=== PATIENT | female | born 1960 | race Caucasian/White ===

== ENCOUNTER 2017-06-13 13:49 | Inpatient (IN) | payer BC, MEDICARE ==
[2017-06-13] MEDS ORDERED: KETOROLAC 30 MG/ML 1 ML VIAL IVP STA (14:22)
[2017-06-13] MEDS ORDERED: SODIUM CHLORIDE 0.9% 500 ML IV STA (14:22)
[2017-06-13] MEDS ORDERED: fentaNYL (PF) 50 MCG/ML 2 ML AMP IV STA (14:22)
[2017-06-13] MEDS ORDERED: ONDANSETRON 4 MG/2 ML VIAL IVP STA (14:22)
--- NOTE | 2017-06-13 14:29 | ED ---
Headache HPI - General Chief Complaint: Headache Stated Complaint: migraine Time Seen by Provider: 06/13/17 14:15 Source: patient, family, RN notes reviewed Mode of arrival: wheelchair Limitations: no limitations - History of Present Illness Initial Comments: This is a 57-year-old female with a history of poor dentition who had the onset this morning of left-sided headache she states is very severe behind her left eye and facial region she has a fevers chills or sweats she did vomit twice she went to a dental clinic and was told to come here for further evaluation she was given a prescription for amoxicillin. At this time she is a poor historian and most of the questions are answered by her . No focal deficits was rechecked upper or lower extremities no visual disturbances. The patient does deny any history of migraine headaches. MD Complaint: headache, other - Related Data Home Medications Medication Instructions Recorded Confirmed Atorvastatin [Lipitor] 40 mg PO HS 06/13/17 06/13/17 Budesonide/Formoterol Fumarate 2 puff INHALATION RT-BID 06/13/17 06/13/17 [Symbicort 160-4.5 Mcg Inhaler] Clopidogrel [Plavix] 75 mg PO DAILY 06/13/17 06/13/17 DULoxetine HCL [Cymbalta] 60 mg PO DAILY 06/13/17 06/13/17 Fluticasone/Vilanterol [Breo 1 puff INHALATION RT-DAILY 06/13/17 06/13/17 Ellipta 100-25 Mcg Inhaler] Furosemide [Lasix] 20 mg PO DAILY 06/13/17 06/13/17 Losartan Potassium 100 mg PO DAILY 06/13/17 06/13/17 Meloxicam 15 mg PO DAILY 06/13/17 06/13/17 Potassium Chloride ER [K-Dur 10] 10 meq PO DAILY 06/13/17 06/13/17 Previous Rx's Medication Instructions Recorded Hydrocodone/Acetaminophen [[place] 1 each PO Q6HR PRN #12 tab 06/13/17 5-325] Ibuprofen 800 mg PO Q6HR PRN #20 tablet 06/13/17 Allergies Allergy/AdvReac Type Severity Reaction Status Date / Time No Known Allergies Allergy Verified 06/13/17 14:19 Review of Systems ROS Statement: Those systems with pertinent positive or pertinent negative responses have been documented in the HPI. ROS Other: All systems not noted in ROS Statement are negative. Past Medical History Past Medical History: Coronary Artery Disease (CAD), COPD, Hyperlipidemia History of Any Multi-Drug Resistant Organisms: None Reported Past Surgical History: Heart Catheterization With Stent Past Psychological History: No Psychological Hx Reported Smoking Status: Current every day smoker Past Alcohol Use History: None Reported Past Drug Use History: None Reported General Exam - General Exam Comments Initial Comments: Is a well-developed well-nourished awake alert oriented 3 female Limitations: no limitations General appearance: alert, anxious, in distress Head exam: Present: atraumatic, normocephalic, normal inspection Eye exam: Present: normal appearance, PERRL, EOMI. Absent: scleral icterus, conjunctival injection, periorbital swelling ENT exam: Present: mucous membranes moist, TM's normal bilaterally, other (Poor dental condition with numerous caries especially in the left upper molars. There is tenderness palpation of this area no discrete abscess.) Neck exam: Present: normal inspection. Absent: tenderness, meningismus, lymphadenopathy Respiratory exam: Present: normal lung sounds bilaterally. Absent: respiratory distress, wheezes, rales, rhonchi, stridor Cardiovascular Exam: Present: regular rate, normal rhythm, normal heart sounds. Absent: systolic murmur, diastolic murmur, rubs, gallop, clicks GI/Abdominal exam: Present: soft, normal bowel sounds, other (Obese abdomen). Absent: distended, tenderness, guarding, rebound, rigid Extremities exam: Present: normal inspection, full ROM, normal capillary refill. Absent: tenderness, pedal edema, joint swelling, calf tenderness Back exam: Present: normal inspection Neurological exam: Present: alert, oriented X3, CN II-XII intact Psychiatric exam: Present: normal affect, normal mood Skin exam: Present: warm, dry, intact, normal color. Absent: rash Course Vital Signs 06/13/17 13:51 Temperature 98.2 F Pulse Rate 82 Respiratory 20 Rate Blood Pressure 262/125 O2 Sat by Pulse 97 Oximetry - Reevaluation(s) Reevaluation #1: 06/13/17 16:17 Patient did get some relief from her pain with the medication was rendered. Medical Decision Making - Medical Decision Making I did have a long discussion with patient regarding the findings patient's presentation consistent with dental caries and dental pain she was getting some relief from the medication she has a prescription already for antibiotics he'll get her gram of Rocephin prior to discharge she will be discharged on appropriate medication she is encouraged to follow-up with dentist and return when necessary - Lab Data Result diagrams: 06/13/17 14:50 06/13/17 14:50 Lab Results 06/13/17 06/13/17 Range/Units 14:50 14:50 WBC 13.8 H (3.8-10.6) k/uL RBC 6.34 H (3.80-5.40) m/uL Hgb 17.6 H (11.4-16.0) gm/dL Hct 52.0 H (34.0-46.0) % MCV 82.0 (80.0-100.0) fL MCH 27.8 (25.0-35.0) pg MCHC 33.9 (31.0-37.0) g/dL RDW 15.7 H (11.5-15.5) % Plt Count 221 (150-450) k/uL Neutrophils % 85 % Lymphocytes % 10 % Monocytes % 4 % Eosinophils % 1 % Basophils % 0 % Neutrophils # 11.7 H (1.3-7.7) k/uL Lymphocytes # 1.3 (1.0-4.8) k/uL Monocytes # 0.5 (0-1.0) k/uL Eosinophils # 0.1 (0-0.7) k/uL Basophils # 0.0 (0-0.2) k/uL Sodium 140 (137-145) mmol/L Potassium 4.2 (3.5-5.1) mmol/L Chloride 101 (98-107) mmol/L Carbon Dioxide 26 (22-30) mmol/L Anion Gap 13 mmol/L BUN 15 (7-17) mg/dL Creatinine 0.40 L (0.52-1.04) mg/dL Est GFR (CKD-EPI)AfAm >90 (>60 ml/min/1.73 sqM) Est GFR (CKD-EPI)NonAf >90 (>60 ml/min/1.73 sqM) Glucose 120 H (74-99) mg/dL Calcium 9.4 (8.4-10.2) mg/dL Magnesium 1.4 L (1.6-2.3) mg/dL Total Bilirubin 0.7 (0.2-1.3) mg/dL AST 18 (14-36) U/L ALT 25 (9-52) U/L Alkaline Phosphatase 85 (38-126) U/L Total Protein 6.5 (6.3-8.2) g/dL Albumin 3.5 (3.5-5.0) g/dL Disposition Clinical Impression: Pain due to dental caries, Hypomagnesemia syndrome, Headache Disposition: HOME SELF-CARE Condition: Good Instructions: Acute Headache (ED), Toothache (ED) Additional Instructions: Continue with a prescription given by the dental clinic Prescriptions: Hydrocodone/Acetaminophen [[place] 5-325] 1 each PO Q6HR PRN #12 tab PRN Reason: Pain Ibuprofen 800 mg PO Q6HR PRN #20 tablet PRN Reason: Pain Referrals: Nonstaff,Physician [Primary Care Provider] - 1-2 days
[2017-06-13] MEDS ORDERED: METOCLOPRAMIDE 5 MG/ML 2 ML VIAL IVP STA (14:58)
[2017-06-13 15:05] LABS: Basophils % (A) 0 %; Eosinophils # (A) 0.1 k/uL (0-0.7); Eosinophils % (A) 1 %; HGB 17.6 gm/dL (11.4-16.0); Lymphocytes # (A) 1.3 k/uL (1.0-4.8); Lymphocytes % (A) 10 %; MCH 27.8 pg (25.0-35.0); MCHC 33.9 g/dL (31.0-37.0); Mean Platelet Volume 7.5; Monocytes # (A) 0.5 k/uL (0-1.0); Monocytes % (A) 4 %; Neutrophils # (A) 11.7 k/uL (1.3-7.7); Neutrophils % (A) 85 %; Platelet Count 221 k/uL (150-450); RBC 6.34 m/uL (3.80-5.40); RDW 15.7 % (11.5-15.5); WBC 13.8 k/uL (3.8-10.6)
[2017-06-13 15:12] LABS: ALT 25 U/L (9-52); AST 18 U/L (14-36); Albumin 3.5 g/dL (3.5-5.0); Alkaline Phosphatase 85 U/L (38-126); Anion Gap 13 mmol/L; Blood Urea Nitrogen 15 mg/dL (7-17); Calcium 9.4 mg/dL (8.4-10.2); Carbon Dioxide 26 mmol/L (22-30); Chloride 101 mmol/L (98-107); Glucose 120 mg/dL (74-99); Magnesium 1.4 mg/dL (1.6-2.3); Potassium 4.2 mmol/L (3.5-5.1); Sodium 140 mmol/L (137-145); Total Bilirubin 0.7 mg/dL (0.2-1.3); Total Protein 6.5 g/dL (6.3-8.2)
[2017-06-13] MEDS ORDERED: cefTRIAXone IN SWFI 1,000 MG/10 ML SYRINGE IVP STA (15:39)
[2017-06-13] MEDS ORDERED: MAGNESIUM SULFATE-D5W PMX 1 GM in DEXTROSE/WATER 1 100ML.BAG IVPB ONE (15:39)
[2017-06-13] MEDS ORDERED: hydrALAZINE HCL 20 MG/ML 1 ML VIAL IVP STA (16:25)
--- NOTE | 2017-06-13 16:43 | ED ---
Medical Decision Making - Medical Decision Making Patient did demonstrate elevation of her blood pressure in spite of her losartan that she takes. She was given hydralazine she'll be referred back to her doctor for evaluation the plan is to get her blood pressure down to reasonable limits prior to discharge is believed that some of the blood pressure elevation is due to the patient's initial complaint of pain IV magnesium and fluids are progress. - Lab Data Result diagrams: 06/13/17 14:50 06/13/17 14:50 Lab Results 06/13/17 06/13/17 Range/Units 14:50 14:50 WBC 13.8 H (3.8-10.6) k/uL RBC 6.34 H (3.80-5.40) m/uL Hgb 17.6 H (11.4-16.0) gm/dL Hct 52.0 H (34.0-46.0) % MCV 82.0 (80.0-100.0) fL MCH 27.8 (25.0-35.0) pg MCHC 33.9 (31.0-37.0) g/dL RDW 15.7 H (11.5-15.5) % Plt Count 221 (150-450) k/uL Neutrophils % 85 % Lymphocytes % 10 % Monocytes % 4 % Eosinophils % 1 % Basophils % 0 % Neutrophils # 11.7 H (1.3-7.7) k/uL Lymphocytes # 1.3 (1.0-4.8) k/uL Monocytes # 0.5 (0-1.0) k/uL Eosinophils # 0.1 (0-0.7) k/uL Basophils # 0.0 (0-0.2) k/uL Sodium 140 (137-145) mmol/L Potassium 4.2 (3.5-5.1) mmol/L Chloride 101 (98-107) mmol/L Carbon Dioxide 26 (22-30) mmol/L Anion Gap 13 mmol/L BUN 15 (7-17) mg/dL Creatinine 0.40 L (0.52-1.04) mg/dL Est GFR (CKD-EPI)AfAm >90 (>60 ml/min/1.73 sqM) Est GFR (CKD-EPI)NonAf >90 (>60 ml/min/1.73 sqM) Glucose 120 H (74-99) mg/dL Calcium 9.4 (8.4-10.2) mg/dL Magnesium 1.4 L (1.6-2.3) mg/dL Total Bilirubin 0.7 (0.2-1.3) mg/dL AST 18 (14-36) U/L ALT 25 (9-52) U/L Alkaline Phosphatase 85 (38-126) U/L Total Protein 6.5 (6.3-8.2) g/dL Albumin 3.5 (3.5-5.0) g/dL Disposition Clinical Impression: Pain due to dental caries, Hypomagnesemia syndrome, Headache, Poorly- controlled hypertension Disposition: HOME SELF-CARE Condition: Good Instructions: Acute Headache (ED), Toothache (ED) Additional Instructions: Continue with a prescription given by the dental clinic Prescriptions: Hydrocodone/Acetaminophen [[place] 5-325] 1 each PO Q6HR PRN #12 tab PRN Reason: Pain Ibuprofen 800 mg PO Q6HR PRN #20 tablet PRN Reason: Pain Referrals: Nonstaff,Physician [Primary Care Provider] - 1-2 days
[2017-06-13] MEDS ORDERED: MORPHINE SULFATE 4MG/4ML SYRG IVP STA (17:57)
--- NOTE | 2017-06-13 18:37 | CT ---
EXAMINATION TYPE: CT brain wo con DATE OF EXAM: 06/13/2017 COMPARISON: NONE HISTORY: Headache for 3-[address] DLP: 995.5 mGycm Automated exposure control for dose reduction was used. FINDINGS: Ventricles and sulci appear normal. There is no mass effect nor midline shift. There is no sign of in tracranial hemorrhage. The calvarium is intact. There is mild thickening of the wall of the right max illary sinus. IMPRESSION: NEGATIVE CT SCAN OF THE BRAIN. MILD THICKENING OF THE RIGHT MAXILLARY SINUS JONES CONSISTENT WITH CHR ONIC SINUSITIS.
[2017-06-13] MEDS ORDERED: NALOXONE 0.4 MG/ML 1 ML VIAL IV PRN (19:00)
[2017-06-13] MEDS ORDERED: ASPIRIN 81 MG PO STA (19:57)
[2017-06-13] MEDS ORDERED: cloNIDine HCL 0.2 MG TAB PO STA (20:02)
[2017-06-13] MEDS ORDERED: METOPROLOL TARTRATE 25 MG TAB PO SCH (20:30)
[2017-06-13] MEDS: AMOXICILLIN 500 MG CAP PO SCH (20:39)
[2017-06-13] MEDS: ATORVASTATIN 40 MG TAB PO SCH (20:39)
--- NOTE | 2017-06-13 20:47 | XR ---
EXAMINATION TYPE: XR chest 2V DATE OF EXAM: 06/13/2017 COMPARISON: 08/31/2009 HISTORY: Nausea and short of breath TECHNIQUE: Frontal and lateral views of the chest are obtained. FINDINGS: Heart appears enlarged. There is some pulmonary vascular congestion. There is slight blunt ing of costophrenic angles. Bony thorax is intact. IMPRESSION: There is congestive heart failure and small pleural effusions that is new compared to [facility] st exam.
[2017-06-13 20:53] LABS: Glucose,Whole Blood 104 mg/dL (75-99)
[2017-06-13] MEDS: SYMBICORT 160-4.5 MCG INHALER INHALATION SCH (21:02)
--- NOTE | 2017-06-13 21:30 | P.HPIM ---
History of Present Illness H&P Date: 06/13/17 Chief Complaint: Severe headache and confusion The patient is a 57-year-old morbidly obese female with a past with a history of COPD, dyslipidemia, essential hypertension that presents to the ER via EMS with her after waking up earlier today with a severe frontal headache 10 out of 10, that history is limited as the patient is confused and disoriented hence history is obtained from medical records and from her was present. Apparently the patient thought that her tooth was causing her pain and presented to the dentist where she was diagnosed with an oral infection and started on amoxicillin. Since around 12 PM the patient has been pretty disoriented and confused, not answering questions appropriately, unable to recall the names of her children, not oriented to place. The patient has a history of COPD and reports ongoing exertional dyspnea. She denies any cough, subjective fevers chills or night sweats. The patient's family thought that the patient was having a migraine however there is no prior history of migraines. Patient's denied any focal weakness or facial droop or slurred speech, the patient did have difficulty finding the right words and her answers to questions. Also complained of blurry vision today In the ER the patient was noted to be severely hypertensive presenting with a blood pressure of 265/125 she was given IV hydralazine, IV Reglan/ Toradol, morphine and Zofran. CT of the head was negative except for suggestion of chronic sinusitis. The patient was recommended for admission for ongoing confusion and concern for her elevated blood pressures. Aside: Shortly after her arrival to the floor and was notified of mental status change and concern for seizure, on my arrival patient was similar to my previous examination, nurse described was sounded like a dystonic reaction versus focal seizure Review of Systems All other 14 point review systems negative except per HPI Past Medical History Past Medical History: Coronary Artery Disease (CAD), COPD, Hyperlipidemia, Hypertension, Osteoarthritis (OA) Additional Past Medical History / Comment(s): at time of admission pt poor historian info from spouse/son and [facility] 2009. poor dentation, osbesity,uterine fibroids (spouse not sure if she had a hysterectomy or not),back pain History of Any Multi-Drug Resistant Organisms: None Reported Past Surgical History: Adenoidectomy, Section, Heart Catheterization With Stent, Tonsillectomy Additional Past Surgical History / Comment(s): x 4 Past Anesthesia/Blood Transfusion Reactions: No Reported Reaction Date of Last Stent Placement:: unk Smoking Status: Current every day smoker Medications and Allergies Home Medications Medication Instructions Recorded Confirmed Type Atorvastatin [Lipitor] 40 mg PO HS 06/13/17 06/13/17 History Budesonide/Formoterol Fumarate 2 puff INHALATION RT-BID 06/13/17 06/13/17 History [Symbicort 160-4.5 Mcg Inhaler] Clopidogrel [Plavix] 75 mg PO DAILY 06/13/17 06/13/17 History DULoxetine HCL [Cymbalta] 60 mg PO DAILY 06/13/17 06/13/17 History Fluticasone/Vilanterol [Breo 1 puff INHALATION RT-DAILY 06/13/17 06/13/17 History Ellipta 100-25 Mcg Inhaler] Furosemide [Lasix] 20 mg PO DAILY 06/13/17 06/13/17 History Hydrocodone/Acetaminophen [[place] 1 each PO Q6HR PRN #12 tab 06/13/17 Rx 5-325] Ibuprofen 800 mg PO Q6HR PRN #20 tablet 06/13/17 Rx Losartan Potassium 100 mg PO DAILY 06/13/17 06/13/17 History Meloxicam 15 mg PO DAILY 06/13/17 06/13/17 History Potassium Chloride ER [K-Dur 10] 10 meq PO DAILY 06/13/17 06/13/17 History Allergies Allergy/AdvReac Type Severity Reaction Status Date / Time No Known Allergies Allergy Verified 06/13/17 14:19 Physical Exam Vitals: Vital Signs Temp Pulse Resp BP Pulse Ox 06/13/17 19:20 99.3 F 83 18 185/82 94 L 06/13/17 16:54 89 182/90 06/13/17 16:00 72 16 244/119 92 L 06/13/17 13:51 98.2 F 82 20 262/125 97 Intake and Output 06/13/17 06/13/17 06/13/17 06:59 14:59 22:59 Other: Weight 113.398 kg Constitutional: No acute distress, conversant, pleasant Eyes: Anicteric sclerae, moist conjunctiva, no lid-lag, PERRLA ENMT: NC/AT,Oropharynx clear, no erythema, exudates Neck:Supple, FROM, no masses, or JVD, No carotid bruits; No thyromegaly Lungs: Clear to auscultation, Clear to percussion, Normal respiratory effort, no accessory muscle use Cardiovascular: Heart regular in rate and rhythm, No murmurs, gallops, or rubs no peripheral edema Abdominal: Soft Nontender, nom distended, no guarding, no rebound or rigidity, Normoactive bowel sounds No hepatomegaly, No splenomegaly, No palpable mass No abdominal wall hernia noted Skin: Normal temperature, tone, texture, turgor, No induration No subcutaneous nodules, No rash, lesions, No ulcers Extremities:No digital cyanosis No clubbing, Pedal pulses intact and symmetrical Radial pulses intact and symmetrical Normal gait and station, No calf tenderness Psychiatric: Disoriented to place and time, confused Neuro: Muscles Strength 5/5 in all 4 extremities, Sensation to light touch grossly present throughout, difficulty finding her words Results CBC & Chem 7: 06/13/17 14:50 06/13/17 14:50 Labs: Abnormal Lab Results - Last 24 Hours (Table) 06/13/17 06/13/17 06/13/17 Range/Units 14:50 14:50 20:50 WBC 13.8 H (3.8-10.6) k/uL RBC 6.34 H (3.80-5.40) m/uL Hgb 17.6 H (11.4-16.0) gm/dL Hct 52.0 H (34.0-46.0) % RDW 15.7 H (11.5-15.5) % Neutrophils # 11.7 H (1.3-7.7) k/uL Creatinine 0.40 L (0.52-1.04) mg/dL Glucose 120 H (74-99) mg/dL POC Glucose (mg/dL) 104 H (75-99) mg/dL Magnesium 1.4 L (1.6-2.3) mg/dL Assessment and Plan Assessment: Chronic medical conditions Hyperlipidemia Morbid obesity Coronary artery disease COPD Tobaccoism (1) Hypertensive emergency Current Visit: Yes Status: Acute Code(s): I16.1 - HYPERTENSIVE EMERGENCY SNOMED Code(s): 035096570742145 (2) Hypertensive encephalopathy Current Visit: Yes Status: Acute Code(s): I67.4 - HYPERTENSIVE ENCEPHALOPATHY SNOMED Code(s): 54500744 (3) Headache Current Visit: Yes Status: Acute Code(s): R51 - HEADACHE SNOMED Code(s): 83096835 (4) Leukocytosis Current Visit: Yes Status: Acute Code(s): D72.829 - ELEVATED WHITE BLOOD CELL COUNT, UNSPECIFIED SNOMED Code(s): 203880002 (5) Dental caries Current Visit: Yes Status: Acute Code(s): K02.9 - DENTAL CARIES, UNSPECIFIED SNOMED Code(s): 91443807 Plan: The patient is admitted to [address] [place] [address] with hypertensive emergency anticipated greater than 2 midnight stay, the patient will be monitored on telemetry, started on IV hypertensive with IV hydralazine from the ER, will give her a dose of clonidine 0.2 mg and start her on metoprolol 25 mg by mouth 3 times a day, with frequent every 2 hour checks of her blood pressure. If her blood pressures continue to be refractory we'll transfer to the ICU and start her on a Cardene drip to maintain systolic blood pressure 160-170. There is concern given the patient's risk factors for evolving CVA versus complicated migraine despite a negative CT of her head, will plan to consult neurology order MRI, carotid Dopplers, echocardiogram and start the patient on antiplatelet therapy with aspirin, resume her home statins. The patient is continued on amoxicillin to treat her dental caries. Nursing is concern for possible seizure however Patient likely had a dystonic reaction to Reglan versus focal seizure. The patient is noted to have a leukocytosis blood cultures drawn we'll check a urinalysis and chest x-ray, this could also be secondary to her dental caries versus acute stress response. Place the patient SCDs and Lovenox for DVT prophylaxis
[2017-06-13] MEDS ORDERED: ONDANSETRON 4 MG/2 ML VIAL IVP PRN (21:44)
[2017-06-13 22:44] LABS: Glucose,Whole Blood 112 mg/dL (75-99)
[2017-06-14 00:28] LABS: Appearance,Urine Clear (Clear); Bilirubin,Urine Negative (Negative); Blood,Urine Negative (Negative); Color,Urine Yellow; Glucose,Urine (UA) Negative (Negative); Hyaline Casts,Urine 4 /lpf (0-2); Ketones,Urine Negative (Negative); Leukocyte Esterase,Urine Negative (Negative); Mucus,Urine Occasional /hpf; Nitrite,Urine Negative (Negative); PH, Urine 6.5 (5.0-8.0); Protein,Urine 3+ (Negative); RBC,Urine 1 /hpf (0-5); Specific Gravity,Urine 1.014 (1.001-1.035); Urobilinogen,Urine <2.0 mg/dL (<2.0); WBC,Urine 1 /hpf (0-5)
[2017-06-14] MEDS: SODIUM CHLORIDE 0.9% 1,000 ML IV SCH ×2 (01:07→13:51)
[2017-06-14] MEDS: AMOXICILLIN 500 MG CAP PO SCH ×2 (01:52→08:33)
[2017-06-14] MEDS: MORPHINE SULFATE 4MG/4ML SYRG IVP PRN ×2 (04:19→07:35)
[2017-06-14 05:06] LABS: Basophils % (A) 0 %; Eosinophils # (A) 0.1 k/uL (0-0.7); Eosinophils % (A) 1 %; HCT 49.5 % (34.0-46.0); HGB 16.6 gm/dL (11.4-16.0); Lymphocytes # (A) 1.4 k/uL (1.0-4.8); Lymphocytes % (A) 11 %; MCH 28.1 pg (25.0-35.0); MCHC 33.6 g/dL (31.0-37.0); MCV 83.6 fL (80.0-100.0); Mean Platelet Volume 7.9; Monocytes # (A) 0.7 k/uL (0-1.0); Monocytes % (A) 5 %; Neutrophils # (A) 10.9 k/uL (1.3-7.7); Neutrophils % (A) 82 %; Platelet Count 226 k/uL (150-450); RBC 5.92 m/uL (3.80-5.40); RDW 15.8 % (11.5-15.5); WBC 13.3 k/uL (3.8-10.6)
[2017-06-14 05:16] LABS: ALT 24 U/L (9-52); AST 16 U/L (14-36); Albumin 3.2 g/dL (3.5-5.0); Alkaline Phosphatase 74 U/L (38-126); Anion Gap 10 mmol/L; Blood Urea Nitrogen 13 mg/dL (7-17); Calcium 8.8 mg/dL (8.4-10.2); Carbon Dioxide 28 mmol/L (22-30); Chloride 101 mmol/L (98-107); Cholesterol 168 mg/dL (<200); Glucose 127 mg/dL (74-99); HDL Cholesterol 36 mg/dL (40-60); LDL Cholesterol,Calculated 103 mg/dL (0-99); Magnesium 1.7 mg/dL (1.6-2.3); Sodium 139 mmol/L (137-145); Total Bilirubin 0.8 mg/dL (0.2-1.3); Triglycerides 146 mg/dL (<150)
--- NOTE | 2017-06-14 07:16 | XR ---
EXAMINATION TYPE: XR chest 1V portable DATE OF EXAM: 06/14/2017 HISTORY: Shortness of breath. COMPARISON: 06/13/2017 TECHNIQUE: Single view of the chest is submitted. FINDINGS: Demonstrated are scattered senescent parenchymal change. There is improved aeration left lower lobe. Mild residual patchy density right perihilar region. The heart is stable. Hilar and mediastinal structures are within normal limits. Degenerative changes are seen of the dorsal spine. IMPRESSION: 1. There is improved aeration left lower lobe. Mild residual patchy density right perihilar region.
--- NOTE | 2017-06-14 08:22 | MR ---
EXAMINATION TYPE: MR brain wo con DATE OF EXAM: 06/14/2017 COMPARISON: CT brain from yesterday. HISTORY: encephalopathy rule out CVA. TECHNIQUE: Multiplanar, multisequence imaging of the brain and brainstem is performed without IV cont rast. FINDINGS: Exam noted suboptimal due to patient motion, fast brain protocol had to be utilized Diffusion weighted images demonstrate no evidence of a recent infarct or other diffusion abnormality. There is no worrisome extra-axial fluid collection. The ventricular system and cisternal spaces are normal in size and appearance. The brain volume is age appropriate. There are numerous T2 hyperinten se foci scattered throughout the superficial, deep, and periventricular white matter. Estimate 60-80 scattered lesions. No prominent confluent component is identified. Midline structures demonstrate normal morphology. The craniocervical junction appears within normal limits. Normal vascular flow voids are present. The visualized sinuses are clear and the globes are i ntact. IMPRESSION: 1. No evidence of a recent infarct. 2. Fairly moderate to severe nonspecific white matter changes, product of viral infection must BE con sidered among the broad differential given patient history.
[2017-06-14] MEDS: SYMBICORT 160-4.5 MCG INHALER INHALATION SCH ×2 (08:29→19:21)
[2017-06-14] MEDS: ASPIRIN 325 MG TAB PO SCH (08:33)
[2017-06-14] MEDS: LOSARTAN 50 MG TAB PO SCH (08:33)
[2017-06-14] MEDS: METOPROLOL TARTRATE 25 MG TAB PO SCH ×2 (08:33→20:24)
[2017-06-14] MEDS: POTASSIUM CHLORIDE ER 10 MEQ TAB.ER.PRT PO SCH (08:34)
[2017-06-14] MEDS: FUROSEMIDE 20 MG TAB PO SCH (08:34)
[2017-06-14] MEDS: ENOXAPARIN 40 MG/0.4 ML SYRINGE SQ SCH (08:34)
[2017-06-14] MEDS: CLOPIDOGREL 75 MG TAB PO SCH (08:34)
[2017-06-14] MEDS ORDERED: IPRATROPIUM-ALBUTEROL 3 ML NEB INHALATION PRN (08:58)
[2017-06-14] MEDS ORDERED: ASPIRIN 325 MG TAB PO SCH (09:00)
[2017-06-14] MEDS: CLEVIDIPINE BUTYRATE 25 MG in EMPTY BAG 1 BAG IV SCH ×2 (09:15→20:23)
--- NOTE | 2017-06-14 09:24 | P.CNPUL ---
History of Present Illness Consult date: 06/14/17 Reason for consult: other Chief complaint: Hypertensive emergency History of present illness: Consult dated 06/14/2017 This is a 57-year-old female who apparently was admitted from the emergency room to the sixth floor for elevated blood pressure. The patient apparently on developed worsening blood pressure on the floor developed some headache and decreased mental status and she was transferred to the ICU for IV therapy. She was apparently started on nicardipine by her hospital doctor. I did speak to the nurse last night about the transfer. The patient's a systolic blood pressure in my opinion should be maintained around 160. Her blood pressure on the floor was much higher than above 250. She has a very wide pulse pressure primarily systolic hypertension and I was concerned that dropped her blood pressure more than about a 25% reduction, she'll be at risk for stroke. Anyway , the patient now the ICU. She is awake and alert. Does not have a doctor in the area. She's from [place]. She is visiting. Apparently also has a history of COPD. I've asked the nurse to DC the nicardipine and started on Klonopin X instead. In addition I've asked the nurse to go ahead and resume the oral blood pressure medications. Review of Systems A 12 point review of system is positive for slight confusion and fatigue as well as some mild shortness of breath. Bit of a headache as well. No chest pain or chest discomfort. Past Medical History Past Medical History: Coronary Artery Disease (CAD), COPD, Hyperlipidemia, Hypertension, Osteoarthritis (OA) Additional Past Medical History / Comment(s): at time of admission pt poor historian info from spouse/son and [facility] 2009. poor dentation, osbesity,uterine fibroids (spouse not sure if she had a hysterectomy or not),back pain History of Any Multi-Drug Resistant Organisms: None Reported Past Surgical History: Adenoidectomy, Section, Heart Catheterization With Stent, Tonsillectomy Additional Past Surgical History / Comment(s): x 4 Past Anesthesia/Blood Transfusion Reactions: No Reported Reaction Date of Last Stent Placement:: unk Smoking Status: Current every day smoker - Past Family History Mother Family Medical History: COPD Additional Family Medical History / Comment(s): emphysema Father Family Medical History: Congestive Heart Failure (CHF) Medications and Allergies Home Medications Medication Instructions Recorded Confirmed Type Atorvastatin [Lipitor] 40 mg PO HS 06/13/17 06/13/17 History Budesonide/Formoterol Fumarate 2 puff INHALATION RT-BID 06/13/17 06/13/17 History [Symbicort 160-4.5 Mcg Inhaler] Clopidogrel [Plavix] 75 mg PO DAILY 06/13/17 06/13/17 History DULoxetine HCL [Cymbalta] 60 mg PO DAILY 06/13/17 06/13/17 History Fluticasone/Vilanterol [Breo 1 puff INHALATION RT-DAILY 06/13/17 06/13/17 History Ellipta 100-25 Mcg Inhaler] Furosemide [Lasix] 20 mg PO DAILY 06/13/17 06/13/17 History Hydrocodone/Acetaminophen [[place] 1 each PO Q6HR PRN #12 tab 06/13/17 Rx 5-325] Ibuprofen 800 mg PO Q6HR PRN #20 tablet 06/13/17 Rx Losartan Potassium 100 mg PO DAILY 06/13/17 06/13/17 History Meloxicam 15 mg PO DAILY 06/13/17 06/13/17 History Potassium Chloride ER [K-Dur 10] 10 meq PO DAILY 06/13/17 06/13/17 History Allergies Allergy/AdvReac Type Severity Reaction Status Date / Time No Known Allergies Allergy Verified 06/13/17 14:19 Physical Exam Osteopathic Statement: *. No significant issues noted on an osteopathic structural exam other than those noted in the History and Physical/Consult. Vitals: Vital Signs Temp Pulse Pulse Resp BP BP Pulse Ox 06/14/17 08:35 94 L 06/14/17 07:00 65 20 166/83 91 L 06/14/17 06:45 61 26 H 164/77 91 L 06/14/17 06:30 63 33 H 174/79 89 L 06/14/17 06:15 61 16 166/71 90 L 06/14/17 06:00 58 L 28 H 166/72 90 L 06/14/17 05:45 63 20 177/73 91 L 06/14/17 05:30 60 23 164/67 92 L 06/14/17 05:15 62 24 176/80 92 L 06/14/17 05:00 58 L 24 163/78 92 L 06/14/17 04:45 60 27 H 160/71 91 L 06/14/17 04:30 65 18 169/80 89 L 06/14/17 04:15 68 20 151/60 92 L 06/14/17 04:00 98.3 F 61 17 167/79 94 L 06/14/17 03:45 63 19 174/73 93 L 06/14/17 03:30 66 39 H 167/70 91 L 06/14/17 03:15 62 18 158/63 91 L 06/14/17 03:00 62 16 167/78 93 L 06/14/17 02:45 60 29 H 173/74 93 L 06/14/17 02:30 60 23 165/70 93 L 06/14/17 02:20 60 27 H 169/73 93 L 06/14/17 02:10 62 24 174/79 93 L 06/14/17 02:00 61 20 182/78 93 L 06/14/17 01:50 64 24 176/72 94 L 06/14/17 01:40 62 20 182/76 94 L 06/14/17 01:30 61 24 166/76 93 L 06/14/17 01:20 70 37 H 170/77 95 06/14/17 01:10 58 L 21 173/82 95 06/14/17 01:00 61 20 164/79 94 L 06/14/17 00:50 63 21 169/77 94 L 06/14/17 00:40 60 23 168/77 94 L 06/14/17 00:30 63 24 167/74 94 L 06/14/17 00:20 60 167/70 94 L 06/14/17 00:10 99.0 F 60 167/70 94 L 06/14/17 00:06 60 151/67 94 L 06/13/17 21:56 98.4 F 61 16 230/94 95 06/13/17 21:00 61 16 06/13/17 20:20 99.5 F 85 18 204/94 94 L 06/13/17 19:20 99.3 F 83 18 185/82 94 L 06/13/17 16:54 89 182/90 06/13/17 16:00 72 16 244/119 92 L 06/13/17 13:51 98.2 F 82 20 262/125 97 Intake and Output 06/13/17 06/14/17 06/14/17 22:59 06:59 14:59 Intake Total 625.52 160 Output Total 300 495 150 Balance -300 130.52 10 Intake: IV 560 160 Sodium Chloride 0.9% 1, 560 160 000 ml @ 80 mls/hr IV . [id number] [facility] Rx#:[id number] Intake, IV Titration 65.52 Amount niCARdipine 25 mg In 65.52 Sodium Chloride 0.9% 250 ml @ 5 MG/HR 52 mls/hr IV .Q5H ONE Rx#:[id number] Output: Urine 300 495 150 Other: Voiding Method Indwelling Catheter Weight 114.2 kg No acute distress, sleepy, arouses, oriented 3. HEENT examination is grossly unremarkable. Mucous membranes are moist. No oral lesions. Neck supple. Full range of motion. No adenopathy thyromegaly or neck vein distention. Cardiovascular examination reveals regular rhythm rate. S1-S2 normal. No S3 or S4. No discernible murmur noted. Lungs reveal mild scattered wheezes. Breath sounds are equal. No rhonchi. Abdomen soft bowel sounds are heard. No masses or tenderness. Extremities are intact. No cyanosis clubbing or edema. Skin is without rash or lesion. Neurologic examination is brief but nonfocal. Results - Laboratory Findings CBC and BMP: 06/14/17 04:36 06/14/17 04:36 Abnormal lab findings: Abnormal Labs 06/13/17 06/13/17 06/13/17 14:50 14:50 20:50 WBC 13.8 H RBC 6.34 H Hgb 17.6 H Hct 52.0 H RDW 15.7 H Neutrophils # 11.7 H Creatinine 0.40 L Glucose 120 H POC Glucose (mg/dL) 104 H Magnesium 1.4 L Total Protein Albumin LDL Cholesterol, Calc HDL Cholesterol Urine Protein Hyaline Casts Urine Mucus 06/13/17 06/13/17 06/14/17 22:43 23:50 04:36 WBC RBC Hgb Hct RDW Neutrophils # Creatinine 0.40 L Glucose 127 H POC Glucose (mg/dL) 112 H Magnesium Total Protein 6.0 L Albumin 3.2 L LDL Cholesterol, Calc 103 H HDL Cholesterol 36 L Urine Protein 3+ H Hyaline Casts 4 H Urine Mucus Occasional H 06/14/17 04:36 WBC 13.3 H RBC 5.92 H Hgb 16.6 H Hct 49.5 H RDW 15.8 H Neutrophils # 10.9 H Creatinine Glucose POC Glucose (mg/dL) Magnesium Total Protein Albumin LDL Cholesterol, Calc HDL Cholesterol Urine Protein Hyaline Casts Urine Mucus - Diagnostic Findings Chest x-ray: image reviewed (Chest x-ray labs and medications are all reviewed. CT of the brain and MRI of the brain are negative) Assessment and Plan Assessment: Assessment Hypertensive urgency/emergency, necessitating ICU transfer and IV blood pressure medications. History of hypertension History of CAD History of hyperlipidemia History of osteoarthritis Obesity Previous history of heart catheterization with stent placement History of COPD Plan: Plan dated 06/14/2017 The patient we started on Cleveprex for better blood pressure control. The nicardipine will be discontinued. We'll resume her normal oral blood pressure medications. The patient be placed on DuoNeb's 4 times a day and when necessary and Symbicort 160/4.5, 2 puffs twice daily for her underlying COPD. Additional recommendations and suggestions are forthcoming. I told the nurses to try to maintain a systolic blood pressure of about 160. We'll continue to follow. Time with Patient: Greater than 30
[2017-06-14] MEDS ORDERED: FUROSEMIDE 10 MG/ML 4 ML VIAL IV STA (09:25)
--- NOTE | 2017-06-14 11:28 | US ---
EXAMINATION TYPE: US carotid duplex BILAT DATE OF EXAM: 06/14/2017 COMPARISON: NONE CLINICAL HISTORY: encephalopathy rule out CVA. EXAM MEASUREMENTS: RIGHT: Peak Systolic Velocity (PSV) cm/sec ----- Right CCA: 102.6 ----- Right ICA: 121.5 ----- Right ECA: 328.5 ICA/CCA ratio: 1.2 RIGHT: End Diastole cm/sec ----- Right CCA: 12.5 ----- Right ICA: 15.4 ----- Right ECA: 0.0 LEFT: Peak Systolic Velocity (PSV) cm/sec ----- Left CCA: 95.3 ----- Left ICA: 367.4 ----- Left ECA: 112.1 ICA/CCA ratio: 3.9 LEFT: End Diastole cm/sec ----- Left CCA: 12.4 ----- Left ICA: 17.9 ----- Left ECA: 0.0 VERTEBRALS (direction of flow): Right Vertebral: Antegrade Left Vertebral: Antegrade Rhythm: Arrhythmia IMPRESSION: Plaque noted throughout all vessels. Elevated right ECA. elevated velocity at left bulb causing abnormal ratio. Soft plaque noted at left bulb extending into ICA. Criteria for Assigning % of Stenosis / Diameter reduction (Estimation based on the indirect measurements of the internal carotid artery velocities (ICA PSV). 1. Normal (no stenosis)=ICA PSV < 125 cm/s: ratio < 2.0: ICA EDV<40 cm/s. 2. Less than 50% stenosis=ICA PSV < 125 cm/s: ratio < 2.0: ICA EDV<40 cm/s. 3. 50 to 69% stenosis=ICA PSV of 125 to 230 cm/s: ration 2.0 ? 4.0: ICA EDV 40-100 cm/s. 4. Greater than 70% stenosis to near occlusion= ICA PSV > 230 cm/s: ratio > 4.0: ICA EDV > 100 cm/s. 5. Near occlusion= ICA PSV velocities may be low or undetectable: variable ratio and ICA EDV. 6. Total occlusion=unable to detect flow.
--- NOTE | 2017-06-14 11:44 | P.PN ---
Subjective Progress Note Date: 06/14/17 (delayed charting seen at 0800) Principal diagnosis: Headache and confusion Patient is a 57-year-old female with past medical history of COPD, dyslipidemia, morbid obesity, and hypertension who presented to the emergency department via EMS after waking with a severe frontal headache. In the ER she underwent an extensive evaluation. On arrival her blood pressure was 262/125. Laboratory analysis showed slightly elevated white blood cell count at 13.8, elevated hematocrit at 52, and slightly low magnesium at 1.4. She underwent a head CT which showed maxillary sinusitis but no other acute process. EKG was unremarkable. She was given a dose of hydralazine and arrangements were made for admission. Initially she was admitted to the selective care unit however her blood pressure continued to be elevated despite having received oral metoprolol and Catapres. She was then transferred to the ICU and started on a Cardene drip. Her blood pressure decreased nicely. Dr. Ramon had suggested goal systolic blood pressure of 160-170. She was acutely confused and her had to provide any meaningful history. Patient seen and examined at bedside in ICU. She complains of a headache. She denies any nausea vomiting, chest pain, or shortness of breath. She is alert and oriented to being in the hospital but does not know the year. She keeps asking for water. Objective - Vital Signs Vital signs: Vital Signs Temp 98.8 F 06/14/17 08:20 Pulse 69 06/14/17 11:15 Resp 16 06/14/17 11:15 BP 166/77 06/14/17 11:15 Pulse Ox 91 L 06/14/17 11:15 Intake & Output 06/13/17 06/14/17 06/14/17 18:59 06:59 18:59 Intake Total 625.52 400 Output Total 795 850 Balance -169.48 -450 Weight 113.398 kg 114.2 kg Intake: IV 560 400 Sodium Chloride 0.9% 1, 560 400 000 ml @ 80 mls/hr IV . [id number] [facility] Rx#:[id number] Intake, IV Titration 65.52 Amount niCARdipine 25 mg In 65.52 Sodium Chloride 0.9% 250 ml @ 5 MG/HR 52 mls/hr IV .Q5H ONE Rx#:[id number] Output: Urine 795 850 Other: Voiding Method Indwelling Catheter Indwelling Catheter - Exam General: non toxic, no distress, appears at stated age, morbid obesity Derm: warm, dry Head: atraumatic, normocephalic, symmetric Eyes: EOMI, no lid lag, anicteric sclera Mouth: no lip lesion, mucus membranes moist Cardiovascular: S1S2 reg, no murmur, positive posterior tibial pulse bilateral, Lungs: CTA bilateral, no rhonchi, no rales , no accessory muscle use Abdominal: soft, nontender to palpation, no guarding, no appreciable organomegaly Ext: no gross muscle atrophy, no edema, no contractures Neuro: CN II-XI grossly intact, muscle strength 5 out of 5 in all 4 extremities , intact finger to nose, light touch intact all 4 extremities and bilateral face , no pronator drift, [place] equivocal Psych: Alert, oriented to being in the hospital-not that it is [place] or the year. Keeps asking for ., appropriate affect - Labs CBC & Chem 7: 06/14/17 04:36 06/14/17 04:36 Labs: Abnormal Lab Results - Last 24 Hours (Table) 06/13/17 06/13/17 06/13/17 Range/Units 14:50 14:50 20:50 WBC 13.8 H (3.8-10.6) k/uL RBC 6.34 H (3.80-5.40) m/uL Hgb 17.6 H (11.4-16.0) gm/dL Hct 52.0 H (34.0-46.0) % RDW 15.7 H (11.5-15.5) % Neutrophils # 11.7 H (1.3-7.7) k/uL Creatinine 0.40 L (0.52-1.04) mg/dL Glucose 120 H (74-99) mg/dL POC Glucose (mg/dL) 104 H (75-99) mg/dL Magnesium 1.4 L (1.6-2.3) mg/dL Total Protein (6.3-8.2) g/dL Albumin (3.5-5.0) g/dL LDL Cholesterol, Calc (0-99) mg/dL HDL Cholesterol (40-60) mg/dL Urine Protein (Negative) Hyaline Casts (0-2) /lpf Urine Mucus (None) /hpf 06/13/17 06/13/17 06/14/17 Range/Units 22:43 23:50 04:36 WBC (3.8-10.6) k/uL RBC (3.80-5.40) m/uL Hgb (11.4-16.0) gm/dL Hct (34.0-46.0) % RDW (11.5-15.5) % Neutrophils # (1.3-7.7) k/uL Creatinine 0.40 L (0.52-1.04) mg/dL Glucose 127 H (74-99) mg/dL POC Glucose (mg/dL) 112 H (75-99) mg/dL Magnesium (1.6-2.3) mg/dL Total Protein 6.0 L (6.3-8.2) g/dL Albumin 3.2 L (3.5-5.0) g/dL LDL Cholesterol, Calc 103 H (0-99) mg/dL HDL Cholesterol 36 L (40-60) mg/dL Urine Protein 3+ H (Negative) Hyaline Casts 4 H (0-2) /lpf Urine Mucus Occasional H (None) /hpf 06/14/17 Range/Units 04:36 WBC 13.3 H (3.8-10.6) k/uL RBC 5.92 H (3.80-5.40) m/uL Hgb 16.6 H (11.4-16.0) gm/dL Hct 49.5 H (34.0-46.0) % RDW 15.8 H (11.5-15.5) % Neutrophils # 10.9 H (1.3-7.7) k/uL Creatinine (0.52-1.04) mg/dL Glucose (74-99) mg/dL POC Glucose (mg/dL) (75-99) mg/dL Magnesium (1.6-2.3) mg/dL Total Protein (6.3-8.2) g/dL Albumin (3.5-5.0) g/dL LDL Cholesterol, Calc (0-99) mg/dL HDL Cholesterol (40-60) mg/dL Urine Protein (Negative) Hyaline Casts (0-2) /lpf Urine Mucus (None) /hpf Assessment and Plan Assessment: Hypertensive emergency/ malignant HTN as evidence by ACUNA and confusion - Goal MAP for first 24 hours should be 127 - resume home losartan, continue BB - IV gtt management by ICU team -Await echocardiogram Metabolic encephalopathy secondary to above -Decreased blood pressures slowly -Supportive care -Await MRI results Dyslipidemia -Currently on statin therapy -LDL suboptimal Morbid obesity with BMI 49.2 - structured outpatient weight loss Coronary artery disease - ASA, BB, statin COPD without exacerbation -Management per pulmonary -DuoNeb and Symbicort Focal tremors -Dystonic reaction to Reglan versus focal seizure -Seizure precautions -Await neurology evaluation Polycythemia - suspect reactive to hypoxemia due to COPD/Obesity hypoventilation syndrome Leukocytosis - CXR and UA negative Proteinuria - check HgB A1C DVT prophylaxis: Lovenox Discussed with: Patient, nursing, Anticipated discharge: 4-[address]: home with home health vs SNF A total of 75 minutes was spent on the care of this complex patient more than 50 % of the time was spent in counseling and care coordination.
[2017-06-14] MEDS: IPRATROPIUM-ALBUTEROL 3 ML NEB INHALATION SCH ×3 (11:50→19:21)
--- NOTE | 2017-06-14 11:50 | ECHOF ---
Referral Reason:encephalopathy rule out CVA MEASUREMENTS -------- HEIGHT: 152.4 cm WEIGHT: 113.4 kg BP: 193/88 IVSd: 1.5 cm (0.6 - 1.1) LVIDd: 4.2 cm (3.9 - 5.3) LVPWd: 1.9 cm (0.6 - 1.1) IVSs: 2.0 cm LVIDs: 3.3 cm LVPWs: 1.8 cm LA Diam: 3.8 cm (2.7 - 3.8) LAESV Index (A-L): 44.74 ml/m Ao Diam: 2.9 cm (2.0 - 3.7) AV Cusp: 1.6 cm (1.5 - 2.6) LA Diam: 4.0 cm (2.7 - 3.8) MV EXCURSION: 8.980 mm (> 18.000) MV EF SLOPE: 49 mm/s (70 - 150) EPSS: 0.4 cm MV E Fernando: 1.01 m/s MV DecT: 314 ms MV A Fernando: 1.04 m/s MV E/A Ratio: 0.97 AV maxP.58 mmHg AV meanP.41 mmHg RAP: 5.00 mmHg RVSP: 10.28 mmHg FINDINGS -------- Sinus rhythm. This was a technically adequate study. Morbid Obesity The left ventricular size is normal. There is moderate concentric left ventricular hypertrophy. O verall left ventricular systolic function is low-normal with, an EF between 50 - 55 %. The right ventricle is normal in size. The left atrium is mildly dilated. LA is severely dilated >40 ml/m2 The right atrial size is normal. There is mild aortic valve sclerosis. There is mild aortic stenosis present. Peak/mean gradient a cross the Aortic Valve is 17.58mmHg / 8.41mmHg. Mild mitral annular calcification present. Mild mitral regurgitation is present. Mild tricuspid regurgitation present. The right ventricular systolic pressure, as measured by Doppl er, is 10.28mmHg. The pulmonic valve was not well visualized. The aortic root size is normal. Echo free space represents a pericardial fat pad. CONCLUSIONS -------- 1. Morbid Obesity 2. The left ventricular size is normal. 3. There is moderate concentric left ventricular hypertrophy. 4. Overall left ventricular systolic function is low-normal with, an EF between 50 - 55 %. 5. The left atrium is mildly dilated. 6. LA is severely dilated >40 ml/m2 7. There is mild aortic valve sclerosis. 8. There is mild aortic stenosis present. 9. Peak/mean gradient across the Aortic Valve is 17.58mmHg / 8.41mmHg. 10. Mild mitral annular calcification present. 11. Mild mitral regurgitation is present. 12. Mild tricuspid regurgitation present. 13. The right ventricular systolic pressure, as measured by Doppler, is 10.28mmHg. 14. The pulmonic valve was not well visualized. 15. The aortic root size is normal. 16. Echo free space represents a pericardial fat pad. SIMONIZER: Bianca Humphreys RDCS
[2017-06-14] MEDS ORDERED: ACYCLOVIR SODIUM 1,150 MG in SODIUM CHLORIDE 0.9% 250 ML IV SCH (16:00)
[2017-06-14] MEDS: AMPICILLIN-SULBACTAM 3 GM in SODIUM CHLORIDE 0.9% 100 ML IVPB SCH ×2 (16:00→23:58)
--- NOTE | 2017-06-14 19:43 | P.CNNES ---
History of Present Illness Consult date: 06/14/17 Requesting physician: José Miguel Muñoz Reason for Consult: Intractable headache History of Present Illness: Patient is a pleasant 57-year-old female who is being evaluated by the neurology service on 06/14/2017 per the request of Dr. Muñoz for intractable headache. Patient has history of COPD, dyslipidemia, and hypertension. Family states patient woke up with severe headache and appeared confused and disoriented. Patient had recent tooth abscess and she thought that was causing her headache. took her to the dentist and he instructed her to go to the emergency room. Patient thought she was having a migraine headache however she has no prior history of migraines. Patient's stated he did not see any focal weakness or facial droop. He did not see slurred speech or difficulty swallowing. On admission to [facility] emergency room patient was noted to be severely hypertensive with a blood pressure of 265/125. CT of the head was negative except for chronic sinusitis. Patient had change in mental status and went to the ICU for further care. Patient was placed on clevidipine for blood pressure. Patient had MRI of the brain done which showed no evidence of a recent infarct. MRI did show moderate to severe nonspecific white matter changes, product of viral infection must be considered in the differential. Infectious disease was consulted. Vital signs today are pulse rate 73, respiratory rate 26, blood pressure 159/97, and O2 sat 93% on 5 L nasal cannula. Labs are WBCs are 10.3, RBCs 5.9, hemoglobin 16.6, with hematocrit of 49.5. BUN is 13 with creatinine 0.4. Lipid panel reveals elevated LDL cholesterol of 103 with a low HDL of 36. At the time of my evaluation, patient is resting comfortably in bed and appears to be in no acute distress. Review of Systems REVIEW OF SYSTEMS: Otherwise unremarkable and noncontributory. Past Medical History Past Medical History: Coronary Artery Disease (CAD), COPD, Hyperlipidemia, Hypertension, Osteoarthritis (OA) Additional Past Medical History / Comment(s): at time of admission pt poor historian info from spouse/son and [facility] 2009. poor dentation, osbesity,uterine fibroids (spouse not sure if she had a hysterectomy or not),back pain History of Any Multi-Drug Resistant Organisms: None Reported Past Surgical History: Adenoidectomy, Section, Heart Catheterization With Stent, Tonsillectomy Additional Past Surgical History / Comment(s): x 4 Past Anesthesia/Blood Transfusion Reactions: No Reported Reaction Date of Last Stent Placement:: unk Smoking Status: Current every day smoker - Past Family History Mother Family Medical History: COPD Additional Family Medical History / Comment(s): emphysema Father Family Medical History: Congestive Heart Failure (CHF) Medications and Allergies Home Medications Medication Instructions Recorded Confirmed Type Atorvastatin [Lipitor] 40 mg PO HS 06/13/17 06/13/17 History Budesonide/Formoterol Fumarate 2 puff INHALATION RT-BID 06/13/17 06/13/17 History [Symbicort 160-4.5 Mcg Inhaler] Clopidogrel [Plavix] 75 mg PO DAILY 06/13/17 06/13/17 History DULoxetine HCL [Cymbalta] 60 mg PO DAILY 06/13/17 06/13/17 History Fluticasone/Vilanterol [Breo 1 puff INHALATION RT-DAILY 06/13/17 06/13/17 History Ellipta 100-25 Mcg Inhaler] Furosemide [Lasix] 20 mg PO DAILY 06/13/17 06/13/17 History Hydrocodone/Acetaminophen [[place] 1 each PO Q6HR PRN #12 tab 06/13/17 Rx 5-325] Ibuprofen 800 mg PO Q6HR PRN #20 tablet 06/13/17 Rx Losartan Potassium 100 mg PO DAILY 06/13/17 06/13/17 History Meloxicam 15 mg PO DAILY 06/13/17 06/13/17 History Potassium Chloride ER [K-Dur 10] 10 meq PO DAILY 06/13/17 06/13/17 History Allergies Allergy/AdvReac Type Severity Reaction Status Date / Time No Known Allergies Allergy Verified 06/13/17 14:19 Physical Examination - Vital Signs Vital Signs: Vital Signs Temp Pulse Pulse Resp BP BP Pulse Ox 06/14/17 16:05 72 06/14/17 15:51 70 06/14/17 15:30 73 26 H 159/97 93 L 06/14/17 15:00 76 29 H 166/69 91 L 06/14/17 14:30 64 17 179/73 93 L 06/14/17 14:00 61 16 168/67 92 L 06/14/17 13:15 61 15 185/86 93 L 06/14/17 13:00 61 15 191/87 92 L 06/14/17 12:45 65 16 173/75 91 L 06/14/17 12:30 78 22 146/54 91 L 06/14/17 12:15 60 15 157/69 91 L 06/14/17 12:09 71 06/14/17 12:00 98.8 F 71 25 H 146/55 92 L 06/14/17 11:52 66 06/14/17 11:45 66 17 168/71 90 L 06/14/17 11:30 71 18 174/81 91 L 06/14/17 11:15 69 16 166/77 91 L 06/14/17 11:00 66 17 179/72 92 L 06/14/17 10:45 65 20 175/77 93 L 06/14/17 10:30 68 17 190/79 92 L 06/14/17 10:15 70 23 196/84 92 L 06/14/17 10:00 70 19 191/84 92 L 06/14/17 09:45 70 22 192/85 92 L 06/14/17 09:30 76 18 188/90 92 L 06/14/17 09:15 58 L 16 178/85 92 L 06/14/17 09:00 56 L 29 H 168/89 92 L 06/14/17 08:45 58 L 24 185/83 92 L 06/14/17 08:35 94 L 06/14/17 08:30 61 22 193/88 93 L 06/14/17 08:20 98.8 F 60 23 92 L 06/14/17 07:15 62 32 H 167/77 92 L 06/14/17 07:00 65 20 166/83 91 L 06/14/17 06:45 61 26 H 164/77 91 L 06/14/17 06:30 63 33 H 174/79 89 L 06/14/17 06:15 61 16 166/71 90 L 06/14/17 06:00 58 L 28 H 166/72 90 L 06/14/17 05:45 63 20 177/73 91 L 06/14/17 05:30 60 23 164/67 92 L 06/14/17 05:15 62 24 176/80 92 L 06/14/17 05:00 58 L 24 163/78 92 L 06/14/17 04:45 60 27 H 160/71 91 L 06/14/17 04:30 65 18 169/80 89 L 06/14/17 04:15 68 20 151/60 92 L 06/14/17 04:00 98.3 F 61 17 167/79 94 L 06/14/17 03:45 63 19 174/73 93 L 06/14/17 03:30 66 39 H 167/70 91 L 06/14/17 03:15 62 18 158/63 91 L 06/14/17 03:00 62 16 167/78 93 L 06/14/17 02:45 60 29 H 173/74 93 L 06/14/17 02:30 60 23 165/70 93 L 06/14/17 02:20 60 27 H 169/73 93 L 06/14/17 02:10 62 24 174/79 93 L 06/14/17 02:00 61 20 182/78 93 L 06/14/17 01:50 64 24 176/72 94 L 06/14/17 01:40 62 20 182/76 94 L 06/14/17 01:30 61 24 166/76 93 L 06/14/17 01:20 70 37 H 170/77 95 06/14/17 01:10 58 L 21 173/82 95 06/14/17 01:00 61 20 164/79 94 L 06/14/17 00:50 63 21 169/77 94 L 06/14/17 00:40 60 23 168/77 94 L 06/14/17 00:30 63 24 167/74 94 L 06/14/17 00:20 60 167/70 94 L 06/14/17 00:10 99.0 F 60 167/70 94 L 06/14/17 00:06 60 151/67 94 L 06/13/17 21:56 98.4 F 61 16 230/94 95 06/13/17 21:00 61 16 06/13/17 20:20 99.5 F 85 18 204/94 94 L 06/13/17 19:20 99.3 F 83 18 185/82 94 L Intake and Output 06/14/17 06/14/17 06/14/17 06:59 14:59 22:59 Intake Total 625.52 669.5 160 Output Total 495 1200 350 Balance 130.52 -530.5 -190 Intake: IV 560 640 160 Sodium Chloride 0.9% 1, 560 640 160 000 ml @ 80 mls/hr IV . [id number] [facility] Rx#:[id number] Intake, IV Titration 65.52 29.5 Amount Clevidipine Butyrate 25 29.5 mg In Empty Bag 1 bag @ 1 MG/HR 2 mls/hr IV .Q24H [facility] Rx#:[id number] niCARdipine 25 mg In 65.52 Sodium Chloride 0.9% 250 ml @ 5 MG/HR 52 mls/hr IV .Q5H [facility] Rx#:[id number] Output: Urine 495 1200 350 Other: Voiding Method Indwelling Catheter Indwelling Catheter Indwelling Catheter Weight 114.2 kg PHYSICAL EXAM: GENERAL APPEARANCE: Patient is a well-developed, obese, female who appears to be in no acute distress. HEENT: Normocephalic, atraumatic, no facial asymmetry is seen. Neck is supple with no masses felt. CARDIOVASCULAR: Regular rate and rhythm. ABDOMEN: Nontender, nondistended. EXTREMITIES: Show no edema or clubbing. NEUROLOGICAL EXAM: Patient is awake, alert, and oriented 3. Speech and language are normal. Strength is 5-/5 in all 4 extremities. Sensory exam to light touch is normal in all 4 extremities. No facial asymmetry is seen on cranial nerve testing. No tremors or seizures noted. Results - Laboratory Findings CBC and BMP: 06/14/17 04:36 06/14/17 04:36 Abnormal Lab Findings: Abnormal Labs 06/13/17 06/13/17 06/13/17 14:50 14:50 20:50 WBC 13.8 H RBC 6.34 H Hgb 17.6 H Hct 52.0 H RDW 15.7 H Neutrophils # 11.7 H Creatinine 0.40 L Glucose 120 H POC Glucose (mg/dL) 104 H Magnesium 1.4 L Total Protein Albumin LDL Cholesterol, Calc HDL Cholesterol Urine Protein Hyaline Casts Urine Mucus 06/13/17 06/13/17 06/14/17 22:43 23:50 04:36 WBC RBC Hgb Hct RDW Neutrophils # Creatinine 0.40 L Glucose 127 H POC Glucose (mg/dL) 112 H Magnesium Total Protein 6.0 L Albumin 3.2 L LDL Cholesterol, Calc 103 H HDL Cholesterol 36 L Urine Protein 3+ H Hyaline Casts 4 H Urine Mucus Occasional H 06/14/17 04:36 WBC 13.3 H RBC 5.92 H Hgb 16.6 H Hct 49.5 H RDW 15.8 H Neutrophils # 10.9 H Creatinine Glucose POC Glucose (mg/dL) Magnesium Total Protein Albumin LDL Cholesterol, Calc HDL Cholesterol Urine Protein Hyaline Casts Urine Mucus Assessment and Plan Plan: Impression: 1. Hypertensive crisis 2. Altered mental status 3. COPD 4. CAD Recommendations: Patient's altered mental status most likely due to metabolic encephalopathy due to hypertensive emergency. Patient's mental status has improved. Patient is awake and appropriate. She is conversant and cooperative. MRI of the brain did not show any recent infarct. MRI was abnormal and infectious disease was consulted for possible viral pathology. Will await ID recommendations. EEG was done and results are pending. Continue neurological checks. Continue seizure precautions. I will continue to follow with you. Further recommendations to follow. Thank you for allowing me to participate in the care of your patient. Feel free to call with any questions or concerns. I performed an examination of the patient and discussed the management with the OUTSOLE SCHEDULER. I have reviewed the OUTSOLE SCHEDULER notes and agree with the findings and plan of care.
[2017-06-14] MEDS: ATORVASTATIN 40 MG TAB PO SCH (20:24)
[2017-06-14] MEDS ORDERED: AMOXIC-POT CLAV 875-125MG 1 EACH TAB PO SCH (21:00)
[2017-06-14] MEDS: ACETAMINOPHEN TAB 325 MG TAB PO PRN (21:25)
--- NOTE | 2017-06-14 22:40 | CONS ---
CONSULTATION DATE OF SERVICE: 06/14/2017. REASON FOR CONSULTATION: 1. Abnormal MRI, headache and a question of possible encephalitis. 2. Leukocytosis. HISTORY OF PRESENT ILLNESS: The patient is a 57-year-old female presenting to the ER 06/13/2017 with chief complaints of headache after the patient woke up earlier today. Headache has been mostly frontal, almost throbbing, almost 10/10. The patient denies having any photophobia, feeling nauseous or throwing up. The patient apparently seems to be having a problem with an infected upper jaw tooth on the left side for which the patient has been seen by her dentist and has been treated with oral amoxicillin. On arrival to the ER, the patient did have significantly elevated blood pressure of 262 systolic to 125 diastolic. The patient did not have any fever on presentation or even afterward. She did have a mildly elevated white count 13.8. Her repeat is 13.3. As a workup of her headache, the patient did have a CT followed by an MRI of the brain that has been suspicious for fairly moderate to severe nonspecific white-matter changes. Product of viral infection must be considered, but did not specify if those were specifically to the temporal lobe, which are very herpes infection. The patient did not recall any history of for herpes labialis or any genital herpes. Diagnosis of possible herpes encephalitis was considered by the admitting team. was requested; unfortunately, could not be completed as the patient has been on Plavix, empirically has been started on acyclovir and Infectious Disease was consulted for further recommendation regarding antiviral as well as antibiotic therapy. REVIEW OF SYSTEMS: CONSTITUTIONAL: Positive for weakness, but there is no fever. EYES: No complaint. ENT: No complaint. RESPIRATORY: No complaint. CARDIOVASCULAR: No complaint. GENITOURINARY: No complaint. GASTROINTESTINAL: No complaint. MUSCULOSKELETAL: No complaint. INTEGUMENTARY: No complaint. PSYCHOLOGICAL: No complaint. ENDOCRINE: No complaint. NEUROLOGICAL: As per HPI. PAST MEDICAL HISTORY: Hypertension, hyperlipidemia, COPD, coronary disease, osteoarthritis, poor dentition. PAST SURGICAL HISTORY: Adenoidectomy, , PTCA with stent and tonsillectomy. SOCIAL HISTORY: Patient is current everyday smoker. She is , lives with . No drinking or drug use. ALLERGIES: No known drug allergies. MEDICATIONS: Include the patient currently on: 1. Tylenol. 2. DuoNeb. 3. Acyclovir. 4. Aspirin. 5. Lipitor. 6. Symbicort. 7. Plavix. 8. Lovenox. 9. Lasix. 10.Cozaar. 11.Lopressor. 12.Morphine sulfate. 13.Narcan. 14.Zofran q.2. EXAMINATION: Her blood pressure is 152/55 with a pulse of 80, temperature of 98. She is 92% on room air. General description is a middle-aged female lying in bed in no distress. No tachypnea or accessory muscle of respiration use. HEENT shows no pallor or scleral icterus. Oral mucosa is moist. The patient did have significantly poor dentition with an infected tooth off the left upper jaw. NECK: Trachea central. There is no thyromegaly or any neck rigidity. LUNGS: Unlabored breathing. Clear to auscultation anteriorly. No wheeze or crackle. HEART: S1, S2. Regular rate and rhythm. ABDOMEN: Soft. There is no tenderness. No guarding or rigidity. EXTREMITIES: No edema of the feet. SKIN: No rashes. No mass palpable. NEUROLOGICAL: Patient is awake, alert, oriented x3 and no signs of meningeal irritation. LABS: Hemoglobin is 16.6 with a white count of 13.3, BUN of 13, creatinine 0.40. Electrolytes have been normal. Liver enzymes are normal. Urine is negative. Blood culture obtained, currently pending. DIAGNOSTIC IMPRESSION: 1. Patient admitted to the hospital with significant headache, which is likely multifactorial, as the patient did have likely have hypertensive encephalopathy with a systolic of 265 and diastolic of 125 on admission. The patient also has significant left upper jaw infected tooth, likely will be contributing to some of this headache. Clinically, doubt encephalitis, as the patient with no fever. The patient's headache, which was 10/10 on admission has down to 1/10-2/10 at the time of my evaluation and the patient with no mental status changes. She did not have any photophobia or any neck rigidity. Patient with no history of herpes labialis or genital herpes, making a herpes encephalitis to be a less likely etiology. 2. Patient has significantly infected tooth. Likely need to cover for the oral eunice. PLAN: 1. We will discontinue the acyclovir, as clinically doubt HSV encephalitis. 2. HSV 1 and 2 antibodies will be requested, which if negative, no need for any further workup. 3. We will start the patient on Unasyn 3 g every 6 hours to cover for the significant tooth infection. 4. We will follow up on the clinical condition and culture to further adjust medication if needed. Thank you for this consultation. Will follow this patient along with you. THOR / RIAZ: [id number] /
[2017-06-15] MEDS: SODIUM CHLORIDE 0.9% 1,000 ML IV SCH ×2 (01:55→11:30)
[2017-06-15] MEDS: CLEVIDIPINE BUTYRATE 25 MG in EMPTY BAG 1 BAG IV SCH (04:42)
[2017-06-15 05:05] LABS: HCT 47.5 % (34.0-46.0); HGB 15.9 gm/dL (11.4-16.0); MCH 28.5 pg (25.0-35.0); MCHC 33.4 g/dL (31.0-37.0); MCV 85.4 fL (80.0-100.0); Mean Platelet Volume 7.6; Platelet Count 199 k/uL (150-450); RBC 5.56 m/uL (3.80-5.40); RDW 15.8 % (11.5-15.5); WBC 11.2 k/uL (3.8-10.6)
[2017-06-15] MEDS: AMPICILLIN-SULBACTAM 3 GM in SODIUM CHLORIDE 0.9% 100 ML IVPB SCH ×3 (05:07→17:12)
[2017-06-15 05:17] LABS: Anion Gap 8 mmol/L; Blood Urea Nitrogen 10 mg/dL (7-17); Calcium 8.5 mg/dL (8.4-10.2); Carbon Dioxide 31 mmol/L (22-30); Chloride 102 mmol/L (98-107); Glucose 98 mg/dL (74-99); Magnesium 1.7 mg/dL (1.6-2.3); Phosphorus 3.9 mg/dL (2.5-4.5); Potassium 3.8 mmol/L (3.5-5.1); Sodium 141 mmol/L (137-145)
[2017-06-15] MEDS ORDERED: Magnesium Replacement Protocol 1 EACH MISC MISCELLANE PRN (05:33)
[2017-06-15] MEDS ORDERED: Potassium Replacement Protocol 1 EACH MISC MISCELLANE PRN (05:35)
[2017-06-15] MEDS ORDERED: POTASSIUM CHLORIDE ER 20 MEQ TAB.ER PO SCH (06:00)
[2017-06-15] MEDS: MAGNESIUM SULFATE-D5W PMX 1 GM in DEXTROSE/WATER 1 100ML.BAG IVPB SCH ×2 (06:18→07:12)
[2017-06-15] MEDS: ACETAMINOPHEN TAB 325 MG TAB PO PRN ×2 (06:19→18:52)
--- NOTE | 2017-06-15 06:46 | XR ---
EXAMINATION TYPE: XR chest 1V portable DATE OF EXAM: 06/15/2017 HISTORY: shortness of breath. REFERENCE: Previous study dated 06/14/2017. FINDINGS: The heart is enlarged. There is vascular congestion and pulmonary edema. There is worsening right basilar airspace disease. This may represent confluent edema or pneumonia. Pleural spaces appe ar clear. IMPRESSION: 1. WORSENING CHANGES OF PULMONARY EDEMA. 2. CONFLUENT RIGHT-SIDED AIRSPACE DISEASE.
[2017-06-15] MEDS: SYMBICORT 160-4.5 MCG INHALER INHALATION SCH ×2 (07:58→19:42)
[2017-06-15] MEDS: IPRATROPIUM-ALBUTEROL 3 ML NEB INHALATION SCH ×4 (07:58→19:42)
[2017-06-15] MEDS: CLOPIDOGREL 75 MG TAB PO SCH (08:02)
[2017-06-15] MEDS: FUROSEMIDE 20 MG TAB PO SCH (08:02)
[2017-06-15] MEDS: METOPROLOL TARTRATE 25 MG TAB PO SCH (08:02)
[2017-06-15] MEDS: LOSARTAN 50 MG TAB PO SCH (08:02)
[2017-06-15] MEDS: ENOXAPARIN 40 MG/0.4 ML SYRINGE SQ SCH (08:03)
[2017-06-15] MEDS: ASPIRIN 325 MG TAB PO SCH (08:03)
[2017-06-15] MEDS: POTASSIUM CHLORIDE ER 10 MEQ TAB.ER.PRT PO SCH (08:03)
[2017-06-15] MEDS ORDERED: METOPROLOL TARTRATE 25 MG TAB PO STA (08:36)
--- NOTE | 2017-06-15 08:49 | P.PN ---
Subjective Progress Note Date: 06/15/17 Principal diagnosis: Headache and confusion Patient is a 57-year-old female with past medical history of COPD, dyslipidemia, morbid obesity, and hypertension who presented to the emergency department via EMS after waking with a severe frontal headache. In the ER she underwent an extensive evaluation. On arrival her blood pressure was 262/125. Laboratory analysis showed slightly elevated white blood cell count at 13.8, elevated hematocrit at 52, and slightly low magnesium at 1.4. She underwent a head CT which showed maxillary sinusitis but no other acute process. EKG was unremarkable. She was given a dose of hydralazine and arrangements were made for admission. Initially she was admitted to the selective care unit however her blood pressure continued to be elevated despite having received oral metoprolol and Catapres. She was then transferred to the ICU and started on a Cardene drip. Her blood pressure decreased nicely. Dr. Linares had suggested goal systolic blood pressure of 160-170. She was acutely confused and her had to provide any meaningful history. Echocardiogram was done which showed severe left atrial dilation and preserved ejection fraction of 50-55%. Her Cardene drip was transitioned to Clevidipine to help optimize her BP. MRI was done which showed multiple white matter changes with possible concern for viral etiology. We had attempted to do an LP however due to the administration of Plavix were unable to obtain. Infectious disease was consulted and felt that her clinical presentation was not reflective of viral etiologies and the empiric acyclovir was stopped. Her oral amoxicillin was transitioned to IV Unasyn to help treat her dental pain. Carotid Dopplers show plaquing on. Have any significant stenosis. She was seen by neurology who felt that her mental status changes were likely secondary to hypertensive encephalopathy. MRI did not reveal a stroke. By the morning of 06/15 her blood pressure was greatly improved and she was able to come off IV drip. Her metoprolol has been increased. Patient seen and examined at bedside in ICU. Her headache has now moved across the back of her head but none is in the front behind the left eye. Confusion is resolved. No chest pain, shortness of breath, nausea, or vomiting. She states that about a month ago with a change of her Symbicort and started her on Cymbalta for fibromyalgia in [place]. She is going to be staying in [place] for the for the foreseeable future due to family issues. We will attempt to coordinate a PCP for her to follow with. Objective - Vital Signs Vital signs: Vital Signs Temp 98.4 F 06/15/17 08:00 Pulse 88 06/15/17 08:00 Resp 16 06/15/17 08:00 BP 153/59 06/15/17 08:00 Pulse Ox 92 L 06/15/17 08:00 Intake & Output 06/14/17 06/15/17 06/15/17 18:59 06:59 18:59 Intake Total 989.5 2010.033 190.6 Output Total 1750 5 250 Balance -760.5 -54.967 -59.4 Weight 112.8 kg Intake: IV 960 1340 180 Ampicillin-Sulbactam 3 gm 200 In Sodium Chloride 0.9% 100 ml @ 100 mls/hr IVPB Q6HR [facility] Rx#:[id number] Magnesium Sulfate-D5w Pmx 100 100 1 gm In Dextrose/Water 1 100ml.bag @ 100 mls/hr IVPB Q1H [facility] Rx#: [id number] Sodium Chloride 0.9% 1, 960 1040 80 000 ml @ 80 mls/hr IV . [id number] [facility] Rx#:[id number] Intake, IV Titration 29.5 70.033 10.6 Amount Clevidipine Butyrate 25 29.5 70.033 10.6 mg In Empty Bag 1 bag @ 1 MG/HR 2 mls/hr IV .Q24H [facility] Rx#:[id number] Oral 600 Output: Urine 1750 5 250 Other: Voiding Method Indwelling Catheter Indwelling Catheter - Exam General: non toxic, no distress, appears at stated age, morbid obesity Derm: warm, dry Head: atraumatic, normocephalic, symmetric Eyes: EOMI, no lid lag, anicteric sclera Mouth: no lip lesion, mucus membranes moist Cardiovascular: S1S2 reg, no murmur, positive posterior tibial pulse bilateral, Lungs: decreased bs right base with rhonchi , no accessory muscle use Abdominal: soft, nontender to palpation, no guarding, no appreciable organomegaly Ext: no gross muscle atrophy, no edema, no contractures Neuro: CN II-XI grossly intact, No focal neuro deficits Psych: Alert and oriented X 3. appropriate affect Chest x-ray as reviewed by myself -Increased pulmonary vascular congestion with increased right-sided filtrate. - Labs CBC & Chem 7: 06/15/17 04:33 06/15/17 04:33 Labs: Abnormal Lab Results - Last 24 Hours (Table) 06/14/17 06/15/17 06/15/17 Range/Units 04:36 04:33 04:33 WBC 11.2 H (3.8-10.6) k/uL RBC 5.56 H (3.80-5.40) m/uL Hct 47.5 H (34.0-46.0) % RDW 15.8 H (11.5-15.5) % Carbon Dioxide 31 H (22-30) mmol/L Creatinine 0.36 L (0.52-1.04) mg/dL HSV I IgG Interpret POSITIVE H (NEGATIVE) Microbiology - Last 24 Hours (Table) 06/13/17 14:50 Blood Culture - Preliminary Blood No Growth after 24 hours Assessment and Plan Assessment: Hypertensive emergency/ malignant HTN as evidence by ACUNA and confusion - Attempt to optomize BP regiment, - resume home losartan, increase metoprolol to 50 BID - follow BP closely. Can be transferred out of the unit if BP remains stable for several hours off gtt. Dental abscess - unasyn - ID recs appreciated Acute hypoxic respiratory failure - Stop IVF - change oral lasix to IV - Possible component of RML PNA would suspect due to aspiration from confusion, continue unasyn Dyslipidemia - continue home lipitor Morbid obesity with BMI 49.2 - structured outpatient weight loss Coronary artery disease - ASA, BB, statin COPD without exacerbation -Pulm recs appreciated -DuoNeb and Symbicort Focal tremors -Dystonic reaction to Reglan versus focal seizure -Seizure precautions -neurology recs appreciated, await EEG results Polycythemia - suspect reactive to hypoxemia due to COPD/Obesity hypoventilation syndrome Proteinuria - check HgB A1C Metabolic encephalopathy, resolved DVT prophylaxis: Lovenox Discussed with: Patient, nursing, Anticipated discharge: [address]: home with home health A total of 75 minutes was spent on the care of this complex patient more than 50 % of the time was spent in counseling and care coordination.
[2017-06-15] MEDS ORDERED: FUROSEMIDE 10 MG/ML 4 ML VIAL ONE (09:59)
--- NOTE | 2017-06-15 10:42 | P.PN ---
Subjective Progress Note Date: 06/15/17 Principal diagnosis: Hypertensive emergency Progress note dated 06/15/2017 This is a 57-year-old female originally from [place] who was visiting in this area. She was admitted with a diagnosis of hypertensive emergency necessitating ICU transfer and IV blood pressure medications including initially nicardipine and then Cleviprex. She has a history of hypertension CAD hyperlipidemia osteoarthritis obesity and previous cardiac catheterization with stent placement. She also has a history of COPD. She is doing much better. Feeling much better. Her blood pressure medications were have been turned off her weaned. We resumed her oral blood pressure medications. She also needs some IV Lasix for some fluid overload. Chest x-ray shows some diffuse bilateral infiltrates. She's currently on a saline IV at 10 mL now her. Her systolic blood pressures are now in the 150s. She is on 8 L high flow oxygen. She's much more awake and alert. She does feel much better. She is a heavy smoker is also being treated for COPD. Objective - Vital Signs Vital signs: Vital Signs Temp 98.4 F 06/15/17 08:00 Pulse 68 06/15/17 10:00 Resp 19 06/15/17 10:00 BP 160/73 06/15/17 10:00 Pulse Ox 96 06/15/17 10:00 Intake & Output 06/14/17 06/15/17 06/15/17 18:59 06:59 18:59 Intake Total 989.5 2010.033 350.6 Output Total 1750 2065 380 Balance -760.5 -54.967 -29.4 Weight 112.8 kg 112.8 kg Intake: IV 960 1340 190 Ampicillin-Sulbactam 3 gm 200 In Sodium Chloride 0.9% 100 ml @ 100 mls/hr IVPB Q6HR [facility] Rx#:[id number] Magnesium Sulfate-D5w Pmx 100 100 1 gm In Dextrose/Water 1 100ml.bag @ 100 mls/hr IVPB Q1H [facility] Rx#: [id number] Sodium Chloride 0.9% 1, 960 1040 90 000 ml @ 80 mls/hr IV . [id number] [facility] Rx#:[id number] Intake, IV Titration 29.5 70.033 10.6 Amount Clevidipine Butyrate 25 29.5 70.033 10.6 mg In Empty Bag 1 bag @ 1 MG/HR 2 mls/hr IV .Q24H [facility] Rx#:[id number] Oral 600 150 Output: Urine 1750 2065 380 Other: Voiding Method Indwelling Catheter Indwelling Catheter Indwelling Catheter - Exam No acute distress, oriented 3. Nasal O2 in place HEENT examination is grossly unremarkable. Mucous membranes are moist. No oral lesions. Neck supple. Full range of motion. No adenopathy thyromegaly or neck vein distention. Cardiovascular examination reveals regular rhythm rate. S1-S2 normal. No S3 or S4. No discernible murmur noted. Lungs reveal clear breath sounds. Her sounds are equal bilaterally. No adventitious lung sounds including wheezes rhonchi or crackles. Abdomen soft bowel sounds are heard. No masses or tenderness. Extremities are intact. No cyanosis clubbing or edema. Skin is without rash or lesion. Neurologic examination is brief but nonfocal. - Labs CBC & Chem 7: 06/15/17 04:33 06/15/17 04:33 Labs: Abnormal Lab Results - Last 24 Hours (Table) 06/14/17 06/15/17 06/15/17 Range/Units 04:36 04:33 04:33 WBC 11.2 H (3.8-10.6) k/uL RBC 5.56 H (3.80-5.40) m/uL Hct 47.5 H (34.0-46.0) % RDW 15.8 H (11.5-15.5) % Carbon Dioxide 31 H (22-30) mmol/L Creatinine 0.36 L (0.52-1.04) mg/dL HSV I IgG Interpret POSITIVE H (NEGATIVE) Microbiology - Last 24 Hours (Table) 06/13/17 14:50 Blood Culture - Preliminary Blood No Growth after 24 hours Assessment and Plan Assessment: Assessment Hypertensive urgency/emergency, necessitating ICU transfer and IV blood pressure medications. History of hypertension History of CAD History of hyperlipidemia History of osteoarthritis Obesity Previous history of heart catheterization with stent placement History of COPD Plan: Plan dated 06/14/2017 The patient we started on Cleveprex for better blood pressure control. The nicardipine will be discontinued. We'll resume her normal oral blood pressure medications. The patient be placed on DuoNeb's 4 times a day and when necessary and Symbicort 160/4.5, 2 puffs twice daily for her underlying COPD. Additional recommendations and suggestions are forthcoming. I told the nurses to try to maintain a systolic blood pressure of about 160. We'll continue to follow. Plan dated 06/15/2017 Currently, the patient is off all IV blood pressure reducing medications. The patient is doing much better from that standpoint. She's also much more awake and alert. We placed her on DuoNeb's 4 times a day and when necessary as well as Symbicort 160/4.5, 2 puffs twice daily for COPD. In addition, we will give her Lasix 40 mg IV push and turn her IVs back to KVO. Chest x-ray shows fluid overload. We'll make sure that she's been resumed on all her normal blood pressure medications. Additional recommendations and suggestions are forthcoming. Probably can leave the unit later today. Critical care time is 32 minutes Time with Patient: Greater than 30
--- NOTE | 2017-06-15 19:51 | P.PN ---
Subjective Progress Note Date: 06/15/17 Patient is a pleasant 57-year-old female who is being followed by the neurology service for headache and altered mental status. Patient was brought to [facility] after waking up with a severe frontal headache. Patient was found to have blood pressure of 262/125 on admission. Patient was placed on a Cardene drip. Patient had stat CT of the head which showed no acute process but did show maxillary sinusitis. Patient had MRI which showed multiple white matter changes with possible concern for viral etiology. An LP was considered but patient was on Plavix. Infectious disease was consulted. ID did not feel patient's presentation was consistent with viral etiology. Patient had recent oral abscesses. Infectious disease treated her with IV Unasyn to help dental pain. Carotid Doppler showed no significant stenosis.. Patient was treated in the ICU unit. Patient is now off the Cardene drip and on metoprolol. She is now much more awake and appropriate. At the time of my evaluation, patient is resting comfortably in bed and appears to be in no acute distress. Objective - Vital Signs Vital signs: Vital Signs Temp 98.3 F 06/15/17 18:37 Pulse 75 06/15/17 18:54 Resp 20 06/15/17 18:37 BP 188/81 06/15/17 18:54 Pulse Ox 94 L 06/15/17 18:54 Intake & Output 06/15/17 06/15/17 06/16/17 06:59 18:59 06:59 Intake Total 2009.033 1340.6 Output Total 2065 1755 Balance -54.967 -414.4 Weight 112.8 kg 114.7 kg Intake: IV 1340 220 Ampicillin-Sulbactam 3 gm 200 In Sodium Chloride 0.9% 100 ml @ 100 mls/hr IVPB Q6HR [facility] Rx#:[id number] Magnesium Sulfate-D5w Pmx 100 100 1 gm In Dextrose/Water 1 100ml.bag @ 100 mls/hr IVPB Q1H [facility] Rx#: [id number] Sodium Chloride 0.9% 1, 1040 120 000 ml @ 80 mls/hr IV . [id number] [facility] Rx#:[id number] Intake, IV Titration 70.033 10.6 Amount Clevidipine Butyrate 25 70.033 10.6 mg In Empty Bag 1 bag @ 1 MG/HR 2 mls/hr IV .Q24H [facility] Rx#:[id number] Oral 600 1110 Output: Urine 2065 1755 Uretheral ([place]) 30 Other: Voiding Method Indwelling Catheter Indwelling Catheter - Exam PHYSICAL EXAM: GENERAL APPEARANCE: Patient is a well-developed, female who appears to be in no acute distress. HEENT: Normocephalic, atraumatic, no facial asymmetry is seen. Neck is supple with no masses felt. CARDIOVASCULAR: Regular rate and rhythm. ABDOMEN: Nontender, nondistended. EXTREMITIES: Show no edema or clubbing. NEUROLOGICAL EXAM: Patient is awake, alert, and oriented 3. Speech and language are normal. Strength is full in all 4 extremities. Sensory exam to light touch is normal in all 4 extremities. No facial asymmetry is seen on cranial nerve testing. No tremors or seizure-like activity noted. - Labs CBC & Chem 7: 06/15/17 04:33 06/15/17 04:33 Labs: Abnormal Lab Results - Last 24 Hours (Table) 06/14/17 06/15/17 06/15/17 Range/Units 04:36 04:33 04:33 WBC 11.2 H (3.8-10.6) k/uL RBC 5.56 H (3.80-5.40) m/uL Hct 47.5 H (34.0-46.0) % RDW 15.8 H (11.5-15.5) % Carbon Dioxide 31 H (22-30) mmol/L Creatinine 0.36 L (0.52-1.04) mg/dL HSV I IgG Interpret POSITIVE H (NEGATIVE) Microbiology - Last 24 Hours (Table) 06/13/17 14:50 Blood Culture - Preliminary Blood No Growth after 48 hours Assessment and Plan Plan: Impression: 1. Hypertensive crisis 2. Altered mental status, resolved 3. COPD 4. CAD Recommendations: Patient's altered mental status most likely due to metabolic encephalopathy due to hypertensive emergency. Patient's mental status has improved. Patient is awake and appropriate. She is conversant and cooperative. MRI of the brain did not show any recent infarct. MRI was abnormal and infectious disease was consulted for possible viral pathology. As mentioned above, ID did not feel patient's clinical status was viral in nature. Antibiotics were started for dental pain. Patient states headache has resolved. Patient's blood pressure is much improved. EEG was done and results are pending. Continue neurological checks. Continue seizure precautions. I will continue to follow with you on an as-needed basis. Feel free to call with any questions or concerns. I performed an examination of the patient and discussed the management with the [employer] CLINICAL PROGRAMMER. I have reviewed the [employer] CLINICAL PROGRAMMER notes and agree with the findings and plan of care.
[2017-06-15] MEDS ORDERED: METOPROLOL TARTRATE 50 MG TAB PO SCH (21:00)
[2017-06-15] MEDS: ATORVASTATIN 40 MG TAB PO SCH (21:47)
--- NOTE | 2017-06-15 23:40 | PN ---
PROGRESS NOTE DATE OF SERVICE: 06/15/2017. REASON FOR FOLLOWUP: Right upper tooth infection and leukocytosis. INTERVAL HISTORY: The patient is afebrile. Her headache has improved. The patient denies having any chest pain, shortness of breath or cough. No abdominal pain or any diarrhea. EXAMINATION: Her blood pressure is 188/81 with a pulse of 77, temperature 98.3. She is 94% on 1L nasal cannula. General description is a middle-aged female, lying in bed in no distress. RESPIRATORY SYSTEM: Unlabored breathing with decreased breath sounds in the base. No wheeze. HEART: S1, S2. Regular rate and rhythm. ABDOMEN: Soft no tenderness. EXTREMITIES: No edema of the feet. LABS: Hemoglobin is 15.8, white count 11.2. 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 IgM is negative. Blood culture has been negative. DIAGNOSTIC IMPRESSION AND PLAN: Patient with intractable headache and mental status changes more likely related to her hypertensive encephalopathy. Clinically doubt herpes encephalitis, as the patient has no fever and her mentation improved without getting treatment for the herpes encephalitis. Lumbar puncture could not be performed, as the patient has been on Plavix. The patient did have extensive left upper tooth infection that may have brett responsible for some of the headache and elevated white count. The patient continue on Unasyn. White count has shown a downward trend. Blood culture negative so far. MMODL / IJN: [id number] /
[2017-06-16] MEDS: AMPICILLIN-SULBACTAM 3 GM in SODIUM CHLORIDE 0.9% 100 ML IVPB SCH ×4 (00:15→16:48)
[2017-06-16] MEDS: ACETAMINOPHEN TAB 325 MG TAB PO PRN (03:57)
[2017-06-16 06:50] LABS: Magnesium 1.7 mg/dL (1.6-2.3); Phosphorus 4.7 mg/dL (2.5-4.5)
[2017-06-16] MEDS: IPRATROPIUM-ALBUTEROL 3 ML NEB INHALATION SCH ×4 (07:07→19:02)
[2017-06-16] MEDS: SYMBICORT 160-4.5 MCG INHALER INHALATION SCH ×2 (07:07→19:01)
--- NOTE | 2017-06-16 07:08 | XR ---
EXAMINATION TYPE: XR chest 1V portable DATE OF EXAM: 06/16/2017 HISTORY: shortness of breath. REFERENCE: Previous study dated 18. FINDINGS: Lung volumes are prominent. The heart is enlarged. There is bibasilar airspace disease. The re are bilateral effusions. IMPRESSION: NO SIGNIFICANT INTERVAL CHANGE IN THE APPEARANCE OF THE CHEST.
[2017-06-16 07:31] LABS: HCT 46.3 % (34.0-46.0); HGB 15.3 gm/dL (11.4-16.0); MCH 28.3 pg (25.0-35.0); MCV 85.8 fL (80.0-100.0); Mean Platelet Volume 7.7; Platelet Count 170 k/uL (150-450); RDW 15.5 % (11.5-15.5); WBC 9.7 k/uL (3.8-10.6)
[2017-06-16 07:37] LABS: ALT 24 U/L (9-52); AST 20 U/L (14-36); Albumin 2.9 g/dL (3.5-5.0); Alkaline Phosphatase 69 U/L (38-126); Anion Gap 8 mmol/L; Blood Urea Nitrogen 15 mg/dL (7-17); Calcium 8.8 mg/dL (8.4-10.2); Carbon Dioxide 30 mmol/L (22-30); Chloride 104 mmol/L (98-107); Glucose 102 mg/dL (74-99); Sodium 142 mmol/L (137-145); Total Bilirubin 0.6 mg/dL (0.2-1.3); Total Protein 5.6 g/dL (6.3-8.2)
[2017-06-16] MEDS ORDERED: ASPIRIN-ACET-CAFF 250-250-65MG 1 EACH TAB PO PRN (08:34)
--- NOTE | 2017-06-16 08:41 | P.PN ---
Subjective Progress Note Date: 06/16/17 Principal diagnosis: Headache and confusion Patient is a 57-year-old female with past medical history of COPD, dyslipidemia, morbid obesity, and hypertension who presented to the emergency department via EMS after waking with a severe frontal headache. In the ER she underwent an extensive evaluation. On arrival her blood pressure was 262/125. Laboratory analysis showed slightly elevated white blood cell count at 13.8, elevated hematocrit at 52, and slightly low magnesium at 1.4. She underwent a head CT which showed maxillary sinusitis but no other acute process. EKG was unremarkable. She was given a dose of hydralazine and arrangements were made for admission. Initially she was admitted to the selective care unit however her blood pressure continued to be elevated despite having received oral metoprolol and Catapres. She was then transferred to the ICU and started on a Cardene drip. Her blood pressure decreased nicely. Dr. Linares had suggested goal systolic blood pressure of 160-170. She was acutely confused and her had to provide any meaningful history. Echocardiogram was done which showed severe left atrial dilation and preserved ejection fraction of 50-55%. Her Cardene drip was transitioned to Clevidipine to help optimize her BP. MRI was done which showed multiple white matter changes with possible concern for viral etiology. We had attempted to do an LP however due to the administration of Plavix were unable to obtain. Infectious disease was consulted and felt that her clinical presentation was not reflective of viral etiologies and the empiric acyclovir was stopped. Her oral amoxicillin was transitioned to IV Unasyn to help treat her dental pain. Carotid Dopplers show plaquing on. Have any significant stenosis. She was seen by neurology who felt that her mental status changes were likely secondary to hypertensive encephalopathy. MRI did not reveal a stroke. By the morning of 06/15 her blood pressure was greatly improved and she was able to come off IV drip. Her metoprolol was increased but he BP still remained elevated. Her oxygen requirements were increasing and cxr demonstrated pleural effusions. She was changed to IV lasix and metoprolol was again increased Patient seen and examined at bedside in ICU. Still has a headache now across the front of her head. No nausea, no problems with light/sound. No chest pain or shortness of breath. Feeling well. No sure when she will go back to [facility] so will need a doctor here. Objective - Vital Signs Vital signs: Vital Signs Temp 97.9 F 06/16/17 04:00 Pulse 68 06/16/17 07:26 Resp 20 06/16/17 04:00 BP 165/71 06/16/17 04:00 Pulse Ox 95 06/16/17 04:00 Intake & Output 06/15/17 06/16/17 06/16/17 18:59 06:59 18:59 Intake Total 1340.6 Output Total 1755 500 Balance -414.4 -500 Weight 114.7 kg 109.9 kg Intake: IV 220 Magnesium Sulfate-D5w Pmx 100 1 gm In Dextrose/Water 1 100ml.bag @ 100 mls/hr IVPB Q1H [facility] Rx#: [id number] Sodium Chloride 0.9% 1, 120 000 ml @ 80 mls/hr IV . [id number] [facility] Rx#:[id number] Intake, IV Titration 10.6 Amount Clevidipine Butyrate 25 10.6 mg In Empty Bag 1 bag @ 1 MG/HR 2 mls/hr IV .Q24H [facility] Rx#:[id number] Oral 1110 Output: Urine 1755 500 Uretheral ([place]) 30 Other: Voiding Method Indwelling Catheter Indwelling Catheter # Voids 1 - Exam General: non toxic, no distress, appears at stated age, morbid obesity Derm: warm, dry Head: atraumatic, normocephalic, symmetric Eyes: EOMI, no lid lag, anicteric sclera Mouth: no lip lesion, mucus membranes moist Cardiovascular: S1S2 reg, no murmur, positive posterior tibial pulse bilateral, Lungs: decreased bs bilateral , no accessory muscle use Abdominal: soft, nontender to palpation, no guarding, no appreciable organomegaly Ext: no gross muscle atrophy, trace edema, no contractures Neuro: CN II-XI grossly intact, No focal neuro deficits Psych: Alert and oriented X 3. appropriate affect Chest x-ray as reviewed by myself - pulmonary vascular congestion with bilateral effusions - Labs CBC & Chem 7: 06/16/17 06:14 06/16/17 06:14 Labs: Abnormal Lab Results - Last 24 Hours (Table) 06/16/17 06/16/17 06/16/17 Range/Units 06:14 06:14 06:14 Hct 46.3 H (34.0-46.0) % Creatinine 0.42 L (0.52-1.04) mg/dL Glucose 102 H (74-99) mg/dL Phosphorus 4.7 H (2.5-4.5) mg/dL Total Protein 5.6 L (6.3-8.2) g/dL Albumin 2.9 L (3.5-5.0) g/dL Microbiology - Last 24 Hours (Table) 06/13/17 14:50 Blood Culture - Preliminary Blood No Growth after 48 hours Assessment and Plan Assessment: Hypertensive emergency/ malignant HTN as evidence by ACUNA and confusion - Attempt to optomize BP regiment, - resume home losartan, increase metoprolol to 75 BID, IV lasix - follow BP closely. - prn hydralazine Dental abscess - unasyn - ID recs appreciated Acute hypoxic respiratory failure due to fluid overload -Increse lasix to IV BID, continue with daily potassium - Possible component of RML PNA would suspect due to aspiration from confusion, continue unasyn. repeat CXR in AM Dyslipidemia - continue home lipitor Morbid obesity with BMI 49.2 - structured outpatient weight loss Coronary artery disease - ASA, BB, statin COPD without exacerbation -Pulm recs appreciated -DuoNeb and Symbicort Focal tremors -Dystonic reaction to Reglan versus focal seizure -Seizure precautions -neurology recs appreciated, await EEG results Polycythemia - suspect reactive to hypoxemia due to COPD/Obesity hypoventilation syndrome Proteinuria - check HgB A1C (ordered again was cancelled for unkown reason) Metabolic encephalopathy, resolved DVT prophylaxis: Lovenox Discussed with: Patient, nursing, Anticipated discharge: [address]: home with home health A total of 35 minutes was spent on the care of this complex patient more than 50 % of the time was spent in counseling and care coordination.
[2017-06-16] MEDS: ENOXAPARIN 40 MG/0.4 ML SYRINGE SQ SCH (08:46)
[2017-06-16] MEDS: LOSARTAN 50 MG TAB PO SCH (08:46)
[2017-06-16] MEDS: ASPIRIN 325 MG TAB PO SCH (08:47)
[2017-06-16] MEDS: POTASSIUM CHLORIDE ER 10 MEQ TAB.ER.PRT PO SCH (08:47)
[2017-06-16] MEDS: CLOPIDOGREL 75 MG TAB PO SCH (08:48)
[2017-06-16] MEDS: FUROSEMIDE 10 MG/ML 4 ML VIAL IV SCH ×2 (08:50→20:19)
[2017-06-16] MEDS ORDERED: FUROSEMIDE 10 MG/ML 4 ML VIAL IV SCH (09:00)
[2017-06-16] MEDS: METOPROLOL TARTRATE 25 MG TAB PO SCH ×2 (09:26→20:19)
[2017-06-16] MEDS: hydrALAZINE HCL 20 MG/ML 1 ML VIAL IVP PRN ×2 (10:24→16:48)
--- NOTE | 2017-06-16 11:59 | P.PN ---
Subjective Progress Note Date: 06/16/17 Principal diagnosis: Hypertensive emergency Progress note dated 06/15/2017 This is a 57-year-old female originally from [place] who was visiting in this area. She was admitted with a diagnosis of hypertensive emergency necessitating ICU transfer and IV blood pressure medications including initially nicardipine and then Cleviprex. She has a history of hypertension CAD hyperlipidemia osteoarthritis obesity and previous cardiac catheterization with stent placement. She also has a history of COPD. She is doing much better. Feeling much better. Her blood pressure medications were have been turned off her weaned. We resumed her oral blood pressure medications. She also needs some IV Lasix for some fluid overload. Chest x-ray shows some diffuse bilateral infiltrates. She's currently on a saline IV at 10 mL now her. Her systolic blood pressures are now in the 150s. She is on 8 L high flow oxygen. She's much more awake and alert. She does feel much better. She is a heavy smoker is also being treated for COPD. Progress note dated 06/16/2017 This is a 57-year-old female originally from [place] who was visiting in the area. She was admitted with a diagnosis of hypertensive urgency necessitating ICU transfer and IV blood pressure reducing medications including initially nicardipine and then Cleviprex. She does have a history of benign essential hypertension, CAD, hyperlipidemia, osteoarthritis, obesity, and previous cardiac catheterization with stent placement. She also apparently has a history of COPD. Doing much better. Was able be removed from the ICU it out to the floor a couple days ago. Her oxygen requirements have been decreasing. Chest x-ray shows some bibasilar infiltrates. We have given her some Lasix and turn down her IV fluids. She is much more awake and alert. Not having any respiratory distress or difficulty. Chest x-ray from June 16 is reviewed. Objective - Vital Signs Vital signs: Vital Signs Temp 98.3 F 06/16/17 08:40 Pulse 72 06/16/17 11:35 Resp 18 06/16/17 08:40 BP 189/88 06/16/17 10:15 Pulse Ox 94 L 06/16/17 08:40 Intake & Output 06/15/17 06/16/17 06/16/17 18:59 06:59 18:59 Intake Total 1340.6 Output Total 1755 500 Balance -414.4 -500 Weight 114.7 kg 109.9 kg Intake: IV 220 Magnesium Sulfate-D5w Pmx 100 1 gm In Dextrose/Water 1 100ml.bag @ 100 mls/hr IVPB Q1H [facility] Rx#: [id number] Sodium Chloride 0.9% 1, 120 000 ml @ 80 mls/hr IV . [id number] [facility] Rx#:[id number] Intake, IV Titration 10.6 Amount Clevidipine Butyrate 25 10.6 mg In Empty Bag 1 bag @ 1 MG/HR 2 mls/hr IV .Q24H [facility] Rx#:[id number] Oral 1110 Output: Urine 1755 500 Uretheral ([place]) 30 Other: Voiding Method Indwelling Catheter Indwelling Catheter # Voids 1 - Exam No acute distress, oriented 3. Nasal O2 in place HEENT examination is grossly unremarkable. Mucous membranes are moist. No oral lesions. Neck supple. Full range of motion. No adenopathy thyromegaly or neck vein distention. Cardiovascular examination reveals regular rhythm rate. S1-S2 normal. No S3 or S4. No discernible murmur noted. Lungs reveal a few scattered rhonchi. Breath sounds are diminished at the bases. No crackles or wheezes. Breath sounds are equal bilaterally.. Abdomen soft bowel sounds are heard. No masses or tenderness. Extremities are intact. No cyanosis clubbing or edema. Skin is without rash or lesion. Neurologic examination is brief but nonfocal. - Labs CBC & Chem 7: 06/16/17 06:14 06/16/17 06:14 Labs: Abnormal Lab Results - Last 24 Hours (Table) 06/16/17 06/16/17 06/16/17 Range/Units 06:14 06:14 06:14 Hct 46.3 H (34.0-46.0) % Creatinine 0.42 L (0.52-1.04) mg/dL Glucose 102 H (74-99) mg/dL Phosphorus 4.7 H (2.5-4.5) mg/dL Total Protein 5.6 L (6.3-8.2) g/dL Albumin 2.9 L (3.5-5.0) g/dL Microbiology - Last 24 Hours (Table) 06/13/17 14:50 Blood Culture - Preliminary Blood No Growth after 48 hours Assessment and Plan Assessment: Assessment Hypertensive urgency/emergency, necessitating ICU transfer and IV blood pressure medications. History of hypertension History of CAD History of hyperlipidemia History of osteoarthritis Obesity Previous history of heart catheterization with stent placement History of COPD Mild fluid overload Plan: Plan dated 06/14/2017 The patient we started on Cleveprex for better blood pressure control. The nicardipine will be discontinued. We'll resume her normal oral blood pressure medications. The patient be placed on DuoNeb's 4 times a day and when necessary and Symbicort 160/4.5, 2 puffs twice daily for her underlying COPD. Additional recommendations and suggestions are forthcoming. I told the nurses to try to maintain a systolic blood pressure of about 160. We'll continue to follow. Plan dated 06/15/2017 Currently, the patient is off all IV blood pressure reducing medications. The patient is doing much better from that standpoint. She's also much more awake and alert. We placed her on DuoNeb's 4 times a day and when necessary as well as Symbicort 160/4.5, 2 puffs twice daily for COPD. In addition, we will give her Lasix 40 mg IV push and turn her IVs back to KVO. Chest x-ray shows fluid overload. We'll make sure that she's been resumed on all her normal blood pressure medications. Additional recommendations and suggestions are forthcoming. Probably can leave the unit later today. Critical care time is 32 minutes Plan dated 06/16/2017 The patient is doing much better. We'll be able to wean her IV blood pressure medications off. Also, the lung status is much improved. She's currently on DuoNeb's 4 times a day and when necessary as well as Symbicort 160/4.5, 2 puffs twice a day for her COPD. She did receive some Lasix 40 mg IV push. Chest x- ray is about the same. Oxygen requirements have come down. She feeling much better. Headache is gone away. We'll continue to follow. Prognosis is guarded. Time with Patient: Less than 30
[2017-06-16] MEDS: SODIUM CHLORIDE 0.9% 1,000 ML IV SCH (13:18)
--- NOTE | 2017-06-16 13:48 | EEG ---
ELECTROENCEPHALOGRAM REPORT DATE OF SERVICE: 06/14/2017. REASON FOR TESTING: Altered mental status and headache. DESCRIPTION OF THE PROCEDURE: This EEG was performed using a 21 channel digital electroencephalograph, following international 10-20 system. DESCRIPTION OF THE RECORDING: From the beginning of the tracing, and with patient's eyes closed, the background rhythm was mostly consisting of 8 Hz alpha frequency in the posterior occipital leads. No obvious asymmetry is seen. Frequent movement and muscle artifacts are seen. Photic stimulation was performed with a minimal driving response seen. No pathological waves were elicited. Hyperventilation was not performed. The patient does reach stage II of sleep during the tracing and occasional K complexes are seen. No epileptiform discharges were seen. Her EKG lead showed a regular rate and rhythm. INTERPRETATION: This asleep and awake EEG can be considered within normal limits. There was no asymmetry seen. No epileptiform discharges were noticed. The absence of epileptiform discharges does not rule out the diagnosis of epilepsy, therefore clinical correlation is recommended. MMPRIYAL / MOLLYN: [id number] /
[2017-06-16] MEDS: ATORVASTATIN 40 MG TAB PO SCH (20:13)
--- NOTE | 2017-06-16 20:39 | PN ---
PROGRESS NOTE DATE OF SURGERY: 06/16/2017. REASON FOR FOLLOWUP: 1. Encephalopathy, more likely related to hypertensive accelerated clinically doubt encephalitis. 2. Patient with left upper infection. INTERVAL HISTORY: The patient is afebrile. The patient headache has resolved. Pain to the upper left teeth seemed to have improved. Denies any difficulty swallowing. Denies any chest pain, shortness of breath, cough, no abdominal pain and no diarrhea. EXAMINATION: Blood pressure 176/76 with a pulse of 72, temperature 98.5. He is 94% on 6 L nasal cannula. General description is a middle-aged female up in the bed in no distress. Respiratory system: Unlabored breathing, clear to auscultation anteriorly. Heart S1, S2. Regular rate and rhythm. Abdomen soft, no tenderness. Extremities: No edema of the feet. LABS: Hemoglobin 15.2, white count 9.7, BUN of 15, creatinine 0.42. Blood cultures have been negative. DIAGNOSTIC IMPRESSION AND PLAN: 1. Patient with mental status changes more likely to hypertensive encephalopathy. Clinically doubt viral encephalitis as the patient seemed to have improved without getting any antiviral. 2. Patient with left upper tooth infection with elevated white count responded to the Unasyn that can be transitioned to 10 day course of oral Augmentin at discharge. Continue supportive care. MMODL / IJN: [id number] /
[2017-06-16 23:03] LABS: Hemoglobin A1C 6.4 % (4.0-6.0)
[2017-06-17] MEDS: AMPICILLIN-SULBACTAM 3 GM in SODIUM CHLORIDE 0.9% 100 ML IVPB SCH ×5 (00:06→23:19)
[2017-06-17] MEDS ORDERED: METOPROLOL TARTRATE 25 MG TAB PO STA (04:14)
[2017-06-17 05:58] LABS: HGB 16.1 gm/dL (11.4-16.0); MCH 28.3 pg (25.0-35.0); MCHC 33.6 g/dL (31.0-37.0); MCV 84.3 fL (80.0-100.0); Mean Platelet Volume 7.7; Platelet Count 184 k/uL (150-450); RBC 5.69 m/uL (3.80-5.40); RDW 15.5 % (11.5-15.5); WBC 11.2 k/uL (3.8-10.6)
[2017-06-17 06:17] LABS: ALT 26 U/L (9-52); AST 18 U/L (14-36); Albumin 3.2 g/dL (3.5-5.0); Alkaline Phosphatase 71 U/L (38-126); Anion Gap 10 mmol/L; Blood Urea Nitrogen 16 mg/dL (7-17); Calcium 8.8 mg/dL (8.4-10.2); Carbon Dioxide 33 mmol/L (22-30); Chloride 99 mmol/L (98-107); Glucose 129 mg/dL (74-99); Potassium 3.8 mmol/L (3.5-5.1); Sodium 142 mmol/L (137-145); Total Bilirubin 0.7 mg/dL (0.2-1.3); Total Protein 5.9 g/dL (6.3-8.2)
--- NOTE | 2017-06-17 07:43 | P.CON ---
Consult Note - . Consult date: 06/17/17 Assessment/Plan:: Consult noted in computer for diagnostic lumbar puncture for headache/confusion , which per notes appear to have substantially improved with treatment of pt's emergently high HTN on admission. Please re-consult as needed.
[2017-06-17] MEDS: SYMBICORT 160-4.5 MCG INHALER INHALATION SCH ×2 (08:36→20:59)
[2017-06-17] MEDS: IPRATROPIUM-ALBUTEROL 3 ML NEB INHALATION SCH ×4 (08:37→20:59)
[2017-06-17] MEDS: ASPIRIN 325 MG TAB PO SCH (08:48)
[2017-06-17] MEDS: CLOPIDOGREL 75 MG TAB PO SCH (08:48)
[2017-06-17] MEDS: LOSARTAN 50 MG TAB PO SCH (08:49)
[2017-06-17] MEDS: FUROSEMIDE 10 MG/ML 4 ML VIAL IV SCH ×2 (08:49→19:54)
[2017-06-17] MEDS: ENOXAPARIN 40 MG/0.4 ML SYRINGE SQ SCH (08:49)
[2017-06-17] MEDS: POTASSIUM CHLORIDE ER 10 MEQ TAB.ER.PRT PO SCH (08:49)
[2017-06-17] MEDS: METOPROLOL TARTRATE 25 MG TAB PO SCH ×2 (08:49→19:54)
--- NOTE | 2017-06-17 08:53 | XR ---
EXAMINATION TYPE: XR chest 1V portable DATE OF EXAM: 06/17/2017 Comparison: 06/16/2017 Clinical History: 57-year-old female effusion, pneumonia Findings: Heart borderline enlarged. Hyperinflation. Diffuse interstitial and vascular prominence. Hazy lower l satnam densities related to overlying soft tissue. This limits assessment of the lung bases. Impression: Correlate for COPD with superimposed mild CHF. Lung bases limited due to underpenetration secondary t o patient body habitus.
--- NOTE | 2017-06-17 08:56 | P.CRDCN ---
History of Present Illness Consult date: 06/17/17 Requesting physician: Dolly Sales Consult reason: hypertension Chief complaint: Headache History of present illness: This is a pleasant 57-year-old female with history of hypertension, hyperlipidemia, coronary artery disease, patient has had 2 myocardial infarctions in the past with prior stent placements, history of COPD, nicotine dependence, obesity, prior thyroid issues, she presented to the hospital initially with symptoms of headache. Patient was very hypertensive on admission here and has been getting and medications adjusted to control that. CAT scan of the brain was performed on admission here which was negative. Initial EKG on arrival here showed a normal sinus rhythm with nonspecific ST-T wave changes. Echocardiogram with Doppler study was performed on admission here which revealed an ejection fraction of 50-55%, LAD severely dilated. The EKG normal. MRI of the brain did not reveal evidence of recent infarct, fairly moderate to severe nonspecific white matter changes. Blood pressure on admission here to 62/125, heart rate in the 80s, 97% on room air. Let pressure this morning 180/96, heart rate in the 80s to 90s, 92% on 4 L oxygen. Patient is currently on a full aspirin daily, Lipitor 40 mg daily, Plavix 75 mg daily, Lasix 40 twice a day, hydralazine when necessary, losartan 100 mg daily, metoprolol 75 mg one tablet by mouth twice a day. Patient actually resides in [place], she is here visiting family. Around 3 AM patient became quite tachycardic, for this reason as well as her accelerated hypertension and a cardiology consultation was requested. An EKG was performed at 4:00 this morning which shows what appears to be in atrial tachycardia, this morning patient is in a normal sinus rhythm. Patient denies any chest discomfort, no palpitations, no feelings of heart racing. Past Medical History Past Medical History: Coronary Artery Disease (CAD), COPD, Hyperlipidemia, Hypertension, Osteoarthritis (OA) Additional Past Medical History / Comment(s): at time of admission pt poor historian info from spouse/son and [facility] 2009. poor dentation, osbesity,uterine fibroids (spouse not sure if she had a hysterectomy or not),back pain History of Any Multi-Drug Resistant Organisms: None Reported Past Surgical History: Adenoidectomy, Section, Heart Catheterization With Stent, Tonsillectomy Additional Past Surgical History / Comment(s): x 4 Past Anesthesia/Blood Transfusion Reactions: No Reported Reaction Date of Last Stent Placement:: unk Smoking Status: Current every day smoker - Past Family History Mother Family Medical History: COPD Additional Family Medical History / Comment(s): emphysema Father Family Medical History: Congestive Heart Failure (CHF) Medications and Allergies Home Medications Medication Instructions Recorded Confirmed Type Atorvastatin [Lipitor] 40 mg PO HS 06/13/17 06/13/17 History Budesonide/Formoterol Fumarate 2 puff INHALATION RT-BID 06/13/17 06/13/17 History [Symbicort 160-4.5 Mcg Inhaler] Clopidogrel [Plavix] 75 mg PO DAILY 06/13/17 06/13/17 History DULoxetine HCL [Cymbalta] 60 mg PO DAILY 06/13/17 06/13/17 History Fluticasone/Vilanterol [Breo 1 puff INHALATION RT-DAILY 06/13/17 06/13/17 History Ellipta 100-25 Mcg Inhaler] Furosemide [Lasix] 20 mg PO DAILY 06/13/17 06/13/17 History Hydrocodone/Acetaminophen [[place] 1 each PO Q6HR PRN #12 tab 06/13/17 Rx 5-325] Ibuprofen 800 mg PO Q6HR PRN #20 tablet 06/13/17 Rx Losartan Potassium 100 mg PO DAILY 06/13/17 06/13/17 History Meloxicam 15 mg PO DAILY 06/13/17 06/13/17 History Potassium Chloride ER [K-Dur 10] 10 meq PO DAILY 06/13/17 06/13/17 History Allergies Allergy/AdvReac Type Severity Reaction Status Date / Time No Known Allergies Allergy Verified 06/13/17 14:19 Physical Exam Vitals: Vital Signs Temp Pulse Pulse Resp BP BP Pulse Ox 06/17/17 04:00 98.0 F 89 16 179/96 92 L 06/17/17 00:00 98.8 F 72 16 168/74 100 06/16/17 20:00 99.2 F 96 16 182/79 182/77 94 L 06/16/17 19:17 72 06/16/17 19:02 68 06/16/17 18:42 176/76 06/16/17 16:00 98.5 F 72 18 226/87 94 L 06/16/17 15:36 70 06/16/17 15:23 68 96 06/16/17 12:15 180/81 06/16/17 11:35 72 06/16/17 11:29 68 06/16/17 11:10 97.2 F L 67 18 191/91 94 L 06/16/17 10:15 189/88 06/16/17 08:40 98.3 F 85 18 217/98 94 L Intake and Output 06/16/17 06/17/17 06/17/17 22:59 06:59 14:59 Intake Total 180 160 Output Total 900 1200 Balance -720 -1040 Intake: Intake, IV Titration 160 Amount Sodium Chloride 0.9% 1, 160 000 ml @ 20 mls/hr IV . Q24H ARCHIE Rx#:[id number] Oral 180 Output: Urine 900 1200 Other: # Voids 3 5 Weight 109.2 kg PHYSICAL EXAMINATION: HEENT: Head is atraumatic, normocephalic. Pupils equal, round. Neck is supple. There is no elevated jugular venous pressure. HEART EXAMINATION: Heart S1, S2 normal. No murmur or gallop heard. CHEST EXAMINATION: Lungs reveal decreased air exchange with fine wheezing throughout. ABDOMEN: Soft, obese, nontender. Bowel sounds are heard. No organomegaly noted. EXTREMITIES: 2+ peripheral pulses with no evidence of peripheral edema and no calf tenderness noted. NEUROLOGIC patient is awake, alert and oriented -3. . Results 06/17/17 05:46 06/17/17 05:46 Cardiac Enzymes 06/17/17 Range/Units 05:46 AST 18 (14-36) U/L CBC 06/17/17 Range/Units 05:46 WBC 11.2 H (3.8-10.6) k/uL RBC 5.69 H (3.80-5.40) m/uL Hgb 16.1 H (11.4-16.0) gm/dL Hct 48.0 H (34.0-46.0) % Plt Count 184 (150-450) k/uL Comprehensive Metabolic Panel 06/17/17 Range/Units 05:46 Sodium 142 (137-145) mmol/L Potassium 3.8 (3.5-5.1) mmol/L Chloride 99 (98-107) mmol/L Carbon Dioxide 33 H (22-30) mmol/L BUN 16 (7-17) mg/dL Creatinine 0.40 L (0.52-1.04) mg/dL Glucose 129 H (74-99) mg/dL Calcium 8.8 (8.4-10.2) mg/dL AST 18 (14-36) U/L ALT 26 (9-52) U/L Alkaline Phosphatase 71 (38-126) U/L Total Protein 5.9 L (6.3-8.2) g/dL Albumin 3.2 L (3.5-5.0) g/dL Current Medications Generic Name Dose Route Start Last Admin Trade Name Freq PRN Reason Stop Dose Admin Acetaminophen 650 mg 06/14/17 21:04 06/16/17 03:57 Tylenol Tab PO 650 mg Q6HR PRN Administration Fever and/ or MILD Pain Acetaminophen/Aspirin/Caffeine 1 each 06/16/17 08:34 06/16/17 10:15 Excedrin PO 1 each Q4HR PRN Administration Headache Albuterol/Ipratropium 3 ml 06/14/17 08:58 Duoneb 0.5 Mg-3 Mg/3 Ml Soln INHALATION RT-Q2H PRN Shortness Of Breath Or Wheezing Albuterol/Ipratropium 3 ml 06/14/17 12:00 06/16/17 19:02 Duoneb 0.5 Mg-3 Mg/3 Ml Soln INHALATION 3 ml RT-QID ARCHIE Administration Aspirin 325 mg 06/14/17 09:00 06/16/17 08:47 Aspirin PO 325 mg DAILY ARCHIE Administration Atorvastatin Calcium 40 mg 06/13/17 21:00 06/16/17 20:13 Lipitor PO 40 mg HS ARCHIE Administration Budesonide/Formoterol Fumarate 2 puff 06/13/17 20:00 06/16/17 19:01 Symbicort 160-4.5 Mcg Inhaler INHALATION 2 puff RT-BID ARCHIE Administration Clopidogrel Bisulfate 75 mg 06/14/17 09:00 06/16/17 08:48 Plavix PO 75 mg DAILY ARCHIE Administration Enoxaparin Sodium 40 mg 06/14/17 09:00 06/16/17 08:46 Lovenox SQ 40 mg DAILY ARCHIE Administration Furosemide 40 mg 06/16/17 09:00 06/16/17 20:19 Lasix IV 40 mg BID ARCHIE Administration Hydralazine HCl 10 mg 06/16/17 08:39 06/16/17 16:48 Apresoline IVP 10 mg Q6HR PRN Administration Blood Pressure - High Ampicillin Sodium/Sulbactam 100 mls @ 100 mls/hr 06/14/17 18:00 06/17/17 04: 36 Sodium 3 gm/ Sodium Chloride IVPB 100 mls/hr Q6HR ARCHIE Administration Sodium Chloride 1,000 mls @ 20 mls/hr 06/15/17 11:30 06/16/17 13:18 Saline 0.9% IV 20 mls/hr .Q24H ARCHIE Administration Losartan Potassium 100 mg 06/14/17 09:00 06/16/17 08:46 Cozaar PO 100 mg DAILY ARCHIE Administration Metoprolol Tartrate 75 mg 06/16/17 09:00 06/16/17 20:19 Lopressor PO 75 mg BID ARCHIE Administration Miscellaneous Information 1 each 06/15/17 05:33 Magnesium Per Protocol MISCELLANE DAILY PRN Per Protocol Protocol Miscellaneous Information 1 each 06/15/17 05:35 Potassium Per Protocol MISCELLANE DAILY PRN Per Protocol Protocol Naloxone HCl 0.2 mg 06/13/17 19:00 Narcan IV Q2M PRN Opioid Reversal Ondansetron HCl 4 mg 06/13/17 21:44 Zofran IVP Q6HR PRN Nausea And Vomiting Potassium Chloride 10 meq 06/14/17 09:00 06/16/17 08:47 K-Dur 10 PO 10 meq DAILY ARCHIE Administration Intake and Output 06/16/17 06/17/17 06/17/17 22:59 06:59 14:59 Intake Total 180 160 Output Total 900 1200 Balance -720 -1040 Intake: Intake, IV Titration 160 Amount Sodium Chloride 0.9% 1, 160 000 ml @ 20 mls/hr IV . Q24H ARCHIE Rx#:[id number] Oral 180 Output: Urine 900 1200 Other: # Voids 3 5 Weight 109.2 kg 06/17/17 05:46 06/17/17 05:46 EKG Interpretations (text) Initial EKG on presentation here shows a normal sinus rhythm with nonspecific ST -T wave changes Assessment and Plan Plan: Assessment and plan #1 headache with hypertensive emergency. CT of the brain negative. MRI of the brain did not reveal any evidence of recent infarct. #2 history of hypertension #3 coronary artery disease with prior myocardial infarction 2 with stent placements. This was performed in [place]. #4 hyperlipidemia #5 obesity #6 COPD #7 nicotine dependence #8 brief episodes of what appears to be atrial tachycardia Plan Echocardiogram with Doppler study was performed which revealed a normal left ventricular systolic function, severely dilated left atrium. We'll decrease the aspirin to 81 mg daily. Optimize blood pressure management. Add Norvasc 5 mg and hydrochlorothiazide 25 mg daily. Discontinue when necessary hydralazine. We'll also obtain records of patient's prior stent placements in [place]. Further recommendations to follow. DNP note has been reviewed, I agree with a documented findings and plan of care. Patient was seen and examined.
[2017-06-17] MEDS ORDERED: ASPIRIN 81 MG PO SCH (09:00)
[2017-06-17] MEDS ORDERED: HYDROCHLOROTHIAZIDE 25 MG TAB PO SCH (09:00)
--- NOTE | 2017-06-17 09:14 | P.PN ---
Progress Note - Text This is an addendum to the dictated cardiology consultation. The patient has a history of hypertension, chronic tobacco use and a history of CAD status post stenting done 4 years ago in [place] where she lives. She is visiting [place] to be with her daughter and complained of headache and was found to have uncontrolled hypertension. Cardiology consultation was requested because of tachycardia. On the monitor she is in sinus mechanism with episodes of tachycardia, narrow complex, possible sinus tachycardia although the possibility of atrial tachycardia cannot be excluded. The patient is unaware of the arrhythmia although she said that she had some fast heartbeat in the past , the etiology is unknown. She is not active physically and she blames her back discomfort but she has significant dyspnea on exertion. Her physical examination reveals hypertension with decreased air exchange and scattered wheezes. She has no evidence of peripheral edema. Her systolic function by echocardiography was preserved and there is no evidence of significant valvular abnormalities. I will continue on the present dose of her beta anastacia, add to her regimen calcium channel anastacia and hydrochlorothiazide. We will evaluate her magnesium and follow her potassium closely. If her TSH has not been checked we will obtain an evaluation. I have encouraged her to stop smoking. He pending on her progress further recommendations will be made. Thank you for this consult we will follow with you.
[2017-06-17] MEDS: amLODIPine 5 MG TAB PO SCH (09:51)
[2017-06-17] MEDS: SODIUM CHLORIDE 0.9% 1,000 ML IV SCH (12:06)
--- NOTE | 2017-06-17 12:30 | P.PN ---
Subjective Progress Note Date: 06/17/17 Principal diagnosis: Headache and confusion Patient is a 57-year-old female with past medical history of COPD, dyslipidemia, morbid obesity, and hypertension who presented to the emergency department via EMS after waking with a severe frontal headache. In the ER she underwent an extensive evaluation. On arrival her blood pressure was 262/125. Laboratory analysis showed slightly elevated white blood cell count at 13.8, elevated hematocrit at 52, and slightly low magnesium at 1.4. She underwent a head CT which showed maxillary sinusitis but no other acute process. EKG was unremarkable. She was given a dose of hydralazine and arrangements were made for admission. Initially she was admitted to the selective care unit however her blood pressure continued to be elevated despite having received oral metoprolol and Catapres. She was then transferred to the ICU and started on a Cardene drip. Her blood pressure decreased nicely. Dr. Linares had suggested goal systolic blood pressure of 160-170. She was acutely confused and her had to provide any meaningful history. Echocardiogram was done which showed severe left atrial dilation and preserved ejection fraction of 50-55%. Her Cardene drip was transitioned to Clevidipine to help optimize her BP. MRI was done which showed multiple white matter changes with possible concern for viral etiology. We had attempted to do an LP however due to the administration of Plavix were unable to obtain. Infectious disease was consulted and felt that her clinical presentation was not reflective of viral etiologies and the empiric acyclovir was stopped. Her oral amoxicillin was transitioned to IV Unasyn to help treat her dental pain. Carotid Dopplers show plaquing on. Have any significant stenosis. She was seen by neurology who felt that her mental status changes were likely secondary to hypertensive encephalopathy. MRI did not reveal a stroke. By the morning of 06/15 her blood pressure was greatly improved and she was able to come off IV drip. Her metoprolol was increased but he BP still remained elevated. Her oxygen requirements were increasing and cxr demonstrated pleural effusions. She was changed to IV lasix and metoprolol was again increased. She had improvement in her oxygenation by the morning of but did have persistent CHF on her x-ray. She also developed some tachycardia on the morning of 06/17 which appears atrial and cardio was consulted. Patient seen and examined at bedside. Headache has resolved. No chest pain or shortness of breath. No nausea or vomiting. Has never been evaluated for oxygen at home but gets significantly short of breath with walking. No diarrhea or constipation. Having intermittent nausea. Objective - Vital Signs Vital signs: Vital Signs Temp 98.0 F 06/17/17 04:00 Pulse 64 06/17/17 11:50 Resp 16 06/17/17 04:00 BP 179/96 06/17/17 04:00 Pulse Ox 92 L 06/17/17 04:00 Intake & Output 06/16/17 06/17/17 06/17/17 18:59 06:59 18:59 Intake Total 1290 160 360 Output Total 900 1200 400 Balance 390 -1040 -40 Weight 109.2 kg Intake: Intake, IV Titration 100 160 Amount Ampicillin-Sulbactam 3 gm 100 In Sodium Chloride 0.9% 100 ml @ 100 mls/hr IVPB Q6HR [facility] Rx#:[id number] Sodium Chloride 0.9% 1, 160 000 ml @ 20 mls/hr IV . Q24H AR[facility] Rx#:[id number] Oral 1190 360 Output: Urine 900 1200 400 Other: # Voids 3 5 - Exam General: non toxic, no distress, appears at stated age, morbid obesity Derm: warm, dry Head: atraumatic, normocephalic, symmetric Eyes: EOMI, no lid lag, anicteric sclera Mouth: no lip lesion, mucus membranes moist Cardiovascular: S1S2 reg, no murmur, positive posterior tibial pulse bilateral, Lungs: decreased bs bilateral , no accessory muscle use Abdominal: soft, nontender to palpation, no guarding, no appreciable organomegaly Ext: no gross muscle atrophy, trace edema, no contractures Neuro: CN II-XI grossly intact, No focal neuro deficits Psych: Alert and oriented X 3. appropriate affect Chest x-ray as reviewed by myself - pulmonary vascular congestion improving - Labs CBC & Chem 7: 06/17/17 05:46 06/17/17 05:46 Labs: Abnormal Lab Results - Last 24 Hours (Table) 06/14/17 06/16/17 06/17/17 Range/Units 04:36 06:14 05:46 WBC 11.2 H (3.8-10.6) k/uL RBC 5.69 H (3.80-5.40) m/uL Hgb 16.1 H (11.4-16.0) gm/dL Hct 48.0 H (34.0-46.0) % Carbon Dioxide (22-30) mmol/L Creatinine (0.52-1.04) mg/dL Glucose (74-99) mg/dL Hemoglobin A1c 6.4 H (4.0-6.0) % Total Protein (6.3-8.2) g/dL Albumin (3.5-5.0) g/dL HSV I&II IgM Ab 1.51 H (<=0.90) INDEX 06/17/17 Range/Units 05:46 WBC (3.8-10.6) k/uL RBC (3.80-5.40) m/uL Hgb (11.4-16.0) gm/dL Hct (34.0-46.0) % Carbon Dioxide 33 H (22-30) mmol/L Creatinine 0.40 L (0.52-1.04) mg/dL Glucose 129 H (74-99) mg/dL Hemoglobin A1c (4.0-6.0) % Total Protein 5.9 L (6.3-8.2) g/dL Albumin 3.2 L (3.5-5.0) g/dL HSV I&II IgM Ab (<=0.90) INDEX Microbiology - Last 24 Hours (Table) 06/13/17 14:50 Blood Culture - Preliminary Blood No Growth after 72 hours Assessment and Plan Assessment: Hypertensive emergency/ malignant HTN as evidence by ACUNA and confusion - Attempt to optomize BP regiment, - resume home losartan, metoprolol to 75 BID, IV lasix, norvasc was added by cardio. Will not add HCTZ at this point in time as she is on IV lasix. - follow BP closely. - prn hydralazine Dental abscess - unasyn - ID recs appreciated Acute hypoxic respiratory failure due to fluid overload -Continue lasix IV BID, continue with daily potassium - Possible component of RML PNA would suspect due to aspiration from confusion, continue unasyn Dyslipidemia - continue home lipitor Morbid obesity with BMI 49.2 - structured outpatient weight loss Coronary artery disease - ASA, BB, statin COPD without exacerbation -Pulm recs appreciated -DuoNeb and Symbicort Focal tremors -Dystonic reaction to Reglan -Seizure precautions -neurology recs appreciated, EEG negative Polycythemia - suspect reactive to hypoxemia due to COPD/Obesity hypoventilation syndrome - when fluid status optimized and almost ready for discharge will need to check ambulatory pulse Ox. Prediabetes - diabetes educator consult - Accuchecks Metabolic encephalopathy, resolved DVT prophylaxis: Lovenox Discussed with: Patient, nursing, Anticipated discharge: [address]: home A total of 35 minutes was spent on the care of this complex patient more than 50 % of the time was spent in counseling and care coordination.
[2017-06-17 14:22] VITALS: BMI 47.0
--- NOTE | 2017-06-17 16:52 | P.PN ---
Subjective Progress Note Date: 06/17/17 Principal diagnosis: Hypertensive urgency, pulmonary edema Progress note dated 06/15/2017 This is a 57-year-old female originally from [place] who was visiting in this area. She was admitted with a diagnosis of hypertensive emergency necessitating ICU transfer and IV blood pressure medications including initially nicardipine and then Cleviprex. She has a history of hypertension CAD hyperlipidemia osteoarthritis obesity and previous cardiac catheterization with stent placement. She also has a history of COPD. She is doing much better. Feeling much better. Her blood pressure medications were have been turned off her weaned. We resumed her oral blood pressure medications. She also needs some IV Lasix for some fluid overload. Chest x-ray shows some diffuse bilateral infiltrates. She's currently on a saline IV at 10 mL now her. Her systolic blood pressures are now in the 150s. She is on 8 L high flow oxygen. She's much more awake and alert. She does feel much better. She is a heavy smoker is also being treated for COPD. Progress note dated 06/16/2017 This is a 57-year-old female originally from [place] who was visiting in the area. She was admitted with a diagnosis of hypertensive urgency necessitating ICU transfer and IV blood pressure reducing medications including initially nicardipine and then Cleviprex. She does have a history of benign essential hypertension, CAD, hyperlipidemia, osteoarthritis, obesity, and previous cardiac catheterization with stent placement. She also apparently has a history of COPD. Doing much better. Was able be removed from the ICU it out to the floor a couple days ago. Her oxygen requirements have been decreasing. Chest x-ray shows some bibasilar infiltrates. We have given her some Lasix and turn down her IV fluids. She is much more awake and alert. Not having any respiratory distress or difficulty. Chest x-ray from June 16 is reviewed. On 06/17/2017 patient seen in follow-up selective care unit. She is sitting up in bed, denies any acute distress, FiO2 is down to 2 L per nasal cannula with O2 sat at 94%. Systolic blood pressure is in the 170s to 180s, with diastolic blood pressure between 70s and 90s. She denies any chest pain, denies any worsening dyspnea, lung sounds are clear, diminished at the bases. Patient is in -1040 mL fluid balance over the last 24 hours. Her weight is down to 109.2 kg from 114.2 kilos on admission. Patient is on Unasyn for her left upper tooth infection. This will be switched to oral Augmentin at discharge. His lab work shows a CBC of 11.2, he able on a 16.1, BUN of 16, creatinine is 0.40. Sodium is 142, potassium is 3.8, carbon dioxide is 33. She denies any acute complaints, she is awake, alert, oriented 3. Remains on IV Lasix, hold losartan, metoprolol were resumed, Norvasc was added per cardiology. Continue with current medical treatment Objective - Vital Signs Vital signs: Vital Signs Temp 96.4 F L 06/17/17 12:00 Pulse 73 06/17/17 12:00 Resp 16 06/17/17 13:08 BP 189/88 06/17/17 12:00 Pulse Ox 94 L 06/17/17 13:08 Intake & Output 06/16/17 06/17/17 06/17/17 18:59 06:59 18:59 Intake Total 1290 160 720 Output Total 900 1200 400 Balance 390 -1040 320 Weight 109.2 kg 109.2 kg Intake: Intake, IV Titration 100 160 Amount Ampicillin-Sulbactam 3 gm 100 In Sodium Chloride 0.9% 100 ml @ 100 mls/hr IVPB Q6HR [facility] Rx#:[id number] Sodium Chloride 0.9% 1, 160 000 ml @ 20 mls/hr IV . Q24H [facility] Rx#:[id number] Oral 1190 720 Output: Urine 900 1200 400 Other: # Voids 3 5 - Exam GENERAL EXAM: Alert, active, comfortable in no apparent distress. HEAD: Normocephalic/atraumatic. EYES: Normal reaction of pupils, equal size. Conjunctiva pink, sclera white. NOSE: Clear with pink turbinates. THROAT: No erythema or exudates. NECK: No masses, no JVD, no thyroid enlargement, no adenopathy. CHEST: No chest wall deformity. Symmetrical expansion. LUNGS: Equal air entry with no crackles, wheeze, rhonchi or dullness. CVS: Regular rate and rhythm, normal S1 and S2, no gallops, no murmurs, no rubs ABDOMEN: Soft, nontender. No hepatosplenomegaly, normal bowel sounds, no guarding or rigidity. EXTREMITIES: No clubbing, no edema, no cyanosis, 2+ pulses and upper and lower extremities. MUSCULOSKELETAL: Muscle strength and tone normal. SPINE: No scoliosis or deformity SKIN: No rashes CENTRAL NERVOUS SYSTEM: Alert and oriented -3. No focal deficits, tone is normal in all 4 extremities. PSYCHIATRIC: Alert and oriented -3. Appropriate affect. Intact judgment and insight. - Labs CBC & Chem 7: 06/17/17 05:46 06/17/17 05:46 Labs: Abnormal Lab Results - Last 24 Hours (Table) 06/14/17 06/16/17 06/17/17 Range/Units 04:36 06:14 05:46 WBC 11.2 H (3.8-10.6) k/uL RBC 5.69 H (3.80-5.40) m/uL Hgb 16.1 H (11.4-16.0) gm/dL Hct 48.0 H (34.0-46.0) % Carbon Dioxide (22-30) mmol/L Creatinine (0.52-1.04) mg/dL Glucose (74-99) mg/dL Hemoglobin A1c 6.4 H (4.0-6.0) % Total Protein (6.3-8.2) g/dL Albumin (3.5-5.0) g/dL HSV I&II IgM Ab 1.51 H (<=0.90) INDEX 06/17/17 Range/Units 05:46 WBC (3.8-10.6) k/uL RBC (3.80-5.40) m/uL Hgb (11.4-16.0) gm/dL Hct (34.0-46.0) % Carbon Dioxide 33 H (22-30) mmol/L Creatinine 0.40 L (0.52-1.04) mg/dL Glucose 129 H (74-99) mg/dL Hemoglobin A1c (4.0-6.0) % Total Protein 5.9 L (6.3-8.2) g/dL Albumin 3.2 L (3.5-5.0) g/dL HSV I&II IgM Ab (<=0.90) INDEX Microbiology - Last 24 Hours (Table) 06/13/17 14:50 Blood Culture - Preliminary Blood No Growth after 72 hours Assessment and Plan Plan: Hypertensive urgency/emergency, necessitating ICU transfer and IV blood pressure medications. Currently patient is maintained on oral antihypertensives , losartan, metoprolol, Norvasc History of hypertension History of CAD History of hyperlipidemia History of osteoarthritis Obesity Previous history of heart catheterization with stent placement History of COPD Mild fluid overload Plan: Continue monitoring vital signs, blood pressure, patient's home dose of losartan , metoprolol, and Norvasc were restarted. Continue current antibiotics for the infected left upper tooth. Continue IV diuretics for 1 more day, chest x-ray shows fluid overload. FiO2 is down to 2 L per nasal cannula, continue weaning FiO2. Patient may need an outpatient sleep study for possible obstructive sleep apnea. I performed a history & physical examination of the patient and discussed their management with my nurse practitioner, Lalita Anand. I reviewed the nurse practitioner's note and agree with the documented findings and plan of care. Lung sounds are positive for diminished lung sounds. The findings and the impression was discussed with the patient. I attest to the documentation by the nurse practitioner. Time with Patient: Less than 30
[2017-06-17 17:19] LABS: Glucose,Whole Blood 130 mg/dL (75-99)
[2017-06-17] MEDS: ATORVASTATIN 40 MG TAB PO SCH (19:54)
[2017-06-17 20:31] LABS: Glucose,Whole Blood 149 mg/dL (75-99)
--- NOTE | 2017-06-17 22:40 | PN ---
PROGRESS NOTE DATE OF SERVICE: 06/17/2017. REASON FOR FOLLOWUP: Left infection . INTERVAL HISTORY: The patient is afebrile. She is breathing comfortably. She denies having any headache. No chest pain. No cough. No abdominal pain or any diarrhea. EXAMINATION: Blood pressure is 185/79 with a pulse of 83, temperature 98.1. She is 95% on 2 L nasal cannula. General description is a middle-aged female up in the bed in no distress. Respiratory system: Unlabored breathing, clear to auscultation anteriorly. Heart S1, S2. Regular rate and rhythm. ABDOMEN: Soft, no tenderness. LAB: Hemoglobin 16.9, white count 11.2, with BUN of 15 and creatinine 0.40. DIAGNOSTIC IMPRESSION AND PLAN: 1. Patient admitted to the hospital with encephalopathy and had a stage II hypertensive clinically doubt viral etiology improved without treatment. 2. Patient with left upper tooth infection for which the patient currently on Unasyn that will be transitioned to the oral Augmentin for another 7 to 10 days on discharge. Continue supportive care. MMODL / IJN: [id number] /
[2017-06-18] MEDS: AMPICILLIN-SULBACTAM 3 GM in SODIUM CHLORIDE 0.9% 100 ML IVPB SCH (05:27)
[2017-06-18 06:05] LABS: Glucose,Whole Blood 121 mg/dL (75-99)
[2017-06-18 06:11] LABS: HCT 50.1 % (34.0-46.0); MCH 27.1 pg (25.0-35.0); MCV 84.7 fL (80.0-100.0); Mean Platelet Volume 7.4; Platelet Count 200 k/uL (150-450); RBC 5.91 m/uL (3.80-5.40); RDW 15.4 % (11.5-15.5); WBC 10.9 k/uL (3.8-10.6)
[2017-06-18 06:29] LABS: Anion Gap 10 mmol/L; Blood Urea Nitrogen 16 mg/dL (7-17); Calcium 9.3 mg/dL (8.4-10.2); Carbon Dioxide 35 mmol/L (22-30); Chloride 93 mmol/L (98-107); Glucose 109 mg/dL (74-99); Magnesium 1.5 mg/dL (1.6-2.3); Potassium 3.9 mmol/L (3.5-5.1); Sodium 138 mmol/L (137-145)
[2017-06-18] MEDS: IPRATROPIUM-ALBUTEROL 3 ML NEB INHALATION SCH ×4 (07:32→20:30)
[2017-06-18] MEDS: SYMBICORT 160-4.5 MCG INHALER INHALATION SCH ×2 (07:32→20:30)
[2017-06-18] MEDS ORDERED: MAGNESIUM SULFATE-D5W PMX 1 GM in DEXTROSE/WATER 1 100ML.BAG IVPB SCH (08:00)
[2017-06-18] MEDS: MAGNESIUM SULFATE-D5W PMX 1 GM in DEXTROSE/WATER 1 100ML.BAG IVPB SCH ×3 (08:15→11:47)
[2017-06-18] MEDS: ENOXAPARIN 40 MG/0.4 ML SYRINGE SQ SCH (09:39)
[2017-06-18] MEDS: amLODIPine 5 MG TAB PO SCH (09:39)
[2017-06-18] MEDS: ASPIRIN 81 MG PO SCH (09:39)
[2017-06-18] MEDS: LOSARTAN 50 MG TAB PO SCH (09:40)
[2017-06-18] MEDS: METOPROLOL TARTRATE 25 MG TAB PO SCH ×2 (09:40→19:53)
[2017-06-18] MEDS: CLOPIDOGREL 75 MG TAB PO SCH (09:40)
[2017-06-18] MEDS: POTASSIUM CHLORIDE ER 10 MEQ TAB.ER.PRT PO SCH (09:41)
[2017-06-18] MEDS: FUROSEMIDE 10 MG/ML 4 ML VIAL IV SCH ×2 (09:59→19:53)
--- NOTE | 2017-06-18 11:25 | P.PN ---
Subjective Progress Note Date: 06/18/17 Principal diagnosis: Patient is a 57-year-old female with past medical history of COPD, dyslipidemia, morbid obesity, and hypertension who presented to the emergency department via EMS after waking with a severe frontal headache. In the ER she underwent an extensive evaluation. On arrival her blood pressure was 262/125. Laboratory analysis showed slightly elevated white blood cell count at 13.8, elevated hematocrit at 52, and slightly low magnesium at 1.4. She underwent a head CT which showed maxillary sinusitis but no other acute process. EKG was unremarkable. She was given a dose of hydralazine and arrangements were made for admission. Initially she was admitted to the selective care unit however her blood pressure continued to be elevated despite having received oral metoprolol and Catapres. She was then transferred to the ICU and started on a Cardene drip. Her blood pressure decreased nicely. Dr. Linares had suggested goal systolic blood pressure of 160-170. She was acutely confused and her had to provide any meaningful history. Echocardiogram was done which showed severe left atrial dilation and preserved ejection fraction of 50-55%. Her Cardene drip was transitioned to Clevidipine to help optimize her BP. MRI was done which showed multiple white matter changes with possible concern for viral etiology. We had attempted to do an LP however due to the administration of Plavix were unable to obtain. Infectious disease was consulted and felt that her clinical presentation was not reflective of viral etiologies and the empiric acyclovir was stopped. Her oral amoxicillin was transitioned to IV Unasyn to help treat her dental pain. Carotid Dopplers show plaquing on. Have any significant stenosis. She was seen by neurology who felt that her mental status changes were likely secondary to hypertensive encephalopathy. MRI did not reveal a stroke. By the morning of 06/15 her blood pressure was greatly improved and she was able to come off IV drip. Her metoprolol was increased but he BP still remained elevated. Her oxygen requirements were increasing and cxr demonstrated pleural effusions. She was changed to IV lasix and metoprolol was again increased. She had improvement in her oxygenation by the morning of but did have persistent CHF on her x-ray. She also developed some tachycardia on the morning of 06/17 which appears atrial and cardio was consulted. Patient feeling good today, reports that her blood pressure have been improved, review of the records indicate that her most recent blood pressures improved however they have continuously been elevated. Otherwise no acute events overnight Objective - Vital Signs Vital signs: Vital Signs Temp 97.5 F L 06/18/17 08:00 Pulse 89 06/18/17 08:00 Resp 16 06/18/17 08:00 BP 137/70 06/18/17 08:00 Pulse Ox 91 L 06/18/17 10:41 Intake & Output 06/17/17 06/18/17 06/18/17 18:59 06:59 18:59 Intake Total 1220 200 240 Output Total 400 1950 600 Balance 820 -5530 -360 Weight 109.2 kg 109.1 kg Intake: IV 100 Ampicillin-Sulbactam 3 gm 100 In Sodium Chloride 0.9% 100 ml @ 100 mls/hr IVPB Q6HR [facility] Rx#:[id number] Intake, IV Titration 160 Amount Sodium Chloride 0.9% 1, 160 000 ml @ 20 mls/hr IV . Q24H [facility] Rx#:[id number] Oral 960 200 240 Output: Urine 400 1950 600 Other: Voiding Method Toilet Toilet # Voids 1 # Bowel Movements 0 - Exam Constitutional: No acute distress, conversant, pleasant Eyes: Anicteric sclerae, moist conjunctiva, no lid-lag, PERRLA ENMT: NC/AT,Oropharynx clear, no erythema, exudates Neck:Supple, FROM, no masses, or JVD, No carotid bruits; No thyromegaly Lungs: Clear to auscultation, Clear to percussion, Normal respiratory effort, no accessory muscle use Cardiovascular: Heart regular in rate and rhythm, No murmurs, gallops, or rubs no peripheral edema Abdominal: Soft Nontender, nom distended, no guarding, no rebound or rigidity, Normoactive bowel sounds No hepatomegaly, No splenomegaly, No palpable mass No abdominal wall hernia noted Skin: Normal temperature, tone, texture, turgor, No induration No subcutaneous nodules, No rash, lesions, No ulcers Extremities:No digital cyanosis No clubbing, Pedal pulses intact and symmetrical Radial pulses intact and symmetrical Normal gait and station, No calf tenderness Psychiatric: Alert and oriented to person, place and time, Appropriate affect Intact judgement Neuro: Muscles Strength 5/5 in all 4 extremities, Sensation to light touch grossly present throughout, Cranial nerves II-XII grossly intact. No focal sensory deficits - Labs CBC & Chem 7: 06/18/17 05:48 06/18/17 05:48 Labs: Abnormal Lab Results - Last 24 Hours (Table) 06/17/17 06/17/17 06/18/17 Range/Units 17:17 20:30 05:48 WBC 10.9 H (3.8-10.6) k/uL RBC 5.91 H (3.80-5.40) m/uL Hct 50.1 H (34.0-46.0) % Chloride (98-107) mmol/L Carbon Dioxide (22-30) mmol/L Creatinine (0.52-1.04) mg/dL Glucose (74-99) mg/dL POC Glucose (mg/dL) 130 H 149 H (75-99) mg/dL Magnesium (1.6-2.3) mg/dL 06/18/17 06/18/17 Range/Units 05:48 06:04 WBC (3.8-10.6) k/uL RBC (3.80-5.40) m/uL Hct (34.0-46.0) % Chloride 93 L (98-107) mmol/L Carbon Dioxide 35 H (22-30) mmol/L Creatinine 0.50 L (0.52-1.04) mg/dL Glucose 109 H (74-99) mg/dL POC Glucose (mg/dL) 121 H (75-99) mg/dL Magnesium 1.5 L (1.6-2.3) mg/dL Microbiology - Last 24 Hours (Table) 06/13/17 14:50 Blood Culture - Preliminary Blood No Growth after 96 hours Assessment and Plan (1) Hypertensive emergency Narrative/Plan: * Blood pressures continue to be elevated we'll continue to monitor * We'll titrate up her Norvasc to 10 mg by mouth daily, continue metoprolol, HCTZ and losartan * Continue to monitor Current Visit: Yes Status: Resolved Code(s): I16.1 - HYPERTENSIVE EMERGENCY SNOMED Code(s): 757729771271678 (2) Hypertensive encephalopathy Narrative/Plan: * Continue dual antiplatelet therapy with aspirin and Plavix Current Visit: Yes Status: Resolved Code(s): I67.4 - HYPERTENSIVE ENCEPHALOPATHY SNOMED Code(s): 12389589 (3) Headache Narrative/Plan: * Secondary to hypersensitive encephalopathy superimposed on infected tooth pain now resolved Current Visit: Yes Status: Resolved Code(s): R51 - HEADACHE SNOMED Code(s) : 85538971 (4) Dental caries Narrative/Plan: * We'll discontinue Unasyn and transitioned to oral Augmentin Current Visit: Yes Status: Acute Code(s): K02.9 - DENTAL CARIES, UNSPECIFIED SNOMED Code(s): 54180779 (5) Diastolic CHF Narrative/Plan: * Previous chest x-ray consistent with volume overload, the patient was started on IV Lasix 40 mg twice a day * Review of the echocardiogram indicates a normal ejection fraction * Continue with losartan and metoprolol Current Visit: Yes Status: Acute Code(s): I50.30 - UNSPECIFIED DIASTOLIC ( CONGESTIVE) HEART FAILURE SNOMED Code(s): 723766751 (6) Hypomagnesemia Narrative/Plan: * Serum mag level I.5 today we'll replace and recheck tomorrow Current Visit: Yes Status: Acute Code(s): E83.42 - HYPOMAGNESEMIA SNOMED Code(s): 205868527 (7) COPD (chronic obstructive pulmonary disease) Narrative/Plan: * Stable without acute exacerbation continue DuoNeb breathing treatments and Symbicort Current Visit: Yes Status: Acute Code(s): J44.9 - CHRONIC OBSTRUCTIVE PULMONARY DISEASE, UNSPECIFIED SNOMED Code(s): 55353314
[2017-06-18] MEDS: SODIUM CHLORIDE 0.9% 1,000 ML IV SCH (11:45)
[2017-06-18 11:46] LABS: Glucose,Whole Blood 168 mg/dL (75-99)
--- NOTE | 2017-06-18 11:53 | P.PN ---
Subjective Progress Note Date: 06/18/17 Principal diagnosis: Hypertensive urgency, pulmonary edema Progress note dated 06/15/2017 This is a 57-year-old female originally from [place] who was visiting in this area. She was admitted with a diagnosis of hypertensive emergency necessitating ICU transfer and IV blood pressure medications including initially nicardipine and then Cleviprex. She has a history of hypertension CAD hyperlipidemia osteoarthritis obesity and previous cardiac catheterization with stent placement. She also has a history of COPD. She is doing much better. Feeling much better. Her blood pressure medications were have been turned off her weaned. We resumed her oral blood pressure medications. She also needs some IV Lasix for some fluid overload. Chest x-ray shows some diffuse bilateral infiltrates. She's currently on a saline IV at 10 mL now her. Her systolic blood pressures are now in the 150s. She is on 8 L high flow oxygen. She's much more awake and alert. She does feel much better. She is a heavy smoker is also being treated for COPD. The patient is seen again today 06/18/2017 in follow-up on the selective care unit. She is awake and alert in no acute distress. She denies any worsening shortness of breath, cough or congestion. She is maintaining good O2 saturations in the 90s on room air now. She is afebrile. Blood pressure much improved. Currently 139/65. She is continued on Norvasc, metoprolol, losartan. Remains on diuretics 40 mg IV twice a day. She remains in a negative balance. White count 10.9. Hemoglobin 16.0. Creatinine 0.50. Objective - Vital Signs Vital signs: Vital Signs Temp 97.3 F L 06/18/17 11:00 Pulse 68 06/18/17 11:36 Resp 16 06/18/17 11:00 BP 139/65 06/18/17 11:00 Pulse Ox 92 L 06/18/17 11:00 Intake & Output 06/17/17 06/18/17 06/18/17 18:59 06:59 18:59 Intake Total 1220 200 240 Output Total 400 1950 600 Balance 150 -9163 -360 Weight 109.2 kg 109.1 kg Intake: IV 100 Ampicillin-Sulbactam 3 gm 100 In Sodium Chloride 0.9% 100 ml @ 100 mls/hr IVPB Q6HR [facility] Rx#:[id number] Intake, IV Titration 160 Amount Sodium Chloride 0.9% 1, 160 000 ml @ 20 mls/hr IV . Q24H [facility] Rx#:[id number] Oral 960 200 240 Output: Urine 400 1950 600 Other: Voiding Method Toilet Toilet Toilet # Voids 1 # Bowel Movements 0 - Exam GENERAL EXAM: Alert, active, comfortable in no apparent distress. HEAD: Normocephalic/atraumatic. EYES: Normal reaction of pupils, equal size. Conjunctiva pink, sclera white. NOSE: Clear with pink turbinates. THROAT: No erythema or exudates. NECK: No masses, no JVD, no thyroid enlargement, no adenopathy. CHEST: No chest wall deformity. Symmetrical expansion. LUNGS: Equal air entry with no crackles, wheeze, rhonchi or dullness. CVS: Regular rate and rhythm, normal S1 and S2, no gallops, no murmurs, no rubs ABDOMEN: Soft, nontender. No hepatosplenomegaly, normal bowel sounds, no guarding or rigidity. EXTREMITIES: No clubbing, no edema, no cyanosis, 2+ pulses and upper and lower extremities. MUSCULOSKELETAL: Muscle strength and tone normal. SPINE: No scoliosis or deformity SKIN: No rashes CENTRAL NERVOUS SYSTEM: Alert and oriented -3. No focal deficits, tone is normal in all 4 extremities. PSYCHIATRIC: Alert and oriented -3. Appropriate affect. Intact judgment and insight. - Labs CBC & Chem 7: 06/18/17 05:48 06/18/17 05:48 Labs: Abnormal Lab Results - Last 24 Hours (Table) 06/17/17 06/17/17 06/18/17 Range/Units 17:17 20:30 05:48 WBC 10.9 H (3.8-10.6) k/uL RBC 5.91 H (3.80-5.40) m/uL Hct 50.1 H (34.0-46.0) % Chloride (98-107) mmol/L Carbon Dioxide (22-30) mmol/L Creatinine (0.52-1.04) mg/dL Glucose (74-99) mg/dL POC Glucose (mg/dL) 130 H 149 H (75-99) mg/dL Magnesium (1.6-2.3) mg/dL 06/18/17 06/18/17 Range/Units 05:48 06:04 WBC (3.8-10.6) k/uL RBC (3.80-5.40) m/uL Hct (34.0-46.0) % Chloride 93 L (98-107) mmol/L Carbon Dioxide 35 H (22-30) mmol/L Creatinine 0.50 L (0.52-1.04) mg/dL Glucose 109 H (74-99) mg/dL POC Glucose (mg/dL) 121 H (75-99) mg/dL Magnesium 1.5 L (1.6-2.3) mg/dL Microbiology - Last 24 Hours (Table) 06/13/17 14:50 Blood Culture - Preliminary Blood No Growth after 96 hours Assessment and Plan Assessment: Impression: Hypertensive urgency/emergency, recovered. Currently patient is maintained on oral antihypertensives, losartan, metoprolol, Norvasc History of hypertension History of CAD History of hyperlipidemia History of osteoarthritis Obesity Previous history of heart catheterization with stent placement History of COPD Mild fluid overload Plan: The patient was seen and evaluated by Dr. Saez. She is currently stable from the pulmonary and critical care standpoint. Maintain O2 saturations in the 90s on room air. Blood pressure improved. Cardiology is following as well. We will increase her activity as tolerated. We'll continue to follow and make further recommendations based on her clinical status. I, the cosigning physician, performed a history & physical examination of the patient. Lungs sounds are clear. Diminished. Maintaining good O2 saturations in the 90s on room air. I discussed the assessment and plan of care with my nurse practitioner, Fatimah Carvajal. I attest to the above note as dictated by her.
--- NOTE | 2017-06-18 14:39 | P.PN ---
Subjective This is a pleasant 57-year-old female with history of hypertension, hyperlipidemia, coronary artery disease, patient has had 2 myocardial infarctions in the past with prior stent placements, history of COPD, nicotine dependence, obesity, prior thyroid issues, she presented to the hospital initially with symptoms of headache. Patient was very hypertensive on admission here and has been getting and medications adjusted to control that. CAT scan of the brain was performed on admission here which was negative. Initial EKG on arrival here showed a normal sinus rhythm with nonspecific ST-T wave changes. Echocardiogram with Doppler study was performed on admission here which revealed an ejection fraction of 50-55%, LAD severely dilated. The EKG normal. MRI of the brain did not reveal evidence of recent infarct, fairly moderate to severe nonspecific white matter changes. Blood pressure on admission here to 62/125, heart rate in the 80s, 97% on room air. Let pressure this morning 180/96, heart rate in the 80s to 90s, 92% on 4 L oxygen. Patient is currently on a full aspirin daily, Lipitor 40 mg daily, Plavix 75 mg daily, Lasix 40 twice a day, hydralazine when necessary, losartan 100 mg daily, metoprolol 75 mg one tablet by mouth twice a day. Patient actually resides in [place], she is here visiting family. Around 3 AM patient became quite tachycardic, for this reason as well as her accelerated hypertension and a cardiology consultation was requested. An EKG was performed at 4:00 this morning which shows what appears to be in atrial tachycardia, this morning patient is in a normal sinus rhythm. Patient denies any chest discomfort, no palpitations, no feelings of heart racing. 06/18/2017 Patient was seen and examined this morning, overall feeling significantly better. Denies any further headache. At around 3:30 this morning patient again had a rapid rhythm, suspicious for atrial tachycardia. It was self- limiting and patient converted to normal sinus rhythm. Hemodynamically she is stable. Blood pressure 138/60 with a heart rate in the 60s. Objective - Vital Signs Vital signs: Vital Signs Temp 97.3 F L 06/18/17 11:00 Pulse 68 06/18/17 11:36 Resp 16 06/18/17 11:00 BP 139/65 06/18/17 11:00 Pulse Ox 92 L 06/18/17 11:00 Intake & Output 06/17/17 06/18/17 06/18/17 18:59 06:59 18:59 Intake Total 1220 200 385 Output Total 400 1950 1200 Balance 820 -1750 -815 Weight 109.2 kg 109.1 kg Intake: IV 100 20 Ampicillin-Sulbactam 3 gm 100 20 In Sodium Chloride 0.9% 100 ml @ 100 mls/hr IVPB Q6HR [facility] Rx#:[id number] Intake, IV Titration 160 Amount Sodium Chloride 0.9% 1, 160 000 ml @ 20 mls/hr IV . Q24H [facility] Rx#:[id number] Oral 960 200 365 Output: Urine 400 1950 1200 Other: Voiding Method Toilet Toilet Toilet # Voids 1 # Bowel Movements 0 - Exam PHYSICAL EXAMINATION: HEENT: Head is atraumatic, normocephalic. Pupils equal, round. Neck is supple. There is no elevated jugular venous pressure. HEART EXAMINATION: Heart S1, S2 normal. No murmur or gallop heard. CHEST EXAMINATION: Lungs reveal improvment in air exchange with fine wheezing throughout. ABDOMEN: Soft, obese, nontender. Bowel sounds are heard. No organomegaly noted. EXTREMITIES: 2+ peripheral pulses with no evidence of peripheral edema and no calf tenderness noted. NEUROLOGIC patient is awake, alert and oriented -3. - Labs CBC & Chem 7: 06/18/17 05:48 06/18/17 05:48 Labs: Abnormal Lab Results - Last 24 Hours (Table) 06/17/17 06/17/17 06/18/17 Range/Units 17:17 20:30 05:48 WBC 10.9 H (3.8-10.6) k/uL RBC 5.91 H (3.80-5.40) m/uL Hct 50.1 H (34.0-46.0) % Chloride (98-107) mmol/L Carbon Dioxide (22-30) mmol/L Creatinine (0.52-1.04) mg/dL Glucose (74-99) mg/dL POC Glucose (mg/dL) 130 H 149 H (75-99) mg/dL Magnesium (1.6-2.3) mg/dL 06/18/17 06/18/17 06/18/17 Range/Units 05:48 06:04 11:44 WBC (3.8-10.6) k/uL RBC (3.80-5.40) m/uL Hct (34.0-46.0) % Chloride 93 L (98-107) mmol/L Carbon Dioxide 35 H (22-30) mmol/L Creatinine 0.50 L (0.52-1.04) mg/dL Glucose 109 H (74-99) mg/dL POC Glucose (mg/dL) 121 H 168 H (75-99) mg/dL Magnesium 1.5 L (1.6-2.3) mg/dL Microbiology - Last 24 Hours (Table) 06/13/17 14:50 Blood Culture - Preliminary Blood No Growth after 96 hours Assessment and Plan Plan: Assessment and plan #1 headache with hypertensive emergency. CT of the brain negative. MRI of the brain did not reveal any evidence of recent infarct. #2 history of hypertension #3 coronary artery disease with prior myocardial infarction 2 with stent placements. This was performed in [place]. #4 hyperlipidemia #5 obesity #6 COPD #7 nicotine dependence #8 brief episodes of what appears to be atrial tachycardia Plan Echocardiogram with Doppler study was performed which revealed a normal left ventricular systolic function, severely dilated left atrium. Blood pressure under much better control today. We will run a detailed strip of the patient's tachyarrhythmia and further evaluate. At this time continue current medications. DNP note has been reviewed, I agree with a documented findings and plan of care. Patient was seen and examined.
--- NOTE | 2017-06-18 16:33 | CDI ---
Acute on chronic diastolic heart failure secondary to hypertensive emergency Last Revision, February 2017 Documentation Clarification Form Date: 06/18/17 From: Ewa Jaime RN, CCDS Admit Date: 06/13/2017 7:00:00 PM Patient Name: Maria Del Carmen Carrasquillo Visit Number: [id number] Discharge Date: ATTENTION: The Clinical Documentation Specialists (CDI) and [facility] Coding Staff appreciate your assistance in clarifying documentation. Please respond to the clarification below the line at the bottom and electronically sign. The CDI & [facility] Coding staff will review the response and follow-up if needed. Please note: Queries are made part of the Legal Health Record. If you have any questions, please contact the author of this message via ITS. Dr. José Miguel Muñoz/Dr.Gregory Katz History/Risk Factors: Hypertension, COPD, Morbid obesity, Clinical Indicators: Patient presented to ED with severe frontal headache. 06/15/17 chest x-ray, pulmonary vascular congestion with bilateral effusions. A progress note has documentation of acute hypoxic respiratory failure due to fluid overload. Lungs: decreased breath sounds bilateral, no accessory muscle use. 06/18/17 (Dr. Muñoz) progress notes has diastolic CHF 06/15/17 @ 17:30 VS/Pulse OX: 200/90 64 20 90 % 8/L NC Echocardiogram Results: EF between 50-55 % Chest X Ray: 06/15/17 Worsening changes of pulmonary edema 06/17/17 correlate for COPD with superimposed mild CHF. Treatment: Lasix IV 40 BID, In your professional opinion, can you please clarify the acuity of CHF if known? Diastolic Heart Failure: Acute Chronic Acute on Chronic Unable to Determine Other, please specify Please continue to document in your progress notes and discharge summary in order to capture severity of illness and risk of mortality. Include clinical findings that support your diagnosis. MTDD
[2017-06-18 16:46] LABS: Glucose,Whole Blood 90 mg/dL (75-99)
[2017-06-18] MEDS: AMOXIC-POT CLAV 875-125MG 1 EACH TAB PO SCH (19:53)
[2017-06-18] MEDS: ATORVASTATIN 40 MG TAB PO SCH (19:53)
[2017-06-18 21:27] LABS: Glucose,Whole Blood 122 mg/dL (75-99)
--- NOTE | 2017-06-18 22:40 | PN ---
PROGRESS NOTE DATE OF SERVICE: 06/18/2017. REASON FOR FOLLOWUP: 1. Left upper tooth infection. 2. Encephalopathy, resolved. INTERVAL HISTORY: The patient is afebrile. She is breathing comfortably. The headache as well as pain to the left has improved. Denies having any difficulty swallowing. No abdominal pain. No nausea, vomiting or any diarrhea. EXAMINATION: Blood pressure 124/74 with a pulse of 89, temperature 98.8. She is 94% on room air. General description is a middle-aged female up in the bed in no distress. RESPIRATORY SYSTEM: Unlabored breathing. Clear to auscultation anteriorly. HEART: S1, S2. Regular rate and rhythm. ABDOMEN: Soft. There is no tenderness. LABS: Hemoglobin is 16, white count of 10.9. BUN of 15, creatinine 0.50. DIAGNOSTIC IMPRESSION AND PLAN: Patient with mental status changes. The patient, who did have had hypertensive encephalopathy, slightly complained of pressure, extensive tooth infection, responded to the Unasyn. Plan to finish therapy with oral Augmentin for another 10 days. Continue supportive care. MMODL / IJN: [id number] /
[2017-06-19 05:21] LABS: Anion Gap 10 mmol/L; Blood Urea Nitrogen 18 mg/dL (7-17); Calcium 9.1 mg/dL (8.4-10.2); Carbon Dioxide 34 mmol/L (22-30); Chloride 97 mmol/L (98-107); Glucose 107 mg/dL (74-99); Magnesium 1.8 mg/dL (1.6-2.3); Potassium 3.8 mmol/L (3.5-5.1); Sodium 141 mmol/L (137-145)
[2017-06-19 06:02] LABS: Glucose,Whole Blood 100 mg/dL (75-99)
[2017-06-19] MEDS: METOPROLOL TARTRATE 25 MG TAB PO SCH (07:09)
[2017-06-19] MEDS: SYMBICORT 160-4.5 MCG INHALER INHALATION SCH (07:46)
[2017-06-19] MEDS: IPRATROPIUM-ALBUTEROL 3 ML NEB INHALATION SCH ×2 (07:46→11:31)
[2017-06-19 07:49] VITALS: BP 165/77; RESP 18; TEMP 97.3
[2017-06-19 08:00] VITALS: PULSE 119
[2017-06-19] MEDS: POTASSIUM CHLORIDE ER 10 MEQ TAB.ER.PRT PO SCH (08:22)
[2017-06-19] MEDS: FUROSEMIDE 10 MG/ML 4 ML VIAL IV SCH (08:22)
[2017-06-19] MEDS: LOSARTAN 50 MG TAB PO SCH (08:22)
[2017-06-19] MEDS: CLOPIDOGREL 75 MG TAB PO SCH (08:22)
[2017-06-19] MEDS: AMOXIC-POT CLAV 875-125MG 1 EACH TAB PO SCH (08:23)
[2017-06-19] MEDS: ENOXAPARIN 40 MG/0.4 ML SYRINGE SQ SCH (08:23)
[2017-06-19] MEDS: ASPIRIN 81 MG PO SCH (08:23)
[2017-06-19] MEDS ORDERED: amLODIPine 10 MG TAB PO SCH (09:00)
--- NOTE | 2017-06-19 10:55 | P.DS ---
Providers Date of admission: 06/13/17 19:00 Attending physician: José Miguel Muñoz MD Consults: 06/13/17 19:57 Consult Physician Routine Consulting Provider: Aileen Hyatt Consult Reason/Comments: severe headache/ confusion Do you want consulting provider notified?: Yes 06/13/17 22:02 Consult Physician Routine Consulting Provider: Brenden Tee Consult Reason/Comments: ICU management Do you want consulting provider notified?: Yes 06/14/17 12:31 Consult to Anesthesia Routine Consulting Provider: Anesthesia,Services Consult Reason/Comments: LP for viral meningitis 06/14/17 14:02 Consult Physician Routine Consulting Provider: Zuly Herrera Consult Reason/Comments: HSV encephalitis, meningitis Do you want consulting provider notified?: Yes 06/17/17 04:13 Consult Physician Routine Consulting Provider: Sandra Juarez Consult Reason/Comments: elevated heart rate, hypertensive Do you want consulting provider notified?: Yes, Notify in am Primary care physician: Physician Nonstaff - Discharge Diagnosis(es) (1) Diastolic CHF Diastolic heart failure secondary to hypertensive emergency Diuresed with IV Lasix Convert back to home Lasix Continue on beta anastacia and aspirin Current Visit: Yes Status: Acute (2) Hypomagnesemia Given magnesium replacement Current Visit: Yes Status: Acute (3) Hypertensive emergency Treated for hypertensive emergency with hypertensive encephalopathy, pulmonary edema Required ICU admission and Cardene drip Weaned off of IV antihypertensives Currently on amlodipine 10 mg daily, losartan 100 mg, metoprolol 75 mg twice a day and Lasix 40 mg IV twice a day Patient is on carvedilol 6.25 mg twice a day at home, which should have a higher antihypertensive effect and metoprolol; will switch patient to carvedilol 12.5 mg twice a day and instructions to follow up with a primary care physician for heart rate monitoring blood pressure monitoring, potential up titration of the carvedilol Eckst[facility] sent a prescription in for amlodipine 10 mg Continue home losartan Current Visit: Yes Status: Resolved (4) Hypertensive encephalopathy Has since resolved Current Visit: Yes Status: Resolved (5) Acute respiratory failure with hypoxia Acute respiratory failure with hypoxia secondary to pulmonary edema which is secondary to acute on chronic diastolic heart failure and hypertensive emergency Patient was diuresed with IV Lasix Convert back to home dose by mouth Lasix Now euvolemic/borderline hypovolemic Current Visit: Yes Status: Acute Hospital Course: Patient is a 57-year-old female with a known history of hypertension, dyslipidemia, COPD, and coronary artery disease who initially presented with headache, found to have hypertensive emergency with hypertensive encephalopathy , pulmonary edema secondary to hypertensive emergency. Echocardiogram performed on admission showed a preserved ejection fraction of 50-55%, LAD severely dilated. CT head showed no acute pathology. MRI also no acute pathology, did show moderate to severe nonspecific white matter changes. Blood pressure was as high as 262/125 on admission requiring ICU admission on a Cardene drip. Hospital course complicated by acute respiratory failure with hypoxia secondary to the pulmonary edema secondary to the hypertensive emergency , sinus tachycardia with a cardiology consultation. Headache and encephalopathy have resolved. Patient's blood pressure medications adjusted, with improvement in blood pressure however still not at goal. Patient will be discharged with new scripts for amlodipine 10 mg, an increase of her carvedilol from 6.25 mg twice a day to 12.5 mg twice a day. Patient instructed to obtain a home blood pressure cuff, which she states her niece will be getting her, also instructed patient and PCP follow-up. Patient will contact her insurance [place]. Patient has a recent dental carry, was an antibiotics on presentation. Due to her acute encephalopathy was empirically started on treatment for meningitis however this was weaned off in coordination with infectious disease as encephalopathy determined to be due to hypertensive encephalopathy. Infectious disease is recommending 10 more days of treatment with Augmentin for her dental caries. Patient Condition at Discharge: Good Plan - Discharge Summary Discharge Rx Participant: Yes New Discharge Prescriptions: New Hydrocodone/Acetaminophen [Hendricks 5-325] 1 each PO Q6HR PRN #12 tab PRN Reason: Pain Ibuprofen 800 mg PO Q6HR PRN #20 tablet PRN Reason: Pain Amoxic-Pot Clav 875-125Mg [Augmentin 875-125] 1 each PO Q12HR #20 tab amLODIPine [Norvasc] 10 mg PO DAILY #30 tab Amoxic-Pot Clav 875-125Mg [Augmentin 875-125] 1 tab PO Q12HR #20 tablet Carvedilol [Coreg*] 12.5 mg PO BID #60 tablet Continue Potassium Chloride ER [K-Dur 10] 10 meq PO DAILY Meloxicam 15 mg PO DAILY Fluticasone/Vilanterol [Breo Ellipta 100-25 Mcg Inhaler] 1 puff INHALATION RT -DAILY Atorvastatin [Lipitor] 40 mg PO HS Losartan Potassium 100 mg PO DAILY Furosemide [Lasix] 20 mg PO DAILY DULoxetine HCL [Cymbalta] 60 mg PO DAILY Clopidogrel [Plavix] 75 mg PO DAILY Budesonide/Formoterol Fumarate [Symbicort 160-4.5 Mcg Inhaler] 2 puff INHALATION RT-BID Discharge Medication List Atorvastatin [Lipitor] 40 mg PO HS 06/13/17 [History] Budesonide/Formoterol Fumarate [Symbicort 160-4.5 Mcg Inhaler] 2 puff INHALATION RT-BID 06/13/17 [History] Clopidogrel [Plavix] 75 mg PO DAILY 06/13/17 [History] DULoxetine HCL [Cymbalta] 60 mg PO DAILY 06/13/17 [History] Fluticasone/Vilanterol [Breo Ellipta 100-25 Mcg Inhaler] 1 puff INHALATION RT- DAILY 06/13/17 [History] Furosemide [Lasix] 20 mg PO DAILY 06/13/17 [History] Hydrocodone/Acetaminophen [Hendricks 5-325] 1 each PO Q6HR PRN #12 tab 06/13/17 [Rx] Ibuprofen 800 mg PO Q6HR PRN #20 tablet 06/13/17 [Rx] Losartan Potassium 100 mg PO DAILY 06/13/17 [History] Meloxicam 15 mg PO DAILY 06/13/17 [History] Potassium Chloride ER [K-Dur 10] 10 meq PO DAILY 06/13/17 [History] Amoxic-Pot Clav 875-125Mg [Augmentin 875-125] 1 each PO Q12HR #20 tab 06/19/17 [ Rx] Amoxic-Pot Clav 875-125Mg [Augmentin 875-125] 1 tab PO Q12HR #20 tablet [Rx] Carvedilol [Coreg*] 12.5 mg PO BID #60 tablet 06/19/17 [Rx] amLODIPine [Norvasc] 10 mg PO DAILY #30 tab 06/19/17 [Rx] Follow up Appointment(s)/Referral(s): Aldair Stover MD [STAFF PHYSICIAN] - 1 Week (With Nicolasa Garcia NP. Office to call with follow up appointment.) Patient Instructions/Handouts: Heart Failure (ED), Acute Headache (ED), Hypertension (DC), Toothache (ED) Activity/Diet/Wound Care/Special Instructions: Continue with a prescription given by the dental clinic Discharge Disposition: HOME SELF-CARE
--- NOTE | 2017-06-19 10:58 | P.PN ---
Subjective Progress Note Date: 06/19/17 Principal diagnosis: Hypertensive emergency Patient seen and examined resting comfortably sitting at the edge of her bed today, states she has not had any events overnight. No palpitations, no shortness of breath or difficulty breathing at this time. No chest pain or pressure. Patient states she is eager to return home Objective - Vital Signs Vital signs: Vital Signs Temp 97.3 F L 06/19/17 07:48 Pulse 119 H 06/19/17 07:56 Resp 18 06/19/17 07:48 BP 165/77 06/19/17 07:48 Pulse Ox 92 L 06/19/17 07:48 Intake & Output 06/18/17 06/19/17 06/19/17 18:59 06:59 18:59 Intake Total 625 100 Output Total 1500 1050 Balance -875 -950 Weight 109 kg Intake: IV 20 100 Ampicillin-Sulbactam 3 gm 20 In Sodium Chloride 0.9% 100 ml @ 100 mls/hr IVPB Q6HR [facility] Rx#:[id number] Sodium Chloride 0.9% 1, 100 000 ml @ 20 mls/hr IV . Q24H [facility] Rx#:[id number] Oral 605 Output: Urine 1500 1050 Other: Voiding Method Toilet Toilet Bedside Commode # Voids 1 # Bowel Movements 1 - Exam General: A/O x 3, NAD, sitting in bed comfortably HEENT: EOMI, MMM, atraumatic normocephalic Neck: Supple. No JVD, trachea midline CVS: Regular rate and rhythm. + S1/S2, no murmurs/gallops/rubs Respiratory: Bilateral air entry noted. Clear to auscultation, no wheeze, no rhonchi Abdomen: Soft, nontender, nondistended. Bowel sounds audible Extremities: No lower extremity edema. No clubbing or cyanosis Skin: No rash or skin change noted Psych: Without hallucinations, abnormal affect, or abnormal behaviors during the examination - Labs CBC & Chem 7: 06/18/17 05:48 06/19/17 04:40 Labs: Abnormal Lab Results - Last 24 Hours (Table) 06/18/17 06/18/17 06/19/17 Range/Units 11:44 21:25 04:40 Chloride 97 L (98-107) mmol/L Carbon Dioxide 34 H (22-30) mmol/L BUN 18 H (7-17) mg/dL Creatinine 0.50 L (0.52-1.04) mg/dL Glucose 107 H (74-99) mg/dL POC Glucose (mg/dL) 168 H 122 H (75-99) mg/dL 06/19/17 Range/Units 06:01 Chloride (98-107) mmol/L Carbon Dioxide (22-30) mmol/L BUN (7-17) mg/dL Creatinine (0.52-1.04) mg/dL Glucose (74-99) mg/dL POC Glucose (mg/dL) 100 H (75-99) mg/dL Microbiology - Last 24 Hours (Table) 06/13/17 14:50 Blood Culture - Preliminary Blood No Growth after 120 hours Assessment and Plan (1) Diastolic CHF Current Visit: Yes Status: Acute Code(s): I50.30 - UNSPECIFIED DIASTOLIC ( CONGESTIVE) HEART FAILURE SNOMED Code(s): 791240747 (2) Hypomagnesemia Current Visit: Yes Status: Acute Code(s): E83.42 - HYPOMAGNESEMIA SNOMED Code(s): 045847968 (3) Hypertensive emergency Current Visit: Yes Status: Resolved Code(s): I16.1 - HYPERTENSIVE EMERGENCY SNOMED Code(s): 096044241389889 (4) Hypertensive encephalopathy Current Visit: Yes Status: Resolved Code(s): I67.4 - HYPERTENSIVE ENCEPHALOPATHY SNOMED Code(s): 89534965 (5) Acute respiratory failure with hypoxia Current Visit: Yes Status: Acute Code(s): J96.01 - ACUTE RESPIRATORY FAILURE WITH HYPOXIA SNOMED Code(s): 09403711 Plan: Patient to be discharged home today. Acute encephalopathy secondary to hypertension has since resolved. Blood pressure is not quite at goal however is improving. As with the patient her home antihypertensive regimen, was on losartan 100 mg daily, Lasix 20 mg daily, carvedilol 6.25 mg daily. Patient is currently on amlodipine 10 mg, Lasix 40 IV twice a day, losartan 100 mg, metoprolol 75 mg twice a day. Carvedilol should have more of an antihypertensive effect and metoprolol, will switch patient to carvedilol 12.5 mg twice a day on discharge with instructions to follow up with the primary care physician for heart rate and blood pressure monitoring, possible up titration of the carvedilol. Patient was instructed to continue the Augmentin for 10 more days for the dental caries.
--- NOTE | 2017-06-19 11:03 | PN ---
PROGRESS NOTE DATE OF SERVICE: 06/19/2017 REASON FOR FOLLOWUP: Upper molar tooth infection. INTERVAL HISTORY: The patient is afebrile. She is feeling better, but denies having any headache. Denies having any chest pain, shortness of breath or cough. No abdominal pain or any diarrhea. Anxious to go home today. PHYSICAL EXAMINATION: Blood pressure is 165/77 with a pulse of 119, temperature 97.3. She is 92% on room air. General description is a middle-aged female up in the bed in no distress. RESPIRATORY SYSTEM: Unlabored breathing, clear to auscultation anteriorly. HEART: S1, S2. Regular rate and rhythm. ABDOMEN: Soft, no tenderness. LABS: BUN of 18, creatinine 0.50. Culture has been negative. DIAGNOSTIC IMPRESSION AND PLAN: Patient with left upper tooth infection, currently improved on the Unasyn. She will be given a 10-day course of oral Augmentin to finish course of therapy. Continue supportive care. MMODL / IJN: [id number] /
[2017-06-19] MEDS: SODIUM CHLORIDE 0.9% 1,000 ML IV SCH (11:42)
--- NOTE | 2017-06-19 15:51 | P.PN ---
Subjective Progress Note Date: 06/19/17 This is a pleasant 57-year-old female with history of hypertension, hyperlipidemia, coronary artery disease, patient has had 2 myocardial infarctions in the past with prior stent placements, history of COPD, nicotine dependence, obesity, prior thyroid issues, she presented to the hospital initially with symptoms of headache. Patient was very hypertensive on admission here and has been getting and medications adjusted to control that. CAT scan of the brain was performed on admission here which was negative. Initial EKG on arrival here showed a normal sinus rhythm with nonspecific ST-T wave changes. Echocardiogram with Doppler study was performed on admission here which revealed an ejection fraction of 50-55%, LAD severely dilated. The EKG normal. MRI of the brain did not reveal evidence of recent infarct, fairly moderate to severe nonspecific white matter changes. Blood pressure on admission here to 62/125, heart rate in the 80s, 97% on room air. Let pressure this morning 180/96, heart rate in the 80s to 90s, 92% on 4 L oxygen. Patient is currently on a full aspirin daily, Lipitor 40 mg daily, Plavix 75 mg daily, Lasix 40 twice a day, hydralazine when necessary, losartan 100 mg daily, metoprolol 75 mg one tablet by mouth twice a day. Patient actually resides in [place], she is here visiting family. Around 3 AM patient became quite tachycardic, for this reason as well as her accelerated hypertension and a cardiology consultation was requested. An EKG was performed at 4:00 this morning which shows what appears to be in atrial tachycardia, this morning patient is in a normal sinus rhythm. Patient denies any chest discomfort, no palpitations, no feelings of heart racing. 06/18/2017 Patient was seen and examined this morning, overall feeling significantly better. Denies any further headache. At around 3:30 this morning patient again had a rapid rhythm, suspicious for atrial tachycardia. It was self- limiting and patient converted to normal sinus rhythm. Hemodynamically she is stable. Blood pressure 138/60 with a heart rate in the 60s. 06/19/2017 Patient seen and examined this morning, complained of feeling mildly tired but overall better. Denies any further headache. Around 7 AM this morning it was noted on the monitor that she again had a tachycardic round. It appears that after review of the rhythm strips, the patient has sinus node reentry tachycardia. We will continue with her current medications. Objective - Vital Signs Vital signs: Vital Signs Temp 97.3 F L 06/19/17 07:48 Pulse 119 H 06/19/17 07:56 Resp 18 06/19/17 07:48 BP 165/77 06/19/17 07:48 Pulse Ox 92 L 06/19/17 07:48 Intake & Output 06/18/17 06/19/17 06/19/17 18:59 06:59 18:59 Intake Total 625 100 Output Total 1500 1050 Balance -875 -950 Weight 109 kg Intake: IV 20 100 Ampicillin-Sulbactam 3 gm 20 In Sodium Chloride 0.9% 100 ml @ 100 mls/hr IVPB Q6HR [facility] Rx#:[id number] Sodium Chloride 0.9% 1, 100 000 ml @ 20 mls/hr IV . Q24H [facility] Rx#:[id number] Oral 605 Output: Urine 1500 1050 Other: Voiding Method Toilet Toilet Bedside Commode # Voids 1 # Bowel Movements 1 - Exam PHYSICAL EXAMINATION: HEENT: Head is atraumatic, normocephalic. Pupils equal, round. Neck is supple. There is no elevated jugular venous pressure. HEART EXAMINATION: Heart S1, S2 normal. No murmur or gallop heard. CHEST EXAMINATION: Lungs reveal improvment in air exchange with fine wheezing throughout. ABDOMEN: Soft, obese, nontender. Bowel sounds are heard. No organomegaly noted. EXTREMITIES: 2+ peripheral pulses with no evidence of peripheral edema and no calf tenderness noted. NEUROLOGIC patient is awake, alert and oriented -3. - Labs CBC & Chem 7: 06/18/17 05:48 06/19/17 04:40 Labs: Abnormal Lab Results - Last 24 Hours (Table) 06/18/17 06/19/17 06/19/17 Range/Units 21:25 04:40 06:01 Chloride 97 L (98-107) mmol/L Carbon Dioxide 34 H (22-30) mmol/L BUN 18 H (7-17) mg/dL Creatinine 0.50 L (0.52-1.04) mg/dL Glucose 107 H (74-99) mg/dL POC Glucose (mg/dL) 122 H 100 H (75-99) mg/dL Microbiology - Last 24 Hours (Table) 06/13/17 14:50 Blood Culture - Preliminary Blood No Growth after 120 hours Assessment and Plan Plan: Assessment and plan #1 headache with hypertensive emergency. CT of the brain negative. MRI of the brain did not reveal any evidence of recent infarct. #2 history of hypertension #3 coronary artery disease with prior myocardial infarction 2 with stent placements. This was performed in [place]. 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 Blood pressure 140 /80 today. Would recommend to continue the patient on her current medications. She may be able to be discharged once cleared by primary. We will follow her up as an outpatient basis. DNP note has been reviewed, I agree with a documented findings and plan of care. Patient was seen and examined.
== END 2017-06-19 13:55 | disposition home or self-care (01) | DRG 304 ==
LOC: EC 13:49 → 5MS5E 19:00 → 6SEL 19:52 → 6ICU 22:36 → 6SEL 06-15 18:05
PROVIDERS: ADMIT Family Medicine; ATTEND Family Medicine
DX: I16.1 Hypertensive emergency (principal); I50.33 Acute on chronic diastolic (congestive) heart failure; J96.01 Acute respiratory failure with hypoxia; I67.4 Hypertensive encephalopathy; D75.1 Secondary polycythemia; E83.42 Hypomagnesemia; E66.2 Morbid (severe) obesity with alveolar hypoventilation; G24.09 Other drug induced dystonia; Z68.42 Body mass index [BMI] 45.0-49.9, adult; E78.5 Hyperlipidemia, unspecified; E86.1 Hypovolemia; F17.210 Nicotine dependence, cigarettes, uncomplicated; T45.0X5A Adverse effect of antiallergic and antiemetic drugs, initial encounter; I11.0 Hypertensive heart disease with heart failure; I25.10 Atherosclerotic heart disease of native coronary artery without angina pectoris; I25.2 Old myocardial infarction; J32.0 Chronic maxillary sinusitis; J44.9 Chronic obstructive pulmonary disease, unspecified; K02.9 Dental caries, unspecified; K04.7 Periapical abscess without sinus; R73.03 Prediabetes; Z79.02 Long term (current) use of antithrombotics/antiplatelets; Z79.51 Long term (current) use of inhaled steroids; Z79.82 Long term (current) use of aspirin; Z79.899 Other long term (current) drug therapy; Z82.49 Family history of ischemic heart disease and other diseases of the circulatory system; Z82.5 Family history of asthma and other chronic lower respiratory diseases; Z95.5 Presence of coronary angioplasty implant and graft; Z71.6 Tobacco abuse counseling
CPT/HCPCS: 36415; 70450; 70551; 71045; 71046; 80048; 80053; 80061; 81001; 83036; 83735; 84100; 84443; 85025; 85027; 86694; 86695; 86696; 87040; 93005; 93306; 93880; 94640; 94760; 95819; 96361; 96365; 96375; 99285

== ENCOUNTER 2017-10-09 07:41 | Emergency (ER) | payer MEDICARE ==
[2017-10-09 07:45] VITALS: RESP 18
[2017-10-09] MEDS ORDERED: SODIUM CHLORIDE 0.9% 1,000 ML IV STA (08:01)
[2017-10-09] MEDS ORDERED: ACETAMINOPHEN TAB 325 MG TAB PO STA (08:02)
--- NOTE | 2017-10-09 08:05 | ED ---
Chest Pain HPI - General Chief Complaint: Chest Pain Stated Complaint: Chest pain Time Seen by Provider: 10/09/17 07:51 Source: patient Mode of arrival: wheelchair Limitations: no limitations - History of Present Illness Initial Comments: This is a 57-year-old female with a history of heart disease with stents also history of hypertensive encephalopathy earlier this year who presents with complaints of sharp lower left and midsternal chest pain. She states is been going on for a while "really bad last night associated with sweats. It was 9-10 /10 severity she states he gets better with deep breathing and hurts worse with exhalation also increases with certain movements. He denies any cough phlegm production fevers or chills no trauma. She also states she has GERD she's had for a long time on my questioning she states this feels different than her GERD. Complaint: chest pain - Related Data Home Medications Medication Instructions Recorded Confirmed Atorvastatin [Lipitor] 40 mg PO HS 06/13/17 10/09/17 Budesonide/Formoterol Fumarate 2 puff INHALATION RT-BID 06/13/17 10/09/17 [Symbicort 160-4.5 Mcg Inhaler] Clopidogrel [Plavix] 75 mg PO DAILY 06/13/17 10/09/17 DULoxetine HCL [Cymbalta] 60 mg PO HS 06/13/17 10/09/17 Furosemide [Lasix] 20 mg PO DAILY 06/13/17 10/09/17 Losartan Potassium 100 mg PO DAILY 06/13/17 10/09/17 Meloxicam 15 mg PO HS 06/13/17 10/09/17 Potassium Chloride ER [K-Dur 10] 10 meq PO DAILY 06/13/17 10/09/17 Aspirin 81 mg PO DAILY 10/09/17 10/09/17 Previous Rx's Medication Instructions Recorded Carvedilol [Coreg*] 12.5 mg PO BID #60 tablet 06/19/17 amLODIPine [Norvasc] 10 mg PO DAILY #30 tab 06/19/17 Ipratropium/Albuterol Sulfate 1 puff INHALATION QID #1 inhaler 10/09/17 [Combivent Respimat Inhaler] predniSONE 20 mg PO BID #10 tab 10/09/17 Allergies Allergy/AdvReac Type Severity Reaction Status Date / Time No Known Allergies Allergy Verified 10/09/17 08:04 Review of Systems ROS Statement: Those systems with pertinent positive or pertinent negative responses have been documented in the HPI. ROS Other: All systems not noted in ROS Statement are negative. EKG Findings - EKG Results: EKG: interpreted by BRIGID, sinus rhythm (Sinus rhythm rate of 82 WV interval 198 QRS duration 90 QT since QTC 370/441 this is compared with EKG dated 06/13/17 no definite acute changes.) Past Medical History Past Medical History: Coronary Artery Disease (CAD), COPD, Hyperlipidemia, Hypertension, Osteoarthritis (OA) Additional Past Medical History / Comment(s): at time of admission pt poor historian info from spouse/son and pmh 2009. poor dentation, osbesity,uterine fibroids (spouse not sure if she had a hysterectomy or not),back pain History of Any Multi-Drug Resistant Organisms: None Reported Past Surgical History: Adenoidectomy, Section, Heart Catheterization With Stent, Tonsillectomy Additional Past Surgical History / Comment(s): x 4 Past Anesthesia/Blood Transfusion Reactions: No Reported Reaction Date of Last Stent Placement:: unk Past Psychological History: Anxiety, Depression Smoking Status: Current every day smoker Past Alcohol Use History: None Reported Past Drug Use History: None Reported - Past Family History Mother Family Medical History: COPD Additional Family Medical History / Comment(s): emphysema Father Family Medical History: Congestive Heart Failure (CHF) General Exam - General Exam Comments Initial Comments: Is a well developed well-nourished awake alert oriented 3 female Limitations: no limitations General appearance: alert, in no apparent distress Head exam: Present: atraumatic, normocephalic, normal inspection Eye exam: Present: normal appearance, PERRL, EOMI. Absent: scleral icterus, conjunctival injection, periorbital swelling ENT exam: Present: normal exam, mucous membranes moist Neck exam: Present: normal inspection. Absent: tenderness, meningismus, lymphadenopathy Respiratory exam: Present: normal lung sounds bilaterally, chest wall tenderness (Tennis palpation of the xiphoid no step-off or crepitation this does somewhat make the pain worse). Absent: respiratory distress, wheezes, rales, rhonchi, stridor Cardiovascular Exam: Present: regular rate, normal rhythm, normal heart sounds. Absent: systolic murmur, diastolic murmur, rubs, gallop, clicks GI/Abdominal exam: Present: soft, normal bowel sounds, other (Obese abdomen). Absent: distended, tenderness, guarding, rebound, rigid, bruit, pulsatile mass Extremities exam: Present: normal inspection, full ROM, normal capillary refill. Absent: tenderness, pedal edema, joint swelling, calf tenderness Back exam: Present: normal inspection Neurological exam: Present: alert, oriented X3, CN II-XII intact Psychiatric exam: Present: normal affect, normal mood Skin exam: Present: warm, dry, intact, normal color. Absent: rash Course Vital Signs 10/09/17 10/09/17 10/09/17 07:41 08:01 08:02 Temperature 98 F Pulse Rate 84 84 Respiratory 18 18 18 Rate Blood Pressure 149/83 101/68 O2 Sat by Pulse 90 L 95 Oximetry 10/09/17 10/09/17 10/09/17 08:27 08:32 08:40 Temperature Pulse Rate 87 77 77 Respiratory 18 Rate Blood Pressure 102/59 O2 Sat by Pulse 96 Oximetry 10/09/17 10/09/17 10/09/17 09:00 10:00 10:41 Temperature Pulse Rate 76 64 66 Respiratory 18 18 18 Rate Blood Pressure 113/57 148/69 160/77 O2 Sat by Pulse 93 L 93 L 92 L Oximetry Chest Pain MDM - MDM I did review the imaging and report no acute findings. The patient's presentation is consistent with a xiphoid any/costochondritis. She also has been having evidence of bronchospasm with difficulty breathing which did improve markedly after DuoNeb treatment. Patient is a smoker she does not have a rescue inhaler at home. She'll be discharged with oral steroids and a rescue inhaler as well as NSAID a medication. We did discuss smoking cessation and risks of continuing the conversation lasting 3.3 minutes. Disposition Clinical Impression: Costalchondritis, Chest wall syndrome, Acute bronchospasm, COPD (chronic obstructive pulmonary disease), Xiphoid pain, Smoking Disposition: HOME SELF-CARE Condition: Good Instructions: Costochondritis (ED), COPD (Chronic Obstructive Pulmonary Disease ) (ED), How to Stop Smoking (ED) Prescriptions: Ipratropium/Albuterol Sulfate [Combivent Respimat Inhaler] 1 puff INHALATION QID #1 inhaler predniSONE 20 mg PO BID #10 tab Is patient prescribed a controlled substance at d/c from ED?: No Referrals: None,Stated [Primary Care Provider] - 1-2 days
[2017-10-09] MEDS: NITROGLYCERIN SL TABS 0.4 MG TAB SUBLINGUAL STA ×3 (08:07→08:20)
[2017-10-09 08:20] LABS: Basophils % (A) 0 %; Eosinophils # (A) 0.3 k/uL (0-0.7); Eosinophils % (A) 2 %; HCT 50.9 % (34.0-46.0); HGB 16.9 gm/dL (11.4-16.0); Lymphocytes # (A) 1.9 k/uL (1.0-4.8); Lymphocytes % (A) 15 %; MCH 29.8 pg (25.0-35.0); MCHC 33.2 g/dL (31.0-37.0); MCV 89.7 fL (80.0-100.0); Mean Platelet Volume 7.2; Monocytes # (A) 0.8 k/uL (0-1.0); Monocytes % (A) 6 %; Neutrophils # (A) 9.3 k/uL (1.3-7.7); Neutrophils % (A) 75 %; Platelet Count 276 k/uL (150-450); RBC 5.67 m/uL (3.80-5.40); WBC 12.5 k/uL (3.8-10.6)
[2017-10-09] MEDS ORDERED: KETOROLAC 30 MG/ML 1 ML VIAL IVP STA ×2 (08:22→10:47)
[2017-10-09] MEDS ORDERED: IPRATROPIUM-ALBUTEROL 3 ML NEB INHALATION STA (08:22)
[2017-10-09 08:29] LABS: Creatine Kinase 28 U/L (30-135)
[2017-10-09 08:33] LABS: ALT 25 U/L (9-52); AST 20 U/L (14-36); Albumin 3.7 g/dL (3.5-5.0); Alkaline Phosphatase 76 U/L (38-126); Amylase 49 U/L (30-110); Anion Gap 6 mmol/L; Blood Urea Nitrogen 15 mg/dL (7-17); Calcium 9.2 mg/dL (8.4-10.2); Carbon Dioxide 31 mmol/L (22-30); Chloride 102 mmol/L (98-107); Glucose 104 mg/dL (74-99); Lipase 66 U/L (23-300); Magnesium 1.8 mg/dL (1.6-2.3); Potassium 4.7 mmol/L (3.5-5.1); Sodium 139 mmol/L (137-145); Total Bilirubin 0.6 mg/dL (0.2-1.3); Total Protein 6.4 g/dL (6.3-8.2)
[2017-10-09 08:42] LABS: Troponin I <0.012 ng/mL (0.000-0.034)
[2017-10-09 08:57] LABS: D-Dimer 0.48 mg/L FEU (<0.60); Partial Thromboplastin Time 24.7 sec (22.0-30.0); Prothrombin Time 9.7 sec (9.0-12.0)
--- NOTE | 2017-10-09 10:31 | XR ---
EXAMINATION TYPE: XR chest 2V DATE OF EXAM: 10/09/2017 COMPARISON: 06/17/2017 HISTORY: 57 year-old female chest pain TECHNIQUE: AP and lateral views FINDINGS: Heart borderline to mildly enlarged. Mild diffuse interstitial prominence is similar. No consolidatio n or pleural effusion. IMPRESSION: 1. Stable borderline heart size. 2. Chronic changes. No acute process seen.
[2017-10-09] MEDS ORDERED: methylPREDNISolone SOD SUCCI 125 MG/2 ML VIAL IV STA (11:20)
[2017-10-09 12:02] VITALS: BP 131/59; PULSE 74; TEMP 97.8
== END 2017-10-09 11:57 | disposition home or self-care (01) ==
LOC: EC 07:41
DX: M94.0 Chondrocostal junction syndrome [Tietze] (principal); J44.9 Chronic obstructive pulmonary disease, unspecified; J98.01 Acute bronchospasm; F41.9 Anxiety disorder, unspecified; F32.9 Major depressive disorder, single episode, unspecified; I25.10 Atherosclerotic heart disease of native coronary artery without angina pectoris; E78.5 Hyperlipidemia, unspecified; I10 Essential (primary) hypertension; M19.90 Unspecified osteoarthritis, unspecified site; F17.200 Nicotine dependence, unspecified, uncomplicated; Z79.82 Long term (current) use of aspirin; Z79.899 Other long term (current) drug therapy; Z95.5 Presence of coronary angioplasty implant and graft
CPT/HCPCS: 36415; 94640; 93005; 85379; 83880; 80053; 82150; 82550; 82553; 83690; 83735; 84484; 85025; 85610; 85730; 71046; 99285; 96374; 96375; 96376; 96361 ×4; 99406; J2930; J1885

== ENCOUNTER 2017-10-10 17:52 | Inpatient (IN) | payer MEDICARE ==
[2017-10-10] MEDS ORDERED: SODIUM CHLORIDE 0.9% 500 ML IV STA (18:31)
[2017-10-10] MEDS ORDERED: SODIUM CHLORIDE 0.9% 1,000 ML IV STA (18:31)
[2017-10-10] MEDS ORDERED: PANTOPRAZOLE 40 MG/10 ML VIAL IVP STA (18:31)
[2017-10-10] MEDS ORDERED: ONDANSETRON 4 MG/2 ML VIAL IVP STA (18:31)
--- NOTE | 2017-10-10 18:40 | ED ---
GI Bleed HPI - General Chief complaint: GI Bleed Stated complaint: blood in stool,weak Time Seen by Provider: 10/10/17 18:30 Source: patient Mode of arrival: ambulatory Limitations: no limitations - History of Present Illness Initial comments: 57 years O female was seen in ER yesterday for chest pain, she is on Plavix at this point and aspirin area since 4 PM today she moved her bowels 4 times and now each time she seen a large amount of blood and there was bright red and dark red she moved her bowels in the in ER and IV was able to take a lock its quite large amount of blood with the stool. She feels dizzy no abdominal pain no headaches no chest pain or shortness of breath she feels weak in general but no symptoms of any TIA or CVA - Related Data Home Medications Medication Instructions Recorded Confirmed Atorvastatin [Lipitor] 40 mg PO HS 06/13/17 10/10/17 Budesonide/Formoterol Fumarate 2 puff INHALATION RT-BID 06/13/17 10/10/17 [Symbicort 160-4.5 Mcg Inhaler] Clopidogrel [Plavix] 75 mg PO DAILY 06/13/17 10/10/17 DULoxetine HCL [Cymbalta] 60 mg PO HS 06/13/17 10/10/17 Furosemide [Lasix] 20 mg PO DAILY 06/13/17 10/10/17 Losartan Potassium 100 mg PO DAILY 06/13/17 10/10/17 Meloxicam 15 mg PO HS 06/13/17 10/10/17 Potassium Chloride ER [K-Dur 10] 10 meq PO DAILY 06/13/17 10/10/17 Aspirin 81 mg PO DAILY 10/09/17 10/10/17 Ipratropium/Albuterol Sulfate 1 puff INHALATION RT-QID 10/10/17 10/10/17 [Combivent Respimat Inhaler] Previous Rx's Medication Instructions Recorded Carvedilol [Coreg*] 12.5 mg PO BID #60 tablet 06/19/17 amLODIPine [Norvasc] 10 mg PO DAILY #30 tab 06/19/17 predniSONE 20 mg PO BID #10 tab 10/09/17 Allergies Allergy/AdvReac Type Severity Reaction Status Date / Time No Known Allergies Allergy Verified 10/10/17 18:26 Review of Systems ROS Statement: Those systems with pertinent positive or pertinent negative responses have been documented in the HPI. ROS Other: All systems not noted in ROS Statement are negative. Past Medical History Past Medical History: Coronary Artery Disease (CAD), COPD, Hyperlipidemia, Hypertension, Osteoarthritis (OA) Additional Past Medical History / Comment(s): at time of admission pt poor historian info from spouse/son and pmh 2009. poor dentation, osbesity,uterine fibroids (spouse not sure if she had a hysterectomy or not),back pain History of Any Multi-Drug Resistant Organisms: None Reported Past Surgical History: Adenoidectomy, Section, Heart Catheterization With Stent, Tonsillectomy Additional Past Surgical History / Comment(s): x 4 Past Anesthesia/Blood Transfusion Reactions: No Reported Reaction Date of Last Stent Placement:: unk Past Psychological History: Anxiety, Depression Smoking Status: Current every day smoker Past Alcohol Use History: None Reported Past Drug Use History: None Reported - Past Family History Mother Family Medical History: COPD Additional Family Medical History / Comment(s): emphysema Father Family Medical History: Congestive Heart Failure (CHF) General Exam Limitations: no limitations Course Vital Signs 10/10/17 10/10/17 10/10/17 18:08 19:37 20:00 Temperature 97.3 F L Pulse Rate 99 82 Respiratory 20 18 Rate Blood Pressure 118/72 87/44 100/50 O2 Sat by Pulse 96 99 Oximetry Medical Decision Making - Lab Data Result diagrams: 10/10/17 20:06 10/10/17 18:30 Lab Results 10/10/17 10/10/17 10/10/17 Range/Units 18:30 18:30 18:30 WBC 24.1 H (3.8-10.6) k/uL RBC 4.19 (3.80-5.40) m/uL Hgb 12.6 D (11.4-16.0) gm/dL Hct 38.0 (34.0-46.0) % MCV 90.8 (80.0-100.0) fL MCH 30.1 (25.0-35.0) pg MCHC 33.2 (31.0-37.0) g/dL RDW 14.0 (11.5-15.5) % Plt Count 310 (150-450) k/uL Neutrophils % 86 % Lymphocytes % 7 % Monocytes % 5 % Eosinophils % 1 % Basophils % 0 % Neutrophils # 20.7 H (1.3-7.7) k/uL Lymphocytes # 1.7 (1.0-4.8) k/uL Monocytes # 1.3 H (0-1.0) k/uL Eosinophils # 0.2 (0-0.7) k/uL Basophils # 0.0 (0-0.2) k/uL PT (9.0-12.0) sec INR (<1.2) APTT (22.0-30.0) sec Sodium 136 L (137-145) mmol/L Potassium 5.6 H (3.5-5.1) mmol/L Chloride 105 (98-107) mmol/L Carbon Dioxide 26 (22-30) mmol/L Anion Gap 5 mmol/L BUN 50 H (7-17) mg/dL Creatinine 0.60 (0.52-1.04) mg/dL Est GFR (CKD-EPI)AfAm >90 (>60 ml/min/1.73 sqM) Est GFR (CKD-EPI)NonAf >90 (>60 ml/min/1.73 sqM) Glucose 123 H (74-99) mg/dL Plasma Lactic Acid Daniel (0.7-2.0) mmol/L Calcium 8.6 (8.4-10.2) mg/dL Total Bilirubin 0.4 (0.2-1.3) mg/dL AST 18 (14-36) U/L ALT 27 (9-52) U/L Alkaline Phosphatase 46 (38-126) U/L Total Creatine Kinase 23 L (30-135) U/L CK-MB (CK-2) 1.1 (0.0-2.4) ng/mL CK-MB (CK-2) Rel Index 4.8 Troponin I <0.012 (0.000-0.034) ng/mL Total Protein 5.0 L (6.3-8.2) g/dL Albumin 2.8 L (3.5-5.0) g/dL Stool Occult Blood (Negative) Blood Type Blood Type Confirm Blood Type Recheck Antibody Screen Crossmatch Spec Expiration Date 10/10/17 10/10/17 10/10/17 Range/Units 18:30 18:30 18:30 WBC (3.8-10.6) k/uL RBC (3.80-5.40) m/uL Hgb (11.4-16.0) gm/dL Hct (34.0-46.0) % MCV (80.0-100.0) fL MCH (25.0-35.0) pg MCHC (31.0-37.0) g/dL RDW (11.5-15.5) % Plt Count (150-450) k/uL Neutrophils % % Lymphocytes % % Monocytes % % Eosinophils % % Basophils % % Neutrophils # (1.3-7.7) k/uL Lymphocytes # (1.0-4.8) k/uL Monocytes # (0-1.0) k/uL Eosinophils # (0-0.7) k/uL Basophils # (0-0.2) k/uL PT 10.2 (9.0-12.0) sec INR 1.0 (<1.2) APTT 20.1 L (22.0-30.0) sec Sodium (137-145) mmol/L Potassium (3.5-5.1) mmol/L Chloride (98-107) mmol/L Carbon Dioxide (22-30) mmol/L Anion Gap mmol/L BUN (7-17) mg/dL Creatinine (0.52-1.04) mg/dL Est GFR (CKD-EPI)AfAm (>60 ml/min/1.73 sqM) Est GFR (CKD-EPI)NonAf (>60 ml/min/1.73 sqM) Glucose (74-99) mg/dL Plasma Lactic Acid Daniel 2.0 (0.7-2.0) mmol/L Calcium (8.4-10.2) mg/dL Total Bilirubin (0.2-1.3) mg/dL AST (14-36) U/L ALT (9-52) U/L Alkaline Phosphatase (38-126) U/L Total Creatine Kinase (30-135) U/L CK-MB (CK-2) (0.0-2.4) ng/mL CK-MB (CK-2) Rel Index Troponin I (0.000-0.034) ng/mL Total Protein (6.3-8.2) g/dL Albumin (3.5-5.0) g/dL Stool Occult Blood (Negative) Blood Type O Positive Blood Type Confirm Blood Type Recheck CABO Indicated Antibody Screen NEGATIVE Crossmatch See Detail Spec Expiration Date 10/13/2017 - 232910/10/17 10/10/17 10/10/17 Range/Units 19:07 19:46 20:06 WBC 23.4 H (3.8-10.6) k/uL RBC 3.34 L (3.80-5.40) m/uL Hgb 10.3 L (11.4-16.0) gm/dL Hct 30.8 L (34.0-46.0) % MCV 92.0 (80.0-100.0) fL MCH 30.7 (25.0-35.0) pg MCHC 33.4 (31.0-37.0) g/dL RDW 13.9 (11.5-15.5) % Plt Count 237 (150-450) k/uL Neutrophils % % Lymphocytes % % Monocytes % % Eosinophils % % Basophils % % Neutrophils # (1.3-7.7) k/uL Lymphocytes # (1.0-4.8) k/uL Monocytes # (0-1.0) k/uL Eosinophils # (0-0.7) k/uL Basophils # (0-0.2) k/uL PT (9.0-12.0) sec INR (<1.2) APTT (22.0-30.0) sec Sodium (137-145) mmol/L Potassium (3.5-5.1) mmol/L Chloride (98-107) mmol/L Carbon Dioxide (22-30) mmol/L Anion Gap mmol/L BUN (7-17) mg/dL Creatinine (0.52-1.04) mg/dL Est GFR (CKD-EPI)AfAm (>60 ml/min/1.73 sqM) Est GFR (CKD-EPI)NonAf (>60 ml/min/1.73 sqM) Glucose (74-99) mg/dL Plasma Lactic Acid Daniel (0.7-2.0) mmol/L Calcium (8.4-10.2) mg/dL Total Bilirubin (0.2-1.3) mg/dL AST (14-36) U/L ALT (9-52) U/L Alkaline Phosphatase (38-126) U/L Total Creatine Kinase (30-135) U/L CK-MB (CK-2) (0.0-2.4) ng/mL CK-MB (CK-2) Rel Index Troponin I (0.000-0.034) ng/mL Total Protein (6.3-8.2) g/dL Albumin (3.5-5.0) g/dL Stool Occult Blood Positive H (Negative) Blood Type Blood Type Confirm O Positive Blood Type Recheck Antibody Screen Crossmatch Spec Expiration Date Critical Care Time Total Critical Care Time: 60 Critical Care Time: 57 years old lady was seen in ER yesterday for chest pain she is on Plavix and aspirin today comes in with her for bloody stools over 1 hour around 5 PM and she moved her bowels in the ER there was a large amount of blood It was started part of this looked quite red and she is also complaining about cramps in the abdomen her hemoglobin yesterday was 17 today dropped to 12 and then we repeated half an hour later it dropped to 10, it remained that she has lost 30% of her blood and 24 hours I have ordered 3 units of packed cells she has a 3 peripheral IVs. Then she dropped her blood pressure to 85/35 she was given a 2 L of fluids IV PPIs her calling her she be going to the ICU with the fluids and blood pressure is fine now also noticed the white count yesterday was 12 today's 25 I will order blood cultures urine cultures and broad-spectrum antibiotics including Zosyn and Flagyl has been ordered Dr. Griffith has been consulted and I am waiting to her back from Dr. Saez she be admitted to ICU and she be admitted to Dr. Orestes winters's [facility] hospitalist group, I have sent her for a quick CT of the abdomen and considering elevated white count and abdominal discomfort. Noticed mild hyperkalemia she is on a potassium at home I have ordered some D50 and insulin to push the potassium intracellular Disposition Clinical Impression: GI bleed, Hypotension, Tachycardia, Hyperkalemia Clinical Impression: (Ruled Out): Hypercalcemia Disposition: ADMITTED IP TO THIS [facility] Condition: Fair Referrals: None,Stated [Primary Care Provider] - 1-2 days
[2017-10-10 19:02] LABS: Basophils % (A) 0 %; Eosinophils # (A) 0.2 k/uL (0-0.7); Eosinophils % (A) 1 %; Lymphocytes # (A) 1.7 k/uL (1.0-4.8); Lymphocytes % (A) 7 %; MCH 30.1 pg (25.0-35.0); MCHC 33.2 g/dL (31.0-37.0); MCV 90.8 fL (80.0-100.0); Mean Platelet Volume 7.9; Monocytes # (A) 1.3 k/uL (0-1.0); Monocytes % (A) 5 %; Neutrophils # (A) 20.7 k/uL (1.3-7.7); Neutrophils % (A) 86 %; Platelet Count 310 k/uL (150-450); RBC 4.19 m/uL (3.80-5.40); WBC 24.1 k/uL (3.8-10.6)
[2017-10-10 19:08] LABS: HGB 12.6 gm/dL (11.4-16.0)
[2017-10-10 19:12] LABS: ALT 27 U/L (9-52); AST 18 U/L (14-36); Albumin 2.8 g/dL (3.5-5.0); Alkaline Phosphatase 46 U/L (38-126); Anion Gap 5 mmol/L; Blood Urea Nitrogen 50 mg/dL (7-17); Calcium 8.6 mg/dL (8.4-10.2); Carbon Dioxide 26 mmol/L (22-30); Chloride 105 mmol/L (98-107); Glucose 123 mg/dL (74-99); Potassium 5.6 mmol/L (3.5-5.1); Sodium 136 mmol/L (137-145); Total Bilirubin 0.4 mg/dL (0.2-1.3)
[2017-10-10 19:18] LABS: Creatine Kinase 23 U/L (30-135)
[2017-10-10 19:22] LABS: Prothrombin Time 10.2 sec (9.0-12.0)
[2017-10-10 19:23] LABS: Partial Thromboplastin Time 20.1 sec (22.0-30.0)
[2017-10-10 19:31] LABS: Creatine Kinase MB 1.1 ng/mL (0.0-2.4); Troponin I <0.012 ng/mL (0.000-0.034)
[2017-10-10] MEDS ORDERED: SODIUM CHLORIDE 0.9% 500 ML IV ONE (19:40)
--- NOTE | 2017-10-10 19:45 | XR ---
EXAMINATION TYPE: XR chest 2V DATE OF EXAM: 10/10/2017 COMPARISON: 10/09/2017 HISTORY: Chest pain TECHNIQUE: Frontal and lateral views of the chest are obtained. FINDINGS: There is no heart failure nor confluent pneumonic infiltrate. Costophrenic angles are alysha r. Bony thorax is intact. IMPRESSION: No active cardiopulmonary disease. Normal heart. There is improved aeration of the right lung base compared to yesterday.
[2017-10-10] MEDS ORDERED: PIPERACILLIN-TAZOBACTAM 3.375 GM in DEXTROSE/WATER 1 50ML.BAG IVPB STA (20:13)
[2017-10-10] MEDS ORDERED: metroNIDAZOLE-NS PMX 500 MG in SALINE 1 100ML.BAG IVPB STA (20:14)
[2017-10-10 20:24] LABS: HCT 30.8 % (34.0-46.0); HGB 10.3 gm/dL (11.4-16.0); MCH 30.7 pg (25.0-35.0); MCHC 33.4 g/dL (31.0-37.0); Mean Platelet Volume 7.2; Platelet Count 237 k/uL (150-450); RBC 3.34 m/uL (3.80-5.40); RDW 13.9 % (11.5-15.5); WBC 23.4 k/uL (3.8-10.6)
[2017-10-10] MEDS ORDERED: INSULIN REGULAR 100 UNIT/ML VIAL IV ONE (20:24)
[2017-10-10] MEDS ORDERED: DEXTROSE 50%-WATER 50 ML SYRINGE IVP STA (20:24)
[2017-10-10] MEDS ORDERED: NALOXONE 0.4 MG/ML 1 ML VIAL IV PRN (20:38)
[2017-10-10] MEDS ORDERED: predniSONE 20 MG TAB PO SCH (21:00)
--- NOTE | 2017-10-10 21:08 | CT ---
EXAMINATION TYPE: CT abdomen pelvis w con DATE OF EXAM: 10/10/2017 COMPARISON: None HISTORY: blood in stool x [address] DLP: 1668 mGycm Automated exposure control for dose reduction was used. TECHNIQUE: Helical acquisition of images was performed from the lung bases through the pelvis. CONTRAST: Performed without Oral Contrast and with IV Contrast, patient injected with 100 mL of Isovue 300. FINDINGS: Lung bases are clear of consolidation. There is no pleural effusion. Liver and spleen appear normal. Bile ducts are not dilated. Gallbladder appears normal. There is no pancreatic mass. There is no adrenal mass. Kidneys show satisfactory contrast opacification. There is no hydronephrosi s. There is no retroperitoneal adenopathy. Abdominal aorta is atheromatous. Bladder distends smoothly . There is no free fluid in the pelvis. Appendix appears normal. There is no intestinal wall thickeni ng. There are no dilated loops. The lumbar spine is intact. Abdominal aorta is atheromatous. There is no aneurysm. IMPRESSION: ATHEROSCLEROTIC VASCULAR DISEASE. NO SIGN OF ACUTE ABDOMEN AND PELVIS. NORMAL APPENDIX.
[2017-10-10 21:49] LABS: Glucose,Whole Blood 173 mg/dL (75-99)
[2017-10-10 22:15] LABS: Lymphocytes # (M) 3.04 k/uL (1.0-4.8); Metamyelocytes # (M) 0.23 k/uL (0); Metamyelocytes % 1 %; Monocytes # (M) 1.64 k/uL (0-1.0); Myelocytes # (M) 0.47 k/uL (0); Myelocytes % 2 %; Neutrophils # (M) 18.49 k/uL (1.3-7.7); Neutrophils % (M) 79 %; Nucleated Red Blood Cells 0 /100 WBC (0-0); Polychromasia Present; Total Cells Counted 200
[2017-10-10 22:51] LABS: Glucose,Whole Blood 98 mg/dL (75-99)
--- NOTE | 2017-10-10 22:55 | P.HPIM ---
History of Present Illness H&P Date: 10/10/17 Chief Complaint: GI bleeding 57-year-old female with history of CAD and COPD. Patient presented to the hospital due to bleeding per rectum. Patient reports that around 5 PM today she had one bout of rectal bleeding described as dark blood was pouring out of her rectum with no. This has never happened to her before she was scared and rushed to the ED she denies any associated abdominal pain but does report some upper abdominal discomfort. She reports that over the past month she's been having some indigestion and epigastric discomfort she also admits to long history of GERD for many years she stopped taking medications for that. She denies taking any NSAIDs, however she does admit to aspirin and Plavix, and sometimes she would take aspirin for pain like she did today when she had the epigastric/chest discomfort. She usually takes Tums. She also admits to taking meloxicam for over a year now. Otherwise she denies any associated nausea or vomiting she denies any coffee-ground vomiting. She reports associated symptoms of dizziness and palpitations and feeling generalized weakness. Yesterday she presented to the hospital due to lower chest pain sharp in nature radiating to the left side she was given a dose of Toradol in the hospital and was sent home. Patient has history of coronary artery disease with 2 stents in the past was done around 2014 In the emergency department she had 5 more pedrito bloody bowel movements, her hemoglobin was found to have dropped significantly she was initiated blood transfusion and ER doctor discussed the case with GI patient will also be admitted to the ICU for close monitoring and serial hemoglobin. Patient was started on Protonix and blood transfusion. Currently patient seen in the emergency department she feels comfortable laying down in bed reports some upper abdominal discomfort but no significant pain. She denies any fevers chills or headache denies any vision or hearing changes denies any focal neurologic deficits. Denies taking any blood thinners. Denies taking any NSAIDs other than meloxicam and aspirin. Denies any history of GI bleeding. Review of Systems Pertinent positives as noted in HPI. All other systems were reviewed and are negative Past Medical History Past Medical History: Coronary Artery Disease (CAD), COPD, Hyperlipidemia, Hypertension, Osteoarthritis (OA) Additional Past Medical History / Comment(s): at time of admission pt poor historian info from spouse/son and [facility] 2009. poor dentation, osbesity,uterine fibroids (spouse not sure if she had a hysterectomy or not),back pain History of Any Multi-Drug Resistant Organisms: None Reported Past Surgical History: Adenoidectomy, Section, Heart Catheterization With Stent, Tonsillectomy Additional Past Surgical History / Comment(s): x 4 Past Anesthesia/Blood Transfusion Reactions: No Reported Reaction Date of Last Stent Placement:: unk Past Psychological History: Anxiety, Depression Smoking Status: Current every day smoker Past Alcohol Use History: None Reported Past Drug Use History: None Reported - Past Family History Mother Family Medical History: COPD Additional Family Medical History / Comment(s): emphysema Father Family Medical History: Congestive Heart Failure (CHF) Medications and Allergies Home Medications Medication Instructions Recorded Confirmed Type Atorvastatin [Lipitor] 40 mg PO HS 06/13/17 10/10/17 History Budesonide/Formoterol Fumarate 2 puff INHALATION RT-BID 06/13/17 10/10/17 History [Symbicort 160-4.5 Mcg Inhaler] Clopidogrel [Plavix] 75 mg PO DAILY 06/13/17 10/10/17 History DULoxetine HCL [Cymbalta] 60 mg PO HS 06/13/17 10/10/17 History Furosemide [Lasix] 20 mg PO DAILY 06/13/17 10/10/17 History Losartan Potassium 100 mg PO DAILY 06/13/17 10/10/17 History Meloxicam 15 mg PO HS 06/13/17 10/10/17 History Potassium Chloride ER [K-Dur 10] 10 meq PO DAILY 06/13/17 10/10/17 History Carvedilol [Coreg*] 12.5 mg PO BID #60 tablet 06/19/17 10/10/17 Rx amLODIPine [Norvasc] 10 mg PO DAILY #30 tab 06/19/17 10/10/17 Rx Aspirin 81 mg PO DAILY 10/09/17 10/10/17 History predniSONE 20 mg PO BID #10 tab 10/09/17 10/10/17 Rx Ipratropium/Albuterol Sulfate 1 puff INHALATION RT-QID 10/10/17 10/10/17 History [Combivent Respimat Inhaler] Allergies Allergy/AdvReac Type Severity Reaction Status Date / Time No Known Allergies Allergy Verified 10/10/17 18:26 Physical Exam Vitals: Vital Signs Temp Pulse Resp BP Pulse Ox 10/10/17 21:23 99 F 70 18 110/56 97 10/10/17 20:53 99.1 F 77 18 127/61 10/10/17 20:43 98.7 F 88 18 112/53 94 L 10/10/17 20:00 100/50 10/10/17 19:37 82 18 87/44 99 10/10/17 18:08 97.3 F L 99 20 118/72 96 Intake and Output 10/10/17 10/10/17 10/10/17 06:59 14:59 22:59 Intake Total 0 Balance 0 Intake: Blood Product 0 Rc As-1 Unit 0 [id number] Other: Weight 106.594 kg Constitutional: No acute distress, conversant, pleasant Eyes: Anicteric sclerae, moist conjunctiva, no lid-lag Pupils equal round reactive to light ENMT: NC/AT Oropharynx clear, no erythema, exudates Neck: Supple, FROM, no masses, or JVD No carotid bruits No thyromegaly Lungs: Good breath sounds bilaterally, slightly prolonged expiratory phase with end expiratory wheezes Clear to percussion Normal respiratory effort, no accessory muscle use Cardiovascular: Heart regular in rate and rhythm, No murmurs, gallops, or rubs No peripheral edema Abdominal: Soft, discomfort to deep palpation of the epigastric and left subcostal region no guarding, rebound or rigidity Abdomen moving with respiration Normoactive bowel sounds No hepatomegaly, No splenomegaly No palpable mass No abdominal wall hernia noted Skin: Normal temperature, tone, texture, turgor No induration No subcutaneous nodules No rash, lesions No ulcers Extremities: No digital cyanosis No clubbing Pedal pulses intact and symmetrical Radial pulses intact and symmetrical No calf tenderness Psychiatric: Alert and oriented to person, place and time Appropriate affect fair judgment Neuro Muscles Strength 5/5 in all 4 extremities Sensation to light touch grossly present throughout Cranial nerves II-XII grossly intact No focal sensory deficits Lymphatics: no palpable cervical or supraclavicular , or inguinal lymph nodes Results CBC & Chem 7: 10/10/17 20:06 10/10/17 18:30 Labs: Abnormal Lab Results - Last 24 Hours (Table) 10/10/17 10/10/17 10/10/17 Range/Units 18:30 18:30 18:30 WBC 24.1 H (3.8-10.6) k/uL RBC (3.80-5.40) m/uL Hgb (11.4-16.0) gm/dL Hct (34.0-46.0) % Neutrophils # 20.7 H (1.3-7.7) k/uL Monocytes # 1.3 H (0-1.0) k/uL APTT (22.0-30.0) sec Sodium 136 L (137-145) mmol/L Potassium 5.6 H (3.5-5.1) mmol/L BUN 50 H (7-17) mg/dL Glucose 123 H (74-99) mg/dL POC Glucose (mg/dL) (75-99) mg/dL Total Creatine Kinase 23 L (30-135) U/L Total Protein 5.0 L (6.3-8.2) g/dL Albumin 2.8 L (3.5-5.0) g/dL Stool Occult Blood (Negative) Crossmatch 10/10/17 10/10/17 10/10/17 Range/Units 18:30 18:30 19:07 WBC (3.8-10.6) k/uL RBC (3.80-5.40) m/uL Hgb (11.4-16.0) gm/dL Hct (34.0-46.0) % Neutrophils # (1.3-7.7) k/uL Monocytes # (0-1.0) k/uL APTT 20.1 L (22.0-30.0) sec Sodium (137-145) mmol/L Potassium (3.5-5.1) mmol/L BUN (7-17) mg/dL Glucose (74-99) mg/dL POC Glucose (mg/dL) (75-99) mg/dL Total Creatine Kinase (30-135) U/L Total Protein (6.3-8.2) g/dL Albumin (3.5-5.0) g/dL Stool Occult Blood Positive H (Negative) Crossmatch See Detail 10/10/17 10/10/17 Range/Units 20:06 21:44 WBC 23.4 H (3.8-10.6) k/uL RBC 3.34 L (3.80-5.40) m/uL Hgb 10.3 L (11.4-16.0) gm/dL Hct 30.8 L (34.0-46.0) % Neutrophils # (1.3-7.7) k/uL Monocytes # (0-1.0) k/uL APTT (22.0-30.0) sec Sodium (137-145) mmol/L Potassium (3.5-5.1) mmol/L BUN (7-17) mg/dL Glucose (74-99) mg/dL POC Glucose (mg/dL) 173 H (75-99) mg/dL Total Creatine Kinase (30-135) U/L Total Protein (6.3-8.2) g/dL Albumin (3.5-5.0) g/dL Stool Occult Blood (Negative) Crossmatch Assessment and Plan Assessment: 57-year-old female with past medical history of CAD status post stents 2014 on dual antiplatelets, hypertension and hyperlipidemia and COPD. Patient admitted as an inpatient with anticipated length of stay of more than 48 hours for acute GI bleeding and symptomatic anemia. Patient was resuscitated given IV fluids and blood transfusion due to significant drop in hemoglobin and active bloody bowel movement in the ED. GI was notified. PPI IV twice a day. Patient will be admitted to the ICU for close monitoring and further evaluation Plan: Rectal bleeding rule out upper GI versus lower GI bleeding Patient reports history of indigestion and epigastric discomfort which points toward upper GI bleeding Start PPI twice a day IV IV fluid hydration Blood transfusion and resuscitation GI consult Nothing by mouth Hold antiplatelets CT of the abdomen reviewed and was unremarkable Acute blood loss symptomatic anemia due to GI bleeding Blood transfusion as mentioned above Closely monitor hemoglobin every 6 hours Leukocytosis, no evidence of acute infection at this time Discontinue antibiotics Most likely reactive due to GI bleeding, patient also received a dose of steroids yesterday Monitor for evidence of infection Mild hyperkalemia Patient received D50 and insulin Continue to monitor potassium level Chronic medical conditions, currently stable CAD status post stents in 2014, COPD, hyperlipidemia, hypertension, osteoarthritis Continue with home medications DVT prophylaxis currently on the mechanical due to GI bleeding avoid pharmacologic DVT prophylaxis Surrogate decision-maker: Patient CODE STATUS: Full code Discussed with: Patient, ER, RN Anticipated discharge: 48-[address]: Home A total of 60 minutes was spent on the care of this complex patient more than 50 % of the time was spent in counseling and care coordination.
[2017-10-10 23:18] VITALS: BMI 47.2
[2017-10-10] MEDS: IPRATROPIUM-ALBUTEROL 3 ML NEB INHALATION SCH (23:28)
[2017-10-11] MEDS: ATORVASTATIN 40 MG TAB PO SCH ×2 (00:57→21:07)
[2017-10-11] MEDS: DULoxetine HCL 60 MG CAPSULE.DR PO SCH ×2 (00:57→21:07)
[2017-10-11] MEDS: CARVEDILOL 12.5 MG TAB PO SCH ×3 (01:48→17:13)
[2017-10-11 02:26] LABS: Appearance,Urine Clear (Clear); Bilirubin,Urine Negative (Negative); Blood,Urine Trace (Negative); Color,Urine Light Yellow; Glucose,Urine (UA) Negative (Negative); Ketones,Urine Negative (Negative); Leukocyte Esterase,Urine Negative (Negative); Mucus,Urine Rare /hpf; Nitrite,Urine Negative (Negative); PH, Urine 5.5 (5.0-8.0); Protein,Urine Negative (Negative); RBC,Urine 1 /hpf (0-5); Specific Gravity,Urine 1.023 (1.001-1.035); Squamous Epithelial Cell,Urine <1 /hpf (0-4); Urobilinogen,Urine <2.0 mg/dL (<2.0); WBC,Urine <1 /hpf (0-5)
[2017-10-11 03:16] LABS: Basophils # (A) 0.1 k/uL (0-0.2); Basophils % (A) 0 %; Eosinophils # (A) 0.1 k/uL (0-0.7); Eosinophils % (A) 0 %; HCT 39.1 % (34.0-46.0); HGB 12.6 gm/dL (11.4-16.0); Lymphocytes # (A) 2.4 k/uL (1.0-4.8); Lymphocytes % (A) 13 %; MCH 29.6 pg (25.0-35.0); MCHC 32.3 g/dL (31.0-37.0); MCV 91.5 fL (80.0-100.0); Mean Platelet Volume 7.4; Monocytes # (A) 1.4 k/uL (0-1.0); Monocytes % (A) 7 %; Neutrophils % (A) 79 %; Platelet Count 202 k/uL (150-450); RBC 4.27 m/uL (3.80-5.40); RDW 14.5 % (11.5-15.5); WBC 19.1 k/uL (3.8-10.6)
[2017-10-11 03:22] LABS: ALT 26 U/L (9-52); AST 13 U/L (14-36); Albumin 2.7 g/dL (3.5-5.0); Alkaline Phosphatase 44 U/L (38-126); Anion Gap 2 mmol/L; Blood Urea Nitrogen 46 mg/dL (7-17); Calcium 8.2 mg/dL (8.4-10.2); Carbon Dioxide 28 mmol/L (22-30); Chloride 109 mmol/L (98-107); Glucose 99 mg/dL (74-99); Magnesium 1.9 mg/dL (1.6-2.3); Phosphorus 3.7 mg/dL (2.5-4.5); Potassium 4.9 mmol/L (3.5-5.1); Sodium 139 mmol/L (137-145); Total Bilirubin 0.5 mg/dL (0.2-1.3); Total Protein 4.8 g/dL (6.3-8.2)
[2017-10-11] MEDS ORDERED: Magnesium Replacement Protocol 1 EACH MISC MISCELLANE PRN (04:31)
[2017-10-11] MEDS: MAGNESIUM SULFATE-D5W PMX 1 GM in DEXTROSE/WATER 1 100ML.BAG IVPB SCH ×2 (05:18→06:33)
--- NOTE | 2017-10-11 07:23 | XR ---
EXAMINATION TYPE: XR chest 1V DATE OF EXAM: 10/11/2017 COMPARISON: 10/10/2017 HISTORY: COPD. Recent chest pain. TECHNIQUE: Single frontal view of the chest is obtained. FINDINGS: Bibasilar density relates to copious overlying soft tissues to the prior 10/20/2017. The marilyn ngs were clear on the lateral image as well as the CT abdomen pelvis of 10/10/2017 where the lung bases were clear. There is no focal air space opacity, pleural effusion, or pneumothorax seen. The cardia c silhouette size is enlarged. The osseous structures are intact. IMPRESSION: Copious overlying soft tissues partially obscure the lung bases. Cardiomegaly is redemon strated. No acute cardiopulmonary process is seen.
[2017-10-11] MEDS: SYMBICORT 160-4.5 MCG INHALER INHALATION SCH ×2 (07:46→19:26)
[2017-10-11] MEDS: IPRATROPIUM-ALBUTEROL 3 ML NEB INHALATION SCH ×4 (07:46→19:26)
[2017-10-11] MEDS ORDERED: FUROSEMIDE 20 MG TAB PO SCH (09:00)
[2017-10-11] MEDS ORDERED: PANTOPRAZOLE 40 MG/10 ML VIAL IV SCH (09:00)
--- NOTE | 2017-10-11 09:44 | P.CNPUL ---
History of Present Illness Consult date: 10/11/17 Requesting physician: Yong Melchor Reason for consult: other (Critical care management) Chief complaint: Bright red bowel movements History of present illness: This is a pleasant 57-year-old female patient with a known history of coronary artery disease with previous stent placement, hypertension, hyperlipidemia, chronic obstructive pulmonary disease, chronic and ongoing nicotine dependence, obesity. She also has a history of GERD but has not been on any medications currently. She did have epigastric discomfort for the last week or 2. She presented here to the emergency room yesterday with complaints of bright red bowel movements. She's been on Plavix and aspirin in the outpatient setting. She also utilizes meloxicam. Her initial hemoglobin was 12.6 that did drop to 10.3. She was transfused with 2 units of packed red blood cells. Her current hemoglobin this morning is 12.6. She is seen in the intensive care unit. She is awake and alert in no acute distress. She currently denies any chest pain, palpitations, lightheadedness or dizziness. She does have some vague epigastric discomfort. No worsening shortness of breath. Chest x-ray revealed no acute pulmonary process however she is requiring 6 L/m per nasal cannula to maintain O2 saturations in the 90s. She does have active COPD symptoms. She has been initiated on her Symbicort and DuoNeb inhalations. She has been seen and evaluated by GI services and the plan is for probable endoscopy tomorrow. Review of Systems Constitutional: Reports fatigue, Reports weakness Eyes: denies blurred vision, denies decreased vision Ears: deny: decreased hearing Ears, nose, mouth and throat: Denies headache, Denies sore throat Cardiovascular: Reports dyspnea on exertion, Reports shortness of breath Respiratory: Reports congestion, Reports dyspnea, Reports wheezing Gastrointestinal: Reports abdominal pain, Reports bloating, Reports melena Genitourinary: Denies dysuria, Denies hematuria Musculoskeletal: Reports morning stiffness Neurological: Denies numbness, Denies weakness Psychiatric: Denies anxiety, Denies depression Endocrine: Denies fatigue, Denies weight change Hematologic/Lymphatic: Reports as per HPI Allergic/Immunologic: Reports as per HPI Past Medical History Past Medical History: Coronary Artery Disease (CAD), COPD, Hyperlipidemia, Hypertension, Osteoarthritis (OA) Additional Past Medical History / Comment(s): Coronary artery disease with previous stent placement 2015 in [place]. poor dentation, osbesity,uterine fibroids (spouse not sure if she had a hysterectomy or not),back pain History of Any Multi-Drug Resistant Organisms: None Reported Past Surgical History: Adenoidectomy, Section, Heart Catheterization With Stent, Tonsillectomy Additional Past Surgical History / Comment(s): x 4 Past Anesthesia/Blood Transfusion Reactions: No Reported Reaction Date of Last Stent Placement:: unk Past Psychological History: Anxiety, Depression Smoking Status: Current every day smoker Past Alcohol Use History: None Reported Past Drug Use History: None Reported - Past Family History Mother Family Medical History: COPD Additional Family Medical History / Comment(s): emphysema Father Family Medical History: Congestive Heart Failure (CHF) Medications and Allergies Home Medications Medication Instructions Recorded Confirmed Type Atorvastatin [Lipitor] 40 mg PO HS 06/13/17 10/10/17 History Budesonide/Formoterol Fumarate 2 puff INHALATION RT-BID 06/13/17 10/10/17 History [Symbicort 160-4.5 Mcg Inhaler] Clopidogrel [Plavix] 75 mg PO DAILY 06/13/17 10/10/17 History DULoxetine HCL [Cymbalta] 60 mg PO HS 06/13/17 10/10/17 History Furosemide [Lasix] 20 mg PO DAILY 06/13/17 10/10/17 History Losartan Potassium 100 mg PO DAILY 06/13/17 10/10/17 History Meloxicam 15 mg PO HS 06/13/17 10/10/17 History Potassium Chloride ER [K-Dur 10] 10 meq PO DAILY 06/13/17 10/10/17 History Carvedilol [Coreg*] 12.5 mg PO BID #60 tablet 06/19/17 10/10/17 Rx amLODIPine [Norvasc] 10 mg PO DAILY #30 tab 06/19/17 10/10/17 Rx Aspirin 81 mg PO DAILY 10/09/17 10/10/17 History predniSONE 20 mg PO BID #10 tab 10/09/17 10/10/17 Rx Ipratropium/Albuterol Sulfate 1 puff INHALATION RT-QID 10/10/17 10/10/17 History [Combivent Respimat Inhaler] Allergies Allergy/AdvReac Type Severity Reaction Status Date / Time No Known Allergies Allergy Verified 10/10/17 18:26 Physical Exam Vitals: Vital Signs Temp Pulse Resp BP Pulse Ox 10/11/17 08:00 98.6 F 85 17 135/55 91 L 10/11/17 07:59 87 10/11/17 07:50 93 L 10/11/17 07:48 88 10/11/17 07:00 71 14 138/51 91 L 10/11/17 06:00 71 15 139/50 90 L 10/11/17 05:00 77 15 140/56 94 L 10/11/17 04:00 97.9 F 84 23 119/49 92 L 10/11/17 03:00 79 13 114/52 91 L 10/11/17 02:00 73 15 121/51 90 L 10/11/17 01:00 92 56 H 126/52 95 10/11/17 00:00 98.1 F 70 18 113/44 91 L 10/10/17 23:45 98.1 F 73 17 107/53 91 L 10/10/17 23:28 76 10/10/17 23:15 98.1 F 68 18 113/50 93 L 10/10/17 23:05 98.0 F 77 16 100/53 95 10/10/17 23:00 78 106/55 94 L 10/10/17 22:50 73 16 106/55 94 L 10/10/17 22:18 80 18 110/55 98 10/10/17 21:23 99 F 70 18 110/56 97 10/10/17 20:53 99.1 F 77 18 127/61 10/10/17 20:43 98.7 F 88 18 112/53 94 L 10/10/17 20:00 100/50 10/10/17 19:37 82 18 87/44 99 10/10/17 18:08 97.3 F L 99 20 118/72 96 Intake and Output 10/10/17 10/11/17 10/11/17 22:59 06:59 14:59 Intake Total 0 1520 100 Output Total 1500 501 Balance 0 20 -401 Intake: IV 900 100 Sodium Chloride 0.9% 1, 900 100 000 ml @ 100 mls/hr IV . Q10H STA Rx#:[id number] Blood Product 0 620 Rc As-1 Unit 0 310 [id number] Rc As-1 Unit 310 [id number] Output: Urine 1500 500 Stool 1 Other: Voiding Method Bedside Commode Bedside Commode Bedpan Bedpan # Voids 1 Weight 109.8 kg 109.8 kg - Constitutional General appearance: obese - EENT Eyes: EOMI, PERRLA ENT: hearing grossly normal Ears: bilateral: normal - Neck Neck: normal ROM Carotids: bilateral: upstroke normal Thyroid: bilateral: normal size - Respiratory Respiratory: bilateral: wheezing, prolonged expiration - Cardiovascular Rhythm: regular Heart sounds: normal: S1, S2 - Gastrointestinal General gastrointestinal: distended, hyperactive bowel sounds Localized gastrointestinal: tender: epigastric periumbilical - Integumentary Integumentary: normal turgor - Neurologic Neurologic: CNII-XII intact - Musculoskeletal Musculoskeletal: generalized weakness - Psychiatric Psychiatric: A&O x's 3, appropriate affect, intact judgment & insight Results - Laboratory Findings CBC and BMP: 10/11/17 02:51 10/11/17 02:51 PT/INR, D-dimer PT 10.2 sec (9.0-12.0) 10/10/17 18:30 INR 1.0 (<1.2) 10/10/17 18:30 Abnormal lab findings: Abnormal Labs 10/10/17 10/10/17 10/10/17 18:30 18:30 18:30 WBC 24.1 H RBC Hgb Hct Neutrophils # 20.7 H Neutrophils # (Manual) Monocytes # 1.3 H Monocytes # (Manual) Metamyelocytes # (Man) Myelocytes # (Manual) APTT Sodium 136 L Potassium 5.6 H Chloride BUN 50 H Creatinine Glucose 123 H POC Glucose (mg/dL) Calcium AST Total Creatine Kinase 23 L Total Protein 5.0 L Albumin 2.8 L Urine Blood Urine Mucus Stool Occult Blood Crossmatch 10/10/17 10/10/17 10/10/17 18:30 18:30 19:07 WBC RBC Hgb Hct Neutrophils # Neutrophils # (Manual) Monocytes # Monocytes # (Manual) Metamyelocytes # (Man) Myelocytes # (Manual) APTT 20.1 L Sodium Potassium Chloride BUN Creatinine Glucose POC Glucose (mg/dL) Calcium AST Total Creatine Kinase Total Protein Albumin Urine Blood Urine Mucus Stool Occult Blood Positive H Crossmatch See Detail 10/10/17 10/10/17 10/11/17 20:06 21:44 01:00 WBC 23.4 H RBC 3.34 L Hgb 10.3 L Hct 30.8 L Neutrophils # Neutrophils # (Manual) 18.49 H Monocytes # Monocytes # (Manual) 1.64 H Metamyelocytes # (Man) 0.23 H Myelocytes # (Manual) 0.47 H APTT Sodium Potassium Chloride BUN Creatinine Glucose POC Glucose (mg/dL) 173 H Calcium AST Total Creatine Kinase Total Protein Albumin Urine Blood Trace H Urine Mucus Rare H Stool Occult Blood Crossmatch 10/11/17 10/11/17 02:51 02:51 WBC 19.1 H RBC Hgb Hct Neutrophils # 15.0 H Neutrophils # (Manual) Monocytes # 1.4 H Monocytes # (Manual) Metamyelocytes # (Man) Myelocytes # (Manual) APTT Sodium Potassium Chloride 109 H BUN 46 H Creatinine 0.50 L Glucose POC Glucose (mg/dL) Calcium 8.2 L AST 13 L Total Creatine Kinase Total Protein 4.8 L Albumin 2.7 L Urine Blood Urine Mucus Stool Occult Blood Crossmatch - Diagnostic Findings Chest x-ray: image reviewed Assessment and Plan Assessment: Impression: #1 Acute lower gastrointestinal bleeding with right red bowel movements. The patient is on meloxicam, Plavix, aspirin in the outpatient setting. #2 Acute hypoxic respiratory failure secondary to an acute exacerbation of chronic obstructive pulmonary disease. #3 Chronic and ongoing tobacco dependence. #4 Obesity. #5 Coronary artery disease with previous stent placement. #6 Hypertension. #7 Hyperlipidemia. #8 Osteoarthritis. Plan: The patient was seen and evaluated by Dr. Saez. Chest x-ray and labs were reviewed. She is currently stable from the critical care standpoint and could be transferred out of the intensive care unit today. Plan is for endoscopy tomorrow. We'll continue with Symbicort, DuoNeb inhalations. Add IV Solu- Medrol. Titrate down the FiO2 L maintain O2 saturations greater than 90%. She should follow-up in our office post discharge to be evaluated for her COPD and make further recommendations regarding maintenance medications. She is educated regarding the importance of complete smoking cessation. A NicoDerm patch will be applied. We will continue to follow and make further recommendations based on her clinical status. I, the cosigning physician, performed a history & physical examination of the patient. Lungs sounds with bilateral wheezing, few scattered rhonchi. Maintaining good O2 saturations in the 90s on 2 L/m per nasal cannula. I discussed the assessment and plan of care with my nurse practitioner, Fatimah Carvajal. I attest to the above note as dictated by her. Time with Patient: Greater than 30
[2017-10-11] MEDS: PANTOPRAZOLE 40 MG/10 ML VIAL IV SCH ×2 (10:01→21:07)
[2017-10-11] MEDS: LOSARTAN 50 MG TAB PO SCH (10:57)
--- NOTE | 2017-10-11 11:29 | P.CONS ---
History of Present Illness - Reason for Consult Consult date: 10/11/17 GI bleed Requesting physician: Yong Melchor - History of Present Illness 57-year-old female admitted with painless rectal bleeding that started yesterday. Patient passed several gross bloody burgundy bowel movements. She was previously evaluated in the emergency room 2 days ago for chest pain and discharge. Hemoglobin at that time was 16.9. Denies fever chills epigastric pain and dyspepsia odynophagia or dysphagia. No history of GI bleeding. No history of peptic ulcer disease. No history of EGD colonoscopy. She has a history of coronary artery disease with stent maintained on aspirin Plavix, morbid obesity, COPD, hypertension, and hyperlipidemia. Admission hemoglobin 12.6 decreased to 10.3. Received 2 units of blood. Current hemoglobin 12.6. Platelet 202. INR 1.0. BUN 50. Creatinine 0.6. CT abdomen reported no sign of acute abdomen and pelvis. Chest x-ray cardiomegaly redemonstrated. No acute cardiopulmonary process. Review of Systems Constitutional: Denies fever, chills, sweats, weight gain, or loss. HEENT: Negative for migraines, blurred vision or loss, earaches, drainage, tinnitus, oral mucosal lesions, dysphagia, or odynophagia. CARDIAC: reports chest pain the other day presently without, deniesarrhythmias, or palpitation. RESPIRATORY: Negative for shortness of breath, hemoptysis, cough, or sputum production. GI: See HPI for pertinent findings. : Negative for hematuria, urgency, frequency, polyuria, or dysuria. GYNc: Negative vaginal discharge. MUSCULOSKELETAL: Negative for muscle aches, swelling, arthritis, and arthralgias. NEUROLOGIC: Negative for stroke or TIA. ENDOCRINE: Negative for thyroid problems. SKIN: Negative for rash or itching. PSYCHIATRIC: Negative history for depression and anxiety Past Medical History Past Medical History: Coronary Artery Disease (CAD), COPD, Hyperlipidemia, Hypertension, Osteoarthritis (OA) Additional Past Medical History / Comment(s): Coronary artery disease with previous stent placement 2015 in [place]. poor dentation, osbesity,uterine fibroids (spouse not sure if she had a hysterectomy or not),back pain History of Any Multi-Drug Resistant Organisms: None Reported Past Surgical History: Adenoidectomy, Section, Heart Catheterization With Stent, Tonsillectomy Additional Past Surgical History / Comment(s): x 4 Past Anesthesia/Blood Transfusion Reactions: No Reported Reaction Date of Last Stent Placement:: unk Past Psychological History: Anxiety, Depression Smoking Status: Current every day smoker Past Alcohol Use History: None Reported Past Drug Use History: None Reported - Past Family History Mother Family Medical History: COPD Additional Family Medical History / Comment(s): emphysema Father Family Medical History: Congestive Heart Failure (CHF) Medications and Allergies Home Medications Medication Instructions Recorded Confirmed Type Atorvastatin [Lipitor] 40 mg PO HS 06/13/17 10/10/17 History Budesonide/Formoterol Fumarate 2 puff INHALATION RT-BID 06/13/17 10/10/17 History [Symbicort 160-4.5 Mcg Inhaler] Clopidogrel [Plavix] 75 mg PO DAILY 06/13/17 10/10/17 History DULoxetine HCL [Cymbalta] 60 mg PO HS 06/13/17 10/10/17 History Furosemide [Lasix] 20 mg PO DAILY 06/13/17 10/10/17 History Losartan Potassium 100 mg PO DAILY 06/13/17 10/10/17 History Meloxicam 15 mg PO HS 06/13/17 10/10/17 History Potassium Chloride ER [K-Dur 10] 10 meq PO DAILY 06/13/17 10/10/17 History Carvedilol [Coreg*] 12.5 mg PO BID #60 tablet 06/19/17 10/10/17 Rx amLODIPine [Norvasc] 10 mg PO DAILY #30 tab 06/19/17 10/10/17 Rx Aspirin 81 mg PO DAILY 10/09/17 10/10/17 History predniSONE 20 mg PO BID #10 tab 10/09/17 10/10/17 Rx Ipratropium/Albuterol Sulfate 1 puff INHALATION RT-QID 10/10/17 10/10/17 History [Combivent Respimat Inhaler] Allergies Allergy/AdvReac Type Severity Reaction Status Date / Time No Known Allergies Allergy Verified 10/10/17 18:26 Physical Exam Vitals: Vital Signs Temp Pulse Resp BP Pulse Ox 10/11/17 11:00 72 12 102/42 93 L 10/11/17 10:00 87 15 126/50 91 L 10/11/17 09:00 66 13 135/55 94 L 10/11/17 08:00 98.6 F 85 17 135/55 91 L 10/11/17 07:59 87 10/11/17 07:50 93 L 10/11/17 07:48 88 10/11/17 07:00 71 14 138/51 91 L 10/11/17 06:00 71 15 139/50 90 L 10/11/17 05:00 77 15 140/56 94 L 10/11/17 04:00 97.9 F 84 23 119/49 92 L 10/11/17 03:00 79 13 114/52 91 L 10/11/17 02:00 73 15 121/51 90 L 10/11/17 01:00 92 56 H 126/52 95 10/11/17 00:00 98.1 F 70 18 113/44 91 L 10/10/17 23:45 98.1 F 73 17 107/53 91 L 10/10/17 23:28 76 10/10/17 23:15 98.1 F 68 18 113/50 93 L 10/10/17 23:05 98.0 F 77 16 100/53 95 10/10/17 23:00 78 106/55 94 L 10/10/17 22:50 73 16 106/55 94 L 10/10/17 22:18 80 18 110/55 98 10/10/17 21:23 99 F 70 18 110/56 97 10/10/17 20:53 99.1 F 77 18 127/61 10/10/17 20:43 98.7 F 88 18 112/53 94 L 10/10/17 20:00 100/50 10/10/17 19:37 82 18 87/44 99 10/10/17 18:08 97.3 F L 99 20 118/72 96 Intake and Output 10/10/17 10/11/17 10/11/17 22:59 06:59 14:59 Intake Total 0 1520 520 Output Total 1500 501 Balance 0 20 19 Intake: IV 900 400 Sodium Chloride 0.9% 1, 900 400 000 ml @ 100 mls/hr IV . Q10H STA Rx#:[id number] Oral 120 Blood Product 0 620 Rc As-1 Unit 0 310 [id number] Rc As-1 Unit 310 [id number] Output: Urine 1500 500 Stool 1 Other: Voiding Method Bedside Commode Bedside Commode Bedpan Bedpan # Voids 1 Weight 109.8 kg 109.8 kg General appearance: The patient is alert, oriented, in no acute distress. HET: Head is normocephalic and atraumatic. Pupils are equal and reactive. Oropharynx is clear without lesions. Neck: Supple without lymphadenopathy. Trachea midline. Heart: S1 S2. Regular rate and rhythm. Lungs: No crackles or wheezes are heard. Abdomen: Soft, nontender, nondistended with bowel sounds. No peritoneal signs. No palpable organomegaly or masses. Extremities: Normal skin color and turgor. No cyanosis, rash, ulceration, clubbing, or edema. Radial and pedal pulses are 2/4 bilaterally. Neurological: No focal deficits. Strength and sensation are grossly intact. Results CBC & Chem 7: 10/11/17 02:51 10/11/17 02:51 Labs: Abnormal Lab Results - Last 24 Hours (Table) 10/10/17 10/10/17 10/10/17 Range/Units 18:30 18:30 18:30 WBC 24.1 H (3.8-10.6) k/uL RBC (3.80-5.40) m/uL Hgb (11.4-16.0) gm/dL Hct (34.0-46.0) % Neutrophils # 20.7 H (1.3-7.7) k/uL Neutrophils # (Manual) (1.3-7.7) k/uL Monocytes # 1.3 H (0-1.0) k/uL Monocytes # (Manual) (0-1.0) k/uL Metamyelocytes # (Man) (0) k/uL Myelocytes # (Manual) (0) k/uL APTT (22.0-30.0) sec Sodium 136 L (137-145) mmol/L Potassium 5.6 H (3.5-5.1) mmol/L Chloride (98-107) mmol/L BUN 50 H (7-17) mg/dL Creatinine (0.52-1.04) mg/dL Glucose 123 H (74-99) mg/dL POC Glucose (mg/dL) (75-99) mg/dL Calcium (8.4-10.2) mg/dL AST (14-36) U/L Total Creatine Kinase 23 L (30-135) U/L Total Protein 5.0 L (6.3-8.2) g/dL Albumin 2.8 L (3.5-5.0) g/dL Urine Blood (Negative) Urine Mucus (None) /hpf Stool Occult Blood (Negative) Crossmatch 10/10/17 10/10/17 10/10/17 Range/Units 18:30 18:30 19:07 WBC (3.8-10.6) k/uL RBC (3.80-5.40) m/uL Hgb (11.4-16.0) gm/dL Hct (34.0-46.0) % Neutrophils # (1.3-7.7) k/uL Neutrophils # (Manual) (1.3-7.7) k/uL Monocytes # (0-1.0) k/uL Monocytes # (Manual) (0-1.0) k/uL Metamyelocytes # (Man) (0) k/uL Myelocytes # (Manual) (0) k/uL APTT 20.1 L (22.0-30.0) sec Sodium (137-145) mmol/L Potassium (3.5-5.1) mmol/L Chloride (98-107) mmol/L BUN (7-17) mg/dL Creatinine (0.52-1.04) mg/dL Glucose (74-99) mg/dL POC Glucose (mg/dL) (75-99) mg/dL Calcium (8.4-10.2) mg/dL AST (14-36) U/L Total Creatine Kinase (30-135) U/L Total Protein (6.3-8.2) g/dL Albumin (3.5-5.0) g/dL Urine Blood (Negative) Urine Mucus (None) /hpf Stool Occult Blood Positive H (Negative) Crossmatch See Detail 10/10/17 10/10/17 10/11/17 Range/Units 20:06 21:44 01:00 WBC 23.4 H (3.8-10.6) k/uL RBC 3.34 L (3.80-5.40) m/uL Hgb 10.3 L (11.4-16.0) gm/dL Hct 30.8 L (34.0-46.0) % Neutrophils # (1.3-7.7) k/uL Neutrophils # (Manual) 18.49 H (1.3-7.7) k/uL Monocytes # (0-1.0) k/uL Monocytes # (Manual) 1.64 H (0-1.0) k/uL Metamyelocytes # (Man) 0.23 H (0) k/uL Myelocytes # (Manual) 0.47 H (0) k/uL APTT (22.0-30.0) sec Sodium (137-145) mmol/L Potassium (3.5-5.1) mmol/L Chloride (98-107) mmol/L BUN (7-17) mg/dL Creatinine (0.52-1.04) mg/dL Glucose (74-99) mg/dL POC Glucose (mg/dL) 173 H (75-99) mg/dL Calcium (8.4-10.2) mg/dL AST (14-36) U/L Total Creatine Kinase (30-135) U/L Total Protein (6.3-8.2) g/dL Albumin (3.5-5.0) g/dL Urine Blood Trace H (Negative) Urine Mucus Rare H (None) /hpf Stool Occult Blood (Negative) Crossmatch 10/11/17 10/11/17 Range/Units 02:51 02:51 WBC 19.1 H (3.8-10.6) k/uL RBC (3.80-5.40) m/uL Hgb (11.4-16.0) gm/dL Hct (34.0-46.0) % Neutrophils # 15.0 H (1.3-7.7) k/uL Neutrophils # (Manual) (1.3-7.7) k/uL Monocytes # 1.4 H (0-1.0) k/uL Monocytes # (Manual) (0-1.0) k/uL Metamyelocytes # (Man) (0) k/uL Myelocytes # (Manual) (0) k/uL APTT (22.0-30.0) sec Sodium (137-145) mmol/L Potassium (3.5-5.1) mmol/L Chloride 109 H (98-107) mmol/L BUN 46 H (7-17) mg/dL Creatinine 0.50 L (0.52-1.04) mg/dL Glucose (74-99) mg/dL POC Glucose (mg/dL) (75-99) mg/dL Calcium 8.2 L (8.4-10.2) mg/dL AST 13 L (14-36) U/L Total Creatine Kinase (30-135) U/L Total Protein 4.8 L (6.3-8.2) g/dL Albumin 2.7 L (3.5-5.0) g/dL Urine Blood (Negative) Urine Mucus (None) /hpf Stool Occult Blood (Negative) Crossmatch CT scan - abdomen: report reviewed (Dr. Vasquez) Assessment and Plan (1) Hematochezia Narrative/Plan: 57-year-old female presents with acute onset of painless rectal bleeding with chest pain possible colonic diverticular bleed however upper GI source such as peptic ulcer disease possible neoplasm could not be excluded. Current Visit: Yes Status: Acute Code(s): K92.1 - [place]LE[place] SNOMED Code(s): 036236141 (2) Acute blood loss anemia Current Visit: Yes Status: Acute Code(s): D62 - ACUTE POSTHEMORRHAGIC ANEMIA SNOMED Code(s): 088310688 (3) Morbid obesity with BMI of 45.0-49.9, adult Current Visit: Yes Status: Acute Code(s): E66.01 - MORBID (SEVERE) OBESITY DUE TO EXCESS CALORIES; Z68.42 - BODY MASS INDEX (BMI) 45.0-49.9, ADULT SNOMED Code(s): 480951861 (4) Coronary artery disease Current Visit: Yes Status: Acute Code(s): I25.10 - ATHSCL HEART DISEASE OF [place] IN [place] CORONARY ARTERY W/O ANG PCTRS SNOMED Code(s): 35066826 (5) GI bleed Current Visit: Yes Status: Acute Code(s): K92.2 - GASTROINTESTINAL HEMORRHAGE, UNSPECIFIED SNOMED Code(s): 76118609 Plan: 1. We'll proceed with EGD colonoscopy in a.m. Protonix 40 mg IV twice daily. Clear liquid diet today. CBC monitoring. Aspirin Plavix on hold. The executive staff assistant has discussed the risks, benefits and alternative therapies for the above-mentioned procedure and for both sedation/analgesia as well as necessary blood product administration, if indicated, as they pertain to this patient. The patient has indicated understanding and acceptance of the risks and procedures discussed. Thank you for this kind referral and the opportunity to participate in the care of your patient. This consultation was discussed with Dr. Vasquez. The impression and plan of care have been directed as dictated.
--- NOTE | 2017-10-11 11:46 | P.PN ---
Subjective Progress Note Date: 10/11/17 Principal diagnosis: Acute GI bleed Monitored in the ICU overnight Objective - Vital Signs Vital signs: Vital Signs Temp 98.6 F 10/11/17 08:00 Pulse 72 10/11/17 11:00 Resp 12 10/11/17 11:00 BP 102/42 10/11/17 11:00 Pulse Ox 93 L 10/11/17 11:00 Intake & Output 10/10/17 10/11/17 10/11/17 18:59 06:59 18:59 Intake Total 1520 520 Output Total 1500 501 Balance 20 19 Weight 106.594 kg 109.8 kg Intake: IV 900 400 Sodium Chloride 0.9% 1, 900 400 000 ml @ 100 mls/hr IV . Q10H STA Rx#:[id number] Oral 120 Blood Product 620 Rc As-1 Unit 310 [id number] Rc As-1 Unit 310 [id number] Output: Urine 1500 500 Stool 1 Other: Voiding Method Bedside Commode Bedside Commode Bedpan Bedpan # Voids 1 - Constitutional General appearance: Present: no acute distress - EENT Eyes: Present: PERRLA - Respiratory Respiratory: bilateral: diminished, wheezing - Cardiovascular Rhythm: regular - Gastrointestinal General gastrointestinal: Present: normal bowel sounds - Integumentary Integumentary: Present: normal - Psychiatric Psychiatric: Present: A&O x's 3, appropriate affect, intact judgment & insight - Labs CBC & Chem 7: 10/11/17 02:51 10/11/17 02:51 Labs: Abnormal Lab Results - Last 24 Hours (Table) 10/10/17 10/10/17 10/10/17 Range/Units 18:30 18:30 18:30 WBC 24.1 H (3.8-10.6) k/uL RBC (3.80-5.40) m/uL Hgb (11.4-16.0) gm/dL Hct (34.0-46.0) % Neutrophils # 20.7 H (1.3-7.7) k/uL Neutrophils # (Manual) (1.3-7.7) k/uL Monocytes # 1.3 H (0-1.0) k/uL Monocytes # (Manual) (0-1.0) k/uL Metamyelocytes # (Man) (0) k/uL Myelocytes # (Manual) (0) k/uL APTT (22.0-30.0) sec Sodium 136 L (137-145) mmol/L Potassium 5.6 H (3.5-5.1) mmol/L Chloride (98-107) mmol/L BUN 50 H (7-17) mg/dL Creatinine (0.52-1.04) mg/dL Glucose 123 H (74-99) mg/dL POC Glucose (mg/dL) (75-99) mg/dL Calcium (8.4-10.2) mg/dL AST (14-36) U/L Total Creatine Kinase 23 L (30-135) U/L Total Protein 5.0 L (6.3-8.2) g/dL Albumin 2.8 L (3.5-5.0) g/dL Urine Blood (Negative) Urine Mucus (None) /hpf Stool Occult Blood (Negative) Crossmatch 10/10/17 10/10/17 10/10/17 Range/Units 18:30 18:30 19:07 WBC (3.8-10.6) k/uL RBC (3.80-5.40) m/uL Hgb (11.4-16.0) gm/dL Hct (34.0-46.0) % Neutrophils # (1.3-7.7) k/uL Neutrophils # (Manual) (1.3-7.7) k/uL Monocytes # (0-1.0) k/uL Monocytes # (Manual) (0-1.0) k/uL Metamyelocytes # (Man) (0) k/uL Myelocytes # (Manual) (0) k/uL APTT 20.1 L (22.0-30.0) sec Sodium (137-145) mmol/L Potassium (3.5-5.1) mmol/L Chloride (98-107) mmol/L BUN (7-17) mg/dL Creatinine (0.52-1.04) mg/dL Glucose (74-99) mg/dL POC Glucose (mg/dL) (75-99) mg/dL Calcium (8.4-10.2) mg/dL AST (14-36) U/L Total Creatine Kinase (30-135) U/L Total Protein (6.3-8.2) g/dL Albumin (3.5-5.0) g/dL Urine Blood (Negative) Urine Mucus (None) /hpf Stool Occult Blood Positive H (Negative) Crossmatch See Detail 10/10/17 10/10/17 10/11/17 Range/Units 20:06 21:44 01:00 WBC 23.4 H (3.8-10.6) k/uL RBC 3.34 L (3.80-5.40) m/uL Hgb 10.3 L (11.4-16.0) gm/dL Hct 30.8 L (34.0-46.0) % Neutrophils # (1.3-7.7) k/uL Neutrophils # (Manual) 18.49 H (1.3-7.7) k/uL Monocytes # (0-1.0) k/uL Monocytes # (Manual) 1.64 H (0-1.0) k/uL Metamyelocytes # (Man) 0.23 H (0) k/uL Myelocytes # (Manual) 0.47 H (0) k/uL APTT (22.0-30.0) sec Sodium (137-145) mmol/L Potassium (3.5-5.1) mmol/L Chloride (98-107) mmol/L BUN (7-17) mg/dL Creatinine (0.52-1.04) mg/dL Glucose (74-99) mg/dL POC Glucose (mg/dL) 173 H (75-99) mg/dL Calcium (8.4-10.2) mg/dL AST (14-36) U/L Total Creatine Kinase (30-135) U/L Total Protein (6.3-8.2) g/dL Albumin (3.5-5.0) g/dL Urine Blood Trace H (Negative) Urine Mucus Rare H (None) /hpf Stool Occult Blood (Negative) Crossmatch 10/11/17 10/11/17 Range/Units 02:51 02:51 WBC 19.1 H (3.8-10.6) k/uL RBC (3.80-5.40) m/uL Hgb (11.4-16.0) gm/dL Hct (34.0-46.0) % Neutrophils # 15.0 H (1.3-7.7) k/uL Neutrophils # (Manual) (1.3-7.7) k/uL Monocytes # 1.4 H (0-1.0) k/uL Monocytes # (Manual) (0-1.0) k/uL Metamyelocytes # (Man) (0) k/uL Myelocytes # (Manual) (0) k/uL APTT (22.0-30.0) sec Sodium (137-145) mmol/L Potassium (3.5-5.1) mmol/L Chloride 109 H (98-107) mmol/L BUN 46 H (7-17) mg/dL Creatinine 0.50 L (0.52-1.04) mg/dL Glucose (74-99) mg/dL POC Glucose (mg/dL) (75-99) mg/dL Calcium 8.2 L (8.4-10.2) mg/dL AST 13 L (14-36) U/L Total Creatine Kinase (30-135) U/L Total Protein 4.8 L (6.3-8.2) g/dL Albumin 2.7 L (3.5-5.0) g/dL Urine Blood (Negative) Urine Mucus (None) /hpf Stool Occult Blood (Negative) Crossmatch Assessment and Plan (1) GI bleed Narrative/Plan: Patient was monitored in the ICU she was monitored in the ICU. Plan is for endoscopy in am appreciate GI input Current Visit: Yes Status: Acute Code(s): K92.2 - GASTROINTESTINAL HEMORRHAGE, UNSPECIFIED SNOMED Code(s): 35051718 (2) Acute respiratory failure with hypoxia Narrative/Plan: Appreciate pulmonary input secondary to COPD exacerbation plan for outpatient followup Current Visit: No Status: Acute Code(s): J96.01 - ACUTE RESPIRATORY FAILURE WITH HYPOXIA SNOMED Code(s): 68111757 (3) COPD (chronic obstructive pulmonary disease) Narrative/Plan: IV steroids, nebs continue still wheezing , tobacco cessation Current Visit: No Status: Acute Code(s): J44.9 - CHRONIC OBSTRUCTIVE PULMONARY DISEASE, UNSPECIFIED SNOMED Code(s): 17350970 (4) Morbid obesity with BMI of 45.0-49.9, adult Current Visit: Yes Status: Acute Code(s): E66.01 - MORBID (SEVERE) OBESITY DUE TO EXCESS CALORIES; Z68.42 - BODY MASS INDEX (BMI) 45.0-49.9, ADULT SNOMED Code(s): 803611950
[2017-10-11] MEDS: methylPREDNISolone SOD SUCCI 125 MG/2 ML VIAL IV SCH ×2 (12:14→17:13)
[2017-10-11] MEDS ORDERED: MORPHINE SULFATE 2 MG/ML SYRINGE IVP ONE (12:38)
[2017-10-11 12:41] LABS: HCT 36.9 % (34.0-46.0); MCH 30.2 pg (25.0-35.0); MCHC 32.4 g/dL (31.0-37.0); MCV 93.2 fL (80.0-100.0); Mean Platelet Volume 7.1; Platelet Count 198 k/uL (150-450); RBC 3.96 m/uL (3.80-5.40); RDW 14.9 % (11.5-15.5); WBC 17.6 k/uL (3.8-10.6)
[2017-10-11 13:39] LABS: Hemoglobin A1C 5.7 % (4.0-6.0)
[2017-10-11] MEDS ORDERED: PEG 3350-NA SULF,BICARB,CL/KCL 4,000 ML BOTTLE PO ONE (15:00)
[2017-10-11 18:02] LABS: HCT 41.6 % (34.0-46.0); HGB 13.6 gm/dL (11.4-16.0); MCH 30.1 pg (25.0-35.0); MCHC 32.7 g/dL (31.0-37.0); MCV 91.8 fL (80.0-100.0); Mean Platelet Volume 7.2; Platelet Count 228 k/uL (150-450); RBC 4.54 m/uL (3.80-5.40); RDW 14.8 % (11.5-15.5); WBC 18.9 k/uL (3.8-10.6)
[2017-10-11 23:30] LABS: HCT 36.8 % (34.0-46.0); HGB 12.3 gm/dL (11.4-16.0); MCH 30.3 pg (25.0-35.0); MCHC 33.4 g/dL (31.0-37.0); MCV 90.8 fL (80.0-100.0); Mean Platelet Volume 7.7; Platelet Count 209 k/uL (150-450); RBC 4.05 m/uL (3.80-5.40); RDW 14.5 % (11.5-15.5); WBC 15.9 k/uL (3.8-10.6)
[2017-10-12] MEDS: methylPREDNISolone SOD SUCCI 125 MG/2 ML VIAL IV SCH ×5 (01:12→23:09)
[2017-10-12 07:19] LABS: Basophils % (A) 0 %; Eosinophils % (A) 0 %; HCT 35.7 % (34.0-46.0); HGB 11.7 gm/dL (11.4-16.0); Lymphocytes # (A) 1.1 k/uL (1.0-4.8); Lymphocytes % (A) 7 %; MCH 29.8 pg (25.0-35.0); MCHC 32.8 g/dL (31.0-37.0); MCV 91.1 fL (80.0-100.0); Mean Platelet Volume 7.6; Monocytes # (A) 0.4 k/uL (0-1.0); Monocytes % (A) 3 %; Neutrophils # (A) 13.6 k/uL (1.3-7.7); Neutrophils % (A) 90 %; Platelet Count 220 k/uL (150-450); RBC 3.92 m/uL (3.80-5.40); RDW 14.5 % (11.5-15.5); WBC 15.2 k/uL (3.8-10.6)
[2017-10-12] MEDS: CARVEDILOL 12.5 MG TAB PO SCH ×2 (07:20→19:09)
[2017-10-12] MEDS: PANTOPRAZOLE 40 MG/10 ML VIAL IV SCH ×2 (07:21→20:01)
[2017-10-12] MEDS ORDERED: IV FLUID CONTINUATION 1,000 ML IV ONE (07:28)
[2017-10-12] MEDS ORDERED: PROPOFOL 10 MG/ML 20 ML VIAL IV ONE (07:28)
[2017-10-12] MEDS ORDERED: LIDOCAINE 1% INJ 10MG/ML (20 ML MDV) ONE (07:28)
[2017-10-12 07:31] LABS: Anion Gap 5 mmol/L; Blood Urea Nitrogen 14 mg/dL (7-17); Calcium 8.3 mg/dL (8.4-10.2); Carbon Dioxide 27 mmol/L (22-30); Chloride 106 mmol/L (98-107); Glucose 117 mg/dL (74-99); Magnesium 1.7 mg/dL (1.6-2.3); Phosphorus 3.9 mg/dL (2.5-4.5); Potassium 4.2 mmol/L (3.5-5.1); Sodium 138 mmol/L (137-145)
--- NOTE | 2017-10-12 08:32 | P.PCN ---
Date of Procedure: 10/12/17 Procedure(s) Performed: Procedures: 1. Esophagogastroduodenoscopy and biopsy. 2. Total colonoscopy. Preoperative diagnosis: GI bleeding and drop in hemoglobin. Postoperative diagnosis: 1. Mild esophagitis suspected to be secondary to Pamela infection, multiple biopsies obtained. 2. No other findings in the esophagus, stomach or duodenum including any ulcers or active bleeding. 3. Colonoscopy within normal limits with no obvious colitis, diverticular disease, angiodysplasia, neoplasia or bleeding. Preparation: GoLYTELY prep. Sedation: Was provided by anesthesia. Brief clinical history: The patient is a 57-year-old female who was admitted with painless rectal bleeding that started the day of admission. Patient, apparently, passed several gross bloody, burgundy bowel movements. She was previously evaluated in the emergency room 2 days prior for chest pain and was discharged. Hemoglobin at that time was 16.9. Denied fever, chills, epigastric pain, dyspepsia, odynophagia or dysphagia. No history of GI bleeding. No history of peptic ulcer disease. No history of prior EGD or colonoscopy. She has a history of coronary artery disease with stent maintained on aspirin and Plavix, morbid obesity, COPD, hypertension, and hyperlipidemia. Admission hemoglobin 12.6 decreased to 10.3. Received 2 units of blood. Current hemoglobin 12.6. Platelet 202. INR 1.0. BUN 50. Creatinine 0.6. CT abdomen reported no sign of acute abdomen and pelvis. Chest x-ray cardiomegaly redemonstrated. No acute cardiopulmonary process. Other details as summarized in the history and physical and dictated consultations and progress notes. This evaluation is to assess for a source of GI bleeding and drop in hemoglobin. Procedure: With the patient on her left lateral decubitus position and after informed consent and adequate sedation, I passed the Olympus-GIF 160 video upper endoscope through the cricopharyngeus down the esophagus. The esophagus showed some erythema and few white sticky exudates that raised the possibility of pamela esophagitis, but I did not see any ulcers, erosions, strictures or Harris's esophagus. No definite hiatal hernia or any mucosal tears, varices or bleeding. The endoscope was then passed into the stomach which was insufflated with air and inspected in detail including the retroflex view in the cardia. No obvious abnormalities were noted. Finally, the endoscope was passed through the pylorus into the duodenum. Pyloric channel, duodenal bulb, post bulbar area and descending duodenum appeared within normal limits. There was no evidence of bleeding on this exam and all secretions encountered were clear in color. The endoscope was then withdrawn and I proceeded with the colonoscopy. Perianal area did not show any fissures or fistulas. There were no masses felt on digital rectal examination. The Olympus CFQ 160L video colonoscope was then inserted in the rectum in the usual fashion and advanced to the cecum. The preparation was less than ideal with some thick greenish secretions encountered in various areas which I was able to wash and suction. The mucosa appeared healthy. There were no obvious polyps or tumors or any obvious angiodysplasia or diverticular disease or any evidence of bleeding. I retroflexed the endoscope in the rectum before the endoscope was withdrawn. No definite internal hemorrhoids or fissures were noted. The patient tolerated the procedure well. Plan: The patient was reassured. While awaiting the biopsy results, we will start on Diflucan and allow regular diet. Further plans based on her course.
[2017-10-12] MEDS: IPRATROPIUM-ALBUTEROL 3 ML NEB INHALATION SCH ×4 (08:59→19:46)
[2017-10-12] MEDS: SYMBICORT 160-4.5 MCG INHALER INHALATION SCH ×2 (08:59→19:46)
[2017-10-12] MEDS: FLUCONAZOLE 100 MG TAB PO SCH (10:56)
[2017-10-12] MEDS: LOSARTAN 50 MG TAB PO SCH (10:58)
[2017-10-12 12:01] LABS: HCT 35.7 % (34.0-46.0); HGB 11.8 gm/dL (11.4-16.0); MCH 30.5 pg (25.0-35.0); MCHC 33.1 g/dL (31.0-37.0); MCV 92.3 fL (80.0-100.0); Mean Platelet Volume 7.7; Platelet Count 223 k/uL (150-450); RBC 3.87 m/uL (3.80-5.40); RDW 14.5 % (11.5-15.5); WBC 16.7 k/uL (3.8-10.6)
--- NOTE | 2017-10-12 14:02 | XR ---
EXAMINATION TYPE: XR chest 2V DATE OF EXAM: 10/12/2017 HISTORY: hypoxia. REFERENCE: Previous study dated 10/11/2017. FINDINGS: The heart is upper limits of normal in size. There is right basilar atelectasis. The left l satnam is clear. Pleural spaces are clear. IMPRESSION: RIGHT BASILAR AIRSPACE DISEASE EITHER REPRESENTING ATELECTASIS OR EARLY INFILTRATE.
--- NOTE | 2017-10-12 15:10 | P.PN ---
Subjective Progress Note Date: 10/12/17 Principal diagnosis: COPD exacerbation Patient was seen and examined. No acute events overnight. Back from EGD and C- scope. Bowel movement normal this morning. Looking forward to going home. States breathing is back to baseline. Objective - Vital Signs Vital signs: Vital Signs Temp 97.1 F L 10/12/17 07:24 Pulse 82 10/12/17 09:14 Resp 16 10/12/17 07:24 BP 149/71 10/12/17 07:24 Pulse Ox 92 L 10/12/17 09:02 Intake & Output 10/11/17 10/12/17 10/12/17 18:59 06:59 18:59 Intake Total 1420 1060 200 Output Total 1101 Balance 319 1060 200 Intake: IV 700 200 Sodium Chloride 0.9% 1, 700 000 ml @ 100 mls/hr IV . Q10H [facility] Rx#:[id number] Intake, IV Titration 600 Amount Magnesium Sulfate-D5w Pmx 600 1 gm In Dextrose/Water 1 100ml.bag @ 100 mls/hr IVPB Q1H [facility] Rx#: [id number] Oral 720 460 Output: Urine 1100 Stool 1 Other: Voiding Method Bedside Commode Bedpan # Voids 2 # Bowel Movements 1 - Exam General: non toxic, no distress, appears at stated age Derm: warm, dry Head: atraumatic, normocephalic, symmetric Eyes: EOMI, no lid lag, anicteric sclera Mouth: no lip lesion, mucus membranes moist Cardiovascular: S1S2 reg, no murmur, positive posterior tibial pulse bilateral, Lungs: Decreased breath sounds bilaterally, no rhonchi, no rales , no accessory muscle use Abdominal: soft, nontender to palpation, no guarding, no appreciable organomegaly Ext: no gross muscle atrophy, 1+ lower extremity edema, no contractures Neuro: CN II-XI grossly intact, no focal neuro deficits Psych: Alert, oriented, appropriate affect - Labs CBC & Chem 7: 10/12/17 18:05 10/12/17 06:14 Labs: Abnormal Lab Results - Last 24 Hours (Table) 10/11/17 10/11/17 10/11/17 Range/Units 12:11 17:39 23:16 WBC 17.6 H 18.9 H 15.9 H (3.8-10.6) k/uL Neutrophils # (1.3-7.7) k/uL Creatinine (0.52-1.04) mg/dL Glucose (74-99) mg/dL Calcium (8.4-10.2) mg/dL 10/12/17 10/12/17 Range/Units 06:14 06:14 WBC 15.2 H (3.8-10.6) k/uL Neutrophils # 13.6 H (1.3-7.7) k/uL Creatinine 0.47 L (0.52-1.04) mg/dL Glucose 117 H (74-99) mg/dL Calcium 8.3 L (8.4-10.2) mg/dL Microbiology - Last 24 Hours (Table) 10/10/17 18:30 Blood Culture - Preliminary Blood No Growth after 24 hours Assessment and Plan Assessment: Assessment 57 year old F with PMH of COPD, CAD and HTN presents to the ED for BRBPR. Admitted for further workup and Hg monitoring. Found to be hypoxic, also treating for COPD exacerbation. Plan 1. Dyspnea - Likely COPD exaceration with contributions from acute anemia and sleep apnea. 2. COPD exacerbation: States is from changes in weather. CXR negative initially. Continue DuoNeb QID scheduled and PRN, Symbicort 2 puff BID. Solumedrol 60 mg IV Q6H. O2 per NC to maintain O2 > 92%. Encourage to quit smoking. FU CXR, Pulmonology. 3. A-Fib with RVR: Seen on Telemetry. EKG shows NSR. Likely 2/2 hypoxia. On Coreg 12.5 mg PO BID. Keep Mg > 2 and K > 4. O2 per NC to maintain O2 sat > 92% . 4. GIB: Stable Hg since 10/10/2017. s/p 2 units PRBC. EGD/C-scope shows Pamela esophagitis. Protonix 40 mg IV BID to PO QD. Transition to cardiac diet. Resume dual anti-platelet when OK by GI. FU GI 5. Esophageal Candidiasis: Seen during EGD. Continue Diflucan 100 mg PO QD. 6. h/o CAD: s/p stent placement in 2014. Echo 06/2017 shows EF 50-55%. A1c 5.9 ( within normal limits). Lipid panel shows LDL 103 and HDL 36. Continue Lipitor 40 PO QHS. Continue Coreg 12.5 mg PO BID, Losartan 100 mg PO QD. 7. HTN: BP 149/71. Continue Coreg and Losartan. Monitor vitals, adjust medications as necessary. 8. Depression: Continue Cymbalta 60 mg PO QHS.
[2017-10-12 19:02] LABS: HCT 35.2 % (34.0-46.0); HGB 11.3 gm/dL (11.4-16.0); MCH 29.5 pg (25.0-35.0); Mean Platelet Volume 7.5; Platelet Count 226 k/uL (150-450); RBC 3.83 m/uL (3.80-5.40); RDW 14.6 % (11.5-15.5); WBC 19.5 k/uL (3.8-10.6)
[2017-10-12 20:01] LABS: Glucose,Whole Blood 175 mg/dL (75-99)
[2017-10-12] MEDS: DULoxetine HCL 60 MG CAPSULE.DR PO SCH (20:01)
[2017-10-12] MEDS: MAGNESIUM SULFATE-D5W PMX 1 GM in DEXTROSE/WATER 1 100ML.BAG IVPB SCH ×2 (20:01→21:28)
[2017-10-12] MEDS: ATORVASTATIN 40 MG TAB PO SCH (20:01)
[2017-10-13] MEDS: methylPREDNISolone SOD SUCCI 125 MG/2 ML VIAL IV SCH ×4 (05:34→23:32)
[2017-10-13 06:55] LABS: Glucose,Whole Blood 175 mg/dL (75-99)
[2017-10-13] MEDS: IPRATROPIUM-ALBUTEROL 3 ML NEB INHALATION SCH ×4 (07:03→19:59)
[2017-10-13] MEDS: SYMBICORT 160-4.5 MCG INHALER INHALATION SCH ×2 (07:03→19:59)
[2017-10-13] MEDS: LOSARTAN 50 MG TAB PO SCH (08:57)
[2017-10-13] MEDS: FLUCONAZOLE 100 MG TAB PO SCH (08:57)
[2017-10-13] MEDS: CARVEDILOL 12.5 MG TAB PO SCH ×2 (08:57→18:12)
[2017-10-13] MEDS: PANTOPRAZOLE 40 MG/10 ML VIAL IV SCH ×2 (08:57→20:20)
[2017-10-13 12:03] LABS: Glucose,Whole Blood 181 mg/dL (75-99)
--- NOTE | 2017-10-13 12:47 | P.PN ---
Subjective Progress Note Date: 10/13/17 Principal diagnosis: COPD exacerbation Patient was seen and examined. No acute events overnight. Patient reports great improvement in her breathing. Patient denies cough, chest pain, shortness of breath, palpitations. Patient is looking for to going home. She has no other complaints. Objective - Vital Signs Vital signs: Vital Signs Temp 97.4 F L 10/13/17 07:05 Pulse 78 10/13/17 11:15 Resp 16 10/13/17 07:05 BP 132/62 10/13/17 07:05 Pulse Ox 93 L 10/13/17 07:05 Intake & Output 10/12/17 10/13/17 10/13/17 18:59 06:59 18:59 Intake Total 1440 570 Output Total 2 Balance 1438 570 Intake: IV 200 Intake, IV Titration 330 Amount IV Fluid Continuation 1, 130 000 ml @ 0 mls/hr IV .STK -[facility] Rx#:[id number] Magnesium Sulfate-D5w Pmx 200 1 gm In Dextrose/Water 1 100ml.bag @ 100 mls/hr IVPB Q1H REPLACED BY [facility] Rx#: [id number] Oral 1240 240 Output: Stool 2 Other: # Voids 1 2 - Exam General: non toxic, no distress, appears at stated age Derm: warm, dry Head: atraumatic, normocephalic, symmetric Eyes: EOMI, no lid lag, anicteric sclera Mouth: no lip lesion, mucus membranes moist Cardiovascular: S1S2 reg, no murmur, positive posterior tibial pulse bilateral, Lungs: Decreased breath sounds bilaterally, no rhonchi, no rales , no accessory muscle use Abdominal: soft, nontender to palpation, no guarding, no appreciable organomegaly Ext: no gross muscle atrophy, 1+ lower extremity edema, no contractures Neuro: CN II-XI grossly intact, no focal neuro deficits Psych: Alert, oriented, appropriate affect - Labs CBC & Chem 7: 10/12/17 18:05 10/12/17 06:14 Labs: Abnormal Lab Results - Last 24 Hours (Table) 10/12/17 10/12/17 10/13/17 Range/Units 18:05 20:00 06:49 WBC 19.5 H (3.8-10.6) k/uL Hgb 11.3 L (11.4-16.0) gm/dL POC Glucose (mg/dL) 175 H 175 H (75-99) mg/dL 10/13/17 Range/Units 11:50 WBC (3.8-10.6) k/uL Hgb (11.4-16.0) gm/dL POC Glucose (mg/dL) 181 H (75-99) mg/dL Microbiology - Last 24 Hours (Table) 10/10/17 18:30 Blood Culture - Preliminary Blood No Growth after 48 hours Assessment and Plan Assessment: Assessment 57 year old F with PMH of COPD, CAD and HTN presents to the ED for BRBPR. Admitted for further workup and Hg monitoring. Found to be hypoxic, also treating for COPD exacerbation. Plan 1. Dyspnea - Likely COPD exaceration with contributions from acute anemia and sleep apnea. 2. COPD exacerbation: States is from changes in weather. CXR negative initially. Continue DuoNeb QID scheduled and PRN, Symbicort 2 puff BID. Solumedrol 60 mg IV Q6H. O2 per NC to maintain O2 > 92%. Encourage to quit smoking. FU Pulmonology 3. A-Fib with RVR: Seen on Telemetry (10/12) sinus rhythm since. Likely 2/2 hypoxia. On Coreg 12.5 mg PO BID. Keep Mg > 2 and K > 4. O2 per NC to maintain O2 sat > 92%. 4. GIB: Stable Hg since 10/10/2017. s/p 2 units PRBC on 10/10. EGD/C-scope shows Pamela esophagitis. Protonix 40 mg IV BID to PO QD. Transition to cardiac diet. Will restart ASA/Plavix as Hg/Hct stable. FU GI 5. Esophageal Candidiasis: Seen during EGD. Continue Diflucan 100 mg PO QD. 6. Leukocytosis: WBC 19.5 consistently rising. Likely due to IV steroid use. No signs of infection. Afebrile. Will continue to monitor. 7. CAD: s/p stent placement in 2014. Echo 06/2017 shows EF 50-55%. A1c 5.9 ( within normal limits). Lipid panel shows LDL 103 and HDL 36. Continue Lipitor 40 PO QHS. Continue Coreg 12.5 mg PO BID, Losartan 100 mg PO QD. 8. HTN: BP 132/62. Continue Coreg and Losartan. Monitor vitals, adjust medications as necessary. 9. Depression: Continue Cymbalta 60 mg PO QHS. Patient will need 6 minute walk test prior to discharge to check for oxygen requirements.
[2017-10-13] MEDS: MAGNESIUM SULFATE-D5W PMX 1 GM in DEXTROSE/WATER 1 100ML.BAG IVPB SCH ×2 (13:17→15:35)
[2017-10-13 17:01] LABS: Glucose,Whole Blood 173 mg/dL (75-99)
[2017-10-13] MEDS: DULoxetine HCL 60 MG CAPSULE.DR PO SCH (20:20)
[2017-10-13] MEDS: ATORVASTATIN 40 MG TAB PO SCH (20:20)
[2017-10-13 20:29] LABS: Glucose,Whole Blood 162 mg/dL (75-99)
[2017-10-14] MEDS: methylPREDNISolone SOD SUCCI 125 MG/2 ML VIAL IV SCH ×4 (05:11→23:28)
[2017-10-14 07:00] LABS: Glucose,Whole Blood 136 mg/dL (75-99)
[2017-10-14] MEDS: SYMBICORT 160-4.5 MCG INHALER INHALATION SCH ×2 (07:18→20:04)
[2017-10-14] MEDS: IPRATROPIUM-ALBUTEROL 3 ML NEB INHALATION SCH ×4 (07:18→20:04)
[2017-10-14] MEDS: FLUCONAZOLE 100 MG TAB PO SCH (08:38)
[2017-10-14] MEDS: CLOPIDOGREL 75 MG TAB PO SCH (08:39)
[2017-10-14] MEDS: CARVEDILOL 12.5 MG TAB PO SCH ×2 (08:39→17:45)
[2017-10-14] MEDS: ASPIRIN 81 MG PO SCH (08:39)
[2017-10-14] MEDS: PANTOPRAZOLE 40 MG/10 ML VIAL IV SCH ×2 (08:39→20:29)
[2017-10-14] MEDS: LOSARTAN 50 MG TAB PO SCH (08:39)
[2017-10-14 08:52] LABS: HCT 32.9 % (34.0-46.0); HGB 11.1 gm/dL (11.4-16.0); MCH 30.8 pg (25.0-35.0); MCHC 33.6 g/dL (31.0-37.0); MCV 91.7 fL (80.0-100.0); Mean Platelet Volume 7.8; Platelet Count 266 k/uL (150-450); RBC 3.59 m/uL (3.80-5.40); RDW 14.6 % (11.5-15.5); WBC 23.9 k/uL (3.8-10.6)
--- NOTE | 2017-10-14 08:59 | P.PN ---
Subjective Progress Note Date: 10/14/17 Principal diagnosis: Hypoxia Patient was seen and examined. No acute events overnight. Patient reports shortness of breath, improving but much worsened with exertion. Patient states she feels more SOB than at baseline. No cough or chest pain. Reports from nurse about chest pain yesterday that started after a meal, relieved after passing gas. VSS at that time. Objective - Vital Signs Vital signs: Vital Signs Temp 98.5 F 10/14/17 07:43 Pulse 77 10/14/17 07:43 Resp 16 10/14/17 07:43 BP 145/80 10/14/17 07:43 Pulse Ox 91 L 10/14/17 07:43 Intake & Output 10/13/17 10/14/17 10/14/17 18:59 06:59 18:59 Intake Total 1250 80 Balance 1250 80 Intake: Intake, IV Titration 80 Amount IV Fluid Continuation 1, 80 000 ml @ 0 mls/hr IV .[facility] Rx#:[id number] Oral 1250 Other: Voiding Method Bedside Commode # Voids 5 1 - Exam General: non toxic, no distress, appears at stated age Derm: warm, dry Head: atraumatic, normocephalic, symmetric Eyes: EOMI, no lid lag, anicteric sclera Mouth: no lip lesion, mucus membranes moist Cardiovascular: S1S2 reg, no murmur, positive posterior tibial pulse bilateral Lungs: Decreased breath sounds bilaterally with good entry, no rhonchi, no rales , no accessory muscle use Abdominal: soft, nontender to palpation, no guarding, no appreciable organomegaly Ext: no gross muscle atrophy, 1+ lower extremity edema, no contractures Neuro: CN II-XI grossly intact, no focal neuro deficits Psych: Alert, oriented, appropriate affect - Labs CBC & Chem 7: 10/12/17 18:05 10/12/17 06:14 Labs: Abnormal Lab Results - Last 24 Hours (Table) 10/13/17 10/13/17 10/13/17 Range/Units 11:50 16:56 20:26 POC Glucose (mg/dL) 181 H 173 H 162 H (75-99) mg/dL 10/14/17 Range/Units 06:58 POC Glucose (mg/dL) 136 H (75-99) mg/dL Microbiology - Last 24 Hours (Table) 10/10/17 18:30 Blood Culture - Preliminary Blood No Growth after 72 hours Assessment and Plan Assessment: Assessment 57 year old F with PMH of COPD, CAD and HTN presents to the ED for BRBPR. Admitted for further workup and Hg monitoring. Found to be hypoxic, also treating for COPD exacerbation. Plan 1. Dyspnea - Likely COPD exaceration with contributions from acute anemia and sleep apnea. 2. Hypoxia: Patient continues to require 1-2L to maintain O2 sat in the low 90' s. She has never been on home O2. Echo (06/2017) shows EF 50-55% and moderate concentric HTY. Possibly with component of sleep apnea. CPAP QHS. O2 per NC to maintain O2 sat > 92%. FU D-Dimer, Echo 3. COPD exacerbation: States is from changes in weather. CXR negative initially. Continue DuoNeb QID scheduled and PRN, Symbicort 2 puff BID. Solumedrol 60 mg IV Q6H. O2 per NC to maintain O2 > 92%. Encourage to quit smoking. FU Pulmonology 4. A-Fib with RVR: Seen on Telemetry (10/12) sinus rhythm since. Likely 2/2 hypoxia. On Coreg 12.5 mg PO BID. Keep Mg > 2 and K > 4. O2 per NC to maintain O2 sat > 92%. 5. GIB: Stable Hg since 10/10/2017. s/p 2 units PRBC on 10/10. EGD/C-scope shows Pamela esophagitis. Protonix 40 mg IV BID to PO QD. Transition to cardiac diet. Continue ASA/Plavix as Hg/Hct stable. FU CBC, GI 6. Esophageal Candidiasis: Seen during EGD. Continue Diflucan 100 mg PO QD. FU Pathology 7. Leukocytosis: WBC 19.5 consistently rising. Likely due to IV steroid use. No signs of infection. Afebrile. FU CBC 8. CAD: s/p stent placement in 2014. Echo 06/2017 shows EF 50-55%. A1c 5.9 ( within normal limits). Lipid panel shows LDL 103 and HDL 36. Continue Lipitor 40 PO QHS. Continue Coreg 12.5 mg PO BID, Losartan 100 mg PO QD. 9. HTN: BP 132/62. Continue Coreg and Losartan. Monitor vitals, adjust medications as necessary. 10. Depression: Continue Cymbalta 60 mg PO QHS. Patient continues to be hypoxic despite adequate treatment for COPD. This may be her baseline and she might require home oxygen. Will follow-up with d-dimer , echocardiogram to rule out PE and cardiac cause.
[2017-10-14 09:02] LABS: Anion Gap 3 mmol/L; Blood Urea Nitrogen 20 mg/dL (7-17); Calcium 8.6 mg/dL (8.4-10.2); Carbon Dioxide 30 mmol/L (22-30); Chloride 104 mmol/L (98-107); Glucose 126 mg/dL (74-99); Potassium 4.7 mmol/L (3.5-5.1); Sodium 137 mmol/L (137-145)
[2017-10-14 11:22] LABS: Glucose,Whole Blood 140 mg/dL (75-99)
[2017-10-14 17:31] LABS: Glucose,Whole Blood 156 mg/dL (75-99)
--- NOTE | 2017-10-14 20:09 | CT ---
EXAMINATION TYPE: CT chest angio for PE DATE OF EXAM: 10/14/2017 COMPARISON: None HISTORY: Hypoxia, chest pain CT DLP: 607.6 mGycm Automated exposure control for dose reduction was used. CONTRAST: CT Chest for pulmonary embolism performed with with IV Contrast, patient injected with 70 mL of Isovu e 370. FINDINGS: There are 3-D post processed images. The lungs are clear of consolidation. There is no evidence of a pulmonary mass. There is some mild atelectasis and pleural thickening in the right middle lobe. There is mild linear density at the right lung base posteriorly. There is mild bilateral lower lobe atelec tasis at the posterior sulcus. There is normal contrast opacification of the pulmonary arteries. There are no filling defects. Thora cic aorta is atheromatous. There is no evidence of aneurysm or dissection. There is no mediastinal ad enopathy. There are no hilar masses. The bony thorax is intact. IMPRESSION: Atherosclerotic vascular disease. Pleural thickening and atelectasis at the lung bases. No evidence o f pulmonary embolism.
[2017-10-14] MEDS: ATORVASTATIN 40 MG TAB PO SCH (20:29)
[2017-10-14] MEDS: DULoxetine HCL 60 MG CAPSULE.DR PO SCH (20:29)
[2017-10-14 21:01] LABS: Glucose,Whole Blood 186 mg/dL (75-99)
[2017-10-15 02:15] VITALS: RESP 16
[2017-10-15] MEDS: methylPREDNISolone SOD SUCCI 125 MG/2 ML VIAL IV SCH (05:05)
[2017-10-15 07:13] LABS: Glucose,Whole Blood 157 mg/dL (75-99)
[2017-10-15] MEDS: CARVEDILOL 12.5 MG TAB PO SCH ×2 (08:20→16:55)
[2017-10-15] MEDS: FLUCONAZOLE 100 MG TAB PO SCH (08:20)
[2017-10-15] MEDS: CLOPIDOGREL 75 MG TAB PO SCH (08:20)
[2017-10-15] MEDS: PANTOPRAZOLE 40 MG/10 ML VIAL IV SCH (08:20)
[2017-10-15] MEDS: ASPIRIN 81 MG PO SCH (08:20)
[2017-10-15] MEDS: LOSARTAN 50 MG TAB PO SCH (08:20)
[2017-10-15] MEDS: IPRATROPIUM-ALBUTEROL 3 ML NEB INHALATION SCH ×3 (08:23→16:03)
[2017-10-15] MEDS: SYMBICORT 160-4.5 MCG INHALER INHALATION SCH (08:23)
--- NOTE | 2017-10-15 11:46 | P.PN ---
Subjective Progress Note Date: 10/15/17 Principal diagnosis: COPD exacerbation Patient was seen and examined. No acute events overnight. Patient states her breathing is back to baseline. She denies chest pain, shortness of breath, dizziness, palpitations. Patient reports being able to walk around the unit comfortably. Patient is looking forward to going home. Objective - Vital Signs Vital signs: Vital Signs Temp 99.0 F 10/15/17 06:59 Pulse 76 10/15/17 08:34 Resp 16 10/15/17 06:59 BP 150/61 10/15/17 06:59 Pulse Ox 92 L 10/15/17 06:59 Intake & Output 10/14/17 10/15/17 10/15/17 18:59 06:59 18:59 Other: Voiding Method Bedside Commode Toilet # Voids 3 2 # Bowel Movements 1 - Exam General: non toxic, no distress, appears at stated age Derm: warm, dry Head: atraumatic, normocephalic, symmetric Eyes: EOMI, no lid lag, anicteric sclera Mouth: no lip lesion, mucus membranes moist Cardiovascular: S1S2 reg, no murmur, positive posterior tibial pulse bilateral Lungs: Decreased breath sounds bilaterally with good entry, no rhonchi, no rales , no accessory muscle use Abdominal: soft, nontender to palpation, no guarding, no appreciable organomegaly Ext: no gross muscle atrophy, 1+ lower extremity edema, no contractures Neuro: CN II-XI grossly intact, no focal neuro deficits Psych: Alert, oriented, appropriate affect - Labs CBC & Chem 7: 10/14/17 07:08 10/14/17 07:08 Labs: Abnormal Lab Results - Last 24 Hours (Table) 10/14/17 10/14/17 10/15/17 Range/Units 17:29 20:59 07:12 POC Glucose (mg/dL) 156 H 186 H 157 H (75-99) mg/dL Microbiology - Last 24 Hours (Table) 10/10/17 18:30 Blood Culture - Preliminary Blood No Growth after 96 hours Assessment and Plan Assessment: Assessment 57 year old F with PMH of COPD, CAD and HTN presents to the ED for BRBPR. Admitted for further workup and Hg monitoring. Found to be hypoxic, also treating for COPD exacerbation. Plan 1. Dyspnea - Likely COPD exaceration with contributions from acute anemia and sleep apnea. 2. Hypoxia: Patient continues to require 1-2L to maintain O2 sat in the low 90' s. She has never been on home O2. Echo (06/2017) shows EF 50-55% and moderate concentric HTY. Possibly with component of sleep apnea. CPAP QHS. O2 per NC to maintain O2 sat > 92%. D-Dimer elevated, CTA negative for PE. FU 6 min walk test 3. COPD exacerbation: States is from changes in weather. CXR negative initially. Continue DuoNeb QID scheduled and PRN, Symbicort 2 puff BID. Solumedrol 60 mg IV Q6H DC'd, continue Prednisone 50 mg PO QD x 2 more days. O2 per NC to maintain O2 > 92%. Encourage to quit smoking. FU Pulmonology 4. A-Fib with RVR: Seen on Telemetry (10/12) sinus rhythm since. Likely 2/2 hypoxia. On Coreg 12.5 mg PO BID. Keep Mg > 2 and K > 4. O2 per NC to maintain O2 sat > 92%. 5. GIB: Stable Hg since 10/10/2017. s/p 2 units PRBC on 10/10. EGD/C-scope shows Pamela esophagitis. Protonix 40 mg PO QD. Transition to cardiac diet. Continue ASA/Plavix as Hg/Hct stable. FU CBC, GI 6. Esophageal Candidiasis: Seen during EGD. Continue Diflucan 100 mg PO QD. FU Pathology 7. Leukocytosis: WBC 19.5 consistently rising. Likely due to IV steroid use. No signs of infection. Afebrile. FU CBC 8. CAD: s/p stent placement in 2014. Echo 06/2017 shows EF 50-55%. A1c 5.9 ( within normal limits). Lipid panel shows LDL 103 and HDL 36. Continue Lipitor 40 PO QHS. Continue Coreg 12.5 mg PO BID, Losartan 100 mg PO QD. 9. HTN: BP 150/61. Continue Coreg and Losartan. Monitor vitals, adjust medications as necessary. 10. Depression: Continue Cymbalta 60 mg PO QHS. Patient continues to be hypoxic despite adequate treatment for COPD. PE has been ruled out. Echocardiogram was canceled due to recent echo in June 2017. I will obtain a 6 minute walk test.
[2017-10-15 11:47] LABS: Glucose,Whole Blood 122 mg/dL (75-99)
[2017-10-15 12:51] LABS: HCT 31.4 % (34.0-46.0); HGB 10.7 gm/dL (11.4-16.0); MCH 30.6 pg (25.0-35.0); MCV 90.1 fL (80.0-100.0); Mean Platelet Volume 7.3; Platelet Count 258 k/uL (150-450); RBC 3.48 m/uL (3.80-5.40); RDW 14.7 % (11.5-15.5); WBC 22.2 k/uL (3.8-10.6)
[2017-10-15 14:54] LABS: Band Neutrophils % 2 %; Lymphocytes # (M) 1.78 k/uL (1.0-4.8); Metamyelocytes # (M) 0.67 k/uL (0); Metamyelocytes % 3 %; Monocytes # (M) 0.44 k/uL (0-1.0); Myelocytes # (M) 0.89 k/uL (0); Myelocytes % 4 %; Neutrophils % (M) 82 %; Nucleated Red Blood Cells 0 /100 WBC (0-0); Total Cells Counted 200
[2017-10-15 14:55] LABS: Toxic Vacuolation Present
[2017-10-15 15:49] VITALS: BP 150/66; TEMP 98.9
[2017-10-15 16:11] VITALS: PULSE 71
[2017-10-15] MEDS ORDERED: PANTOPRAZOLE 40 MG TABLET PO SCH (21:00)
[2017-10-16] MEDS ORDERED: predniSONE 50 MG TAB PO SCH (09:00)
== END 2017-10-15 18:04 | disposition home or self-care (01) | DRG 377 ==
LOC: EC 17:52 → 6ICU 20:38 → 3SUR 10-11 14:21
PROVIDERS: ADMIT Internal Medicine; ATTEND Internal Medicine
PROC: 30233N1 Transfusion of Nonautologous Red Blood Cells into Peripheral Vein, Percutaneous Approach (ICD-10-PCS; principal; 2017-10-10)
PROC: 0DB58ZX Excision of Esophagus, Via Natural or Artificial Opening Endoscopic, Diagnostic (ICD-10-PCS; 2017-10-12 07:30)
DX: K92.2 Gastrointestinal hemorrhage, unspecified (principal); J96.01 Acute respiratory failure with hypoxia; D62 Acute posthemorrhagic anemia; J44.1 Chronic obstructive pulmonary disease with (acute) exacerbation; Z68.42 Body mass index [BMI] 45.0-49.9, adult; B37.81 Candidal esophagitis; D72.829 Elevated white blood cell count, unspecified; E66.01 Morbid (severe) obesity due to excess calories; E78.5 Hyperlipidemia, unspecified; E87.5 Hyperkalemia; F17.200 Nicotine dependence, unspecified, uncomplicated; F32.9 Major depressive disorder, single episode, unspecified; F41.9 Anxiety disorder, unspecified; I11.9 Hypertensive heart disease without heart failure; I25.10 Atherosclerotic heart disease of native coronary artery without angina pectoris; K21.0 Gastro-esophageal reflux disease with esophagitis; M19.90 Unspecified osteoarthritis, unspecified site; Z79.02 Long term (current) use of antithrombotics/antiplatelets; Z79.51 Long term (current) use of inhaled steroids; Z79.82 Long term (current) use of aspirin; Z79.899 Other long term (current) drug therapy; Z82.49 Family history of ischemic heart disease and other diseases of the circulatory system; Z82.5 Family history of asthma and other chronic lower respiratory diseases; Z95.5 Presence of coronary angioplasty implant and graft; I48.91 Unspecified atrial fibrillation
CPT/HCPCS: 36415; 43239; 45378; 71045; 71046; 71275; 74177; 80048; 80053; 81001; 82150; 82272; 82550; 82553; 83036; 83605; 83690; 83735; 83880; 84100; 84484; 85025; 85027; 85379; 85610; 85730; 86850; 86900; 86901; 86920; 87040; 88305; 88312; 93005; 94640; 94760; 96361; 96365; 96374; 96375; 96376; 99285; 99291; 99406

== ENCOUNTER 2017-10-18 15:49 | Inpatient (IN) | payer MEDICARE ==
[2017-10-18] MEDS ORDERED: KETOROLAC 30 MG/ML 1 ML VIAL IM STA ×2 (16:48→17:31)
[2017-10-18] MEDS ORDERED: ORPHENADRINE 30 MG/ML 2 ML VIAL IM STA ×2 (16:49→18:49)
[2017-10-18] MEDS ORDERED: MORPHINE SULFATE 4 MG/ML SYRINGE IM STA (16:50)
[2017-10-18] MEDS ORDERED: IBUPROFEN 800 MG TAB PO STA (16:50)
--- NOTE | 2017-10-18 16:57 | ED ---
General Adult HPI - General Source: patient, RN notes reviewed Mode of arrival: EMS Limitations: no limitations <Long Aragon - Last Filed: 10/18/17 20:34> <Barney Scherer - Last Filed: 10/30/17 20:55> - General Chief complaint: Back Pain/Injury Stated complaint: Back Pain Time Seen by Provider: 10/18/17 16:34 - History of Present Illness Initial comments: 57-year-old female presents to the emergency department for a chief complaint of low back pain and left sciatic pain 2 days. Patient describes the pain as a sharp pain shooting down her left leg. She states she also feels pain in her left buttock. Patient states she feels spasming in her left back. Patient denies any right-sided back pain or right-sided leg pain at this time. Patient states she was recently released from the hospital and states that it may have been caused by the hospital bed. Patient was recently discharged from the hospital due to GI bleed. Patient states she was unable to walk today or get out of the house with assistance from both her and her son. She states they had to call EMS. Patient denies any saddle anesthesia or bladder or bowel changes. She states she is urinating regularly. Patient denies any history of cancer or fevers at home. Patient denies any chronic steroid use. Patient has no other complaints at this time including shortness of breath, chest pain, abdominal pain, nausea or vomiting, headache, or visual changes. (Long Aragon) - Related Data Home Medications Medication Instructions Recorded Confirmed Atorvastatin [Lipitor] 40 mg PO HS 06/13/17 10/18/17 DULoxetine HCL [Cymbalta] 60 mg PO HS 06/13/17 10/18/17 Furosemide [Lasix] 20 mg PO DAILY 06/13/17 10/18/17 Potassium Chloride ER [K-Dur 10] 10 meq PO DAILY 06/13/17 10/18/17 Aspirin 81 mg PO DAILY 10/09/17 10/18/17 Previous Rx's Medication Instructions Recorded Budesonide/Formoterol Fumarate 2 puff INHALATION RT-BID #1 10/15/17 [Symbicort 160-4.5 Mcg Inhaler] hfa.aer.ad Pantoprazole [Protonix] 40 mg PO DAILY #30 tablet. 10/15/17 Vancomycin 2,200 mg IVPB Q12HR 42 Days #84 bag 10/27/17 Acetaminophen Tab [Tylenol] 650 mg PO Q4HR PRN tab 10/29/17 Carvedilol [Coreg*] 25 mg PO BID-W/MEALS tab 10/29/17 Cyclobenzaprine [Flexeril] 10 mg PO BID PRN tab 10/29/17 Gabapentin [Neurontin] 300 mg PO TID cap 10/29/17 Ipratropium-Albuterol Nebulize 3 ml INHALATION RT-QID #60 10/29/17 [Duoneb 0.5 mg-3 mg/3 ml Soln] ampul.neb Losartan [Cozaar] 50 mg PO DAILY tab 10/29/17 Nystatin 100,000 Unit/ml Susp 500,000 unit PO QID cup 10/29/17 [Mycostatin Oral Susp] traMADol HCl [Ultram] 50 mg PO QID PRN #12 tab 10/29/17 Allergies Allergy/AdvReac Type Severity Reaction Status Date / Time No Known Allergies Allergy Verified 10/18/17 16:07 Review of Systems ROS Other: All systems not noted in ROS Statement are negative. <Long Aragon P - Last Filed: 10/18/17 20:34> ROS Other: All systems not noted in ROS Statement are negative. <Barney Scherer - Last Filed: 10/30/17 20:55> ROS Statement: Those systems with pertinent positive or pertinent negative responses have been documented in the HPI. Past Medical History Past Medical History: Coronary Artery Disease (CAD), COPD, Hyperlipidemia, Hypertension, Osteoarthritis (OA) Additional Past Medical History / Comment(s): Coronary artery disease with previous stent placement 2015 in [place]. poor dentation, osbesity,uterine fibroids (spouse not sure if she had a hysterectomy or not),back pain History of Any Multi-Drug Resistant Organisms: None Reported Past Surgical History: Adenoidectomy, Section, Heart Catheterization With Stent, Tonsillectomy Additional Past Surgical History / Comment(s): x 4 Past Anesthesia/Blood Transfusion Reactions: No Reported Reaction Date of Last Stent Placement:: unk Past Psychological History: Anxiety, Depression Smoking Status: Current every day smoker Past Alcohol Use History: None Reported Past Drug Use History: None Reported - Past Family History Mother Family Medical History: COPD Additional Family Medical History / Comment(s): emphysema Father Family Medical History: Congestive Heart Failure (CHF) <Long Aragon P - Last Filed: 10/18/17 20:34> General Exam Limitations: no limitations General appearance: anxious Head exam: Present: atraumatic, normocephalic, normal inspection Eye exam: Present: normal appearance. Absent: scleral icterus, conjunctival injection ENT exam: Present: normal exam, mucous membranes moist Neck exam: Present: normal inspection, full ROM. Absent: tenderness, meningismus, lymphadenopathy Respiratory exam: Present: normal lung sounds bilaterally. Absent: respiratory distress, wheezes, rales, rhonchi, stridor Cardiovascular Exam: Present: regular rate, normal rhythm, normal heart sounds. Absent: systolic murmur, diastolic murmur, rubs, gallop, clicks Extremities exam: Present: normal capillary refill (Capillary refill less than 2 seconds in lower extremities bilaterally. bilateral lower extemities warm to touch on feet), other (Sensation intact in lower extremities.). Absent: full ROM (Patient has 90 flexion of the bilateral hips and full range of motion of the bilateral knees and ankles.), pedal edema (no edema noted), calf tenderness (no calf tenderness bilat. negative dinh sign.) Back exam: Present: tenderness (tenderness to the left side lower back with palpation). Absent: vertebral tenderness (no vertebral tenderness) Neurological exam: Present: alert, oriented X3, CN II-XII intact, reflexes normal (no hyperreflexia or myoclonus noted) Psychiatric exam: Present: anxious Skin exam: Present: warm, dry, intact, normal color. Absent: rash <Long Aragon P - Last Filed: 10/18/17 20:34> Vital Signs 10/18/17 10/18/17 15:52 20:26 Temperature 99.6 F 98.8 F Pulse Rate 90 65 Respiratory 26 H 20 Rate Blood Pressure 130/50 133/51 O2 Sat by Pulse 93 L 97 Oximetry Medical Decision Making <Long Aragon P - Last Filed: 10/18/17 20:34> - Lab Data Result diagrams: 10/28/17 06:55 10/28/17 06:55 <Barney Scherer - Last Filed: 10/30/17 20:55> - Medical Decision Making 57-year-old female since to the emergency department for a chief complaint of low back pain 2 days. Patient has had sciatic pain in the past but states this is much worse than normal. Patient states the pain is all in the left low back and left leg. Patient denies pain in the right leg. She describes the pain as a cramping spasming pain in her left low back as well as in her left leg. Patient repeatedly rates pain as a 10 out of 10 and is crying and upset. On exam patient has significant tenderness to the left lower back. Capillary refill less than 2 seconds and feet are warm bilaterally. No hyperreflexia noted. No myoclonus. Patient denies bladder or bowel changes or saddle anesthesia. Lumbar vertebra have normal alignment on CAT scan. Facet arthropathy noted. Disc spaces are fairly normal. There is no compression fracture. I see no spinal stenosis. There is subcutaneous edema over the lower spine. Patient was given morphine and Motrin in the emergency department which did give some relief. Patient refused [place]. Patient was also given Norflex. Patient was able to ambulate a few steps with a walker before stating she was going to fall if the chair was not placed behind her. I did offer to write a pain prescription as well as walker for home use. However is concerned patient will not be able to make it into the house. He states if she goes home they will need to call EMS to bring her back because she will not be able to do the steps. Patient is very concerned for falls and states he cannot take her home. At this point, patient is uncomfortable going home and will be admitted for intractable pain as well as high risk for falls as she cannot walk. (Long Aragon) Resident/PA attestation: I, Dr. Barney Scherer, personally saw and examined the patient. I have reviewed and agree with the resident/PA findings, including all diagnostic interpretations and treatment plans as written unless otherwise stated. I was present for the daniel portions of any procedures performed and inclusive time noted for any critical care statement. Patient was seen and evaluated by myself. Patient was in the emergency department for chief complaint of back pain. She denies any constitutional symptoms. Vital signs are stable. She was afebrile. She did explain that her back pain started as she was bending over from a sitting position. Patient was seen ambulatory to the bathroom albuterol with significant pain. An attempt was made to ambulate patient. did not fill comfortable with patient going home. Patient to be admitted to observation for physical therapy and continued pain management. (Barney Scherer) - Lab Data Lab Results 10/19/17 10/19/17 10/19/17 Range/Units 05:59 05:59 05:59 WBC 24.9 H (3.8-10.6) k/uL RBC 3.52 L (3.80-5.40) m/uL Hgb 10.7 L (11.4-16.0) gm/dL Hct 32.9 L (34.0-46.0) % MCV 93.3 (80.0-100.0) fL MCH 30.2 (25.0-35.0) pg MCHC 32.4 (31.0-37.0) g/dL RDW 14.6 (11.5-15.5) % Plt Count 255 (150-450) k/uL Neutrophils % 92 % Lymphocytes % 3 % Monocytes % 4 % Eosinophils % 1 % Basophils % 0 % Neutrophils # 22.9 H (1.3-7.7) k/uL Lymphocytes # 0.6 L (1.0-4.8) k/uL Monocytes # 1.1 H (0-1.0) k/uL Eosinophils # 0.2 (0-0.7) k/uL Basophils # 0.0 (0-0.2) k/uL Sodium 134 L (137-145) mmol/L Potassium 4.3 (3.5-5.1) mmol/L Chloride 97 L (98-107) mmol/L Carbon Dioxide 34 H (22-30) mmol/L Anion Gap 3 mmol/L BUN 11 (7-17) mg/dL Creatinine 0.50 L (0.52-1.04) mg/dL Est GFR (CKD-EPI)AfAm >90 (>60 ml/min/1.73 sqM) Est GFR (CKD-EPI)NonAf >90 (>60 ml/min/1.73 sqM) Glucose 108 H (74-99) mg/dL POC Glucose (mg/dL) (75-99) mg/dL POC Glu Director Behavioral Health ID Plasma Lactic Acid Daniel 0.6 L (0.7-2.0) mmol/L Calcium 8.3 L (8.4-10.2) mg/dL Phosphorus (2.5-4.5) mg/dL Magnesium (1.6-2.3) mg/dL Total Bilirubin 0.7 (0.2-1.3) mg/dL AST 23 (14-36) U/L ALT 37 (9-52) U/L Alkaline Phosphatase 68 (38-126) U/L Total Protein 5.0 L (6.3-8.2) g/dL Albumin 2.7 L (3.5-5.0) g/dL Urine Color Urine Appearance (Clear) Urine pH (5.0-8.0) Ur Specific [place] (1.001-1.035) Urine Protein (Negative) Urine Glucose (UA) (Negative) Urine Ketones (Negative) Urine Blood (Negative) Urine Nitrite (Negative) Urine Bilirubin (Negative) Urine Urobilinogen (<2.0) mg/dL Ur Leukocyte Esterase (Negative) Urine RBC (0-5) /hpf Urine WBC (0-5) /hpf Urine Mucus (None) /hpf 10/19/17 10/19/17 10/19/17 Range/Units 06:21 15:11 16:05 WBC 21.1 H (3.8-10.6) k/uL RBC 3.44 L (3.80-5.40) m/uL Hgb 10.5 L (11.4-16.0) gm/dL Hct 32.3 L (34.0-46.0) % MCV 93.8 (80.0-100.0) fL MCH 30.5 (25.0-35.0) pg MCHC 32.5 (31.0-37.0) g/dL RDW 14.4 (11.5-15.5) % Plt Count 216 (150-450) k/uL Neutrophils % 91 % Lymphocytes % 2 % Monocytes % 5 % Eosinophils % 1 % Basophils % 0 % Neutrophils # 19.2 H (1.3-7.7) k/uL Lymphocytes # 0.5 L (1.0-4.8) k/uL Monocytes # 1.1 H (0-1.0) k/uL Eosinophils # 0.2 (0-0.7) k/uL Basophils # 0.0 (0-0.2) k/uL Sodium (137-145) mmol/L Potassium (3.5-5.1) mmol/L Chloride (98-107) mmol/L Carbon Dioxide (22-30) mmol/L Anion Gap mmol/L BUN (7-17) mg/dL Creatinine (0.52-1.04) mg/dL Est GFR (CKD-EPI)AfAm (>60 ml/min/1.73 sqM) Est GFR (CKD-EPI)NonAf (>60 ml/min/1.73 sqM) Glucose (74-99) mg/dL POC Glucose (mg/dL) 102 H (75-99) mg/dL POC Glu Director Behavioral Health Nancy Mccormick Plasma Lactic Acid Daniel (0.7-2.0) mmol/L Calcium (8.4-10.2) mg/dL Phosphorus (2.5-4.5) mg/dL Magnesium (1.6-2.3) mg/dL Total Bilirubin (0.2-1.3) mg/dL AST (14-36) U/L ALT (9-52) U/L Alkaline Phosphatase (38-126) U/L Total Protein (6.3-8.2) g/dL Albumin (3.5-5.0) g/dL Urine Color Light Yellow Urine Appearance Clear (Clear) Urine pH 8.0 (5.0-8.0) Ur Specific [place] 1.008 (1.001-1.035) Urine Protein 1+ H (Negative) Urine Glucose (UA) Negative (Negative) Urine Ketones Negative (Negative) Urine Blood Negative (Negative) Urine Nitrite Negative (Negative) Urine Bilirubin Negative (Negative) Urine Urobilinogen <2.0 (<2.0) mg/dL Ur Leukocyte Esterase Small H (Negative) Urine RBC 3 (0-5) /hpf Urine WBC 22 H (0-5) /hpf Urine Mucus Rare H (None) /hpf 10/19/17 10/19/17 10/19/17 Range/Units 16:05 16:05 20:50 WBC (3.8-10.6) k/uL RBC (3.80-5.40) m/uL Hgb (11.4-16.0) gm/dL Hct (34.0-46.0) % MCV (80.0-100.0) fL MCH (25.0-35.0) pg MCHC (31.0-37.0) g/dL RDW (11.5-15.5) % Plt Count (150-450) k/uL Neutrophils % % Lymphocytes % % Monocytes % % Eosinophils % % Basophils % % Neutrophils # (1.3-7.7) k/uL Lymphocytes # (1.0-4.8) k/uL Monocytes # (0-1.0) k/uL Eosinophils # (0-0.7) k/uL Basophils # (0-0.2) k/uL Sodium 135 L (137-145) mmol/L Potassium 4.2 (3.5-5.1) mmol/L Chloride 97 L (98-107) mmol/L Carbon Dioxide 34 H (22-30) mmol/L Anion Gap 4 mmol/L BUN 11 (7-17) mg/dL Creatinine 0.63 (0.52-1.04) mg/dL Est GFR (CKD-EPI)AfAm >90 (>60 ml/min/1.73 sqM) Est GFR (CKD-EPI)NonAf >90 (>60 ml/min/1.73 sqM) Glucose 97 (74-99) mg/dL POC Glucose (mg/dL) 140 H (75-99) mg/dL POC Glu Director Behavioral Health ID Rebecca Landa Plasma Lactic Acid Daniel 0.8 (0.7-2.0) mmol/L Calcium 8.0 L (8.4-10.2) mg/dL Phosphorus 4.3 (2.5-4.5) mg/dL Magnesium 1.9 (1.6-2.3) mg/dL Total Bilirubin 0.8 (0.2-1.3) mg/dL AST 19 (14-36) U/L ALT 37 (9-52) U/L Alkaline Phosphatase 57 (38-126) U/L Total Protein 4.7 L (6.3-8.2) g/dL Albumin 2.4 L (3.5-5.0) g/dL Urine Color Urine Appearance (Clear) Urine pH (5.0-8.0) Ur Specific [place] (1.001-1.035) Urine Protein (Negative) Urine Glucose (UA) (Negative) Urine Ketones (Negative) Urine Blood (Negative) Urine Nitrite (Negative) Urine Bilirubin (Negative) Urine Urobilinogen (<2.0) mg/dL Ur Leukocyte Esterase (Negative) Urine RBC (0-5) /hpf Urine WBC (0-5) /hpf Urine Mucus (None) /hpf 10/20/17 10/20/17 10/20/17 Range/Units 05:40 05:40 06:11 WBC 18.3 H (3.8-10.6) k/uL RBC 3.47 L (3.80-5.40) m/uL Hgb 10.3 L (11.4-16.0) gm/dL Hct 32.7 L (34.0-46.0) % MCV 94.4 (80.0-100.0) fL MCH 29.7 (25.0-35.0) pg MCHC 31.4 (31.0-37.0) g/dL RDW 14.4 (11.5-15.5) % Plt Count 224 (150-450) k/uL Neutrophils % 96 % Lymphocytes % 1 % Monocytes % 2 % Eosinophils % 0 % Basophils % 0 % Neutrophils # 17.5 H (1.3-7.7) k/uL Lymphocytes # 0.3 L (1.0-4.8) k/uL Monocytes # 0.5 (0-1.0) k/uL Eosinophils # 0.0 (0-0.7) k/uL Basophils # 0.0 (0-0.2) k/uL Sodium 136 L (137-145) mmol/L Potassium 5.1 (3.5-5.1) mmol/L Chloride 103 (98-107) mmol/L Carbon Dioxide 28 (22-30) mmol/L Anion Gap 5 mmol/L BUN 17 (7-17) mg/dL Creatinine 0.47 L (0.52-1.04) mg/dL Est GFR (CKD-EPI)AfAm >90 (>60 ml/min/1.73 sqM) Est GFR (CKD-EPI)NonAf >90 (>60 ml/min/1.73 sqM) Glucose 123 H (74-99) mg/dL POC Glucose (mg/dL) 157 H (75-99) mg/dL POC Glu Director Behavioral Health ID Rebecca Landa Plasma Lactic Acid Daniel (0.7-2.0) mmol/L Calcium 8.0 L (8.4-10.2) mg/dL Phosphorus (2.5-4.5) mg/dL Magnesium (1.6-2.3) mg/dL Total Bilirubin (0.2-1.3) mg/dL AST (14-36) U/L ALT (9-52) U/L Alkaline Phosphatase (38-126) U/L Total Protein (6.3-8.2) g/dL Albumin (3.5-5.0) g/dL Urine Color Urine Appearance (Clear) Urine pH (5.0-8.0) Ur Specific [place] (1.001-1.035) Urine Protein (Negative) Urine Glucose (UA) (Negative) Urine Ketones (Negative) Urine Blood (Negative) Urine Nitrite (Negative) Urine Bilirubin (Negative) Urine Urobilinogen (<2.0) mg/dL Ur Leukocyte Esterase (Negative) Urine RBC (0-5) /hpf Urine WBC (0-5) /hpf Urine Mucus (None) /hpf 10/20/17 Range/Units 11:34 WBC (3.8-10.6) k/uL RBC (3.80-5.40) m/uL Hgb (11.4-16.0) gm/dL Hct (34.0-46.0) % MCV (80.0-100.0) fL MCH (25.0-35.0) pg MCHC (31.0-37.0) g/dL RDW (11.5-15.5) % Plt Count (150-450) k/uL Neutrophils % % Lymphocytes % % Monocytes % % Eosinophils % % Basophils % % Neutrophils # (1.3-7.7) k/uL Lymphocytes # (1.0-4.8) k/uL Monocytes # (0-1.0) k/uL Eosinophils # (0-0.7) k/uL Basophils # (0-0.2) k/uL Sodium (137-145) mmol/L Potassium (3.5-5.1) mmol/L Chloride (98-107) mmol/L Carbon Dioxide (22-30) mmol/L Anion Gap mmol/L BUN (7-17) mg/dL Creatinine (0.52-1.04) mg/dL Est GFR (CKD-EPI)AfAm (>60 ml/min/1.73 sqM) Est GFR (CKD-EPI)NonAf (>60 ml/min/1.73 sqM) Glucose (74-99) mg/dL POC Glucose (mg/dL) 202 H (75-99) mg/dL POC Glu Director Behavioral Health ID [address] Plasma Lactic Acid Daniel (0.7-2.0) mmol/L Calcium (8.4-10.2) mg/dL Phosphorus (2.5-4.5) mg/dL Magnesium (1.6-2.3) mg/dL Total Bilirubin (0.2-1.3) mg/dL AST (14-36) U/L ALT (9-52) U/L Alkaline Phosphatase (38-126) U/L Total Protein (6.3-8.2) g/dL Albumin (3.5-5.0) g/dL Urine Color Urine Appearance (Clear) Urine pH (5.0-8.0) Ur Specific [place] (1.001-1.035) Urine Protein (Negative) Urine Glucose (UA) (Negative) Urine Ketones (Negative) Urine Blood (Negative) Urine Nitrite (Negative) Urine Bilirubin (Negative) Urine Urobilinogen (<2.0) mg/dL Ur Leukocyte Esterase (Negative) Urine RBC (0-5) /hpf Urine WBC (0-5) /hpf Urine Mucus (None) /hpf Disposition Is patient prescribed a controlled substance at d/c from ED?: No Time of Disposition: 19:45 Decision Time: 20:33 <Long Aragon P - Last Filed: 10/18/17 20:34> <Barney Scherer - Last Filed: 10/30/17 20:55> Clinical Impression: Sciatica, Intractable back pain, At risk for falls Disposition: ADMITTED IP TO THIS HOSP Condition: Stable
--- NOTE | 2017-10-18 17:49 | CT ---
EXAMINATION TYPE: CT lumbar spine wo con DATE OF EXAM: 10/18/2017 5:23 PM COMPARISON: None HISTORY: low back pain, no injury CT DLP: 2508.2 mGycm Automated exposure control for dose reduction was used. Unenhanced CT of the lumbar spine was performed. Bone and soft tissue window settings are submitted as well as coronal and sagittal reconstructions. Lumbar vertebra have normal alignment. Disc spaces are fairly normal. Posterior elements are intact. Abdominal aorta is atheromatous. There is facet arthropathy at L4-5 and L5-S1. There is no compressio n fracture. I see no spinal stenosis. There is subcutaneous edema over the lower lumbar spine. IMPRESSION: Facet arthropathy in the lower lumbar spine. No fracture. Atheromatous aorta.
[2017-10-18] MEDS ORDERED: HYDROcodone/APAP 5-325MG 1 EACH TAB PO STA (18:41)
[2017-10-18] MEDS ORDERED: ONDANSETRON 4 MG/2 ML VIAL IVP PRN (20:27)
[2017-10-18] MEDS ORDERED: NALOXONE 0.4 MG/ML 1 ML VIAL IV PRN (20:27)
[2017-10-18] MEDS ORDERED: HYDROcodone/APAP 5-325MG 1 EACH TAB PO PRN (20:27)
[2017-10-18] MEDS: SODIUM CHLORIDE 0.9% 1,000 ML IV SCH (21:52)
[2017-10-18] MEDS: DULoxetine HCL 60 MG CAPSULE.DR PO SCH (21:54)
[2017-10-18] MEDS: ATORVASTATIN 40 MG TAB PO SCH (21:54)
[2017-10-18] MEDS: CARVEDILOL 12.5 MG TAB PO SCH (21:54)
[2017-10-18] MEDS: MORPHINE SULFATE 4 MG/ML SYRINGE IV PRN (21:56)
[2017-10-19] MEDS: MORPHINE SULFATE 4 MG/ML SYRINGE IV PRN ×2 (02:42→07:04)
[2017-10-19] MEDS ORDERED: ACETAMINOPHEN IV (For NPO) 1,000 MG in EMPTY BAG 1 BAG IVPB ONE (06:00)
[2017-10-19 06:18] LABS: Basophils % (A) 0 %; Eosinophils # (A) 0.2 k/uL (0-0.7); Eosinophils % (A) 1 %; HCT 32.9 % (34.0-46.0); HGB 10.7 gm/dL (11.4-16.0); Lymphocytes # (A) 0.6 k/uL (1.0-4.8); Lymphocytes % (A) 3 %; MCH 30.2 pg (25.0-35.0); MCHC 32.4 g/dL (31.0-37.0); MCV 93.3 fL (80.0-100.0); Mean Platelet Volume 7.5; Monocytes # (A) 1.1 k/uL (0-1.0); Monocytes % (A) 4 %; Neutrophils # (A) 22.9 k/uL (1.3-7.7); Neutrophils % (A) 92 %; Platelet Count 255 k/uL (150-450); RBC 3.52 m/uL (3.80-5.40); RDW 14.6 % (11.5-15.5); WBC 24.9 k/uL (3.8-10.6)
[2017-10-19 06:29] LABS: ALT 37 U/L (9-52); AST 23 U/L (14-36); Albumin 2.7 g/dL (3.5-5.0); Alkaline Phosphatase 68 U/L (38-126); Anion Gap 3 mmol/L; Blood Urea Nitrogen 11 mg/dL (7-17); Calcium 8.3 mg/dL (8.4-10.2); Carbon Dioxide 34 mmol/L (22-30); Chloride 97 mmol/L (98-107); Glucose 108 mg/dL (74-99); Potassium 4.3 mmol/L (3.5-5.1); Sodium 134 mmol/L (137-145); Total Bilirubin 0.7 mg/dL (0.2-1.3)
[2017-10-19 06:41] LABS: Appearance,Urine Clear (Clear); Bilirubin,Urine Negative (Negative); Blood,Urine Negative (Negative); Color,Urine Light Yellow; Glucose,Urine (UA) Negative (Negative); Ketones,Urine Negative (Negative); Leukocyte Esterase,Urine Small (Negative); Mucus,Urine Rare /hpf; Nitrite,Urine Negative (Negative); Protein,Urine 1+ (Negative); RBC,Urine 3 /hpf (0-5); Specific Gravity,Urine 1.008 (1.001-1.035); Urobilinogen,Urine <2.0 mg/dL (<2.0); WBC,Urine 22 /hpf (0-5)
[2017-10-19] MEDS ORDERED: cefTRIAXone IN SWFI 1,000 MG/10 ML SYRINGE IVP STA (06:57)
[2017-10-19] MEDS: SYMBICORT 160-4.5 MCG INHALER INHALATION SCH ×2 (07:45→20:17)
[2017-10-19] MEDS: POTASSIUM CHLORIDE ER 10 MEQ TAB.ER.PRT PO SCH (07:52)
[2017-10-19] MEDS: FUROSEMIDE 20 MG TAB PO SCH (07:52)
[2017-10-19] MEDS: CLOPIDOGREL 75 MG TAB PO SCH (07:52)
[2017-10-19] MEDS: LOSARTAN 50 MG TAB PO SCH (07:52)
[2017-10-19] MEDS: ASPIRIN 81 MG PO SCH (07:52)
[2017-10-19] MEDS: amLODIPine 10 MG TAB PO SCH (07:52)
[2017-10-19] MEDS: PANTOPRAZOLE 40 MG TABLET PO SCH (07:52)
[2017-10-19] MEDS: CARVEDILOL 12.5 MG TAB PO SCH ×2 (07:52→18:27)
[2017-10-19] MEDS: SODIUM CHLORIDE 0.9% 1,000 ML IV SCH ×2 (09:42→23:00)
[2017-10-19] MEDS: KETOROLAC 30 MG/ML 1 ML VIAL IVP PRN ×2 (12:09→22:47)
[2017-10-19] MEDS: GABAPENTIN 300 MG CAP PO SCH ×3 (12:09→20:28)
[2017-10-19] MEDS: IPRATROPIUM-ALBUTEROL 3 ML NEB INHALATION SCH ×3 (13:23→20:17)
--- NOTE | 2017-10-19 13:40 | P.CNOR ---
History of Present Illness - [facility] Consult date: 10/19/17 Consult reason: low back pain History of present illness: This is a 57-year-old female who is admitted with intractable back pain. She had a recent admission for a GI bleed. She is very sleepy but I am able to awaken her to give some history. She had temp of 102 this morning. Her is present at bedside and insists on answering all questions for her. He is very belligerent and refuses to allow her to answer her own questions stating that she "doesn't know what she is talking about." When I asked him to please allow her to answer the questions, he began screaming at me stating that "no one here knows what is going on", and that she needs to be moved to ICU. When she does answer questions she states that she has pain in the left lower back which radiates down into the left buttock. She denies numbness and tingling down the legs. She denies bowel or bladder dysfunction. Past Medical History Past Medical History: Coronary Artery Disease (CAD), COPD, Hyperlipidemia, Hypertension, Osteoarthritis (OA) Additional Past Medical History / Comment(s): ry artery disease with previous stent placement 2015 in [place]. poor dentation, osbesity,uterine fibroids () ,back pain History of Any Multi-Drug Resistant Organisms: None Reported Past Surgical History: Adenoidectomy, Section, Heart Catheterization With Stent, Tonsillectomy Additional Past Surgical History / Comment(s): x 4 Past Anesthesia/Blood Transfusion Reactions: No Reported Reaction Date of Last Stent Placement:: unk Past Psychological History: Anxiety, Depression Smoking Status: Current every day smoker Past Alcohol Use History: None Reported Additional Past Alcohol Use History / Comment(s): started smoking 1974 used to smoke 2 ppd now 1/2 ppd Past Drug Use History: None Reported - Past Family History Mother Family Medical History: COPD Additional Family Medical History / Comment(s): emphysema Father Family Medical History: Congestive Heart Failure (CHF) Medications and Allergies Home Medications Medication Instructions Recorded Confirmed Type Atorvastatin [Lipitor] 40 mg PO HS 06/13/17 10/18/17 History Clopidogrel [Plavix] 75 mg PO DAILY 06/13/17 10/18/17 History DULoxetine HCL [Cymbalta] 60 mg PO HS 06/13/17 10/18/17 History Furosemide [Lasix] 20 mg PO DAILY 06/13/17 10/18/17 History Losartan Potassium 100 mg PO DAILY 06/13/17 10/18/17 History Potassium Chloride ER [K-Dur 10] 10 meq PO DAILY 06/13/17 10/18/17 History Carvedilol [Coreg*] 12.5 mg PO BID #60 tablet 06/19/17 10/18/17 Rx amLODIPine [Norvasc] 10 mg PO DAILY #30 tab 06/19/17 10/18/17 Rx Aspirin 81 mg PO DAILY 10/09/17 10/18/17 History Albuterol Inhaler [Ventolin Hfa 1 - 2 puff INHALATION RT-Q6H PRN 10/15/17 Rx Inhaler] #1 inhaler Budesonide/Formoterol Fumarate 2 puff INHALATION RT-BID #1 10/15/17 10/18/17 Rx [Symbicort 160-4.5 Mcg Inhaler] hfa.aer.ad Ipratropium-Albuterol Nebulize 3 ml INHALATION RT-QID #60 10/15/17 10/18/17 Rx [Duoneb 0.5 mg-3 mg/3 ml Soln] ampul.neb Ipratropium/Albuterol Sulfate 1 puff INHALATION RT-QID #1 10/15/17 10/18/17 Rx [Combivent Respimat Inhaler] mist.inhal Pantoprazole [Protonix] 40 mg PO DAILY #30 tablet. 10/15/17 10/18/17 Rx Acetaminophen [Tylenol] 1,000 mg PO Q4-6H PRN 10/18/17 10/18/17 History Ibuprofen [Motrin Ib] 400 mg PO Q6H PRN 10/18/17 10/18/17 History Allergies Allergy/AdvReac Type Severity Reaction Status Date / Time No Known Allergies Allergy Verified 10/18/17 16:07 Physical Examination This is a 57-year-old female in no acute distress. She is alert and oriented at this time once I am able to awaken her. Exam of her lumbar spine reveals no obvious deformity. There is pain with palpation about the lower lumbar spine and left paraspinal musculature down into the buttock. She is able to lie flat on her back with assistance. Exam of the lower extremities reveals no obvious deformity. She is able to lift each leg off the bed independently with some pain. There is no pain with logroll bilaterally. She has full foot and ankle motion bilaterally. Neurovascular status to the lower extremities is intact. Results CT of the lumbar spine reveals no obvious fracture. Minimal degenerative changes noted. Disc spaces are fairly well maintained. - Labs Labs: Abnormal Lab Results - Last 24 Hours (Table) 10/19/17 10/19/17 10/19/17 Range/Units 05:59 05:59 05:59 WBC 24.9 H (3.8-10.6) k/uL RBC 3.52 L (3.80-5.40) m/uL Hgb 10.7 L (11.4-16.0) gm/dL Hct 32.9 L (34.0-46.0) % Neutrophils # 22.9 H (1.3-7.7) k/uL Lymphocytes # 0.6 L (1.0-4.8) k/uL Monocytes # 1.1 H (0-1.0) k/uL Sodium 134 L (137-145) mmol/L Chloride 97 L (98-107) mmol/L Carbon Dioxide 34 H (22-30) mmol/L Creatinine 0.50 L (0.52-1.04) mg/dL Glucose 108 H (74-99) mg/dL Plasma Lactic Acid Daniel 0.6 L (0.7-2.0) mmol/L Calcium 8.3 L (8.4-10.2) mg/dL Total Protein 5.0 L (6.3-8.2) g/dL Albumin 2.7 L (3.5-5.0) g/dL Urine Protein (Negative) Ur Leukocyte Esterase (Negative) Urine WBC (0-5) /hpf Urine Mucus (None) /hpf 10/19/17 Range/Units 06:21 WBC (3.8-10.6) k/uL RBC (3.80-5.40) m/uL Hgb (11.4-16.0) gm/dL Hct (34.0-46.0) % Neutrophils # (1.3-7.7) k/uL Lymphocytes # (1.0-4.8) k/uL Monocytes # (0-1.0) k/uL Sodium (137-145) mmol/L Chloride (98-107) mmol/L Carbon Dioxide (22-30) mmol/L Creatinine (0.52-1.04) mg/dL Glucose (74-99) mg/dL Plasma Lactic Acid Daniel (0.7-2.0) mmol/L Calcium (8.4-10.2) mg/dL Total Protein (6.3-8.2) g/dL Albumin (3.5-5.0) g/dL Urine Protein 1+ H (Negative) Ur Leukocyte Esterase Small H (Negative) Urine WBC 22 H (0-5) /hpf Urine Mucus Rare H (None) /hpf Microbiology - Last 24 Hours (Table) 10/19/17 06:21 Urine Culture - Preliminary Urine,Catheterized H & H 10/19/17 Range/Units 05:59 Hgb 10.7 L (11.4-16.0) gm/dL Hct 32.9 L (34.0-46.0) % Result Diagrams: 10/19/17 05:59 10/19/17 05:59 Assessment and Plan (1) Intractable back pain Current Visit: Yes Status: Acute Code(s): M54.9 - DORSALGIA, UNSPECIFIED SNOMED Code(s): 836264277 (2) Sciatica Current Visit: Yes Status: Acute Code(s): M54.30 - SCIATICA, UNSPECIFIED SIDE SNOMED Code(s): 51005461 Plan: The clinical and computed tomography scan findings are discussed with the patient. She did run a temperature of 102 this morning and is being treated for UTI. We will put her on some site Medrol 80 mg IV every 8 hours 3 doses. If fever and low back pain persists, we may recommend MRI for further evaluation. I would recommend physical therapy to attempt to ambulate with assistance. We will continue to follow. I did advise the nurse that she may need to call security if the continues to be belligerent and aggressive.
[2017-10-19 15:28] LABS: Glucose,Whole Blood 102 mg/dL (75-99)
[2017-10-19 16:28] LABS: Basophils % (A) 0 %; Eosinophils # (A) 0.2 k/uL (0-0.7); Eosinophils % (A) 1 %; HCT 32.3 % (34.0-46.0); HGB 10.5 gm/dL (11.4-16.0); Lymphocytes # (A) 0.5 k/uL (1.0-4.8); Lymphocytes % (A) 2 %; MCH 30.5 pg (25.0-35.0); MCHC 32.5 g/dL (31.0-37.0); MCV 93.8 fL (80.0-100.0); Mean Platelet Volume 7.2; Monocytes # (A) 1.1 k/uL (0-1.0); Monocytes % (A) 5 %; Neutrophils # (A) 19.2 k/uL (1.3-7.7); Neutrophils % (A) 91 %; Platelet Count 216 k/uL (150-450); RBC 3.44 m/uL (3.80-5.40); RDW 14.4 % (11.5-15.5); WBC 21.1 k/uL (3.8-10.6)
[2017-10-19 16:37] LABS: ALT 37 U/L (9-52); AST 19 U/L (14-36); Albumin 2.4 g/dL (3.5-5.0); Alkaline Phosphatase 57 U/L (38-126); Anion Gap 4 mmol/L; Blood Urea Nitrogen 11 mg/dL (7-17); Carbon Dioxide 34 mmol/L (22-30); Chloride 97 mmol/L (98-107); Glucose 97 mg/dL (74-99); Magnesium 1.9 mg/dL (1.6-2.3); Phosphorus 4.3 mg/dL (2.5-4.5); Potassium 4.2 mmol/L (3.5-5.1); Sodium 135 mmol/L (137-145); Total Bilirubin 0.8 mg/dL (0.2-1.3); Total Protein 4.7 g/dL (6.3-8.2)
--- NOTE | 2017-10-19 16:38 | XR ---
EXAMINATION TYPE: XR chest 1V portable DATE OF EXAM: 10/19/2017 CLINICAL HISTORY: Difficulty breathing, lethargy, possible sepsis. TECHNIQUE: Single AP portable semiupright view of the chest is obtained. COMPARISON: Chest x-ray from October 12, 2017 and older studies. CTA chest October 14, 2017. FINDINGS: Cardiac silhouette size is mildly enlarged. There is new lateral right basilar linear atel ectasis. There is chronic parenchymal change without pleural effusion or pneumothorax. The osseous st ructures are intact. IMPRESSION: Mild cardiomegaly with new lateral right basilar linear atelectasis.
[2017-10-19] MEDS: methylPREDNISolone SOD SUCCI 125 MG/2 ML VIAL IV SCH ×2 (17:31→23:00)
[2017-10-19] MEDS: ACETAMINOPHEN TAB 325 MG TAB PO PRN (20:27)
[2017-10-19] MEDS: ATORVASTATIN 40 MG TAB PO SCH (20:28)
[2017-10-19] MEDS: DULoxetine HCL 60 MG CAPSULE.DR PO SCH (20:29)
[2017-10-19 20:52] LABS: Glucose,Whole Blood 140 mg/dL (75-99)
[2017-10-19] MEDS ORDERED: VANCOMYCIN IV PER PHARMACY 1 EACH MISC MISCELLANE PRN (22:23)
[2017-10-19] MEDS ORDERED: VANCOMYCIN 2,000 MG in SODIUM CHLORIDE 0.9% 500 ML IVPB ONE (23:00)
--- NOTE | 2017-10-19 23:40 | P.HPIM ---
History of Present Illness H&P Date: 10/19/17 Chief Complaint: Back pain Patient is a 57-year-old female with a known history of hypertension, hyperlipidemia, COPD, coronary artery disease history of stent placement and chronic sciatic pain with complaints of lower back pain worsening for the past 2 days. Patient says that she has a sharp pain shooting down the left leg up to buttock area. Patient otherwise denied any right-sided pain. No complaints of paresthesias or loss of sensation. Patient was also having fever. No nausea vomiting or abdominal pain. No diarrhea. No dysuria. Patient was discharged from the hospital on 10/15/2017 and was treated for acute GI bleed and COPD exacerbation. Patient had EGD and colonoscopy showed mild esophageal candidiasis otherwise no active bleeding was noted. Hemoglobin is stable. Patient states she was unable to walk or get out of the house with assistance from both her and her son. She states they had to call EMS. Patient denies any saddle anesthesia or bladder or bowel changes. She states she is urinating regularly. Patient denies any history of cancer or fevers at home. Patient denies any chronic steroid use. Patient has no other complaints at this time including shortness of breath, chest pain, abdominal pain, nausea or vomiting, headache, or visual changes. Patient was also given a dose of ceftriaxone for urinary tract infection. Patient is still complaining of lower back pain and left sciatic pain. Orthopedic surgery was consulted. Patient's has been very abusive to the nursing staff and demanding the patient to be transferred to ICU. Patient is saturating well on nasal cannula. Chest x-ray showed atelectasis and no evidence of wheezing was noted. Patient was recently treated for COPD exacerbation and was in the ICU. Patient was given a dose of morphine this morning due to severe pain. Patient was confused this afternoon and rapid response team was called. Patient was given Narcan 1 with improvement in mental status. Patient was started on Toradol IV for pain and Tylenol for the fever. Orthopedic surgery was consulted as well. Chest x-ray showed mild cardiomegaly with new lateral right basilar linear atelectasis. CT lumbar spine showed facet arthropathy in the lower lumbar spine. No fracture. Atheromatous aorta. WBC 24.9. WBC during last discharge on 10/15/2017 was 22.2 Review of Systems Constitutional: Patient does have fever. No chills.. No generalized weakness or weight loss. Abdomen: Patient denied nausea vomiting and diarrhea and abdominal pain. Cardiovascular: Patient denies any chest pain or short of breath no palpitations. Respiratory: patient denied any cough is from production. No shortness of breath Neurologic: Patient denied any numbness or tingling headache. Musculoskeletal: Patient does have lower back pain and left sciatic pain. Skin: Negative Psychiatric: Negative Endocrine: No heat or cold intolerance. No recent weight gain. Genitourinary: No dysuria or hematuria. All other 14 point ROS negative except the above Past Medical History Past Medical History: Coronary Artery Disease (CAD), COPD, Hyperlipidemia, Hypertension, Osteoarthritis (OA) Additional Past Medical History / Comment(s): ry artery disease with previous stent placement 2015 in [place]. poor dentation, osbesity,uterine fibroids () ,back pain History of Any Multi-Drug Resistant Organisms: None Reported Past Surgical History: Adenoidectomy, Section, Heart Catheterization With Stent, Tonsillectomy Additional Past Surgical History / Comment(s): x 4 Past Anesthesia/Blood Transfusion Reactions: No Reported Reaction Date of Last Stent Placement:: unk Past Psychological History: Anxiety, Depression Smoking Status: Current every day smoker Past Alcohol Use History: None Reported Additional Past Alcohol Use History / Comment(s): started smoking 1974 used to smoke 2 ppd now 1/2 ppd Past Drug Use History: None Reported - Past Family History Mother Family Medical History: COPD Additional Family Medical History / Comment(s): emphysema Father Family Medical History: Congestive Heart Failure (CHF) Medications and Allergies Home Medications Medication Instructions Recorded Confirmed Type Atorvastatin [Lipitor] 40 mg PO HS 06/13/17 10/18/17 History Clopidogrel [Plavix] 75 mg PO DAILY 06/13/17 10/18/17 History DULoxetine HCL [Cymbalta] 60 mg PO HS 06/13/17 10/18/17 History Furosemide [Lasix] 20 mg PO DAILY 06/13/17 10/18/17 History Losartan Potassium 100 mg PO DAILY 06/13/17 10/18/17 History Potassium Chloride ER [K-Dur 10] 10 meq PO DAILY 06/13/17 10/18/17 History Carvedilol [Coreg*] 12.5 mg PO BID #60 tablet 06/19/17 10/18/17 Rx amLODIPine [Norvasc] 10 mg PO DAILY #30 tab 06/19/17 10/18/17 Rx Aspirin 81 mg PO DAILY 10/09/17 10/18/17 History Albuterol Inhaler [Ventolin Hfa 1 - 2 puff INHALATION RT-Q6H PRN 10/15/17 Rx Inhaler] #1 inhaler Budesonide/Formoterol Fumarate 2 puff INHALATION RT-BID #1 10/15/17 10/18/17 Rx [Symbicort 160-4.5 Mcg Inhaler] hfa.aer.ad Ipratropium-Albuterol Nebulize 3 ml INHALATION RT-QID #60 10/15/17 10/18/17 Rx [Duoneb 0.5 mg-3 mg/3 ml Soln] ampul.neb Ipratropium/Albuterol Sulfate 1 puff INHALATION RT-QID #1 10/15/17 10/18/17 Rx [Combivent Respimat Inhaler] mist.inhal Pantoprazole [Protonix] 40 mg PO DAILY #30 tablet. 10/15/17 10/18/17 Rx Acetaminophen [Tylenol] 1,000 mg PO Q4-6H PRN 10/18/17 10/18/17 History Ibuprofen [Motrin Ib] 400 mg PO Q6H PRN 10/18/17 10/18/17 History Allergies Allergy/AdvReac Type Severity Reaction Status Date / Time No Known Allergies Allergy Verified 10/18/17 16:07 Physical Exam Vitals: Vital Signs Temp Pulse Pulse Resp BP BP BP 10/19/17 09:44 94 116/57 10/19/17 07:55 99.8 F H 101 H 18 111/73 10/19/17 06:31 102.8 F H 115 H 36 H 137/72 10/19/17 05:51 102.8 F H 115 H 36 H 137/72 10/18/17 23:00 99.2 F 89 18 117/66 10/18/17 22:00 89 18 10/18/17 20:26 98.8 F 65 20 133/51 10/18/17 15:52 99.6 F 90 26 H 130/50 Pulse Ox 10/19/17 09:44 93 L 10/19/17 07:55 89 L 10/19/17 06:31 92 L 10/19/17 05:51 86 L 10/18/17 23:00 91 L 10/18/17 22:00 10/18/17 20:26 97 10/18/17 15:52 93 L Intake and Output 10/18/17 10/19/17 10/19/17 22:59 06:59 14:59 Intake Total 1000 Output Total 1000 Balance 0 Intake: Intake, IV Titration 1000 Amount ACETAMINOPHEN IV (For NPO 400 ) 1,000 mg In Empty Bag 1 bag @ 400 mls/hr IVPB ONCE ONE Rx#:[id number] Sodium Chloride 0.9% 1, 600 000 ml @ 75 mls/hr IV . [id number] [facility] Rx#:[id number] Output: Urine 1000 Straight 500 Other: Voiding Method Bedpan # Voids 1 Weight 108.862 kg PHYSICAL EXAMINATION: Patient is lying in the bed comfortably, mild distress with pain., awake alert and oriented.. HEENT: Normocephalic. Neck is supple. Pupils reactive. Nostrils clear. Oral cavity is moist. Ears reveal no drainage. Neck reveals no JVD, carotid bruits, or thyromegaly. CHEST EXAMINATION: Trachea is central. Symmetrical expansion. No wheezing. Bibasilar diminished air entry. Nonlabored breathing. CARDIAC: Normal S1, S2 with no gallops. No murmurs ABDOMEN: Soft. Bowel sounds normal. No organomegaly. No abdominal bruits. Extremities: reveal no edema. No clubbing or cyanosis Neurologically awake, alert, oriented x3 with well-coordinated movements. No focal deficits noted Skin: No rash or skin lesions. Psychiatric: Coperative. Nonsuicidal Musculoskeletal: No joint swelling or deformity. Patient does have mild tenderness over the sacral spine and towards left pelvic bone. No redness no swelling no warmth.. Results CBC & Chem 7: 10/19/17 16:05 10/19/17 16:05 Labs: Abnormal Lab Results - Last 24 Hours (Table) 10/19/17 10/19/17 10/19/17 Range/Units 05:59 05:59 05:59 WBC 24.9 H (3.8-10.6) k/uL RBC 3.52 L (3.80-5.40) m/uL Hgb 10.7 L (11.4-16.0) gm/dL Hct 32.9 L (34.0-46.0) % Neutrophils # 22.9 H (1.3-7.7) k/uL Lymphocytes # 0.6 L (1.0-4.8) k/uL Monocytes # 1.1 H (0-1.0) k/uL Sodium 134 L (137-145) mmol/L Chloride 97 L (98-107) mmol/L Carbon Dioxide 34 H (22-30) mmol/L Creatinine 0.50 L (0.52-1.04) mg/dL Glucose 108 H (74-99) mg/dL Plasma Lactic Acid Daniel 0.6 L (0.7-2.0) mmol/L Calcium 8.3 L (8.4-10.2) mg/dL Total Protein 5.0 L (6.3-8.2) g/dL Albumin 2.7 L (3.5-5.0) g/dL Urine Protein (Negative) Ur Leukocyte Esterase (Negative) Urine WBC (0-5) /hpf Urine Mucus (None) /hpf 10/19/17 Range/Units 06:21 WBC (3.8-10.6) k/uL RBC (3.80-5.40) m/uL Hgb (11.4-16.0) gm/dL Hct (34.0-46.0) % Neutrophils # (1.3-7.7) k/uL Lymphocytes # (1.0-4.8) k/uL Monocytes # (0-1.0) k/uL Sodium (137-145) mmol/L Chloride (98-107) mmol/L Carbon Dioxide (22-30) mmol/L Creatinine (0.52-1.04) mg/dL Glucose (74-99) mg/dL Plasma Lactic Acid Daniel (0.7-2.0) mmol/L Calcium (8.4-10.2) mg/dL Total Protein (6.3-8.2) g/dL Albumin (3.5-5.0) g/dL Urine Protein 1+ H (Negative) Ur Leukocyte Esterase Small H (Negative) Urine WBC 22 H (0-5) /hpf Urine Mucus Rare H (None) /hpf Microbiology - Last 24 Hours (Table) 10/19/17 06:21 Urine Culture - Preliminary Urine,Catheterized Thrombosis Risk Factor Assmnt - DVT/VTE Prophylaxis DVT/VTE Prophylaxis: Pharmacologic Prophylaxis ordered - Choose All That Apply Any of the Below Risk Factors Present?: Yes Each Factor Represents 1 point: Abnormal pulmonary function (COPD), Acute ND, Age 41-60 years, Medical pt on bed rest, Obesity (BMI >25) Thrombosis Risk Factor Assessment Total Risk Factor Score: 5 Thrombosis Risk Factor Assessment Level: High Risk Assessment and Plan Assessment: Acute intractable lower back pain likely due to left sciatica nerve pain. Recent admission with bleeding per rectum. Status post EGD and colonoscopy showed no active bleeding. Recent COPD exacerbation and completed steroids 2 days back. Leukocytosis with WBC count 25. No obvious source of infection noted. Could be due to steroids and distress with pain and atelectasis Possible urinary tract infection Sepsis with possible sepsis Hypertension Hyperlipidemia Osteoarthritis Anxiety and depression History of coronary artery disease status post and placement DVT prophylaxis Morbid obesity with BMI 46.9 Plan: Patient will be continued on pain management with [place], Toradol Neurontin and avoid IV narcotic pain medications. Patient was seen by orthopedic surgery and was started on methylprednisolone IV. Continue with antibiotics in the form of ceftriaxone. Continue with current management and IV fluids. Follow-up urine culture report. Follow blood culture report. Discussed with her and son at bedside in detail. All questions were answered. Due to confusion and altered mental status and possible sepsis patient will be transferred to telemetry unit and follow up closely. Prognosis is guarded. Further recommendations based on the clinical course. Time with Patient: Greater than 30
[2017-10-20 06:12] LABS: Glucose,Whole Blood 157 mg/dL (75-99)
[2017-10-20] MEDS: HEPARIN SODIUM,PORCINE 5,000 UNIT/ML 1 ML VIAL SQ SCH ×4 (06:13→21:10)
[2017-10-20] MEDS: CARVEDILOL 12.5 MG TAB PO SCH ×2 (06:19→17:22)
[2017-10-20] MEDS: INSULIN ASPART 100 UNIT/ML 1 ML 10 ML VIAL SQ SCH ×4 (06:20→22:38)
[2017-10-20 06:25] LABS: Basophils % (A) 0 %; Eosinophils % (A) 0 %; HCT 32.7 % (34.0-46.0); HGB 10.3 gm/dL (11.4-16.0); Lymphocytes # (A) 0.3 k/uL (1.0-4.8); Lymphocytes % (A) 1 %; MCH 29.7 pg (25.0-35.0); MCHC 31.4 g/dL (31.0-37.0); MCV 94.4 fL (80.0-100.0); Mean Platelet Volume 7.5; Monocytes # (A) 0.5 k/uL (0-1.0); Monocytes % (A) 2 %; Neutrophils # (A) 17.5 k/uL (1.3-7.7); Neutrophils % (A) 96 %; Platelet Count 224 k/uL (150-450); RBC 3.47 m/uL (3.80-5.40); RDW 14.4 % (11.5-15.5); WBC 18.3 k/uL (3.8-10.6)
[2017-10-20 06:41] LABS: Anion Gap 5 mmol/L; Carbon Dioxide 28 mmol/L (22-30); Chloride 103 mmol/L (98-107); Glucose 123 mg/dL (74-99); Sodium 136 mmol/L (137-145)
[2017-10-20 06:42] LABS: Blood Urea Nitrogen 17 mg/dL (7-17); Potassium 5.1 mmol/L (3.5-5.1)
[2017-10-20] MEDS: IPRATROPIUM-ALBUTEROL 3 ML NEB INHALATION SCH ×4 (08:30→21:43)
[2017-10-20] MEDS: SYMBICORT 160-4.5 MCG INHALER INHALATION SCH ×2 (08:30→21:43)
[2017-10-20] MEDS: methylPREDNISolone SOD SUCCI 125 MG/2 ML VIAL IV SCH (08:31)
--- NOTE | 2017-10-20 09:02 | P.PN ---
Subjective Progress Note Date: 10/20/17 Principal diagnosis: Low back pain. Bacteremia. This is a 57-year-old female who we are following regarding her low back pain. Her blood cultures have come back positive. She had a fever of 101.7 last evening but has been afebrile through the night. Her white count is coming down. She states that her back pain is significantly better today. She is able to move her legs a little bit easier in bed. She is much more alert today. Her is not present at bedside. Objective - Vital Signs Vital signs: Vital Signs Temp 98.4 F 10/20/17 04:00 Pulse 76 10/20/17 08:40 Resp 16 10/20/17 04:00 BP 108/46 10/20/17 04:00 Pulse Ox 90 L 10/20/17 04:00 Intake & Output 10/19/17 10/20/17 10/20/17 18:59 06:59 18:59 Intake Total 1500 Output Total 2600 Balance -1100 Weight 110.5 kg Intake: IV 300 Sodium Chloride 0.9% 1, 300 000 ml @ 75 mls/hr IV . [id number] [facility] Rx#:[id number] Intake, IV Titration 900 Amount Sodium Chloride 0.9% 1, 900 000 ml @ 75 mls/hr IV . [id number] [facility] Rx#:[id number] Oral 300 Output: Urine 2600 Other: Voiding Method Bedpan # Voids 1 1 - Exam This is a pleasant 57-year-old female in no acute distress. She is much more alert today. She is oriented to person place and time. Exam of the lumbar spine is unchanged. She has mild pain with palpation about the lower lumbar spine which radiates to the left buttock. There is mild tenderness about the left buttock. She is moving better in bed today. She is able to lift each leg independently with minimal pain. She has full foot and ankle motion bilaterally. Neurovascular status to the lower extremities is intact. - Labs CBC & Chem 7: 10/20/17 05:40 10/20/17 05:40 Labs: Abnormal Lab Results - Last 24 Hours (Table) 10/19/17 10/19/17 10/19/17 Range/Units 15:11 16:05 16:05 WBC 21.1 H (3.8-10.6) k/uL RBC 3.44 L (3.80-5.40) m/uL Hgb 10.5 L (11.4-16.0) gm/dL Hct 32.3 L (34.0-46.0) % Neutrophils # 19.2 H (1.3-7.7) k/uL Lymphocytes # 0.5 L (1.0-4.8) k/uL Monocytes # 1.1 H (0-1.0) k/uL Sodium 135 L (137-145) mmol/L Chloride 97 L (98-107) mmol/L Carbon Dioxide 34 H (22-30) mmol/L Creatinine (0.52-1.04) mg/dL Glucose (74-99) mg/dL POC Glucose (mg/dL) 102 H (75-99) mg/dL Calcium 8.0 L (8.4-10.2) mg/dL Total Protein 4.7 L (6.3-8.2) g/dL Albumin 2.4 L (3.5-5.0) g/dL 10/19/17 10/20/17 10/20/17 Range/Units 20:50 05:40 05:40 WBC 18.3 H (3.8-10.6) k/uL RBC 3.47 L (3.80-5.40) m/uL Hgb 10.3 L (11.4-16.0) gm/dL Hct 32.7 L (34.0-46.0) % Neutrophils # 17.5 H (1.3-7.7) k/uL Lymphocytes # 0.3 L (1.0-4.8) k/uL Monocytes # (0-1.0) k/uL Sodium 136 L (137-145) mmol/L Chloride (98-107) mmol/L Carbon Dioxide (22-30) mmol/L Creatinine 0.47 L (0.52-1.04) mg/dL Glucose 123 H (74-99) mg/dL POC Glucose (mg/dL) 140 H (75-99) mg/dL Calcium 8.0 L (8.4-10.2) mg/dL Total Protein (6.3-8.2) g/dL Albumin (3.5-5.0) g/dL 10/20/17 Range/Units 06:11 WBC (3.8-10.6) k/uL RBC (3.80-5.40) m/uL Hgb (11.4-16.0) gm/dL Hct (34.0-46.0) % Neutrophils # (1.3-7.7) k/uL Lymphocytes # (1.0-4.8) k/uL Monocytes # (0-1.0) k/uL Sodium (137-145) mmol/L Chloride (98-107) mmol/L Carbon Dioxide (22-30) mmol/L Creatinine (0.52-1.04) mg/dL Glucose (74-99) mg/dL POC Glucose (mg/dL) 157 H (75-99) mg/dL Calcium (8.4-10.2) mg/dL Total Protein (6.3-8.2) g/dL Albumin (3.5-5.0) g/dL Microbiology - Last 24 Hours (Table) 10/19/17 05:59 Blood Culture Gram Stain - Preliminary Blood 10/19/17 05:59 Blood Culture - Final Blood 10/19/17 06:21 Urine Culture - Preliminary Urine,Catheterized Assessment and Plan (1) Intractable back pain Current Visit: Yes Status: Acute Code(s): M54.9 - DORSALGIA, UNSPECIFIED SNOMED Code(s): 022545765 (2) Sciatica Current Visit: Yes Status: Acute Code(s): M54.30 - SCIATICA, UNSPECIFIED SIDE SNOMED Code(s): 07144716 Plan: The clinical findings are discussed with the patient. With her positive blood cultures for gram-positive cocci, is recommended she have MRI for further evaluation of her lumbar spine to rule out any infectious process or abscess. Urine cultures are still pending. We will await results of the MRI and make further recommendations as indicated. She may get up with physical therapy today as tolerated.
[2017-10-20] MEDS: GABAPENTIN 300 MG CAP PO SCH ×3 (09:52→20:58)
[2017-10-20] MEDS: FUROSEMIDE 20 MG TAB PO SCH (09:52)
[2017-10-20] MEDS: CLOPIDOGREL 75 MG TAB PO SCH (09:52)
[2017-10-20] MEDS: POTASSIUM CHLORIDE ER 10 MEQ TAB.ER.PRT PO SCH (09:52)
[2017-10-20] MEDS: amLODIPine 10 MG TAB PO SCH (09:53)
[2017-10-20] MEDS: ASPIRIN 81 MG PO SCH (09:53)
[2017-10-20] MEDS: LOSARTAN 50 MG TAB PO SCH (09:53)
[2017-10-20] MEDS: PANTOPRAZOLE 40 MG TABLET PO SCH (09:54)
[2017-10-20] MEDS: IBUPROFEN 600 MG TAB PO SCH ×4 (10:05→21:02)
[2017-10-20] MEDS: cefTRIAXone IN SWFI 1,000 MG/10 ML SYRINGE IVP SCH (10:06)
[2017-10-20] MEDS: VANCOMYCIN 1,750 MG in SODIUM CHLORIDE 0.9% 500 ML IVPB SCH ×2 (10:07→20:58)
[2017-10-20 11:53] LABS: Glucose,Whole Blood 202 mg/dL (75-99)
[2017-10-20] MEDS: SODIUM CHLORIDE 0.9% 1,000 ML IV SCH (14:38)
[2017-10-20 16:34] LABS: Glucose,Whole Blood 292 mg/dL (75-99)
[2017-10-20] MEDS ORDERED: INSULIN REGULAR 100 UNIT/ML VIAL SQ ONE (16:36)
[2017-10-20] MEDS: DULoxetine HCL 60 MG CAPSULE.DR PO SCH (20:58)
[2017-10-20] MEDS: ATORVASTATIN 40 MG TAB PO SCH (20:58)
[2017-10-20 21:33] LABS: Glucose,Whole Blood 214 mg/dL (75-99)
--- NOTE | 2017-10-21 | P.PN ---
Subjective Progress Note Date: 10/20/17 Principal diagnosis: Intractable lower back pain and sciatic pain MRSA bacteremia Patient is a 57-year-old female with a known history of hypertension, hyperlipidemia, COPD, coronary artery disease history of stent placement and chronic sciatic pain with complaints of lower back pain worsening for the past 2 days. Patient says that she has a sharp pain shooting down the left leg up to buttock area. Patient otherwise denied any right-sided pain. No complaints of paresthesias or loss of sensation. Patient was also having fever. No nausea vomiting or abdominal pain. No diarrhea. No dysuria. Patient was discharged from the hospital on 10/15/2017 and was treated for acute GI bleed and COPD exacerbation. Patient had EGD and colonoscopy showed mild esophageal candidiasis otherwise no active bleeding was noted. Hemoglobin is stable. Patient states she was unable to walk or get out of the house with assistance from both her and her son. She states they had to call EMS. Patient denies any saddle anesthesia or bladder or bowel changes. She states she is urinating regularly. Patient denies any history of cancer or fevers at home. Patient denies any chronic steroid use. Patient has no other complaints at this time including shortness of breath, chest pain, abdominal pain, nausea or vomiting, headache, or visual changes. Patient was also given a dose of ceftriaxone for urinary tract infection. Patient is still complaining of lower back pain and left sciatic pain. Orthopedic surgery was consulted. Patient's has been very abusive to the nursing staff and demanding the patient to be transferred to ICU. Patient is saturating well on nasal cannula. Chest x-ray showed atelectasis and no evidence of wheezing was noted. Patient was recently treated for COPD exacerbation and was in the ICU. Patient was given a dose of morphine this morning due to severe pain. Patient was confused this afternoon and rapid response team was called. Patient was given Narcan 1 with improvement in mental status. Patient was started on Toradol IV for pain and Tylenol for the fever. Orthopedic surgery was consulted as well. Chest x-ray showed mild cardiomegaly with new lateral right basilar linear atelectasis. CT lumbar spine showed facet arthropathy in the lower lumbar spine. No fracture. Atheromatous aorta. WBC 24.9. WBC during last discharge on 10/15/2017 was 22.2 10/20/2017 Patient is more comfortable today. Back pain did improve otherwise. Blood cultures showed present to MRSA. Urine culture showed gram-negative bacilli. MRI of the lumbar spine was ordered to rule out epidural abscess. Patient has been afebrile now. Leukocytosis is improving with WBC 18 Patient is being continued on pain management with Toradol Flexeril and steroids. Blood sugar is elevated due to steroids and insulinslidingscale.Nohistoryofdiabetesotherwise. PatientisbeingfollowedbyIDandorthopedicsurgery. Discussedwithherhusbandatbedsideindetail. All other review of systems negative except the above Current medications reviewed Objective - Vital Signs Vital signs: Vital Signs Temp 97.1 F L 10/20/17 16:00 Pulse 78 10/20/17 16:33 Resp 18 10/20/17 16:00 BP 126/59 10/20/17 16:00 Pulse Ox 91 L 10/20/17 16:00 Intake & Output 10/20/17 10/20/17 10/21/17 06:59 18:59 06:59 Intake Total 1500 1540 Output Total 2600 Balance -1100 1540 Weight 110.5 kg Intake: IV 300 600 Sodium Chloride 0.9% 1, 300 600 000 ml @ 75 mls/hr IV . [id number] [facility] Rx#:[id number] Intake, IV Titration 900 500 Amount Sodium Chloride 0.9% 1, 900 000 ml @ 75 mls/hr IV . [id number] [facility] Rx#:[id number] Vancomycin 1,750 mg In 500 Sodium Chloride 0.9% 500 ml @ 167 mls/hr IVPB BID [facility] Rx#:[id number] Oral 300 440 Output: Urine 2600 Other: Voiding Method Bedpan # Voids 1 - Exam PHYSICAL EXAMINATION: Patient is lying in the bed comfortably, no acute distress, awake alert and oriented. Morbidly obese.. HEENT: Normocephalic. Neck is supple. Pupils reactive. Nostrils clear. Oral cavity is moist. Ears reveal no drainage. Neck reveals no JVD, carotid bruits, or thyromegaly. CHEST EXAMINATION: Trachea is central. Symmetrical expansion. Diminished bibasilar air entry. Lung esteves clear to auscultation and percussion. CARDIAC: Normal S1, S2 with no gallops. No murmurs ABDOMEN: Soft. Bowel sounds normal. No organomegaly. No abdominal bruits. Extremities: reveal no edema. No clubbing or cyanosis Neurologically awake, alert, oriented x3 with well-coordinated movements. No focal deficits noted Skin: No rash or skin lesions. Psychiatric: Coperative. Nonsuicidal Musculoskeletal: No joint swelling or deformity. Tenderness of the lumbosacral area.. - Labs CBC & Chem 7: 10/20/17 05:40 10/20/17 05:40 Labs: Abnormal Lab Results - Last 24 Hours (Table) 10/19/17 10/20/17 10/20/17 Range/Units 20:50 05:40 05:40 WBC 18.3 H (3.8-10.6) k/uL RBC 3.47 L (3.80-5.40) m/uL Hgb 10.3 L (11.4-16.0) gm/dL Hct 32.7 L (34.0-46.0) % Neutrophils # 17.5 H (1.3-7.7) k/uL Lymphocytes # 0.3 L (1.0-4.8) k/uL Sodium 136 L (137-145) mmol/L Creatinine 0.47 L (0.52-1.04) mg/dL Glucose 123 H (74-99) mg/dL POC Glucose (mg/dL) 140 H (75-99) mg/dL Calcium 8.0 L (8.4-10.2) mg/dL 10/20/17 10/20/17 10/20/17 Range/Units 06:11 11:34 16:31 WBC (3.8-10.6) k/uL RBC (3.80-5.40) m/uL Hgb (11.4-16.0) gm/dL Hct (34.0-46.0) % Neutrophils # (1.3-7.7) k/uL Lymphocytes # (1.0-4.8) k/uL Sodium (137-145) mmol/L Creatinine (0.52-1.04) mg/dL Glucose (74-99) mg/dL POC Glucose (mg/dL) 157 H 202 H 292 H (75-99) mg/dL Calcium (8.4-10.2) mg/dL Microbiology - Last 24 Hours (Table) 08/18/18 23:22 Blood Culture Gram Stain - Preliminary Blood 10/19/17 23:22 Blood Culture - Final Blood 10/19/17 06:21 Urine Culture - Preliminary Urine,Catheterized Gram Neg Bacilli 10/19/17 05:59 Blood Culture Gram Stain - Preliminary Blood Blood Culture - Preliminary Presumptive MRSA 10/19/17 05:59 Blood Culture - Final Blood Assessment and Plan Assessment: Acute intractable lower back pain likely due to left sciatica nerve pain. Rule out epidural abscess due to MRSA bacteremia. MRI is ordered Leukocytosis with WBC count 25. Gram-negative bacilli urinary tract infection Sepsis secondary to MRSA bacteremia and UTI Recent admission with bleeding per rectum. Status post EGD and colonoscopy showed no active bleeding. Recent COPD exacerbation and completed steroids 2 days prior to admission. Hypertension Hyperlipidemia Osteoarthritis Anxiety and depression History of coronary artery disease status post and placement DVT prophylaxis Morbid obesity with BMI 46.9 Plan: Patient will be continued on pain management with [place], Toradol Neurontin and avoid IV narcotic pain medications. Patient was seen by orthopedic surgery and was started on methylprednisolone IV. Continue with antibiotics in the form of ceftriaxone and vancomycin. Continue with current management and IV fluids. Follow-up final urine culture report. Follow repeat blood culture report. Discussed with her and son at bedside in detail. All questions were answered. Prognosis is guarded. Further recommendations based on the clinical course. Time with Patient: Greater than 30
[2017-10-21 06:14] LABS: Basophils % (A) 0 %; Eosinophils % (A) 0 %; HCT 28.7 % (34.0-46.0); HGB 9.5 gm/dL (11.4-16.0); Lymphocytes # (A) 0.5 k/uL (1.0-4.8); Lymphocytes % (A) 2 %; MCH 30.7 pg (25.0-35.0); MCHC 32.9 g/dL (31.0-37.0); MCV 93.1 fL (80.0-100.0); Mean Platelet Volume 7.6; Monocytes # (A) 1.3 k/uL (0-1.0); Monocytes % (A) 5 %; Neutrophils # (A) 21.9 k/uL (1.3-7.7); Neutrophils % (A) 92 %; Platelet Count 282 k/uL (150-450); RBC 3.09 m/uL (3.80-5.40); RDW 14.3 % (11.5-15.5); WBC 23.9 k/uL (3.8-10.6)
[2017-10-21] MEDS: CARVEDILOL 12.5 MG TAB PO SCH ×2 (06:25→16:00)
[2017-10-21] MEDS: SODIUM CHLORIDE 0.9% 1,000 ML IV SCH (06:25)
--- NOTE | 2017-10-21 06:25 | CONS ---
CONSULTATION DATE OF SERVICE: 10/20/2017 REASON FOR CONSULTATION: Bacteremia. HISTORY OF PRESENT ILLNESS: The patient is a 57-year-old, female presenting to the [facility] ER on 10/18/2017 with chief complaints of low back pain, which the patient had for about 2 days before she presented to the hospital. The pain has been in the lower back area, described to be a sharp pain with intensity almost 10/10 severe with some radiation of the pain to the left buttock and leg area. The patient's pain seems to be getting worse with movement and some relief with rest with inability to get up and around because of this pain. She presented to the ER. The patient denies having any bowel or bladder problem associated with it. On arrival to the ER, the patient initially was afebrile. Subsequently spiked a fever of 102.8 degrees Fahrenheit, and she did have another fever of 103.4 last night for which the blood culture has been obtained. On admission, the patient also had elevated white count of 24.9 with a blood culture came back positive with gram-positive cocci and presumptive MRSA. She was started on vancomycin. Infectious Disease was consulted for further recommendation regarding antibiotic therapy. Patient did have a lumbar spine CT obtained which was done without any contrast and did show some facet arthropathy, but no other abnormality. REVIEW OF SYSTEMS: CONSTITUTIONAL: Positive for weakness along with the fever. EYES: No complaint. ENT: No complaint. RESPIRATORY: No complaint. CARDIOVASCULAR: No complaint. GENITOURINARY: No complaint. GASTROINTESTINAL: No complaint. MUSCULOSKELETAL: As per HPI. INTEGUMENTARY: No complaint. PSYCHOLOGICAL: No complaint. ENDOCRINE: No complaint. NEUROLOGIC: No complaint. PAST MEDICAL HISTORY: Her past medical history is significant for coronary artery disease, COPD, hypertension, hyperlipidemia, osteoarthritis, obesity, uterine fibroids. PAST SURGICAL HISTORY: Adenoidectomy, , heart catheterization with stent, tonsillectomy. SOCIAL HISTORY: Current everyday smoker, has smoked since 1973, almost 2 packs per day. No drinking or drug use. FAMILY HISTORY: Mother with history of COPD and emphysema. Father history of congestive heart failure. ALLERGIES: No known drug allergies. MEDICATIONS: Medications include the patient is currently on Tylenol, [place], DuoNeb, Norvasc, aspirin, Lipitor, Symbicort, Coreg, Rocephin, Plavix, Flexeril, Cymbalta, Lasix, Neurontin, Motrin, NovoLog, Cozaar, morphine sulfate, Narcan, Zofran, Protonix, K-Dur and vancomycin 1750 mg twice a day. PHYSICAL EXAMINATION: On examination, her blood pressure is 125/57 with a pulse of 73, temperature 98.1. She is 95% on 4 L nasal cannula. General description is a middle-aged female lying in bed in no distress. No tachypnea or accessory muscle of respiration use. HEENT examination shows slight pallor. No scleral icterus. Oral mucous membrane is dry. No pharyngeal erythema or thrush. NECK: Trachea central. No thyromegaly. LUNGS: Unlabored breathing, clear to auscultation anteriorly. No wheeze or crackle. HEART: S1, S2. Regular rate and rhythm. ABDOMEN: Soft, no tenderness. No guarding or rigidity. EXTREMITIES: No edema of feet. SKIN EXAMINATION: No rash or mass palpable. NEUROLOGICAL: Patient is awake, alert, oriented x3. Mood and affect normal. LABS: Hemoglobin is 10.3, white count of 18.3 admission white count was 24.9. BUN of 17, creatinine 0.47. UA did show small leukocyte esterases. Blood cultures with presumptive MRSA. DIAGNOSTIC IMPRESSION AND PLAN: Patient admitted to the hospital with sepsis in a patient who did have a fever of 102 to 103 degrees Fahrenheit. The patient did have elevated white count of 24,000, now with evidence of gram-positive bacteremia with presumptive MRSA with significant low back pain suspicious highly for a lumbosacral spine infection such as discitis to be on the top of the list. PLAN: 1. Blood culture will be repeated to document clearance of her bacteremia. 2. MRI of the lumbosacral spine with contrast to better define underlying pathology and to make sure no evidence of any abscess that may need to be drained. 3. Vancomycin pharmacy to dose target of 15 while watching her kidney function closely. 4. We will follow up on clinical condition and culture to further adjust medication if needed. Thank you for this consultation. Will follow this patient along with you. MMODL / IJN: [id number] /
[2017-10-21 06:27] LABS: Anion Gap 3 mmol/L; Blood Urea Nitrogen 17 mg/dL (7-17); Calcium 8.2 mg/dL (8.4-10.2); Carbon Dioxide 28 mmol/L (22-30); Chloride 104 mmol/L (98-107); Glucose 176 mg/dL (74-99); Potassium 4.4 mmol/L (3.5-5.1); Sodium 135 mmol/L (137-145)
[2017-10-21 06:43] LABS: Glucose,Whole Blood 177 mg/dL (75-99)
[2017-10-21] MEDS: INSULIN ASPART 100 UNIT/ML 1 ML 10 ML VIAL SQ SCH ×4 (06:49→22:20)
[2017-10-21] MEDS: IPRATROPIUM-ALBUTEROL 3 ML NEB INHALATION SCH ×4 (08:27→21:30)
[2017-10-21] MEDS: SYMBICORT 160-4.5 MCG INHALER INHALATION SCH ×2 (08:27→21:28)
[2017-10-21 09:06] LABS: Erythrocyte Sedimentation Rate 92 mm/hr (0-20)
[2017-10-21] MEDS: IBUPROFEN 600 MG TAB PO SCH ×4 (10:12→22:21)
[2017-10-21] MEDS: CLOPIDOGREL 75 MG TAB PO SCH (10:13)
[2017-10-21] MEDS: PANTOPRAZOLE 40 MG TABLET PO SCH (10:13)
[2017-10-21] MEDS: cefTRIAXone IN SWFI 1,000 MG/10 ML SYRINGE IVP SCH (10:13)
[2017-10-21] MEDS: HEPARIN SODIUM,PORCINE 5,000 UNIT/ML 1 ML VIAL SQ SCH ×4 (10:13→23:22)
[2017-10-21] MEDS: GABAPENTIN 300 MG CAP PO SCH ×3 (10:13→20:33)
[2017-10-21] MEDS: amLODIPine 10 MG TAB PO SCH (10:13)
[2017-10-21] MEDS: ASPIRIN 81 MG PO SCH (10:13)
[2017-10-21] MEDS: LOSARTAN 50 MG TAB PO SCH (10:14)
[2017-10-21] MEDS: POTASSIUM CHLORIDE ER 10 MEQ TAB.ER.PRT PO SCH (10:14)
[2017-10-21] MEDS: VANCOMYCIN 1,750 MG in SODIUM CHLORIDE 0.9% 500 ML IVPB SCH ×2 (10:14→20:34)
[2017-10-21] MEDS: FUROSEMIDE 20 MG TAB PO SCH (10:14)
[2017-10-21 11:19] LABS: Glucose,Whole Blood 167 mg/dL (75-99)
--- NOTE | 2017-10-21 13:01 | P.PN ---
Subjective 57-year-old female admitted for back pain found to be septic and bacteremia persistent bacteremia with MRSA concern discitis septic, patient is on IV vancomycin. Patient is also being treated for urinary tract infection had, E. coli in the urine and is on Rocephin infectious disease evaluated the patient patient is being followed by spinal surgeon as well. There is no obvious abscess patient will go for MRI. Repeat blood cultures tomorrow. Still complaining of severe low back pain. Constitutional: Denied any fatigue denied any fever. Cardio vascular: denied any chest pain, palpitations Gastrointestinal denied any nausea vomiting Pulmonary: Denied any shortness of breath cough Neurologic denied any new focal deficits Objective - Vital Signs Vital signs: Vital Signs Temp 97.2 F L 10/21/17 08:00 Pulse 80 10/21/17 12:03 Resp 19 10/21/17 12:00 BP 115/59 10/21/17 12:00 Pulse Ox 94 L 10/21/17 12:00 Intake & Output 10/20/17 10/21/17 10/21/17 18:59 06:59 18:59 Intake Total 1540 1065 360 Output Total 2350 200 Balance 1540 -1285 160 Weight 109.3 kg Intake: IV 600 225 Sodium Chloride 0.9% 1, 600 225 000 ml @ 75 mls/hr IV . [id number] [facility] Rx#:[id number] Intake, IV Titration 500 Amount Vancomycin 1,750 mg In 500 Sodium Chloride 0.9% 500 ml @ 167 mls/hr IVPB BID [facility] Rx#:[id number] Oral 440 840 360 Output: Urine 2350 200 Other: Voiding Method Bedpan # Voids 1 1 # Bowel Movements 1 - Exam PHYSICAL EXAMINATION: GENERAL: The patient is alert and oriented x3, not in any acute distress. Well developed, well nourished. HEENT: Pupils are round and equally reacting to light. EOMI. No scleral icterus. No conjunctival pallor. Normocephalic, atraumatic. No pharyngeal erythema. No thyromegaly. CARDIOVASCULAR: S1 and S2 present. No murmurs, rubs, or gallops. PULMONARY: Chest is clear to auscultation, no wheezing or crackles. ABDOMEN: Soft, nontender, nondistended, normoactive bowel sounds. No palpable organomegaly. MUSCULOSKELETAL: Mild low back tenderness bilaterally. EXTREMITIES: No cyanosis, clubbing, or pedal edema. NEUROLOGICAL: Gross neurological examination did not reveal any focal deficits. SKIN: No rashes. - Labs CBC & Chem 7: 10/21/17 05:52 10/21/17 05:52 Labs: Abnormal Lab Results - Last 24 Hours (Table) 10/20/17 10/20/17 10/21/17 Range/Units 16:31 21:26 05:52 WBC (3.8-10.6) k/uL RBC (3.80-5.40) m/uL Hgb (11.4-16.0) gm/dL Hct (34.0-46.0) % Neutrophils # (1.3-7.7) k/uL Lymphocytes # (1.0-4.8) k/uL Monocytes # (0-1.0) k/uL ESR (0-20) mm/hr Sodium 135 L (137-145) mmol/L Creatinine 0.40 L (0.52-1.04) mg/dL Glucose 176 H (74-99) mg/dL POC Glucose (mg/dL) 292 H 214 H (75-99) mg/dL Calcium 8.2 L (8.4-10.2) mg/dL 10/21/17 10/21/17 10/21/17 Range/Units 05:52 06:42 11:12 WBC 23.9 H (3.8-10.6) k/uL RBC 3.09 L (3.80-5.40) m/uL Hgb 9.5 L (11.4-16.0) gm/dL Hct 28.7 L (34.0-46.0) % Neutrophils # 21.9 H (1.3-7.7) k/uL Lymphocytes # 0.5 L (1.0-4.8) k/uL Monocytes # 1.3 H (0-1.0) k/uL ESR 92 H (0-20) mm/hr Sodium (137-145) mmol/L Creatinine (0.52-1.04) mg/dL Glucose (74-99) mg/dL POC Glucose (mg/dL) 177 H 167 H (75-99) mg/dL Calcium (8.4-10.2) mg/dL Microbiology - Last 24 Hours (Table) 10/19/17 05:59 Blood Culture Gram Stain - Final Blood Blood Culture - Final Methicillin resist S. aureus 10/19/17 23:22 Blood Culture Gram Stain - Preliminary Blood Blood Culture - Preliminary Presumptive MRSA 10/19/17 06:21 Urine Culture - Final Urine,Catheterized Escherichia coli 10/19/17 23:22 Blood Culture - Final Blood Assessment and Plan Plan: Assessment and Plan Assessment: Acute intractable lower back pain likely due to discitis septic, secondary MRSA bacteremia. On vancomycin Leukocytosis with WBC count 25. Secondary to MRSA bacteremia Gram-negative bacilli urinary tract infection Sepsis secondary to MRSA bacteremia and UTI, is also on Rocephin Recent admission with bleeding per rectum. Status post EGD and colonoscopy showed no active bleeding. Recent COPD exacerbation and completed steroids 2 days prior to admission. Hypertension Hyperlipidemia Osteoarthritis Anxiety and depression History of coronary artery disease status post and placement DVT prophylaxis Morbid obesity with BMI 46.9
[2017-10-21 16:32] LABS: Glucose,Whole Blood 152 mg/dL (75-99)
--- NOTE | 2017-10-21 16:42 | P.CNOR ---
History of Present Illness - [facility] Consult date: 10/21/17 Consult reason: low back pain History of present illness: The patient is seen and examined at bedside. She is a 57-year-old female with long-standing history of low back pain with acute exacerbation this past weekend. She has had severely I fevers this past weekend as well. Apparently her back pain started many years ago and has been on and off over the past several decades. She had exacerbation of her pain about 7 or 8 years ago which was remedied well with medications and conservative treatment with physical therapy. Most recently she has been having some increased pain over the past couple of months but became the pain became so severe that she was unable to mobilize and unable to get out of bed at all due to her back pain over this past weekend. She denies any other fevers or chills prior to this recent episode. She denies any illness prior to this recent episode. She denies any numbness tingling or lower extremities. She denies any bowel or bladder changes. She says the other day she was unable to move or get out of bed because of the severe pain at her left lower extremity. She says she does not feel weak but the pain was incapacitating for her. She is accompanied at bedside by her . She denies any recent injury. She denies any chest pain or shortness breath. When she presented to Hospital she was febrile and Had temperatures on the first night of up to 103. She has been afebrile over the past 24 hours. She had positive blood cultures apparently for MRSA. She was also found have a urinary tract infection. Currently she says she is making improvement. She is sitting up at side of bed and in her chair. She says her legs are improving but she still has pain at the left leg when she tries to stand. She continues to have some back pain but this has improved as well. She is eating [employer] at bedside with her . Review of Systems As stated per HPI. She has been afebrile over the past 24 hours but did have fevers 2 days ago up to 103. She denies weakness in her lower extremities but has pain at her left lower back and toward her left gluteus. She has pain at her left lower extremity when she stands. She is able to raise her legs well. She denies any changes in bowel bladder function. Past Medical History Past Medical History: Coronary Artery Disease (CAD), COPD, Hyperlipidemia, Hypertension, Osteoarthritis (OA) Additional Past Medical History / Comment(s): ry artery disease with previous stent placement 2015 in [place]. poor dentation, osbesity,uterine fibroids () ,back pain History of Any Multi-Drug Resistant Organisms: MRSA Year Discovered:: 10/19/17 MDRO Source:: MRSA Past Surgical History: Adenoidectomy, Section, Heart Catheterization With Stent, Tonsillectomy Additional Past Surgical History / Comment(s): x 4 Past Anesthesia/Blood Transfusion Reactions: No Reported Reaction Date of Last Stent Placement:: unk Past Psychological History: Anxiety, Depression Smoking Status: Current every day smoker Past Alcohol Use History: None Reported Additional Past Alcohol Use History / Comment(s): started smoking 1974 used to smoke 2 ppd now 1/2 ppd Past Drug Use History: None Reported - Past Family History Mother Family Medical History: COPD Additional Family Medical History / Comment(s): emphysema Father Family Medical History: Congestive Heart Failure (CHF) Medications and Allergies Home Medications Medication Instructions Recorded Confirmed Type Atorvastatin [Lipitor] 40 mg PO HS 06/13/17 10/18/17 History Clopidogrel [Plavix] 75 mg PO DAILY 06/13/17 10/18/17 History DULoxetine HCL [Cymbalta] 60 mg PO HS 06/13/17 10/18/17 History Furosemide [Lasix] 20 mg PO DAILY 06/13/17 10/18/17 History Losartan Potassium 100 mg PO DAILY 06/13/17 10/18/17 History Potassium Chloride ER [K-Dur 10] 10 meq PO DAILY 06/13/17 10/18/17 History Carvedilol [Coreg*] 12.5 mg PO BID #60 tablet 06/19/17 10/18/17 Rx amLODIPine [Norvasc] 10 mg PO DAILY #30 tab 06/19/17 10/18/17 Rx Aspirin 81 mg PO DAILY 10/09/17 10/18/17 History Albuterol Inhaler [Ventolin Hfa 1 - 2 puff INHALATION RT-Q6H PRN 10/15/17 Rx Inhaler] #1 inhaler Budesonide/Formoterol Fumarate 2 puff INHALATION RT-BID #1 10/15/17 10/18/17 Rx [Symbicort 160-4.5 Mcg Inhaler] hfa.aer.ad Ipratropium-Albuterol Nebulize 3 ml INHALATION RT-QID #60 10/15/17 10/18/17 Rx [Duoneb 0.5 mg-3 mg/3 ml Soln] ampul.neb Ipratropium/Albuterol Sulfate 1 puff INHALATION RT-QID #1 10/15/17 10/18/17 Rx [Combivent Respimat Inhaler] mist.inhal Pantoprazole [Protonix] 40 mg PO DAILY #30 tablet. 10/15/17 10/18/17 Rx Acetaminophen [Tylenol] 1,000 mg PO Q4-6H PRN 10/18/17 10/18/17 History Ibuprofen [Motrin Ib] 400 mg PO Q6H PRN 10/18/17 10/18/17 History Allergies Allergy/AdvReac Type Severity Reaction Status Date / Time No Known Allergies Allergy Verified 10/18/17 16:07 Physical Examination Osteopathic Statement: *. No significant issues noted on an osteopathic structural exam other than those noted in the History and Physical/Consult. - L Spine: dermatomal strength & reflexes bilateral Strength: hip flexion: 5/5 (She has some tightness in her lower back. She is able to flex her hips bilaterally 5 out of 5 muscle strength. She is no pain with internal and external rotation. She has 5 out of 5 strength with dorsi flexion plantarflexion and EHL. She is 5 out of 5 strength in knee extension and flexion. Her abdomen is obese. Her upper extremity is full active and passive range of motion. She has no neural tension signs.) Results - Labs Labs: Abnormal Lab Results - Last 24 Hours (Table) 10/20/17 10/20/17 10/21/17 Range/Units 16:31 21:26 05:52 WBC (3.8-10.6) k/uL RBC (3.80-5.40) m/uL Hgb (11.4-16.0) gm/dL Hct (34.0-46.0) % Neutrophils # (1.3-7.7) k/uL Lymphocytes # (1.0-4.8) k/uL Monocytes # (0-1.0) k/uL ESR (0-20) mm/hr Sodium 135 L (137-145) mmol/L Creatinine 0.40 L (0.52-1.04) mg/dL Glucose 176 H (74-99) mg/dL POC Glucose (mg/dL) 292 H 214 H (75-99) mg/dL Calcium 8.2 L (8.4-10.2) mg/dL 10/21/17 10/21/17 10/21/17 Range/Units 05:52 06:42 11:12 WBC 23.9 H (3.8-10.6) k/uL RBC 3.09 L (3.80-5.40) m/uL Hgb 9.5 L (11.4-16.0) gm/dL Hct 28.7 L (34.0-46.0) % Neutrophils # 21.9 H (1.3-7.7) k/uL Lymphocytes # 0.5 L (1.0-4.8) k/uL Monocytes # 1.3 H (0-1.0) k/uL ESR 92 H (0-20) mm/hr Sodium (137-145) mmol/L Creatinine (0.52-1.04) mg/dL Glucose (74-99) mg/dL POC Glucose (mg/dL) 177 H 167 H (75-99) mg/dL Calcium (8.4-10.2) mg/dL Microbiology - Last 24 Hours (Table) 10/19/17 05:59 Blood Culture Gram Stain - Final Blood Blood Culture - Final Methicillin resist S. aureus 10/19/17 23:22 Blood Culture Gram Stain - Preliminary Blood Blood Culture - Preliminary Presumptive MRSA 10/19/17 06:21 Urine Culture - Final Urine,Catheterized Escherichia coli 10/19/17 23:22 Blood Culture - Final Blood H & H 10/19/17 10/19/17 10/20/17 Range/Units 05:59 16:05 05:40 Hgb 10.7 L 10.5 L 10.3 L (11.4-16.0) gm/dL Hct 32.9 L 32.3 L 32.7 L (34.0-46.0) % 10/21/17 Range/Units 05:52 Hgb 9.5 L (11.4-16.0) gm/dL Hct 28.7 L (34.0-46.0) % Result Diagrams: 10/21/17 05:52 10/21/17 05:52 - Diagnostic results Lumbar MRI with/without contrast: report reviewed, image reviewed (The patient had an MRI and computed tomography scan of her lumbar spine. I reviewed the MRI and the computed tomography scan. The MRI report of her lumbar spine is not yet read. She has some disc degeneration L4 5 and L5-S1. There appears to be a a collection behind L4. It is elliptical in shape does not appear to be a specific abscess but I would await further reading radiologist. I do not see any fracture. There is a hemangioma at L2. There is no acute herniation.) Assessment and Plan Assessment: Acute on chronic low back pain Left lower extremity radiculopathy Fevers with bacteremia of MRSA Positive MRI findings with some collection behind L4 uncertain etiology The patient's symptoms have been improving in her back and her lower extremities over the past couple of days. Her fevers have been resolved for the past 24 hours and she is being treated appropriately for her fevers and bacteremia per infectious disease. She is not having any neurologic deficit at her lower extremities nor is she having any changes in bowel bladder function. On her MRI I do see some changes behind L4 is difficult to determine if it is a fluid collection or other etiology. It does not appear to be a specific her disc herniation but there is some stenosis with left at L4 5. I will await the official MRI reading per radiology. The patient seems to be making progress in her overall appearance. She is eating [employer] at bedside with her and says that she has made improvement. She is not having any neurologic deficit and I do not plan any emergent surgical intervention for her lumbar spine. She should continue her medical management in terms of her bacteremia and fevers as this seems to be improving her overall status quite well. We will continue follow her closely and await the final reading on her MRI.
--- NOTE | 2017-10-21 16:59 | MR ---
EXAMINATION TYPE: MR lumbar spine wo/w con DATE OF EXAM: 10/21/2017 COMPARISON: CT lumbar spine 10/18/2017 HISTORY: Low back pain, fever, bacteremia TECHNIQUE: Multiplanar, multisequence images of the lumbar spine were acquired utilizing 10 mL intravenous Gadav ist gadolinium contrast. There is an oval focus of mixed intermediate high signal on T2, intermediate signal on T1 weighted se quences posterior to the L4, S1 vertebral body show some suggestion of peripheral enhancement followi ng contrast administration, there is local mass effect on the thecal sac anteriorly causing a caliber reduction extending to the L4-5 level. There is some enhancement along the left L4 nerve root. L1-L2: Normal disc appearance without desiccation. No herniation, protrusion or disc bulging. No ca nal stenosis is present. Foramina are patent bilaterally. L2-L3: Normal disc appearance without desiccation. No herniation, protrusion or disc bulging. No ca nal stenosis is present. Foramina are patent bilaterally. L3-L4: Normal disc appearance without desiccation. No herniation, protrusion or disc bulging. No ca nal stenosis is present. Foramina are patent bilaterally. L4-L5: There is some increased signal on T2-weighted sequences, intermediate signal on T1 and asymmet magaly enhancement at the left facet posteriorly, underlying facet arthropathy is noted. Minimal anterol isthesis grade 1 L4-5. No definite foraminal encroachment although there is motion on the exam. L5-S1: Central posterior disc bulge is noted without appreciable mass effect on the thecal sac, there may be contact with the proximal S1 nerve root, some enhancement in the posterior aspect of the disc is noted at this level and circumferential extension of endplate disc complex encroaches somewhat on the neural foramen on the left. There is some facet arthropathy change. Lumbar segments are intact. No paraspinal masses are identified. Conus medullaris has a normal appe arance. There is multilevel spondylosis. Loss of disc height signal is greatest at L5-S1, there is en dplate discogenic marrow signal change present. Probable hemangioma present in the L2, S1 vertebral b odies. IMPRESSION: Findings suggestive of epidural abscess, there may be septic arthritis of the facet on the left at L4 -5, left L4 neuritis possibly secondary to local inflammatory or infectious change as described. Gwen elate. Additional findings above. A Red level critical message alert has been initiated for Lilian Peters MD via the [employer] on 10/21/2017 4:53 PM. This message alert has been sent to Lilian Peters MD via the preferences provided by the clinician for the receipt of Radiology Critical Findings. Message ID [id number].
[2017-10-21] MEDS ORDERED: VANCOMYCIN TROUGH DUE 1 EACH MISC MISCELLANE ONE (20:00)
[2017-10-21] MEDS: DULoxetine HCL 60 MG CAPSULE.DR PO SCH (20:33)
[2017-10-21] MEDS: ATORVASTATIN 40 MG TAB PO SCH (20:33)
[2017-10-21 20:45] LABS: Glucose,Whole Blood 150 mg/dL (75-99)
[2017-10-21] MEDS: ACETAMINOPHEN TAB 325 MG TAB PO PRN (21:23)
[2017-10-22] MEDS: MORPHINE SULFATE 4 MG/ML SYRINGE IV PRN ×2 (04:39→09:20)
[2017-10-22 06:59] LABS: Glucose,Whole Blood 92 mg/dL (75-99)
[2017-10-22] MEDS: INSULIN ASPART 100 UNIT/ML 1 ML 10 ML VIAL SQ SCH (07:20)
[2017-10-22] MEDS: ACETAMINOPHEN TAB 325 MG TAB PO PRN (07:22)
[2017-10-22] MEDS: CARVEDILOL 12.5 MG TAB PO SCH ×2 (07:23→17:09)
[2017-10-22] MEDS: HEPARIN SODIUM,PORCINE 5,000 UNIT/ML 1 ML VIAL SQ SCH ×3 (07:24→23:19)
[2017-10-22] MEDS: SYMBICORT 160-4.5 MCG INHALER INHALATION SCH ×2 (07:34→19:32)
[2017-10-22] MEDS: IPRATROPIUM-ALBUTEROL 3 ML NEB INHALATION SCH ×4 (07:34→19:32)
--- NOTE | 2017-10-22 08:02 | PN ---
PROGRESS NOTE DATE OF SERVICE: 10/21/2017. REASON FOR FOLLOWUP: MRSA bacteremia with a question of L4 discitis. INTERVAL HISTORY: The patient is currently afebrile. She is breathing comfortably. She does have pain to the low back area, but no worsening. Denies having any chest pain, shortness of breath or cough. No abdominal pain or diarrhea. PHYSICAL EXAMINATION: On examination, blood pressure 115/56, pulse of 75, temperature of 98. She is 95% on 4 L nasal cannula. General description is a middle-aged female up in the bed in no distress. RESPIRATORY SYSTEM: Unlabored breathing, clear to auscultation anteriorly. HEART: S1, S2. Regular rate and rhythm. ABDOMEN: Soft, no tenderness. EXTREMITIES: No edema of the feet. LABS: BUN of 17, creatinine 0.40. Hemoglobin 9.5, white count 23.9. Vanco trough slightly on the low side. DIAGNOSTIC IMPRESSION AND PLAN: 1. Patient with methicillin-resistant Staphylococcus aureus bacteremia, source likely L4 discitis with a question of possible abscess. Patient will be seen by Spine Surgery and recommending medical management. She will be continued on vancomycin pharmacy to dose. Dose needs to be adjusted to keep the trough around 15. Blood culture will be repeated to document clearance of her bacteremia. She will need a PICC line and outpatient antibiotic therapy. 2. Escherichia coli urinary tract infection, currently on Rocephin that can be safely discontinued on discharge. MMODL / IJN: [id number] /
--- NOTE | 2017-10-22 08:43 | P.PN ---
Progress Note - Text Progress Note Date: 10/22/17 The patient is seen and examined today at bedside. I discussed the case just a evening with Dr. Smith and was able to see the MRI report. Today the patient is doing worse than yesterday. She is having significant pain in the low back and down her left leg. She says it has great pain whenever she tries to move. The MRI report is positive for fluid collection and likely abscess at the epidural space behind L4. On exam patient still has sustained dorsal flexion plantar flexion and EHL intact. She has pain with motion at her left leg but she is able to fire her muscles her lower extremities. Assessment and plan L4 5 epidural abscess with low back pain with lower extremity radiculopathy Bacteremia with epidural abscess is likely source The patient will require laminectomy decompression with irrigation and debridement of the epidural abscess at L4 5 as soon as possible. She stopped her Plavix yesterday and her aspirin. She is nothing by mouth currently. We' ll plan for laminectomy decompression and irrigation and debridement of epidural abscess today. She'll remain nothing by mouth until her surgery. I discussed the risk, patient's alternatives and benefits with her head bedside and with her son. She understands the risk of bleeding risk of infection risk of need for further surgery risk of decreased loss of motion loss of function nerve damage R attack lung problems problems anesthesia as well as possibly . She understands and her symptoms may not improve with surgery would give her the best chance of improvement of her symptoms and help to eradicate the infection. I answered her questions best my ability and she agrees to proceed with surgery today. She'll continue her medical management and her antibiotics as well as well as her pain control. We'll plan to bring her to the operating room today.
[2017-10-22] MEDS ORDERED: amLODIPine 5 MG TAB PO SCH (09:00)
[2017-10-22] MEDS: VANCOMYCIN 2,000 MG in SODIUM CHLORIDE 0.9% 500 ML IVPB SCH ×2 (09:21→22:03)
[2017-10-22] MEDS: cefTRIAXone IN SWFI 1,000 MG/10 ML SYRINGE IVP SCH (09:21)
[2017-10-22] MEDS: ASPIRIN 81 MG PO SCH (09:22)
[2017-10-22] MEDS: IBUPROFEN 600 MG TAB PO SCH ×4 (09:22→23:19)
[2017-10-22] MEDS: GABAPENTIN 300 MG CAP PO SCH ×3 (09:22→23:19)
[2017-10-22] MEDS: PANTOPRAZOLE 40 MG TABLET PO SCH (09:22)
[2017-10-22] MEDS: LOSARTAN 50 MG TAB PO SCH (09:22)
[2017-10-22 10:06] LABS: Basophils % (A) 0 %; Eosinophils # (A) 0.1 k/uL (0-0.7); Eosinophils % (A) 1 %; HGB 9.6 gm/dL (11.4-16.0); Hypochromasia Slight; Lymphocytes # (A) 0.8 k/uL (1.0-4.8); Lymphocytes % (A) 5 %; MCH 29.8 pg (25.0-35.0); MCHC 31.9 g/dL (31.0-37.0); MCV 93.5 fL (80.0-100.0); Mean Platelet Volume 7.4; Monocytes # (A) 1.3 k/uL (0-1.0); Monocytes % (A) 8 %; Neutrophils # (A) 13.9 k/uL (1.3-7.7); Neutrophils % (A) 86 %; Platelet Count 280 k/uL (150-450); RBC 3.21 m/uL (3.80-5.40); RDW 14.4 % (11.5-15.5); WBC 16.3 k/uL (3.8-10.6)
[2017-10-22 10:08] LABS: Anion Gap 5 mmol/L; Blood Urea Nitrogen 13 mg/dL (7-17); Calcium 8.2 mg/dL (8.4-10.2); Carbon Dioxide 30 mmol/L (22-30); Chloride 103 mmol/L (98-107); Glucose 81 mg/dL (74-99); Potassium 4.3 mmol/L (3.5-5.1); Sodium 138 mmol/L (137-145)
[2017-10-22] MEDS: MORPHINE SULFATE 4 MG/ML SYRINGE IVP PRN ×2 (12:30→15:36)
--- NOTE | 2017-10-22 13:03 | P.PN ---
Subjective 57-year-old female admitted for back pain found to be septic and bacteremia persistent bacteremia with MRSA concern discitis septic, patient is on IV vancomycin. Patient is also being treated for urinary tract infection had, E. coli in the urine and is on Rocephin infectious disease evaluated the patient patient is being followed by spinal surgeon as well. There is no obvious abscess patient will go for MRI. Repeat blood cultures tomorrow. Still complaining of severe low back pain. 10/22/2017 Patient is found to have epidural abscess so far doesn't have any focal weaknesses now. P having the severe end/10 pain we'll increase the frequency of morphine and patient will undergo surgery today for epidural abscess. Constitutional: Denied any fatigue denied any fever. Cardio vascular: denied any chest pain, palpitations Gastrointestinal denied any nausea vomiting Pulmonary: Denied any shortness of breath cough Neurologic denied any new focal deficits Objective - Vital Signs Vital signs: Vital Signs Temp 98.0 F 10/22/17 07:02 Pulse 94 10/22/17 07:02 Resp 18 10/22/17 07:02 BP 116/61 10/22/17 07:02 Pulse Ox 92 L 10/22/17 07:02 Intake & Output 10/21/17 10/22/17 10/22/17 18:59 06:59 18:59 Intake Total 840 900 Output Total 200 Balance 640 900 Intake: IV 160 Sodium Chloride 0.9% 1, 160 000 ml @ 75 mls/hr IV . [id number] ARCHIE Rx#:[id number] Intake, IV Titration 500 Amount Vancomycin 2,000 mg In 500 Sodium Chloride 0.9% 500 ml @ 167 mls/hr IVPB Q12HR ARCHIE Rx#:[id number] Oral 840 240 Output: Urine 200 Other: Voiding Method Bedside Commode Bedside Commode # Voids 2 2 # Bowel Movements 1 - Exam PHYSICAL EXAMINATION: GENERAL: The patient is alert and oriented x3, not in any acute distress. Well developed, well nourished. HEENT: Pupils are round and equally reacting to light. EOMI. No scleral icterus. No conjunctival pallor. Normocephalic, atraumatic. No pharyngeal erythema. No thyromegaly. CARDIOVASCULAR: S1 and S2 present. No murmurs, rubs, or gallops. PULMONARY: Chest is clear to auscultation, no wheezing or crackles. ABDOMEN: Soft, nontender, nondistended, normoactive bowel sounds. No palpable organomegaly. MUSCULOSKELETAL: Mild low back tenderness bilaterally. EXTREMITIES: No cyanosis, clubbing, or pedal edema. NEUROLOGICAL: Gross neurological examination did not reveal any focal deficits. SKIN: No rashes. - Labs CBC & Chem 7: 10/22/17 09:39 10/22/17 09:39 Labs: Abnormal Lab Results - Last 24 Hours (Table) 10/21/17 10/21/17 10/22/17 Range/Units 16:31 20:44 09:39 WBC (3.8-10.6) k/uL RBC (3.80-5.40) m/uL Hgb (11.4-16.0) gm/dL Hct (34.0-46.0) % Neutrophils # (1.3-7.7) k/uL Lymphocytes # (1.0-4.8) k/uL Monocytes # (0-1.0) k/uL Creatinine 0.50 L (0.52-1.04) mg/dL POC Glucose (mg/dL) 152 H 150 H (75-99) mg/dL Calcium 8.2 L (8.4-10.2) mg/dL 10/22/17 Range/Units 09:39 WBC 16.3 H (3.8-10.6) k/uL RBC 3.21 L (3.80-5.40) m/uL Hgb 9.6 L (11.4-16.0) gm/dL Hct 30.0 L (34.0-46.0) % Neutrophils # 13.9 H (1.3-7.7) k/uL Lymphocytes # 0.8 L (1.0-4.8) k/uL Monocytes # 1.3 H (0-1.0) k/uL Creatinine (0.52-1.04) mg/dL POC Glucose (mg/dL) (75-99) mg/dL Calcium (8.4-10.2) mg/dL Microbiology - Last 24 Hours (Table) 10/21/17 05:52 Blood Culture Gram Stain - Preliminary Blood Blood Culture - Preliminary Presumptive MRSA 10/19/17 23:22 Blood Culture Gram Stain - Final Blood Blood Culture - Final Methicillin resist S. aureus 10/19/17 05:59 Blood Culture Gram Stain - Final Blood Blood Culture - Final Methicillin resist S. aureus 10/21/17 05:52 Blood Culture - Final Blood Assessment and Plan Plan: Assessment and Plan Assessment: Acute intractable lower back pain likely due to epidural abscess continued bacteremia repeat blood cultures tomorrow continue with IV vancomycin. Will undergo surgical intervention for epidural abscess today. Plavix is being held. Amlodipine will be discontinued and his inhibitor will be disc in your to prevent perioperative hypotension Leukocytosis with WBC count 16,000. Secondary to MRSA bacteremia Gram-negative bacilli urinary tract infection Sepsis secondary to MRSA bacteremia and UTI, is also on Rocephin Recent admission with bleeding per rectum. Status post EGD and colonoscopy showed no active bleeding. Recent COPD exacerbation and completed steroids 2 days prior to admission. Hypertension Hyperlipidemia Osteoarthritis Anxiety and depression History of coronary artery disease status post and placement DVT prophylaxis Morbid obesity with BMI 46.9
--- NOTE | 2017-10-22 16:11 | PN ---
PROGRESS NOTE DATE OF SERVICE: 10/22/2017. REASON FOR FOLLOW UP: MRSA bacteremia secondary to lumbar spine abscess. INTERVAL HISTORY: The patient is afebrile. She is still complaining of significant pain to the low back area. The patient denies having any chest pain, shortness of breath, cough. No abdominal pain. No diarrhea. EXAMINATION: Blood pressure 116/61 with a pulse of 94, temperature 98. She is 92% on 4 L nasal cannula. General description is a middle-aged female lying in bed in no distress. Respiratory system unlabored breathing, clear to auscultation anteriorly. Heart S1, S2. Regular rate and rhythm. Abdomen soft, no tenderness. Extremities: No edema of the feet. LABS: White count down to 16.3, creatinine 0.50. Blood cultures 10/21 have been positive as well. DIAGNOSTIC IMPRESSION AND PLAN: Patient MRSA bacteremia secondary to an L4 abscess. The patient is scheduled for drainage of this abscess this afternoon. She will be kept on vancomycin pharmacy to dose target of 15. Blood culture has been repeated. Continue supportive care. MMODL / IJN: [id number] /
[2017-10-22] MEDS ORDERED: BACITRACIN 50,000 UNIT, POLYMYXIN B 500,000 UNIT in SODIUM CHLORIDE 0.9% IRRIGATIO 1,00... IRRIGATION ONE ×2 (18:14→19:13)
[2017-10-22] MEDS ORDERED: SUCCINYLCHOLINE CHLORIDE 100 MG/5 ML SYR IV ONE (18:37)
[2017-10-22] MEDS ORDERED: NEOSTIGMINE 1 MG/ML 10 ML VIAL ONE (18:37)
[2017-10-22] MEDS ORDERED: ROCURONIUM BROMIDE 10 MG/ML 10 ML VIAL IV ONE (18:37)
[2017-10-22] MEDS ORDERED: SODIUM CHLORIDE 0.9% 1,000 ML IV ONE (18:37)
[2017-10-22] MEDS ORDERED: LACTATED RINGERS 1,000 ML IV ONE ×2 (18:37→19:00)
[2017-10-22] MEDS ORDERED: GLYCOPYRROLATE 0.2 MG/ML 2 ML VIAL ONE (18:37)
[2017-10-22] MEDS ORDERED: MIDAZOLAM 2 MG/2 ML VIAL ONE (18:37)
[2017-10-22] MEDS ORDERED: LIDOCAINE 1% INJ 10MG/ML (20 ML MDV) ONE (18:37)
[2017-10-22] MEDS ORDERED: fentaNYL (PF) 50 MCG/ML 2 ML AMP ONE (18:37)
[2017-10-22] MEDS ORDERED: THROMBIN (BOVINE) 5,000 UNIT VIAL TOPICAL ONE (19:20)
[2017-10-22] MEDS ORDERED: GELATIN SPONGE,ABSORB (LARGE) 1 EACH SPONGE TOPICAL ONE (19:20)
[2017-10-22] MEDS ORDERED: HYDROmorphone 1 MG/ML 1 ML SYRINGE IVP PRN ×2 (20:01)
--- NOTE | 2017-10-22 20:01 | P.OP ---
Date of Procedure: 10/22/17 Preoperative Diagnosis: Epidural abscess L4 5, acute Intractable low back pain Left lower extremity radiculopathy Postoperative Diagnosis: Same with evidence of septic facet arthrosis Anesthesia: GETA Pathology: other (Deep cultures from the epidural space of L4 5 and from facet joint of L4 5 sent to microbiology) Condition: stable Disposition: PACU Description of Procedure: BRIEF OPERATIVE NOTE Preoperative Diagnosis: Epidural abscess L4 5, intractable low back pain, lower extremity radiculopathy Postoperative Diagnosis: Same with findings of septic facet arthrosis L4 5 Procedure: Laminectomy and decompression L4 5 Irrigation and excisional debridement of epidural abscess L4 5 Partial medial facetectomy L4 5 Deep cultures of L4 5 epidural space and facet joint L4 5 Surgeon: Dr. Waite [employer]roscopic Engineering Technician: Sky QUILES who is present throughout the entire the case persistence during positioning, dissection, exposure, visualization, and all crucial elements of the case as well as closure. Anesthesia: General anesthesia Estimated blood loss: approximately 50 mL Complications: None apparent Components implanted: none Disposition: To recovery room in good stable condition. OPERATIVE INDICATIONS The patient has been having issues in their lower back and lower extremities. she had some issues in her low back on and off for the past several years however her symptoms increased severely at the end of last week. She is admitted to the hospital in regards to fevers low back pain and urinary tract infection. She is found to be bacteremic with MRSA. Her urinary tract infection was positive for E. coli. She's been treated with vancomycin and Rocephin with medicine and infectious disease. She continue to have severe low back pain which was waxing and waning however today was having severe worsening. She had an MRI yesterday which showed fluid collection and last night was believed to be evidence of epidural abscess. She was not having any lower extremity neurologic compromise was having radiculopathy. Her motor function in her lower extremity is was intact. She is not having any evidence of any cauda equina syndrome. The patient has been through conservative treatment in the past for her lower back but has not ever undergone epidural injections or intervention at her low back. she is continuing her treatment with antibiotics per infectious disease and medicine. We felt that the abscess at the epidural space was source for her bacteremia and for her severe back pain with radiculopathy. We discussed various treatment options with her including surgery. We discussed various treatment options including surgery, and the patient wishes to proceed with surgery We discussed the risk, patient's alternatives and benefits of surgery including but not limited to, risk of bleeding risk of infection, risk of need for further surgery, risk of decreased , loss of motion, loss of function, nerve damage, paralysis, heart attack, blindness, . OPERATIVE SUMMARY After discussing all the risks, patient alternatives and benefits at length, the patient elected to proceed with surgical intervention, signed informed consent, and presented for their procedure. The patient was seen and examined in the preoperative holding area and the surgical site was marked. The patient was given antibiotics and brought to the operating room. The patient was sedated and intubated by anesthesia in standard fashion. The patient was positioned on to the operating room table in a prone position on the appropriate frame which was well-padded and well molded. We were careful to pad any bony prominences and pressure points. We were careful to maintain the patient's cervical spine and good neutral alignment and position throughout. The patient was prepped and draped in a normal standard fashion. An appropriate timeout and keystone protocol performed. We were able to proceed with the surgery. Fluoroscopy was utilized to establish the appropriate level. An incision was made at the midline longitudinally over the appropriate levels of L4 5 . Dissection was taken down subcutaneously to the level of the fascia which was split midline. Dissection was taken over the lamina. Intraoperative fluoroscopy was taken which showed a marker at the appropriate level. With the appropriate level positively confirmed, we were able to proceed with laminectomy. The wound was copiously irrigated and suctioned dry as had been done periodically throughout the case. I performed a laminectomy with a combination of curettes and a high-speed bur and Kerrison rongeurs. A small medial facetectomy was performed again further access. A partial foraminotomy was also performed. at this point there was obvious pus and purulent fluid coming at the medial aspect of the facet joint from the facet capsule and extending into the epidural space. Deep culture at the facet joint of L4 5 was taken. Portions of the ligamentum flavum were taken down to expose the dura and traversing nerve root. there was pus extending into the epidural space on the left around the nerve root and there was denuded tissue and infected tissue around the nerve root. I was able to remove and a bridle and excise denuded tissue and infected tissue around the capsule and the epidural space. I was able to brought to the right and remove phlegmon around the epidural space. I was able to mobilize the traversing nerve root and gain access to the disc space. the disc appeared to be intact. There is some mild bulging but no extruded fragments. There were no extruded fragments noted. There is no evidence of dural tear or leak. Good hemostasis maintained. The wound was copiously irrigated and suctioned dry. I flushed the epidural space and area with 2-1/2 L of antibiotic impregnated irrigation. The margins appear to be clean without any further infection or purulence. Good decompression was noted, with no further evidence of any purulence or pus or infection. We were able to proceed with closure. The fascia was closed for a watertight closure using PDS suture . The subcuticular tissue was closed with absorbable suture. The wound was cleaned and dried and dressed with the appropriate dressing. The drapes were broken down. The patient was gently rolled back onto their hospital bed being careful to maintain their cervical spine and good neutral alignment and position. They were woken up by anesthesia, extubated, and brought to the recovery room in good stable condition. [facility] with infectious disease and IV antibiotics and for appropriate postoperative care, medical management and monitoring. she will likely need long-term antibiotics treatment. We will continue to follow them closely about the postoperative course.
[2017-10-22] MEDS ORDERED: HALOPERIDOL LACTATE 5 MG/ML 1 ML VIAL IVP STA ×2 (20:34→20:55)
[2017-10-22 21:20] LABS: Glucose,Whole Blood 117 mg/dL (75-99)
--- NOTE | 2017-10-22 22:29 | FL ---
Fluoroscopy HISTORY: Lumbar laminectomy 3 seconds fluoroscopy time supplied to the referring clinician. 1 intraoperative C-arm images docume nt the procedure. See dictated report from orthopedic surgery.
--- NOTE | 2017-10-22 22:30 | XR ---
Limited lumbar spine HISTORY: Lumbar laminectomy Single intraoperative C-arm image documents the procedure
[2017-10-22] MEDS: DULoxetine HCL 60 MG CAPSULE.DR PO SCH (23:19)
[2017-10-22] MEDS: ATORVASTATIN 40 MG TAB PO SCH (23:19)
[2017-10-23] MEDS: ACETAMINOPHEN TAB 325 MG TAB PO PRN ×2 (01:55→17:04)
[2017-10-23] MEDS: MORPHINE SULFATE 4 MG/ML SYRINGE IVP PRN (03:17)
[2017-10-23] MEDS: IBUPROFEN 600 MG TAB PO SCH (07:22)
[2017-10-23] MEDS: HEPARIN SODIUM,PORCINE 5,000 UNIT/ML 1 ML VIAL SQ SCH ×2 (07:26→17:04)
[2017-10-23] MEDS: GABAPENTIN 300 MG CAP PO SCH ×3 (07:26→20:27)
[2017-10-23] MEDS: PANTOPRAZOLE 40 MG TABLET PO SCH (07:26)
[2017-10-23] MEDS: CARVEDILOL 12.5 MG TAB PO SCH ×2 (07:26→17:04)
[2017-10-23] MEDS: ASPIRIN 81 MG PO SCH (07:27)
[2017-10-23] MEDS: VANCOMYCIN 2,000 MG in SODIUM CHLORIDE 0.9% 500 ML IVPB SCH ×2 (07:27→20:27)
[2017-10-23] MEDS: cefTRIAXone IN SWFI 1,000 MG/10 ML SYRINGE IVP SCH (07:27)
[2017-10-23] MEDS: IPRATROPIUM-ALBUTEROL 3 ML NEB INHALATION SCH ×4 (08:07→20:20)
[2017-10-23 08:25] LABS: Basophils % (A) 0 %; Eosinophils % (A) 0 %; HCT 31.2 % (34.0-46.0); HGB 9.8 gm/dL (11.4-16.0); Hypochromasia Slight; Lymphocytes # (A) 0.8 k/uL (1.0-4.8); Lymphocytes % (A) 4 %; MCH 29.5 pg (25.0-35.0); MCHC 31.5 g/dL (31.0-37.0); MCV 93.8 fL (80.0-100.0); Mean Platelet Volume 7.2; Monocytes # (A) 1.3 k/uL (0-1.0); Monocytes % (A) 7 %; Neutrophils # (A) 16.8 k/uL (1.3-7.7); Neutrophils % (A) 88 %; Platelet Count 301 k/uL (150-450); RBC 3.33 m/uL (3.80-5.40); RDW 14.4 % (11.5-15.5); WBC 19.2 k/uL (3.8-10.6)
[2017-10-23 08:57] LABS: ALT 38 U/L (9-52); AST 24 U/L (14-36); Albumin 2.6 g/dL (3.5-5.0); Alkaline Phosphatase 67 U/L (38-126); Anion Gap 6 mmol/L; Blood Urea Nitrogen 11 mg/dL (7-17); Calcium 8.2 mg/dL (8.4-10.2); Carbon Dioxide 33 mmol/L (22-30); Chloride 97 mmol/L (98-107); Glucose 84 mg/dL (74-99); Potassium 4.1 mmol/L (3.5-5.1); Sodium 136 mmol/L (137-145); Total Bilirubin 0.6 mg/dL (0.2-1.3)
--- NOTE | 2017-10-23 10:34 | P.PN ---
Subjective 57-year-old female admitted for back pain found to be septic and bacteremia persistent bacteremia with MRSA concern discitis septic, patient is on IV vancomycin. Patient is also being treated for urinary tract infection had, E. coli in the urine and is on Rocephin infectious disease evaluated the patient patient is being followed by spinal surgeon as well. There is no obvious abscess patient will go for MRI. Repeat blood cultures tomorrow. Still complaining of severe low back pain. 10/22/2017 Patient is found to have epidural abscess so far doesn't have any focal weaknesses now. P having the severe end/10 pain we'll increase the frequency of morphine and patient will undergo surgery today for epidural abscess. 10/23/2017 Patient underwent laminectomy and decompression of L4-L5 irrigation to bride meant of epidural abscess L4-L5 and partial medial facetectomy L4-L5 and cultures were obtained. Postoperatively patient was confused and agitated improved symptoms with Haldol. As patient confusion secondary to excess opiate use which are being discontinued and patient the will be started on Toradol for pain along with GI prophylaxis. Patient's blood cultures from are positive for MRSA we'll repeat blood cultures tomorrow as well Constitutional: Denied any fatigue denied any fever. Cardio vascular: denied any chest pain, palpitations Gastrointestinal denied any nausea vomiting Pulmonary: Denied any shortness of breath cough Neurologic denied any new focal deficits Objective - Vital Signs Vital signs: Vital Signs Temp 97.7 F 10/23/17 06:12 Pulse 70 10/23/17 07:22 Resp 20 10/23/17 07:22 BP 162/66 10/23/17 06:12 Pulse Ox 90 L 10/23/17 06:12 Intake & Output 10/22/17 10/23/17 10/23/17 18:59 06:59 18:59 Intake Total 1000 522 Output Total 50 Balance 1000 472 Intake: IV 500 402 Intake, IV Titration 500 Amount Vancomycin 2,000 mg In 500 Sodium Chloride 0.9% 500 ml @ 167 mls/hr IVPB Q12HR [facility] Rx#:[id number] Oral 120 Output: Estimated Blood Loss 50 Other: Voiding Method Bedpan Bedpan Bedside Commode # Voids 1 - Exam PHYSICAL EXAMINATION: GENERAL: The patient is drowsy secondary to opiates for pain, not in any acute distress. Well developed, well nourished. HEENT: Pupils are round and equally reacting to light. EOMI. No scleral icterus. No conjunctival pallor. Normocephalic, atraumatic. No pharyngeal erythema. No thyromegaly. CARDIOVASCULAR: S1 and S2 present. No murmurs, rubs, or gallops. PULMONARY: Chest is clear to auscultation, no wheezing or crackles. ABDOMEN: Soft, nontender, nondistended, normoactive bowel sounds. No palpable organomegaly. MUSCULOSKELETAL: Mild low back tenderness bilaterally. EXTREMITIES: No cyanosis, clubbing, or pedal edema. NEUROLOGICAL: Gross neurological examination did not reveal any focal deficits. SKIN: No rashes. - Labs CBC & Chem 7: 10/23/17 07:10 10/23/17 07:10 Labs: Abnormal Lab Results - Last 24 Hours (Table) 10/22/17 10/23/17 10/23/17 Range/Units 21:13 07:10 07:10 WBC 19.2 H (3.8-10.6) k/uL RBC 3.33 L (3.80-5.40) m/uL Hgb 9.8 L (11.4-16.0) gm/dL Hct 31.2 L (34.0-46.0) % Neutrophils # 16.8 H (1.3-7.7) k/uL Lymphocytes # 0.8 L (1.0-4.8) k/uL Monocytes # 1.3 H (0-1.0) k/uL Sodium 136 L (137-145) mmol/L Chloride 97 L (98-107) mmol/L Carbon Dioxide 33 H (22-30) mmol/L Creatinine 0.44 L (0.52-1.04) mg/dL POC Glucose (mg/dL) 117 H (75-99) mg/dL Calcium 8.2 L (8.4-10.2) mg/dL Total Protein 5.0 L (6.3-8.2) g/dL Albumin 2.6 L (3.5-5.0) g/dL Microbiology - Last 24 Hours (Table) 10/22/17 19:40 Gram Stain - Preliminary Back Wound Culture - Preliminary 10/22/17 19:40 Gram Stain - Preliminary Back Wound Culture - Preliminary 10/22/17 09:39 Blood Culture - Final Blood 10/22/17 19:40 Anaerobic Culture - Preliminary Back 10/22/17 19:40 Anaerobic Culture - Preliminary Back 10/21/17 05:52 Blood Culture Gram Stain - Preliminary Blood Blood Culture - Preliminary Presumptive MRSA 10/19/17 23:22 Blood Culture Gram Stain - Final Blood Blood Culture - Final Methicillin resist S. aureus 10/19/17 05:59 Blood Culture Gram Stain - Final Blood Blood Culture - Final Methicillin resist S. aureus 10/21/17 05:52 Blood Culture - Final Blood Assessment and Plan Plan: Assessment and Plan Assessment: Acute intractable lower back pain likely due to epidural abscess continued bacteremia repeat blood cultures tomorrow continue with IV vancomycin. Patient is status post incision and drainage of epidural abscess. Patient's blood pressure started going up patient was started back on half a dose of losartan and continue to hold on amlodipine. Will undergo surgical intervention for epidural abscess today. Plavix is being held. Patient will not need Plavix upon discharge Leukocytosis with WBC count 16,000. Secondary to MRSA bacteremia Gram-negative bacilli urinary tract infection Sepsis secondary to MRSA bacteremia and UTI, is also on Rocephin Recent COPD exacerbation and completed steroids 2 days prior to admission. Hypertension Hyperlipidemia Osteoarthritis Anxiety and depression History of coronary artery disease status post and placement DVT prophylaxis Morbid obesity with BMI 46.9
--- NOTE | 2017-10-23 10:36 | PN ---
PROGRESS NOTE DATE OF SERVICE: 10/23/2017 REASON FOR FOLLOWUP: MRSA bacteremia secondary to L5-S1 abscess, status post drainage. INTERVAL HISTORY: The patient is afebrile. The patient was taken to the OR and is status post drainage abscess in the lumbosacral spine. Patient tolerated the procedure. Slightly lethargic this morning. No nausea, no vomiting or any diarrhea reported. PHYSICAL EXAMINATION: On examination, blood pressure is 162/66, pulse of 70, temperature is 97.7. She is 90% on 4 L nasal cannula. General description is a middle-aged female lying in bed in no distress. RESPIRATORY SYSTEM: Unlabored breathing, clear to auscultation anteriorly. HEART: S1, S2. Regular rate and rhythm. ABDOMEN: Soft, no tenderness. LABS: White count elevated at 19.2. DIAGNOSTIC IMPRESSION AND PLAN: Patient with methicillin-resistant Staphylococcus aureus bacteremia secondary to the sacral spine abscess and osteomyelitis, status post drainage of the abscess. Plan to keep the patient on vancomycin pharmacy to dose. Waiting for the blood cultures to be negative before getting a PICC line for outpatient antibiotic therapy. Continue with supportive care. MMODL / IJN: [id number] /
[2017-10-23] MEDS: SYMBICORT 160-4.5 MCG INHALER INHALATION SCH ×2 (10:53→20:20)
[2017-10-23] MEDS: LOSARTAN 50 MG TAB PO SCH (12:16)
--- NOTE | 2017-10-23 12:32 | P.PN ---
Progress Note - Text Progress Note Date: 10/23/17 Orthopedic Spine Patient is a pleasant 57-year-old female who is seen at the bedside following L4 -5 laminectomy and decompression with irrigation and excisional debridement of epidural abscess with partial facetectomy. Patient continued to have significant low back pain postsurgically this morning. She was having some confusion and agitation postoperatively that improved with Haldol. She has not been out of bed this morning. She continues to be seen and examined by medicine and infectious disease. Medicine feels patient's confusion is secondary to excessive opioid use which are in the process of being discontinued. She'll be started on Toradol for pain with GI prophylaxis. Repeat blood cultures will be taken today. Previous blood culture from 2017 was positive for MRSA. She's being treated for urinary tract infection as well. She is currently on vancomycin and Rocephin. Currently does not complain of nausea, vomiting, fever, or chills. Patient is eating and voiding freely without difficulty. Physical Exam Laminectomy/Discectomy: Status post surgical day number 1 Patient is awake, alert, and oriented 3 Vital signs stable Good chest excursion with deep inspiration and expiration Dorsiflexion, plantarflexion, and extensor hallucis longus positive sustained bilaterally No signs or symptoms of DVT; no calf pain Dressing is clean, dry, and intact; no erythema, purulence, or signs of infection Significant pain with movement of the lumbar spine Pertinent studies: CBC taken on 10/23/2017: WBC 19.2 Neutrophils 16.8 Blood culture taken on 10/21/2017: Methicillin resistant staph aureus Urine culture taken on 10/19/2017: E.coli Assessment: L4-5 laminectomy and decompression with irrigation and excisional debridement of epidural abscess with partial facetectomy Intractable low back pain line epidural abscess L4-5 Bacteremia Urinary tract infection Plan: 1. Ambulate as tolerated; work with Physical Therapy; we are planning for therapy try to help transition her into a bedside chair today 2. Continue Pain control with medications as prescribed by medicine 3. Patient will continue to be followed by medicine and infectious disease for further evaluation and treatment in regards to her medical diagnoses including bacteremia with MRSA and urinary tract infection positive for E. coli 4. We will continue to follow the patient closely; We are currently waiting for culture results from cultures taken during surgical intervention 5. Following discharge, Patient can follow-up with Sky Otero PA-C or Dr. Jose Waite at [facility] in 2 weeks following discharge 6. Patient has been discussed in detail with Dr. Jose Waite and he agrees with this plan
[2017-10-23] MEDS: KETOROLAC 30 MG/ML 1 ML VIAL IVP PRN ×2 (13:34→20:27)
[2017-10-23] MEDS ORDERED: HYDROmorphone 4 MG TABLET PO PRN (19:09)
[2017-10-23] MEDS: DULoxetine HCL 60 MG CAPSULE.DR PO SCH (20:27)
[2017-10-23] MEDS: ATORVASTATIN 40 MG TAB PO SCH (20:27)
[2017-10-24] MEDS: HEPARIN SODIUM,PORCINE 5,000 UNIT/ML 1 ML VIAL SQ SCH ×3 (01:36→16:32)
[2017-10-24] MEDS: ACETAMINOPHEN TAB 325 MG TAB PO PRN ×3 (01:37→16:34)
[2017-10-24] MEDS: KETOROLAC 30 MG/ML 1 ML VIAL IVP PRN ×3 (04:14→21:23)
[2017-10-24] MEDS: SYMBICORT 160-4.5 MCG INHALER INHALATION SCH ×2 (07:15→20:27)
[2017-10-24] MEDS: IPRATROPIUM-ALBUTEROL 3 ML NEB INHALATION SCH ×4 (07:15→20:27)
[2017-10-24 08:09] LABS: Anion Gap 4 mmol/L; Blood Urea Nitrogen 14 mg/dL (7-17); Calcium 8.2 mg/dL (8.4-10.2); Carbon Dioxide 33 mmol/L (22-30); Chloride 100 mmol/L (98-107); Glucose 98 mg/dL (74-99); Potassium 3.8 mmol/L (3.5-5.1); Sodium 137 mmol/L (137-145)
[2017-10-24] MEDS: LOSARTAN 50 MG TAB PO SCH (08:23)
[2017-10-24] MEDS: PANTOPRAZOLE 40 MG TABLET PO SCH (08:23)
[2017-10-24] MEDS: CARVEDILOL 12.5 MG TAB PO SCH ×2 (08:23→16:32)
[2017-10-24] MEDS: ASPIRIN 81 MG PO SCH (08:24)
[2017-10-24] MEDS: VANCOMYCIN 2,000 MG in SODIUM CHLORIDE 0.9% 500 ML IVPB SCH ×2 (08:24→21:45)
[2017-10-24] MEDS: GABAPENTIN 300 MG CAP PO SCH ×3 (08:24→21:45)
[2017-10-24] MEDS: cefTRIAXone IN SWFI 1,000 MG/10 ML SYRINGE IVP SCH (08:24)
--- NOTE | 2017-10-24 10:52 | P.PN ---
Subjective 57-year-old female admitted for back pain found to be septic and bacteremia persistent bacteremia with MRSA concern discitis septic, patient is on IV vancomycin. Patient is also being treated for urinary tract infection had, E. coli in the urine and is on Rocephin infectious disease evaluated the patient patient is being followed by spinal surgeon as well. There is no obvious abscess patient will go for MRI. Repeat blood cultures tomorrow. Still complaining of severe low back pain. 10/22/2017 Patient is found to have epidural abscess so far doesn't have any focal weaknesses now. P having the severe end/10 pain we'll increase the frequency of morphine and patient will undergo surgery today for epidural abscess. 10/23/2017 Patient underwent laminectomy and decompression of L4-L5 irrigation to bride meant of epidural abscess L4-L5 and partial medial facetectomy L4-L5 and cultures were obtained. Postoperatively patient was confused and agitated improved symptoms with Haldol. As patient confusion secondary to excess opiate use which are being discontinued and patient the will be started on Toradol for pain along with GI prophylaxis. Patient's blood cultures from are positive for MRSA we'll repeat blood cultures tomorrow as well 10/24/2017 Patient the blood cultures are positive, patient's back pain improved significantly patient did move her bowel. Constitutional: Denied any fatigue denied any fever. Cardio vascular: denied any chest pain, palpitations Gastrointestinal denied any nausea vomiting Pulmonary: Denied any shortness of breath cough Neurologic denied any new focal deficits Objective - Vital Signs Vital signs: Vital Signs Temp 99.3 F 10/24/17 06:00 Pulse 85 10/24/17 08:30 Resp 18 10/24/17 08:30 BP 142/64 10/24/17 06:00 Pulse Ox 94 L 10/24/17 06:00 Intake & Output 10/23/17 10/24/17 10/24/17 18:59 06:59 18:59 Output Total 320 Balance -320 Output: Urine 320 Other: Voiding Method Bedside Commode Bedside Commode # Voids 3 - Exam PHYSICAL EXAMINATION: GENERAL: The patient is drowsy secondary to opiates for pain, not in any acute distress. Well developed, well nourished. HEENT: Pupils are round and equally reacting to light. EOMI. No scleral icterus. No conjunctival pallor. Normocephalic, atraumatic. No pharyngeal erythema. No thyromegaly. CARDIOVASCULAR: S1 and S2 present. No murmurs, rubs, or gallops. PULMONARY: Chest is clear to auscultation, no wheezing or crackles. ABDOMEN: Soft, nontender, nondistended, normoactive bowel sounds. No palpable organomegaly. MUSCULOSKELETAL: Mild low back tenderness bilaterally. EXTREMITIES: No cyanosis, clubbing, or pedal edema. NEUROLOGICAL: Gross neurological examination did not reveal any focal deficits. SKIN: No rashes. - Labs CBC & Chem 7: 10/23/17 07:10 10/24/17 07:07 Labs: Abnormal Lab Results - Last 24 Hours (Table) 10/24/17 Range/Units 07:07 Carbon Dioxide 33 H (22-30) mmol/L Calcium 8.2 L (8.4-10.2) mg/dL Microbiology - Last 24 Hours (Table) 10/23/17 07:10 Blood Culture - Preliminary Blood No Growth after 24 hours 10/22/17 09:39 Blood Culture Gram Stain - Preliminary Blood Blood Culture - Preliminary Presumptive MRSA 10/22/17 19:40 Gram Stain - Preliminary Back Wound Culture - Preliminary Presumptive MRSA 10/22/17 19:40 Gram Stain - Preliminary Back Wound Culture - Preliminary Presumptive MRSA 10/21/17 05:52 Blood Culture Gram Stain - Final Blood Blood Culture - Final Methicillin resist S. aureus Assessment and Plan Plan: Assessment and Plan Assessment: Acute intractable lower back pain likely due to epidural abscess continued bacteremia repeat blood cultures tomorrow continue with IV vancomycin. Patient is status post incision and drainage of epidural abscess. Patient is status post incision and drainage of the epidural abscess, continued bacteremia Plavix is being held. Patient will not need Plavix upon discharge Leukocytosis with WBC count 16,000. Secondary to MRSA bacteremia Gram-negative bacilli urinary tract infection Sepsis secondary to MRSA bacteremia and UTI, is also on Rocephin Recent COPD exacerbation and completed steroids 2 days prior to admission. Hypertension Hyperlipidemia Osteoarthritis Anxiety and depression History of coronary artery disease status post and placement DVT prophylaxis Morbid obesity with BMI 46.9
--- NOTE | 2017-10-24 11:19 | P.PN ---
Progress Note - Text Progress Note Date: 10/24/17 Postoperative day #2 Patient is seen and examined today at bedside. The patient has some pain around the surgical site as expected but she feels that her symptoms are significantly improved since her surgery. Her leg pain is much improved as is her back Pain is being controlled with medication. Physical Exam Afebrile with stable vital signs, she does not report any fevers last night Abdomen is soft nontender. Chest has good excursion deep and space expiration The incision site is clean dry and intact. No erythema there is no purulence. There is scant bloody drainage on the dressing but appears clear without any evidence of purulence. There is no erythema. Extremities have not had neurologic change from prior to surgery. Calves and thighs were soft nontender without evidence of DVT. Assessment/Plan Postoperative day #2 status post laminectomy decompression and irrigation and debridement and excisional debridement of epidural abscess at L4 5. Good improvement with fevers and neck pain and lower extremity pain since surgery Patient is progressing as expected from the surgery. I do not have any further plans for surgical intervention at this point. She is making good progress with her back and lower extremity symptoms and has been afebrile and improving. She has continued her IV antibiotics which is appropriate. Her fevers have improved. When she is free of any bacteria and her bloodstream with cultures and she'll obtain a PICC line for long-term antibiotic use as per infectious disease and medicine. We will continue to increase the patient's mobilization with therapy. We will continue pain control with oral or IV medications. We'll continue to follow patient closely.
[2017-10-24] MEDS: DULoxetine HCL 60 MG CAPSULE.DR PO SCH (21:45)
[2017-10-24] MEDS: ATORVASTATIN 40 MG TAB PO SCH (21:45)
--- NOTE | 2017-10-24 23:16 | PN ---
PROGRESS NOTE DATE OF SERVICE: 10/24/2017. REASON FOR FOLLOWUP: MRSA bacteremia secondary to L4-L5 spine abscess. INTERVAL HISTORY: The patient is currently afebrile. She is breathing comfortably. Denies having any chest pain or shortness of breath or cough. Back pain is currently controlled with pain medication. No diarrhea. EXAMINATION: Blood pressure is 141/66, pulse of 80, temperature 97. She is 91% on 2 L nasal cannula. General description is a middle-aged female up in the bed in no distress. RESPIRATORY SYSTEM: Unlabored breathing, clear to auscultation. HEART: S1, S2. Regular rate and rhythm. ABDOMEN: Soft, no tenderness. EXTREMITIES: No edema of feet. LABS: BUN 14, creatinine 0.53. Blood cultures 10/23 has been negative so far. DIAGNOSTIC IMPRESSION AND PLAN: 1. Patient with MRSA bacteremia secondary to the L4-5 spine abscess, status post drainage. The patient at this time will continue vancomycin pharmacy to dose. Watching the kidney function and closely to keep it around 15 with a blood culture done on 10/23 remains to be negative. By Saturday she should get a PICC line for outpatient IV antibiotic therapy. 2. The patient with E. coli UTI adequately treated. Discontinue ceftriaxone. MMODL / IJN: [id number] /
[2017-10-25] MEDS: HEPARIN SODIUM,PORCINE 5,000 UNIT/ML 1 ML VIAL SQ SCH ×4 (01:05→23:01)
[2017-10-25] MEDS: ACETAMINOPHEN TAB 325 MG TAB PO PRN ×5 (01:10→22:18)
[2017-10-25] MEDS: KETOROLAC 30 MG/ML 1 ML VIAL IVP PRN ×3 (05:04→19:35)
[2017-10-25] MEDS: CARVEDILOL 12.5 MG TAB PO SCH ×2 (07:37→17:23)
[2017-10-25] MEDS ORDERED: VANCOMYCIN TROUGH DUE 1 EACH MISC MISCELLANE ONE (08:00)
[2017-10-25] MEDS: SYMBICORT 160-4.5 MCG INHALER INHALATION SCH ×2 (08:26→19:38)
[2017-10-25] MEDS: IPRATROPIUM-ALBUTEROL 3 ML NEB INHALATION SCH ×4 (08:26→19:40)
--- NOTE | 2017-10-25 08:30 | P.PN ---
Progress Note - Text Progress Note Date: 10/25/17 Orthopedic Spine: Patient is a pleasant 57-year-old female who is seen at the bedside following L4 -5 laminectomy and decompression with irrigation and excisional debridement of epidural abscess with partial facetectomy performed Saturday. Over the past 2 days she has had significant improvement of her symptoms. She is not currently experiencing significant low back pain when she was previous. She does have some soreness at the surgical site. She is not currently experiencing any lower extremity radiculopathy symptoms. She is very happy with her progress postsurgically. She is sitting upright in a bedside chair eating without difficulty. She has been working with physical therapy. She is able to have a bowel movement this morning. She is eating and voiding without difficulty. She states she is currently planned to have PICC line placement today with discharge to [facility] this coming 10/28/2017. Recent blood cultures have shown no growth over the past 24 hours. She continues to be seen and examined by medicine and infectious disease. She continues to receive vancomycin and Rocephin. Currently does not complain of nausea, vomiting, fever, or chills. Patient is eating and voiding freely without difficulty. Physical Exam Laminectomy/Discectomy: Status post surgical day number 3 Patient is awake, alert, and oriented 3 Vital signs stable Good chest excursion with deep inspiration and expiration Dorsiflexion, plantarflexion, and extensor hallucis longus positive sustained bilaterally No signs or symptoms of DVT; no calf pain Pneumatic cuffs intact bilateral lower extremities 1+ pitting edema bilateral lower extremity Dressing is dry and intact with some dried blood over the dressing; no erythema , purulence, or signs of infection No significant pain with palpation around the surgical site Pertinent studies: CBC taken on 10/23/2017: WBC 19.2 Neutrophils 16.8 Blood culture result on 10/23/2017: No growth after 24 hours Gram stain and culture result at 10/22/2017: Methicillin resistant staph aureus CBC taken on 10/23/2017: WBC 19.2 Neutrophils 16.8 Blood culture taken on 10/21/2017: Methicillin resistant staph aureus Urine culture taken on 10/19/2017: E.coli Assessment: L4-5 laminectomy and decompression with irrigation and excisional debridement of epidural abscess with partial facetectomy Intractable low back pain line epidural abscess L4-5 Bacteremia Urinary tract infection Plan: 1. Ambulate as tolerated; work with Physical Therapy; increase ambulation today 2. Continue Pain control with medications as prescribed by medicine 3. Patient will continue to be followed by medicine and infectious disease for further evaluation and treatment in regards to her medical diagnoses; patient is currently scheduled for PICC line placement today with discharge to [facility] this coming Saturday, 2017 4. We will continue to follow the patient closely 5. Following discharge, Patient can follow-up with Sky Otero PA-C or Dr. Jose Waite at [facility] in 1-2 days following discharge 6. Patient has been discussed in detail with Dr. Jose Waite and he agrees with this plan
[2017-10-25 08:40] LABS: HCT 29.3 % (34.0-46.0); HGB 9.1 gm/dL (11.4-16.0); Hypochromasia Slight; MCH 29.5 pg (25.0-35.0); MCV 95.1 fL (80.0-100.0); Mean Platelet Volume 6.8; Platelet Count 304 k/uL (150-450); RBC 3.09 m/uL (3.80-5.40); RDW 14.5 % (11.5-15.5)
[2017-10-25 08:44] LABS: Anion Gap 5 mmol/L; Blood Urea Nitrogen 11 mg/dL (7-17); Calcium 8.2 mg/dL (8.4-10.2); Carbon Dioxide 30 mmol/L (22-30); Chloride 101 mmol/L (98-107); Glucose 141 mg/dL (74-99); Potassium 3.9 mmol/L (3.5-5.1); Sodium 136 mmol/L (137-145)
[2017-10-25] MEDS: cefTRIAXone IN SWFI 1,000 MG/10 ML SYRINGE IVP SCH (09:08)
[2017-10-25] MEDS: VANCOMYCIN 2,000 MG in SODIUM CHLORIDE 0.9% 500 ML IVPB SCH (09:09)
[2017-10-25] MEDS: GABAPENTIN 300 MG CAP PO SCH ×3 (09:10→21:06)
[2017-10-25] MEDS: PANTOPRAZOLE 40 MG TABLET PO SCH (09:11)
[2017-10-25] MEDS: ASPIRIN 81 MG PO SCH (09:11)
[2017-10-25] MEDS: LOSARTAN 50 MG TAB PO SCH (09:11)
[2017-10-25 10:50] VITALS: BMI 47.0
--- NOTE | 2017-10-25 11:42 | P.PN ---
Subjective 57-year-old female admitted for back pain found to be septic and bacteremia persistent bacteremia with MRSA concern discitis septic, patient is on IV vancomycin. Patient is also being treated for urinary tract infection had, E. coli in the urine and is on Rocephin infectious disease evaluated the patient patient is being followed by spinal surgeon as well. There is no obvious abscess patient will go for MRI. Repeat blood cultures tomorrow. Still complaining of severe low back pain. 10/22/2017 Patient is found to have epidural abscess so far doesn't have any focal weaknesses now. P having the severe end/10 pain we'll increase the frequency of morphine and patient will undergo surgery today for epidural abscess. 10/23/2017 Patient underwent laminectomy and decompression of L4-L5 irrigation to bride meant of epidural abscess L4-L5 and partial medial facetectomy L4-L5 and cultures were obtained. Postoperatively patient was confused and agitated improved symptoms with Haldol. As patient confusion secondary to excess opiate use which are being discontinued and patient the will be started on Toradol for pain along with GI prophylaxis. Patient's blood cultures from are positive for MRSA we'll repeat blood cultures tomorrow as well 10/24/2017 Patient the blood cultures are positive, patient's back pain improved significantly patient did move her bowel. 10/25/2017 Pain is better so far blood cultures from my are negative. Patient probably will receive PICC line on Saturday and will be discharged to subacute rehabilitation on the day. Constitutional: Denied any fatigue denied any fever. Cardio vascular: denied any chest pain, palpitations Gastrointestinal denied any nausea vomiting Pulmonary: Denied any shortness of breath cough Neurologic denied any new focal deficits Objective - Vital Signs Vital signs: Vital Signs Temp 99.5 F 10/25/17 06:14 Pulse 84 10/25/17 07:50 Resp 10/25/17 07:50 BP 122/66 10/25/17 06:14 Pulse Ox 94 L 10/25/17 06:14 Intake & Output 10/24/17 10/25/17 10/25/17 18:59 06:59 18:59 Intake Total 240 520 Balance 240 520 Weight 109.3 kg Intake: Oral 240 520 Other: Voiding Method Bedside Commode Bedside Commode Bedside Commode # Voids 3 # Bowel Movements 1 - Exam PHYSICAL EXAMINATION: GENERAL: The patient is drowsy secondary to opiates for pain, not in any acute distress. Well developed, well nourished. HEENT: Pupils are round and equally reacting to light. EOMI. No scleral icterus. No conjunctival pallor. Normocephalic, atraumatic. No pharyngeal erythema. No thyromegaly. CARDIOVASCULAR: S1 and S2 present. No murmurs, rubs, or gallops. PULMONARY: Chest is clear to auscultation, no wheezing or crackles. ABDOMEN: Soft, nontender, nondistended, normoactive bowel sounds. No palpable organomegaly. MUSCULOSKELETAL: Mild low back tenderness bilaterally. EXTREMITIES: No cyanosis, clubbing, or pedal edema. NEUROLOGICAL: Gross neurological examination did not reveal any focal deficits. SKIN: No rashes. - Labs CBC & Chem 7: 10/25/17 08:11 10/25/17 08:11 Labs: Abnormal Lab Results - Last 24 Hours (Table) 10/25/17 10/25/17 Range/Units 08:11 08:11 WBC 13.0 H (3.8-10.6) k/uL RBC 3.09 L (3.80-5.40) m/uL Hgb 9.1 L (11.4-16.0) gm/dL Hct 29.3 L (34.0-46.0) % Sodium 136 L (137-145) mmol/L Creatinine 0.51 L (0.52-1.04) mg/dL Glucose 141 H (74-99) mg/dL Calcium 8.2 L (8.4-10.2) mg/dL Microbiology - Last 24 Hours (Table) 10/23/17 07:10 Blood Culture - Preliminary Blood No Growth after 48 hours 10/24/17 07:07 Blood Culture - Preliminary Blood No Growth after 24 hours 10/22/17 19:40 Anaerobic Culture - Preliminary Back 10/22/17 09:39 Blood Culture Gram Stain - Final Blood Blood Culture - Final Methicillin resist S. aureus 10/22/17 19:40 Anaerobic Culture - Preliminary Back 10/22/17 19:40 Gram Stain - Final Back Wound Culture - Final Methicillin resist S. aureus 10/22/17 19:40 Gram Stain - Final Back Wound Culture - Final Methicillin resist S. aureus Assessment and Plan Plan: Assessment and Plan Assessment: Acute intractable lower back pain likely due to epidural abscess, blood cultures from are negative continue with IV vancomycin. Patient is status post incision and drainage of epidural abscess. Patient is status post incision and drainage of the epidural abscess, continued bacteremia Plavix is being held. Patient will not need Plavix upon discharge Leukocytosis with WBC count 16,000. Secondary to MRSA bacteremia Gram-negative bacilli urinary tract infection Sepsis secondary to MRSA bacteremia and UTI, is also on Rocephin Recent COPD exacerbation and completed steroids 2 days prior to admission. Hypertension Hyperlipidemia Osteoarthritis Anxiety and depression History of coronary artery disease status post and placement DVT prophylaxis Morbid obesity with BMI 46.9
--- NOTE | 2017-10-25 17:02 | PN ---
PROGRESS NOTE DATE OF SERVICE: 10/25/2017 REASON FOR FOLLOWUP: MRSA bacteremia secondary to lumbosacral spine abscess. INTERVAL HISTORY: The patient is currently afebrile. Her back pain is currently controlled. Denies having any chest pain, shortness of breath or cough. No abdominal pain or any diarrhea. PHYSICAL EXAMINATION: Blood pressure 134/61 with a pulse of 79, temperature 96.8. She is 92% on 3 L nasal cannula. General description is a middle-aged female up in the bed in no distress. RESPIRATORY SYSTEM: Unlabored breathing. Clear to auscultation anteriorly. HEART: S1, S2. Regular rate and rhythm. ABDOMEN: Soft. No tenderness. EXTREMITIES: No edema of the feet. LABS: Hemoglobin is 9.1, white count 13,000, BUN of 11, creatinine 0.51. Blood cultures from 10/24 and 10/23 have been negative. DIAGNOSTIC IMPRESSION AND PLAN: Patient with methicillin-resistant Staphylococcus aeruginosa bacteremia secondary to lumbosacral spine abscess, status post drainage of this abscess. Blood culture from 10/23 has been negative. Recommend this to be negative for at least 7 to 12 before placing a PICC line for outpatient IV vancomycin, Pharmacy to dose, target of 15, with weekly monitoring of CBC and BMP and a sed rate. Continue with supportive care. MMODL / IJN: [id number] /
[2017-10-25] MEDS: VANCOMYCIN 2,250 MG in SODIUM CHLORIDE 0.9% 500 ML IVPB SCH (21:05)
[2017-10-25] MEDS: ATORVASTATIN 40 MG TAB PO SCH (21:06)
[2017-10-25] MEDS: DULoxetine HCL 60 MG CAPSULE.DR PO SCH (21:06)
[2017-10-26] MEDS: KETOROLAC 30 MG/ML 1 ML VIAL IVP PRN ×3 (01:44→16:29)
[2017-10-26] MEDS: HYDROmorphone 2 MG TAB PO PRN ×4 (02:23→19:18)
[2017-10-26 07:42] LABS: Anion Gap 5 mmol/L; Blood Urea Nitrogen 9 mg/dL (7-17); Calcium 8.6 mg/dL (8.4-10.2); Carbon Dioxide 32 mmol/L (22-30); Chloride 102 mmol/L (98-107); Glucose 92 mg/dL (74-99); Potassium 4.3 mmol/L (3.5-5.1); Sodium 139 mmol/L (137-145)
[2017-10-26] MEDS: HEPARIN SODIUM,PORCINE 5,000 UNIT/ML 1 ML VIAL SQ SCH ×3 (08:30→23:55)
[2017-10-26] MEDS: PANTOPRAZOLE 40 MG TABLET PO SCH (08:30)
[2017-10-26] MEDS: LOSARTAN 50 MG TAB PO SCH (08:30)
[2017-10-26] MEDS: GABAPENTIN 300 MG CAP PO SCH ×3 (08:30→21:10)
[2017-10-26] MEDS: ASPIRIN 81 MG PO SCH (08:30)
[2017-10-26] MEDS: VANCOMYCIN 2,250 MG in SODIUM CHLORIDE 0.9% 500 ML IVPB SCH ×2 (08:30→20:22)
[2017-10-26] MEDS: CARVEDILOL 12.5 MG TAB PO SCH ×2 (08:30→16:30)
[2017-10-26] MEDS: IPRATROPIUM-ALBUTEROL 3 ML NEB INHALATION SCH ×4 (08:39→20:18)
[2017-10-26] MEDS: SYMBICORT 160-4.5 MCG INHALER INHALATION SCH ×2 (08:40→20:18)
--- NOTE | 2017-10-26 10:09 | P.PN ---
Progress Note - Text Progress Note Date: 10/26/17 Patient is seen and examined today. She is improving appropriately and feels her back and lower extremities are making progress. The site is clear without any purulence or swelling or drainage. Status post laminectomy decompression for her epidural abscess and facet abscess L4 5 Patient is improving appropriately and will continue IV antibiotics. Her blood cultures have been negative and are planning for her to have a PICC line placed for long-term antibiotics on Saturday. She is okay for discharge when she has her antibiotic routine established per infectious disease. We do not have plans of acute further surgery at this point and we should follow her up in approximately 2 weeks or sooner if she is having any problems.
--- NOTE | 2017-10-26 15:01 | P.PN ---
Subjective Progress Note Date: 10/26/17 10/26/17 Patient is seen and examined today. She is improving appropriately and feels her back and lower extremities are making progress. The site is clear without any purulence or swelling or drainage. Status post laminectomy decompression for her epidural abscess and facet abscess L4 5 Patient is improving appropriately and will continue IV antibiotics. Her blood cultures have been negative and are planning for her to have a PICC line placed for long-term antibiotics on Saturday. She is okay for discharge when she has her antibiotic routine established per infectious disease. We do not have plans of acute further surgery at this point and we should follow her up in approximately 2 weeks or sooner if she is having any problems. Patient probably will receive PICC line on Saturday and will be discharged to subacute rehabilitation on the day. Objective - Vital Signs Vital signs: Vital Signs Temp 97.9 F 10/26/17 05:46 Pulse 90 10/26/17 08:55 Resp 18 10/26/17 05:46 BP 137/64 10/26/17 05:46 Pulse Ox 94 L 10/26/17 05:46 Intake & Output 10/25/17 10/26/17 10/26/17 18:59 06:59 18:59 Intake Total 520 1040 500 Balance 520 1040 500 Weight 109.3 kg Intake: Intake, IV Titration 560 500 Amount Sodium Chloride 0.9% 1, 60 000 ml @ 0 mls/hr IV .[facility] Rx#:[id number] Vancomycin 2,250 mg In 500 500 Sodium Chloride 0.9% 500 ml @ 167 mls/hr IVPB Q12HR COUNT INCLUDES THE [facility] Rx#:[id number] Oral 520 480 Other: Voiding Method Bedside Commode Toilet Toilet # Voids 1 2 # Bowel Movements 1 - Exam GENERAL: The patient is drowsy secondary to opiates for pain, not in any acute distress. Well developed, well nourished. HEENT: Pupils are round and equally reacting to light. EOMI. No scleral icterus. No conjunctival pallor. Normocephalic, atraumatic. No pharyngeal erythema. No thyromegaly. CARDIOVASCULAR: S1 and S2 present. No murmurs, rubs, or gallops. PULMONARY: Chest is clear to auscultation, no wheezing or crackles. ABDOMEN: Soft, nontender, nondistended, normoactive bowel sounds. No palpable organomegaly. MUSCULOSKELETAL: Mild low back tenderness bilaterally. EXTREMITIES: No cyanosis, clubbing, or pedal edema. NEUROLOGICAL: Gross neurological examination did not reveal any focal deficits. SKIN: No rashes. - Labs CBC & Chem 7: 10/25/17 08:11 10/26/17 07:14 Labs: Abnormal Lab Results - Last 24 Hours (Table) 10/26/17 Range/Units 07:14 Carbon Dioxide 32 H (22-30) mmol/L Creatinine 0.48 L (0.52-1.04) mg/dL Microbiology - Last 24 Hours (Table) 10/25/17 08:11 Blood Culture - Preliminary Blood No Growth after 24 hours 10/23/17 07:10 Blood Culture - Preliminary Blood No Growth after 72 hours 10/24/17 07:07 Blood Culture - Preliminary Blood No Growth after 48 hours Assessment and Plan Plan: Acute intractable lower back pain likely due to epidural abscess, blood cultures from are negative continue with IV vancomycin. Patient is status post incision and drainage of epidural abscess. Patient is status post incision and drainage of the epidural abscess, continued bacteremia Plavix is being held. Patient will not need Plavix upon discharge Leukocytosis with WBC count 16,000. Secondary to MRSA bacteremia Gram-negative bacilli urinary tract infection Sepsis secondary to MRSA bacteremia and UTI, is also on Rocephin Recent COPD exacerbation and completed steroids 2 days prior to admission. Hypertension Hyperlipidemia Osteoarthritis Anxiety and depression History of coronary artery disease status post and placement DVT prophylaxis Morbid obesity with BMI 46.9 Time with Patient: Greater than 30
[2017-10-26] MEDS: ACETAMINOPHEN TAB 325 MG TAB PO PRN ×2 (15:25→20:21)
[2017-10-26] MEDS: DULoxetine HCL 60 MG CAPSULE.DR PO SCH (20:22)
[2017-10-26] MEDS: ATORVASTATIN 40 MG TAB PO SCH (20:22)
[2017-10-26] MEDS: CYCLOBENZAPRINE 10 MG TAB PO PRN (21:11)
[2017-10-27] MEDS: HYDROmorphone 2 MG TAB PO PRN ×4 (01:04→19:41)
[2017-10-27] MEDS ORDERED: METOPROLOL TARTRATE 50 MG TAB PO SCH (06:21)
[2017-10-27] MEDS ORDERED: METOPROLOL TARTRATE 50 MG TAB PO ONE (06:30)
[2017-10-27] MEDS: ACETAMINOPHEN TAB 325 MG TAB PO PRN (06:53)
[2017-10-27] MEDS: IPRATROPIUM-ALBUTEROL 3 ML NEB INHALATION SCH ×4 (07:09→19:55)
[2017-10-27] MEDS: SYMBICORT 160-4.5 MCG INHALER INHALATION SCH ×2 (07:09→19:55)
[2017-10-27 07:26] LABS: Anion Gap 7 mmol/L; Blood Urea Nitrogen 9 mg/dL (7-17); Calcium 8.8 mg/dL (8.4-10.2); Carbon Dioxide 31 mmol/L (22-30); Chloride 100 mmol/L (98-107); Glucose 108 mg/dL (74-99); Potassium 4.6 mmol/L (3.5-5.1); Sodium 138 mmol/L (137-145)
[2017-10-27] MEDS: CARVEDILOL 12.5 MG TAB PO SCH ×2 (07:40→16:38)
[2017-10-27] MEDS: HEPARIN SODIUM,PORCINE 5,000 UNIT/ML 1 ML VIAL SQ SCH ×3 (07:40→23:57)
[2017-10-27] MEDS: ASPIRIN 81 MG PO SCH (07:40)
[2017-10-27] MEDS: LOSARTAN 50 MG TAB PO SCH (07:41)
[2017-10-27] MEDS: PANTOPRAZOLE 40 MG TABLET PO SCH (07:41)
[2017-10-27] MEDS: GABAPENTIN 300 MG CAP PO SCH ×3 (07:41→21:25)
[2017-10-27] MEDS: VANCOMYCIN 2,250 MG in SODIUM CHLORIDE 0.9% 500 ML IVPB SCH ×2 (07:45→21:25)
--- NOTE | 2017-10-27 12:30 | P.PN ---
Progress Note - Text Progress Note Date: 10/27/17 Orthopedic Spine: Patient is a pleasant 57-year-old female who is seen at the bedside following L4 -5 laminectomy and decompression with irrigation and excisional debridement of epidural abscess with partial facetectomy performed Saturday. She has continued to have significant improvement of her symptoms. She is not currently experiencing significant low back pain when she was previously. She does have some soreness and spasm this morning at the surgical site. She is not currently experiencing any lower extremity radiculopathy symptoms. She is very happy with her progress postsurgically. She is sitting upright in a bedside chair without difficulty. She has been working with physical therapy. She is eating and voiding without difficulty. She states she is currently planned to have PICC line placement today with discharge to [facility] this coming 10/28/2017. Recent blood cultures have shown no growth. She continues to be seen and examined by medicine and infectious disease. She continues to receive vancomycin and Rocephin. Currently does not complain of nausea, vomiting, fever, or chills. She did have an episode of SVT this morning. She was prescribed Lopressor and Flexeril by medicine and her symptoms have improved since that time. She is in normal sinus rhythm and feels her back spasms have improved. Physical Exam Laminectomy/Discectomy: Status post surgical day number 5 Patient is awake, alert, and oriented 3 Vital signs stable Good chest excursion with deep inspiration and expiration Dorsiflexion, plantarflexion, and extensor hallucis longus positive sustained bilaterally No signs or symptoms of DVT; no calf pain Pneumatic cuffs intact bilateral lower extremities 1+ pitting edema bilateral lower extremity Dressing is dry and intact with some dried blood over the dressing; no erythema , purulence, or signs of infection No significant pain with palpation around the surgical site Pertinent studies: CBC taken on 10/23/2017: WBC 19.2 Neutrophils 16.8 Blood culture result on 10/23/2017: No growth after 24 hours Gram stain and culture result at 10/22/2017: Methicillin resistant staph aureus CBC taken on 10/23/2017: WBC 19.2 Neutrophils 16.8 Blood culture taken on 10/21/2017: Methicillin resistant staph aureus Urine culture taken on 10/19/2017: E.coli Assessment: L4-5 laminectomy and decompression with irrigation and excisional debridement of epidural abscess with partial facetectomy Intractable low back pain line epidural abscess L4-5 Bacteremia, proved Urinary tract infection Plan: 1. Ambulate as tolerated; work with Physical Therapy; increase ambulation today 2. Continue Pain control with medications as prescribed by medicine 3. Patient will continue to be followed by medicine and infectious disease for further evaluation and treatment in regards to her medical diagnoses; patient is currently scheduled for PICC line placement today with discharge to [facility] this coming Saturday, 2017 4. We will continue to follow the patient closely 5. Following discharge, Patient can follow-up with Sky Otero PA-C or Dr. Jose Waite at [facility] in 1-2 days following discharge 6. Patient has been discussed in detail with Dr. Jose Waite and he agrees with this plan
--- NOTE | 2017-10-27 14:24 | P.PN ---
Subjective Progress Note Date: 10/27/17 10/26/17 Patient is seen and examined today. She is improving appropriately and feels her back and lower extremities are making progress. The site is clear without any purulence or swelling or drainage. Status post laminectomy decompression for her epidural abscess and facet abscess L4 5 Patient is improving appropriately and will continue IV antibiotics. Her blood cultures have been negative and are planning for her to have a PICC line placed for long-term antibiotics on Saturday. She is okay for discharge when she has her antibiotic routine established per infectious disease. We do not have plans of acute further surgery at this point and we should follow her up in approximately 2 weeks or sooner if she is having any problems. Patient probably will receive PICC line on Saturday and will be discharged to subacute rehabilitation on Saturday10/27/2017 Status post surgical day number 5; Patient is awake, alert, and oriented 3; Vital signs stable No signs or symptoms of DVT; no calf pain; Pneumatic cuffs intact bilateral lower extremities; 1+ pitting edema bilateral lower extremity Dressing is dry and intact with some dried blood over the dressing; no erythema , purulence, or signs of infection No significant pain with palpation around the surgical site Patient is scheduled for PICC line placement and is to be discharged to [facility] on 10/28/2017 for IV antibiotic therapy Objective - Vital Signs Vital signs: Vital Signs Temp 99.4 F 10/27/17 05:30 Pulse 102 H 10/27/17 08:00 Resp 17 10/27/17 05:30 BP 148/70 10/27/17 05:30 Pulse Ox 95 10/27/17 07:08 Intake & Output 10/26/17 10/27/17 10/27/17 18:59 06:59 18:59 Intake Total 500 1560 Balance 500 1560 Intake: Intake, IV Titration 500 500 Amount Vancomycin 2,250 mg In 500 500 Sodium Chloride 0.9% 500 ml @ 167 mls/hr IVPB Q12HR [facility] Rx#:[id number] Oral 1060 Other: Voiding Method Toilet Toilet Toilet # Voids 3 3 - Exam GENERAL: The patient is drowsy secondary to opiates for pain, not in any acute distress. Well developed, well nourished. HEENT: Pupils are round and equally reacting to light. EOMI. No scleral icterus. No conjunctival pallor. Normocephalic, atraumatic. No pharyngeal erythema. No thyromegaly. CARDIOVASCULAR: S1 and S2 present. No murmurs, rubs, or gallops. PULMONARY: Chest is clear to auscultation, no wheezing or crackles. ABDOMEN: Soft, nontender, nondistended, normoactive bowel sounds. No palpable organomegaly. MUSCULOSKELETAL: Mild low back tenderness bilaterally. EXTREMITIES: No cyanosis, clubbing, or pedal edema. NEUROLOGICAL: Gross neurological examination did not reveal any focal deficits. SKIN: No rashes. - Labs CBC & Chem 7: 10/25/17 08:11 10/27/17 06:47 Labs: Abnormal Lab Results - Last 24 Hours (Table) 10/27/17 Range/Units 06:47 Carbon Dioxide 31 H (22-30) mmol/L Glucose 108 H (74-99) mg/dL Microbiology - Last 24 Hours (Table) 10/25/17 08:11 Blood Culture - Preliminary Blood No Growth after 48 hours 10/23/17 07:10 Blood Culture - Preliminary Blood No Growth after 96 hours 10/24/17 07:07 Blood Culture - Preliminary Blood No Growth after 72 hours 10/22/17 19:40 Anaerobic Culture - Final Back 10/22/17 19:40 Anaerobic Culture - Final Back Assessment and Plan Plan: Acute intractable lower back pain likely due to epidural abscess, blood cultures from are negative continue with IV vancomycin. Patient is status post incision and drainage of epidural abscess. Patient is status post incision and drainage of the epidural abscess, continued bacteremia Plavix is being held. Patient will not need Plavix upon discharge Leukocytosis with WBC count 16,000. Secondary to MRSA bacteremia Gram-negative bacilli urinary tract infection Sepsis secondary to MRSA bacteremia and UTI, is also on Rocephin Recent COPD exacerbation and completed steroids 2 days prior to admission. Hypertension Hyperlipidemia Osteoarthritis Anxiety and depression History of coronary artery disease status post and placement DVT prophylaxis Morbid obesity with BMI 46.9 Time with Patient: Greater than 30
[2017-10-27] MEDS: KETOROLAC 30 MG/ML 1 ML VIAL IVP PRN ×2 (16:38→22:42)
[2017-10-27] MEDS: ATORVASTATIN 40 MG TAB PO SCH (19:41)
[2017-10-27] MEDS: DULoxetine HCL 60 MG CAPSULE.DR PO SCH (19:41)
[2017-10-27] MEDS ORDERED: VANCOMYCIN TROUGH DUE 1 EACH MISC MISCELLANE ONE (20:00)
[2017-10-27] MEDS: CYCLOBENZAPRINE 10 MG TAB PO PRN (21:25)
[2017-10-28] MEDS: KETOROLAC 30 MG/ML 1 ML VIAL IVP PRN (03:57)
--- NOTE | 2017-10-28 06:12 | PN ---
PROGRESS NOTE DATE OF SERVICE: 10/27/2017. REASON FOR FOLLOWUP: MRSA bacteremia secondary to L5-S1 abscess. INTERVAL HISTORY: The patient is currently afebrile. She is feeling better today. She did mention she did have some back spasm earlier today. Subsequently did have some improvement with the pain medication. Denies any chest pain, shortness of breath or cough. No abdominal pain. No diarrhea. EXAMINATION: Blood pressure is 116/58 with a pulse of 77. Temperature 97.1. She is 91% on room air. General description is a middle aged female up in the bed in no distress. RESPIRATORY SYSTEM: Unlabored breathing. Clear to auscultation. HEART: S1, S2. Regular rate and rhythm. ABDOMEN: Soft, no tenderness. LABS: BUN of 9, creatinine 0.55. Vanco level is therapeutic at 16.6. Blood cultures 10/23 and 10/24 have been negative. DIAGNOSTIC IMPRESSION AND PLAN: Patient with MRSA bacteremia secondary L5-S1 abscess, status post drainage of the same. Follow up blood culture has been negative. Currently on vancomycin and should continue to finish a 6-week course of therapy. PICC line to be placed tomorrow. Continue supportive care. MMODL / IJN: [id number] /
[2017-10-28] MEDS: SYMBICORT 160-4.5 MCG INHALER INHALATION SCH ×2 (07:07→19:12)
[2017-10-28] MEDS: IPRATROPIUM-ALBUTEROL 3 ML NEB INHALATION SCH ×4 (07:09→19:12)
[2017-10-28 07:38] LABS: Basophils % (A) 0 %; Eosinophils # (A) 0.3 k/uL (0-0.7); Eosinophils % (A) 3 %; HCT 27.6 % (34.0-46.0); HGB 8.5 gm/dL (11.4-16.0); Hypochromasia Moderate; Lymphocytes # (A) 1.1 k/uL (1.0-4.8); Lymphocytes % (A) 11 %; MCH 29.2 pg (25.0-35.0); MCHC 30.6 g/dL (31.0-37.0); MCV 95.2 fL (80.0-100.0); Mean Platelet Volume 6.9; Monocytes # (A) 0.6 k/uL (0-1.0); Monocytes % (A) 6 %; Neutrophils # (A) 7.7 k/uL (1.3-7.7); Neutrophils % (A) 79 %; Platelet Count 286 k/uL (150-450); RDW 14.5 % (11.5-15.5); WBC 9.8 k/uL (3.8-10.6)
[2017-10-28] MEDS: PANTOPRAZOLE 40 MG TABLET PO SCH (07:38)
[2017-10-28] MEDS: CARVEDILOL 12.5 MG TAB PO SCH ×2 (07:38→17:18)
[2017-10-28] MEDS: HEPARIN SODIUM,PORCINE 5,000 UNIT/ML 1 ML VIAL SQ SCH ×3 (07:38→23:33)
[2017-10-28] MEDS: ASPIRIN 81 MG PO SCH (07:38)
[2017-10-28] MEDS: LOSARTAN 50 MG TAB PO SCH (07:39)
[2017-10-28] MEDS: GABAPENTIN 300 MG CAP PO SCH ×3 (07:39→21:26)
[2017-10-28] MEDS: VANCOMYCIN 2,250 MG in SODIUM CHLORIDE 0.9% 500 ML IVPB SCH ×2 (07:39→21:25)
[2017-10-28 07:53] LABS: Anion Gap 4 mmol/L; Blood Urea Nitrogen 9 mg/dL (7-17); Calcium 8.6 mg/dL (8.4-10.2); Carbon Dioxide 33 mmol/L (22-30); Chloride 101 mmol/L (98-107); Glucose 86 mg/dL (74-99); Potassium 4.4 mmol/L (3.5-5.1); Sodium 138 mmol/L (137-145)
--- NOTE | 2017-10-28 08:49 | P.PN ---
Progress Note - Text Progress Note Date: 10/28/17 Orthopedic Spine: Patient is a pleasant 57-year-old female who is seen at the bedside following L4 -5 laminectomy and decompression with irrigation and excisional debridement of epidural abscess with partial facetectomy performed Saturday. She has continued to have significant improvement of her symptoms. She is not currently experiencing significant low back pain when she was previously. She experienced some increased low back pain yesterday but states she feels significantly improved this morning. She is not currently experiencing any lower extremity radiculopathy symptoms. She is very happy with her progress postsurgically. She is sitting upright in a bedside chair without difficulty. She has been working with physical therapy. She is eating and voiding without difficulty. She states she is currently planned to have PICC line placement today with discharge to [facility] this coming today 2017. Recent blood cultures have shown no growth. She continues to be seen and examined by medicine and infectious disease. She continues to receive vancomycin and Rocephin. Currently does not complain of nausea, vomiting, fever , or chills. She did have an episode of SVT this yesterday, 10/27/2017. She was prescribed Lopressor and Flexeril by medicine and her symptoms have improved since that time. She is in normal sinus rhythm and feels her back spasms have improved. Physical Exam Laminectomy/Discectomy: Status post surgical day number 5 Patient is awake, alert, and oriented 3 Vital signs stable Good chest excursion with deep inspiration and expiration Dorsiflexion, plantarflexion, and extensor hallucis longus positive sustained bilaterally No signs or symptoms of DVT; no calf pain Pneumatic cuffs intact bilateral lower extremities 1+ pitting edema bilateral lower extremity Dressing is dry and intact with some dried blood over the dressing; no erythema , purulence, or signs of infection No significant pain with palpation around the surgical site Pertinent studies: CBC taken on 10/28/2017: WBC 9.8 Neutrophils 7.7 Hemoglobin 8.5 Hematocrit 27.6 RBC 2.9 Blood culture resulted on 10/25/2017: No growth after 48 hours CBC taken on 10/23/2017: WBC 19.2 Neutrophils 16.8 Blood culture result on 10/23/2017: No growth after 24 hours Gram stain and culture result at 10/22/2017: Methicillin resistant staph aureus CBC taken on 10/23/2017: WBC 19.2 Neutrophils 16.8 Blood culture taken on 10/21/2017: Methicillin resistant staph aureus Urine culture taken on 10/19/2017: E.coli Assessment: L4-5 laminectomy and decompression with irrigation and excisional debridement of epidural abscess with partial facetectomy Intractable low back pain line epidural abscess L4-5 Bacteremia, proved Urinary tract infection Plan: 1. Ambulate as tolerated; work with Physical Therapy; increase ambulation today 2. Continue Pain control with medications as prescribed by medicine; due to her recent GI bleed and difficulty with narcotic medications during her admittance to the hospital, we'll plan for medicine to prescribe her pain medications at discharge as they have been prescribing and monitoring her medications during this admission 3. Patient will continue to be followed by medicine and infectious disease for further evaluation and treatment in regards to her medical diagnoses; patient is currently scheduled for PICC line placement today with discharge to [facility] this today, 10/28/2017 4. Patient is clear for discharge from an orthopedic spine standpoint; we'll plan to have the patient follow-up in outpatient setting 5. Following discharge, Patient can follow-up with Sky Otero PA-C or Dr. Jose Waite at [facility] in 1 week following discharge 6. Patient has been discussed in detail with Dr. Jose Waite and he agrees with this plan
[2017-10-28] MEDS: CYCLOBENZAPRINE 10 MG TAB PO PRN ×2 (09:51→22:33)
[2017-10-28] MEDS: ACETAMINOPHEN TAB 325 MG TAB PO PRN ×2 (13:59→18:52)
[2017-10-28] MEDS: traMADol 50 MG TAB PO PRN ×2 (15:53→21:28)
[2017-10-28] MEDS: NYSTATIN 100,000 UNIT/ML SUSP 500,000 UNIT/5 ML CUP PO SCH ×2 (15:53→21:26)
--- NOTE | 2017-10-28 17:21 | PN ---
PROGRESS NOTE DATE OF SERVICE: 10/28/2017. REASON FOR FOLLOWUP: MRSA bacteremia secondary to lumbosacral spine abscess. INTERVAL HISTORY: The patient is currently afebrile. She is breathing comfortably. Denies having any chest pain, shortness of breath, cough. No abdominal pain. Back pain is currently controlled. No diarrhea or any urinary symptoms. EXAMINATION: Blood pressure 142/64 with a pulse of 74, temperature 98, she is 92% on 3 L nasal cannula. General description is a middle-aged female up in the bed in no distress. Respiratory system: Unlabored breathing. Clear to auscultation anteriorly. Heart is S1, S2. Regular rate and rhythm. Abdomen soft, no tenderness. LABS: Hemoglobin 8.5, white count 9.8. BUN of 9, creatinine 0.49. DIAGNOSTIC IMPRESSION AND PLAN: Patient with MRSA bacteremia secondary to lumbosacral spine abscess status post drainage. Blood cultures 10/22 to 10/25 has been negative. The patient will get a PICC line today for continuation of IV vancomycin, pharmacy to dose in outpatient setting. Continue supportive care. MMODL / IJN: [id number] /
--- NOTE | 2017-10-28 18:46 | P.PN ---
Subjective Progress Note Date: 10/28/17 Prognosis note being dictated for Dr. Smith Interval history:57-year-old female admitted for back pain found to be septic and bacteremia persistent bacteremia with MRSA concern discitis septic, patient is on IV vancomycin. Patient is also being treated for urinary tract infection had, E. coli in the urine and is on Rocephin infectious disease evaluated the patient patient is being followed by spinal surgeon as well. There is no obvious abscess patient will go for MRI. Repeat blood cultures tomorrow. Still complaining of severe low back pain. 10/22/2017 Patient is found to have epidural abscess so far doesn't have any focal weaknesses now. P having the severe end/10 pain we'll increase the frequency of morphine and patient will undergo surgery today for epidural abscess. 10/23/2017 Patient underwent laminectomy and decompression of L4-L5 irrigation to bride meant of epidural abscess L4-L5 and partial medial facetectomy L4-L5 and cultures were obtained. Postoperatively patient was confused and agitated improved symptoms with Haldol. As patient confusion secondary to excess opiate use which are being discontinued and patient the will be started on Toradol for pain along with GI prophylaxis. Patient's blood cultures from are positive for MRSA we'll repeat blood cultures tomorrow as well 10/24/2017 Patient the blood cultures are positive, patient's back pain improved significantly patient did move her bowel. 10/25/2017 Pain is better so far blood cultures from my are negative. Patient probably will receive PICC line on Saturday and will be discharged to subacute rehabilitation on the day. Constitutional: Denied any fatigue denied any fever. Cardio vascular: denied any chest pain, palpitations Gastrointestinal denied any nausea vomiting Pulmonary: Denied any shortness of breath cough Neurologic denied any new focal deficits 10/26/17 Patient is seen and examined today. She is improving appropriately and feels her back and lower extremities are making progress. The site is clear without any purulence or swelling or drainage. Status post laminectomy decompression for her epidural abscess and facet abscess L4 5 Patient is improving appropriately and will continue IV antibiotics. Her blood cultures have been negative and are planning for her to have a PICC line placed for long-term antibiotics on Saturday. She is okay for discharge when she has her antibiotic routine established per infectious disease. We do not have plans of acute further surgery at this point and we should follow her up in approximately 2 weeks or sooner if she is having any problems. Patient probably will receive PICC line on Saturday and will be discharged to subacute rehabilitation on Saturday10/27/2017 Status post surgical day number 5; Patient is awake, alert, and oriented 3; Vital signs stable No signs or symptoms of DVT; no calf pain; Pneumatic cuffs intact bilateral lower extremities; 1+ pitting edema bilateral lower extremity Dressing is dry and intact with some dried blood over the dressing; no erythema , purulence, or signs of infection No significant pain with palpation around the surgical site Patient is scheduled for PICC line placement and is to be [facility] 10/28/2017 for IV antibiotic therapy 10/28/2017. Pain/spasms controlled. Maintained on IV antibiotics as per infectious disease for MRSA bacteremia secondary to lumbosacral spine abscess. PICC line placement pending .Good diet intake with no nausea vomiting. Denies abdominal pain. T-max 99.7. Repeat blood cultures negative. Telemetry reports yesterday patient had a run of atrial fibrillation, heart rates in the 120s. Placed on beta anastacia, converted to sinus rhythm. Objective - Vital Signs Vital signs: Vital Signs Temp 99.7 F H 10/28/17 16:00 Pulse 110 H 10/28/17 17:19 Resp 20 10/28/17 16:00 BP 123/71 10/28/17 16:00 Pulse Ox 90 L 10/28/17 16:00 Intake & Output 10/27/17 10/28/17 10/28/17 18:59 06:59 18:59 Intake Total 500 2260 500 Balance 500 2260 500 Intake: Intake, IV Titration 500 600 500 Amount Sodium Chloride 0.9% 1, 100 000 ml @ 0 mls/hr IV .K [facility] Rx#:[id number] Vancomycin 2,250 mg In 500 500 500 Sodium Chloride 0.9% 500 ml @ 167 mls/hr IVPB Q12HR [facility] Rx#:[id number] Oral 1660 Other: Voiding Method Toilet Toilet Toilet # Voids 2 - Exam GENERAL: Alert and oriented 3, no acute distress. HEENT: Pupils are round and equally reacting to light. EOMI. No scleral icterus. No conjunctival pallor. Normocephalic, atraumatic. No pharyngeal erythema. No thyromegaly. CARDIOVASCULAR: S1 and S2 present. No murmurs, rubs, or gallops. PULMONARY: Chest is clear to auscultation, no wheezing or crackles. ABDOMEN: Soft, nontender, nondistended, normoactive bowel sounds. No palpable organomegaly. MUSCULOSKELETAL: Mild low back tenderness bilaterally. EXTREMITIES: Mild pedal edema. Abdominal dressing clean dry and intact NEUROLOGICAL: Gross neurological examination did not reveal any focal deficits. Microbiology 10/25/17 08:11 Blood Blood Culture - Preliminary No Growth after 72 hours 10/23/17 07:10 Blood Blood Culture - Preliminary No Growth after 120 hours 10/24/17 07:07 Blood Blood Culture - Preliminary No Growth after 96 hours 10/22/17 09:39 Blood Blood Culture Gram Stain - Final 10/22/17 09:39 Blood Blood Culture - Final Methicillin resist S. aureus 10/22/17 19:40 Back Anaerobic Culture - Final 10/22/17 19:40 Back Anaerobic Culture - Final 10/22/17 19:40 Back Gram Stain - Final 10/22/17 19:40 Back Wound Culture - Final Methicillin resist S. aureus 10/22/17 19:40 Back Gram Stain - Final 10/22/17 19:40 Back Wound Culture - Final Methicillin resist S. aureus 10/21/17 05:52 Blood Blood Culture Gram Stain - Final 10/21/17 05:52 Blood Blood Culture - Final Methicillin resist S. aureus 10/22/17 09:39 Blood Blood Culture - Final 10/19/17 23:22 Blood Blood Culture Gram Stain - Final 10/19/17 23:22 Blood Blood Culture - Final Methicillin resist S. aureus 10/19/17 05:59 Blood Blood Culture Gram Stain - Final 10/19/17 05:59 Blood Blood Culture - Final Methicillin resist S. aureus 10/21/17 05:52 Blood Blood Culture - Final 10/19/17 06:21 Urine,Catheterized Urine Culture - Final Escherichia coli 10/19/17 23:22 Blood Blood Culture - Final 10/19/17 05:59 Blood Blood Culture - Final - Labs CBC & Chem 7: 10/28/17 06:55 10/28/17 06:55 Labs: Abnormal Lab Results - Last 24 Hours (Table) 10/28/17 10/28/17 Range/Units 06:55 06:55 RBC 2.90 L (3.80-5.40) m/uL Hgb 8.5 L (11.4-16.0) gm/dL Hct 27.6 L (34.0-46.0) % MCHC 30.6 L (31.0-37.0) g/dL Carbon Dioxide 33 H (22-30) mmol/L Creatinine 0.49 L (0.52-1.04) mg/dL Microbiology - Last 24 Hours (Table) 10/25/17 08:11 Blood Culture - Preliminary Blood No Growth after 72 hours 10/23/17 07:10 Blood Culture - Preliminary Blood No Growth after 120 hours 10/24/17 07:07 Blood Culture - Preliminary Blood No Growth after 96 hours 10/22/17 09:39 Blood Culture Gram Stain - Final Blood Blood Culture - Final Methicillin resist S. aureus Assessment and Plan Assessment: Acute intractable lower back pain related to MRSA bacteremia secondary to lumbosacral spine abscess status post I&D. As Patient is status post incision and drain of the epidural abscess, continued bacteremia ,Plavix is being held. Patient will not need Plavix upon discharge. Leukocytosis Secondary to MRSA bacteremia Acute UTI with E. coli Sepsis secondary to MRSA bacteremia and UTI, is also on Rocephin Recent COPD exacerbation and completed steroids 2 days prior to admission. Hypertension Hyperlipidemia Osteoarthritis Anxiety and depression History of coronary artery disease status post and placement DVT prophylaxis Morbid obesity with BMI 46.9 Possible new onset atrial fibrillation with RVR, workup in progress Plan: Continue on current medication regime ,monitoring and symptomatic treatment. As mentioned above telemetry reporting isolated run of A. fib, heart rates in the 120s yesterday, workup in progress including cardiology consult, echo ordered. Magnesium level pending. Maintain remote telemetry monitoring. Pain management. Maintain IV antibiotics. Discharge planning in progress with PICC line placement pending. The impression and plan of care has been dictated as directed. : I performed a history and examination of this patient, discussed the same with the dictator. I agree with the dictator's note ,documented as a scribe. Any additional findings or plans will be noted.
[2017-10-28] MEDS ORDERED: METOPROLOL TARTRATE 25 MG TAB PO STA (20:32)
[2017-10-28] MEDS: SODIUM CHLORIDE 0.9% 1,000 ML IV SCH (21:25)
[2017-10-28] MEDS: ATORVASTATIN 40 MG TAB PO SCH (21:26)
[2017-10-28] MEDS: DULoxetine HCL 60 MG CAPSULE.DR PO SCH (21:26)
--- NOTE | 2017-10-28 22:39 | CT ---
EXAMINATION TYPE: CT angio chest DATE OF EXAM: 10/28/2017 10:25 PM COMPARISON: 10/14/2017 HISTORY: Elevated d-dimer. CT DLP: 681 mGycm Automated exposure control for dose reduction was used. CONTRAST: CTA scan of the thorax is performed with IV Contrast, patient injected with 86 mL of Isovue 370, pulm onary embolism protocol. There are 3-D post processed images.. FINDINGS: There is mild linear density at the lung bases. This is consistent with some mild consolidation and a telectasis.. There is mild pleural thickening at the posterior lung bases. There is no pleural effusion. There is no evidence of thoracic aortic aneurysm or dissection. Thoracic aorta is atheromatous. There are no filling defects in the pulmonary arteries. Bony thorax appears intact. There is no mediastina l adenopathy. IMPRESSION: NO EVIDENCE OF PULMONARY EMBOLISM. THERE IS INCREASING LINEAR INFILTRATE AND ATELECTASIS AT THE LUNG BASES COMPARED TO LAST EXAM.
[2017-10-29] MEDS: SODIUM CHLORIDE 0.9% 1,000 ML IV SCH ×2 (05:30→17:02)
[2017-10-29] MEDS: traMADol 50 MG TAB PO PRN ×2 (06:02→16:57)
[2017-10-29] MEDS: SYMBICORT 160-4.5 MCG INHALER INHALATION SCH (07:44)
[2017-10-29] MEDS: IPRATROPIUM-ALBUTEROL 3 ML NEB INHALATION SCH ×3 (07:44→17:00)
[2017-10-29] MEDS: NYSTATIN 100,000 UNIT/ML SUSP 500,000 UNIT/5 ML CUP PO SCH ×3 (08:11→16:59)
[2017-10-29] MEDS: GABAPENTIN 300 MG CAP PO SCH ×2 (08:11→16:00)
[2017-10-29] MEDS: CARVEDILOL 12.5 MG TAB PO SCH (08:11)
[2017-10-29] MEDS: HEPARIN SODIUM,PORCINE 5,000 UNIT/ML 1 ML VIAL SQ SCH ×2 (08:11→16:00)
[2017-10-29] MEDS: ASPIRIN 81 MG PO SCH (08:11)
[2017-10-29] MEDS: PANTOPRAZOLE 40 MG TABLET PO SCH (08:11)
[2017-10-29] MEDS: LOSARTAN 50 MG TAB PO SCH (08:11)
[2017-10-29] MEDS ORDERED: LIDOCAINE 1% INJ 10MG/ML (20 ML MDV) SQ ONE (08:48)
[2017-10-29] MEDS: VANCOMYCIN 2,250 MG in SODIUM CHLORIDE 0.9% 500 ML IVPB SCH (09:42)
--- NOTE | 2017-10-29 10:02 | CONS ---
CONSULTATION Mrs. Carrasquillo is a 57-year-old female who moved to our area about a year ago. She was admitted to the hospital with severe back discomfort on October 18, shortly after being discharged with an episode of GI bleeding. Patient was found to have an infectious process involving her back with diskitis, septic and MRSA. She underwent surgical intervention and has been receiving antibiotics. On the monitor, she had an episode of narrow complex tachycardia that appeared was regular and appears to be atrial tachycardia. There was one episode that could be aberrancy with atrial fibrillation. Patient has a known history of coronary artery disease, status post percutaneous revascularization last one done in 2014. Full details of that are not available to me. In June of this year, she underwent an echocardiogram that showed a preserved systolic function with no significant valvular disease. She is limited in her physical activity, but denying any exertional chest pain. She has dyspnea on exertion. No dizziness. No palpitation. No syncope. She is unaware of the arrhythmia, but according to her, she has been told that she has arrhythmia in a long time. She has no clear PND or orthopnea. She has some peripheral edema prior to admission that resolved. She continued to have back discomfort, although better at this time. Her coronary risk factors are remarkable for a history of smoking which she stopped about a month ago. She has a history off hypertension and hyperlipidemia. She is a non- diabetic. MEDICATION: Include Lipitor 40 mg daily, aspirin 81 mg daily, Coreg 12.5 mg twice a day, Symbicort, Cymbalta, Lasix, DuoNeb, Combivent, losartan 100 mg daily, potassium, amlodipine 10 mg daily. REVIEW OF SYSTEMS: RESPIRATORY SYSTEM: She has no recent wheezing. She has history of chronic obstructive lung disease, chronic dyspnea on exertion. GI SYSTEM: She had the GI bleeding recently without any recurrence. Her Plavix was held at that time. SYSTEM: No dysuria or hematuria. NERVOUS SYSTEM: No history of seizure. PHYSICAL EXAMINATION: She is a 57-year-old female, alert, oriented, in no apparent distress, obese, blood pressure 139/60 with a heart in 70s. HEAD: Normocephalic eyes sclerae anicteric neck good upstroke no bruit. LUNGS: Clear to auscultation. HEART: Regular rhythm S1, S2. No S3. No gallop. ABDOMEN: Soft, obese, nontender. Positive bowel sounds, no organomegaly. EXTREMITIES: No edema. LAB DATA: Revealed a BUN and creatinine of 9 and 0.49, potassium 4.4. Her D-dimer 1.26. Hemoglobin of 8.5. Her troponin less than 0.012. Her EKG when she was tachycardiac shows regular rhythm and tachycardic, probably atrial tachycardia or as SVT. No EKG is done when she is in sinus mechanism. IMPRESSION: 1. Sepsis with Methicillin-resistant Staphylococcus aureus, status post surgery on her back. 2. History of coronary artery disease, appears to be stable, no evidence of acute coronary artery syndrome. 3. Atrial tachycardia. 4. Recent episode of gastrointestinal bleeding. 5. History of hypertension. 6. Hyperlipidemia. 7. Chronic tobacco use with chronic obstructive lung disease. RECOMMENDATION: From the cardiac standpoint, I will increase the dose of Coreg to 25 mg twice a day. Will obtain an echocardiogram to evaluate her conduction. I will try to obtain the prior workup that was done by her material control analyst in . Depending on her progress, further recommendation will be made. At this time, I would not recommend anticoagulation in view of her rhythm and the fact that she had a recent episode of GI bleeding. Thank you for this consult. Will follow with you. MMODL / IJN: [id number] /
[2017-10-29] MEDS: CYCLOBENZAPRINE 10 MG TAB PO PRN (10:57)
--- NOTE | 2017-10-29 12:47 | PN ---
PROGRESS NOTE DATE OF SERVICE: 10/29/2017. REASON FOR FOLLOWUP: MRSA bacteremia secondary to L5-S1 abscess. INTERVAL HISTORY: The patient is currently afebrile. She is breathing comfortably. Complains of some low back pain though no worsening. Denies having any chest pain, shortness of breath or cough. No abdominal pain or diarrhea. PHYSICAL EXAMINATION: On examination, blood pressure 139/61 with a pulse of 79, temperature 98.8. She is 95% on 3 L nasal cannula. General description is a middle aged female lying in bed in no distress. RESPIRATORY SYSTEM: Unlabored breathing, clear to auscultation anteriorly. HEART: S1, S2. Regular rate and rhythm. ABDOMEN: Soft, no tenderness. LABS: Hemoglobin 8.5, white count 9.8 with a BUN of 9 creatinine 0.49. DIAGNOSTIC IMPRESSION AND PLAN: Patient with methicillin-resistant Staphylococcus aureus bacteremia secondary to the L5- S1 abscess, status post drainage. She did get a PICC line. Blood culture repeat has been negative. She will be continued on vancomycin pharmacy to dose target of 15 for a total of 6 weeks with close outpatient followup. Recommend monitoring of CBC, BMP and Sed rate. Continue supportive care. MMODL / IJN: [id number] /
--- NOTE | 2017-10-29 13:38 | P.DS ---
Providers Date of admission: 10/20/17 13:14 Expected date of discharge: 10/29/17 Attending physician: Lilian Smith Consults: 10/19/17 11:42 Consult Physician Routine Consulting Provider: Nahomy Waite Consult Reason/Comments: sciatica pain Do you want consulting provider notified?: Yes 10/20/17 11:11 Consult Physician Routine Consulting Provider: Zuly Herrera Consult Reason/Comments: blood culture + MRSA Do you want consulting provider notified?: Yes 10/28/17 18:29 Consult Physician Routine Consulting Provider: [facility] Consult Reason/Comments: afib,RVR Do you want consulting provider notified?: Yes Primary care physician: Stated None [facility] Course: Final Diagnoses: Acute intractable lower back pain related to MRSA bacteremia secondary to lumbosacral spine abscess status post I&D. As Patient is status post incision and drain of the epidural abscess, continued bacteremia ,Plavix is being held. Patient will not need Plavix upon discharge. Leukocytosis Secondary to MRSA bacteremia Acute UTI with E. coli Sepsis secondary to MRSA bacteremia and UTI, is also on Rocephin, status post PICC line placement Recent COPD exacerbation and completed steroids 2 days prior to admission. Hypertension Hyperlipidemia Osteoarthritis Anxiety and depression History of coronary artery disease status post and placement DVT prophylaxis Morbid obesity with BMI 46.9 Possible new onset atrial fibrillation with RVR,atrial tachycardia workup in progress CAD, arrhythmias evaluated by cardiology with no evidence of acute coronary syndrome, further workup outpatient recommended Hospital course:57-year-old female admitted for back pain found to be septic and bacteremia persistent bacteremia with MRSA concern discitis septic, patient is on IV vancomycin. Patient is also being treated for urinary tract infection had, E. coli in the urine and is on Rocephin infectious disease evaluated the patient patient is being followed by spinal surgeon as well. There is no obvious abscess patient will go for MRI. Repeat blood cultures tomorrow. Still complaining of severe low back pain. 10/22/2017 Patient is found to have epidural abscess so far doesn't have any focal weaknesses now. P having the severe end/10 pain we'll increase the frequency of morphine and patient will undergo surgery today for epidural abscess. 10/23/2017 Patient underwent laminectomy and decompression of L4-L5 irrigation to bride meant of epidural abscess L4-L5 and partial medial facetectomy L4-L5 and cultures were obtained. Postoperatively patient was confused and agitated improved symptoms with Haldol. As patient confusion secondary to excess opiate use which are being discontinued and patient the will be started on Toradol for pain along with GI prophylaxis. Patient's blood cultures from are positive for MRSA we'll repeat blood cultures tomorrow as well 10/24/2017 Patient the blood cultures are positive, patient's back pain improved significantly patient did move her bowel. 10/25/2017 Pain is better so far blood cultures from my 22nd are negative. Patient probably will receive PICC line on Saturday and will be discharged to subacute rehabilitation on the day. Constitutional: Denied any fatigue denied any fever. Cardio vascular: denied any chest pain, palpitations Gastrointestinal denied any nausea vomiting Pulmonary: Denied any shortness of breath cough Neurologic denied any new focal deficits 10/26/17 Patient is seen and examined today. She is improving appropriately and feels her back and lower extremities are making progress. The site is clear without any purulence or swelling or drainage. Status post laminectomy decompression for her epidural abscess and facet abscess L4 5 Patient is improving appropriately and will continue IV antibiotics. Her blood cultures have been negative and are planning for her to have a PICC line placed for long-term antibiotics on Saturday. She is okay for discharge when she has her antibiotic routine established per infectious disease. We do not have plans of acute further surgery at this point and we should follow her up in approximately 2 weeks or sooner if she is having any problems. Patient probably will receive PICC line on Saturday and will be discharged to subacute rehabilitation on Saturday10/27/2017 Status post surgical day number 5; Patient is awake, alert, and oriented 3; Vital signs stable No signs or symptoms of DVT; no calf pain; Pneumatic cuffs intact bilateral lower extremities; 1+ pitting edema bilateral lower extremity Dressing is dry and intact with some dried blood over the dressing; no erythema , purulence, or signs of infection No significant pain with palpation around the surgical site Patient is scheduled for PICC line placement and is to be discharged to [facility] on 10/28/2017 for IV antibiotic therapy 10/28/2017. Pain/spasms controlled. Maintained on IV antibiotics as per infectious disease for MRSA bacteremia secondary to lumbosacral spine abscess. PICC line placement pending .Good diet intake with no nausea vomiting. Denies abdominal pain. T-max 99.7. Repeat blood cultures negative. Telemetry reports yesterday patient had a run of atrial fibrillation, heart rates in the 120s. Placed on beta anastacia, converted to sinus rhythm. Evaluated by cardiology, no evidence of acute coronary syndrome, Coreg increased , echo obtained, prior cardiology records been obtained from patient's own [facility] room with further workup outpatient. No anticoagulation regarding her rhythm and history of GI bleed, recommended at this time. PICC line placed, DC antibiotics as per infectious disease. Cleared by consults for discharge. Patient is being discharged to [facility] subacute rehab in a stable condition with guarded prognosis. Exam GENERAL: Alert and oriented 3, no acute distress. CARDIOVASCULAR: S1 and S2 present. No murmurs, rubs, or gallops. PULMONARY: Chest is clear to auscultation, no wheezing or crackles. ABDOMEN: Soft, nontender, nondistended, normoactive bowel sounds. No palpable organomegaly. NEUROLOGICAL: Gross neurological examination did not reveal any focal deficits. Microbiology 10/25/17 08:11 Blood Blood Culture - Preliminary No Growth after 72 hours 10/23/17 07:10 Blood Blood Culture - Preliminary No Growth after 120 hours 10/24/17 07:07 Blood Blood Culture - Preliminary No Growth after 96 hours 10/22/17 09:39 Blood Blood Culture Gram Stain - Final 10/22/17 09:39 Blood Blood Culture - Final Methicillin resist S. aureus 10/22/17 19:40 Back Anaerobic Culture - Final 10/22/17 19:40 Back Anaerobic Culture - Final 10/22/17 19:40 Back Gram Stain - Final 10/22/17 19:40 Back Wound Culture - Final Methicillin resist S. aureus 10/22/17 19:40 Back Gram Stain - Final 10/22/17 19:40 Back Wound Culture - Final Methicillin resist S. aureus 10/21/17 05:52 Blood Blood Culture Gram Stain - Final 10/21/17 05:52 Blood Blood Culture - Final Methicillin resist S. aureus 10/22/17 09:39 Blood Blood Culture - Final 10/19/17 23:22 Blood Blood Culture Gram Stain - Final 10/19/17 23:22 Blood Blood Culture - Final Methicillin resist S. aureus 10/19/17 05:59 Blood Blood Culture Gram Stain - Final 10/19/17 05:59 Blood Blood Culture - Final Methicillin resist S. aureus 10/21/17 05:52 Blood Blood Culture - Final 10/19/17 06:21 Urine,Catheterized Urine Culture - Final Escherichia coli 10/19/17 23:22 Blood Blood Culture - Final 10/19/17 05:59 Blood Blood Culture - Final The impression and plan of care has been dictated as directed. : I performed a history and examination of this patient, discussed the same with the dictator. I agree with the dictator's note ,documented as a scribe. Any additional findings or plans will be noted. Time taken: 35 minutes Patient Condition at Discharge: Stable Plan - Discharge Summary New Discharge Prescriptions: New Vancomycin 2,200 mg IVPB Q12HR 42 Days #84 bag Acetaminophen Tab [Tylenol] 650 mg PO Q4HR PRN tab PRN Reason: Fever and/ or Mild Pain Carvedilol [Coreg*] 25 mg PO BID-W/MEALS tab Cyclobenzaprine [Flexeril] 10 mg PO BID PRN tab PRN Reason: Muscle Spasm Gabapentin [Neurontin] 300 mg PO TID cap Losartan [Cozaar] 50 mg PO DAILY tab Nystatin 100,000 Unit/ml Susp [Mycostatin Oral Susp] 500,000 unit PO QID cup traMADol HCl [Ultram] 50 mg PO QID PRN #12 tab PRN Reason: MODERATE Pain Continue Potassium Chloride ER [K-Dur 10] 10 meq PO DAILY Atorvastatin [Lipitor] 40 mg PO HS Furosemide [Lasix] 20 mg PO DAILY DULoxetine HCL [Cymbalta] 60 mg PO HS Aspirin 81 mg PO DAILY Pantoprazole [Protonix] 40 mg PO DAILY #30 tablet. Budesonide/Formoterol Fumarate [Symbicort 160-4.5 Mcg Inhaler] 2 puff INHALATION RT-BID #1 hfa.aer.ad Ipratropium-Albuterol Nebulize [Duoneb 0.5 mg-3 mg/3 ml Soln] 3 ml INHALATION RT-QID #60 ampul.neb Discontinued Losartan Potassium 100 mg PO DAILY Clopidogrel [Plavix] 75 mg PO DAILY amLODIPine [Norvasc] 10 mg PO DAILY #30 tab Carvedilol [Coreg*] 12.5 mg PO BID #60 tablet Ipratropium/Albuterol Sulfate [Combivent Respimat Inhaler] 1 puff INHALATION RT-QID #1 mist.inhal Albuterol Inhaler [Ventolin Hfa Inhaler] 1 - 2 puff INHALATION RT-Q6H PRN #1 inhaler PRN Reason: Shortness Of Breath Or Wheezing Acetaminophen [Tylenol] 1,000 mg PO Q4-6H PRN PRN Reason: Pain Ibuprofen [Motrin Ib] 400 mg PO Q6H PRN PRN Reason: Pain Discharge Medication List Atorvastatin [Lipitor] 40 mg PO HS 06/13/17 [History] DULoxetine HCL [Cymbalta] 60 mg PO HS 06/13/17 [History] Furosemide [Lasix] 20 mg PO DAILY 06/13/17 [History] Potassium Chloride ER [K-Dur 10] 10 meq PO DAILY 06/13/17 [History] Aspirin 81 mg PO DAILY 10/09/17 [History] Budesonide/Formoterol Fumarate [Symbicort 160-4.5 Mcg Inhaler] 2 puff INHALATION RT-BID #1 hfa.aer.ad 10/15/17 [Rx] Pantoprazole [Protonix] 40 mg PO DAILY #30 tablet.dr 10/15/17 [Rx] Vancomycin 2,200 mg IVPB Q12HR 42 Days #84 bag 10/27/17 [Rx] Acetaminophen Tab [Tylenol] 650 mg PO Q4HR PRN tab 10/29/17 [Rx] Carvedilol [Coreg*] 25 mg PO BID-W/MEALS tab 10/29/17 [Rx] Cyclobenzaprine [Flexeril] 10 mg PO BID PRN tab 10/29/17 [Rx] Gabapentin [Neurontin] 300 mg PO TID cap 10/29/17 [Rx] Ipratropium-Albuterol Nebulize [Duoneb 0.5 mg-3 mg/3 ml Soln] 3 ml INHALATION RT -QID #60 ampul.neb 10/29/17 [Rx] Losartan [Cozaar] 50 mg PO DAILY tab 10/29/17 [Rx] Nystatin 100,000 Unit/ml Susp [Mycostatin Oral Susp] 500,000 unit PO QID cup [Rx] traMADol HCl [Ultram] 50 mg PO QID PRN #12 tab 10/29/17 [Rx] Follow up Appointment(s)/Referral(s): Nahum Houser MD [STAFF PHYSICIAN] - 1 Week Nahomy Waite DO [Doctor of Osteopathic Medicine] - 1 Week (Patient may follow-up with Sky Otero PA-C or Dr. Jose Waite at [facility] in 1 week following discharge. ) [facility], [NON-STAFF] - As Needed Zuly Herrera MD [STAFF PHYSICIAN] - 1 Week Chevy Weiss DO [STAFF PHYSICIAN] - 1 Week (After DC from ECF) Ambulatory/Diagnostic Orders: Walker w/ Wheels [DME.AMB1] Time Frame: 99 Days, Location: None Selected Basic Metabolic Panel [LAB.AMB] Location: None Selected Complete Blood Count w/diff [LAB.AMB] Location: None Selected C Reactive Protein [LAB.AMB] Location: None Selected Erythrocyte Sedimentation Rate [LAB.AMB] Location: None Selected Activity/Diet/Wound Care/Special Instructions: [facility] 1. Patient may shower with Tegaderm dressing intact. 2. Patient may remove Tegaderm dressing on , 10/31/2017 and may shower without a dressing at that time. 3. Patient should keep suture intact; suture to be removed in the office following discharge 4. Patient should refrain from driving until at least after their first follow- up appointment in the office. 5. Patient should avoid excessive bending, twisting, and lifting; no lifting greater than 10 pounds 6. Take medications as prescribed 7. Do not soak in tub CBC, BMP in 3 days Diet: Consistent carb Accu-Cheks before meals and at bedtime 3lNC O2 Discharge Disposition: TRANSFER TO SNF/ECF
[2017-10-29 14:39] VITALS: BP 115/55; PULSE 84; RESP 17; TEMP 97.9
[2017-10-29] MEDS ORDERED: CARVEDILOL 12.5 MG TAB PO SCH (17:30)
--- NOTE | 2017-10-30 07:52 | IR ---
EXAMINATION TYPE: IR cvc insert >=5 years DATE OF EXAM: 10/29/2017 COMPARISON: NONE CLINICAL HISTORY: Infection Needs long-term intravenous access for antibiotics. PROCEDURE: After informed consent, the skin overlying the upper extremity vein was localized with ultrasound and noted to be compressible and patent. An ultrasound image was obtained and submitted on the patient' s chart. The overlying skin was prepped and draped and Lidocaine was used for local anesthesia. A s kin castillo was made with a scalpel. Access was gained to the vein under ultrasound guidance with a 21 gauge needle and a 0.018 inch wire was advanced. Access site was dilated with Peel-Away sheath and c atheter tailored to the appropriate length and advanced such that the distal tip is at the cavoatrial junction. Spot image was obtained verifying placement. Catheter was fixed to the skin and a steril e dressing was placed following hemostasis. Catheter was aspirated and flushed with saline. Patient was discharged in stable condition without complication. Maximal barrier technique is utilized. Ult rasound image is documented on the chart. Ultrasound used with sterile technique. Fluoro time and fluoroscopic images submitted to document procedure: 0.2 minutes fluoroscopy time, 20 1 intraoperative images document the procedure IMPRESSION: STATUS POST ULTRASOUND AND FLUOROSCOPIC GUIDED PICC LINE PLACEMENT, READY FOR USE. THIS PROCEDURE WAS PERFORMED BY THE UNDERSIGNED.
--- NOTE | 2017-10-30 10:14 | ECHOF ---
Referral Reason:LV FUnction MEASUREMENTS -------- HEIGHT: 152.4 cm WEIGHT: 108.9 kg BP: 149/63 IVSd: 1.5 cm (0.6 - 1.1) LVIDd: 4.1 cm (3.9 - 5.3) LVPWd: 1.5 cm (0.6 - 1.1) IVSs: 2.2 cm LVIDs: 2.5 cm LVPWs: 2.0 cm Ao Diam: 2.5 cm (2.0 - 3.7) AV Cusp: 1.7 cm (1.5 - 2.6) LA Diam: 3.5 cm (2.7 - 3.8) FINDINGS -------- Sinus rhythm. This was a technically adequate study. Limited Study for assessment of left ventricular function. The left ventricular size is normal. There is moderate concentric left ventricular hypertrophy. O verall left ventricular systolic function is normal with, an EF between 55 - 60 %. CONCLUSIONS -------- 1. Sinus rhythm. 2. This was a technically adequate study. 3. Limited Study for assessment of left ventricular function. 4. The left ventricular size is normal. 5. There is moderate concentric left ventricular hypertrophy. 6. Overall left ventricular systolic function is normal with, an EF between 55 - 60 %. BUSINESS SERVICES INTERN: Eduardo Montoya RDCS
--- NOTE | 2017-10-30 10:24 | CDI ---
Last Revision, February 2017 Documentation Clarification Form Date: 10/30/17 From: Dionne Cruz Phone: If you have a question regarding this query, please contact Adri Gustafson at [phone] between 8am and 5pm. Admit Date: 10/20/2017 1:14:00 PM Patient Name: Maria Del Carmen Carrasquillo Visit Number: [id number] Discharge Date: 10/29/17 ATTENTION: The Clinical Documentation Specialists (CDI) and [facility] Coding Staff appreciate your assistance in clarifying documentation. Please respond to the clarification below the line at the bottom and electronically sign. The CDI & [facility] Coding staff will review the response and follow-up if needed. Please note: Queries are made part of the Legal Health Record. If you have any questions, please contact the author of this message via ITS. Miguel Ángel Reno MD Possible new onset atrial fibrillation is documented in the discharge summary and in you 10/28 progress note. In your 10/28 progress note you documented that the patient's telemetry on 10/27 had a run of atrial fibe, heart rates in the 120s History/Risk Factors: Patient has a history of hypertension and CAD. The patient was admitted for spinal abscess and MRSA septicemia. Clinical Indicators: Tachycardia. EKG/telemetry: Telemetry on 10/27, run of atrial fibrillation Treatment: Placed on beta anastacia. Consults: Documentation in Dr. Houser's consult note stated, she had an episode of narrow complex tachycardia that appeared was regular and appears to be atrial tachycardia. There was one episode that could be aberrancy with atrial fibrillation. Her EKG when she was tachycardic shows regular rhythm and tachycardic, probably atrial tachycardia or an SVT. Dr. Houser's impression was atrial tachycardia. In your professional opinion, can you please clarify the diagnosis for the above findings if known? Atrial Fib: Chronic/Permanent Paroxysmal Persistent Atrial Tachycardia Other, please specify Unable to determine Atrial Tachycardia MTDD
== END 2017-10-29 17:15 | DRG 853 ==
LOC: EC 15:49 → 4MS4W 20:21 → 6SEL 10-19 16:24 → OBSVTOIN 10-20 13:14 → 6SEL 10-20 14:43 → 5MS5E 10-21 21:25
PROVIDERS: ADMIT Hospitalist; ATTEND Hospitalist
PROC: 01NB0ZZ Release Lumbar Nerve, Open Approach (ICD-10-PCS; principal; 2017-10-22 10:30)
PROC: 02HV33Z Insertion of Infusion Device into Superior Vena Cava, Percutaneous Approach (ICD-10-PCS; 2017-10-29 08:30)
DX: A41.02 Sepsis due to Methicillin resistant Staphylococcus aureus (principal); G06.1 Intraspinal abscess and granuloma; I47.1 Supraventricular tachycardia; J98.11 Atelectasis; N39.0 Urinary tract infection, site not specified; M46.36 Infection of intervertebral disc (pyogenic), lumbar region; Z68.42 Body mass index [BMI] 45.0-49.9, adult; B96.20 Unspecified Escherichia coli [E. coli] as the cause of diseases classified elsewhere; E66.01 Morbid (severe) obesity due to excess calories; E78.5 Hyperlipidemia, unspecified; F17.210 Nicotine dependence, cigarettes, uncomplicated; F32.9 Major depressive disorder, single episode, unspecified; F41.9 Anxiety disorder, unspecified; G89.29 Other chronic pain; I11.9 Hypertensive heart disease without heart failure; I25.10 Atherosclerotic heart disease of native coronary artery without angina pectoris; I70.0 Atherosclerosis of aorta; J44.9 Chronic obstructive pulmonary disease, unspecified; M54.32 Sciatica, left side; T38.0X5A Adverse effect of glucocorticoids and synthetic analogues, initial encounter; R73.9 Hyperglycemia, unspecified; M54.2 Cervicalgia; M19.90 Unspecified osteoarthritis, unspecified site; M48.061 Spinal stenosis, lumbar region without neurogenic claudication; M47.26 Other spondylosis with radiculopathy, lumbar region; Z79.02 Long term (current) use of antithrombotics/antiplatelets; Z79.82 Long term (current) use of aspirin; Z79.899 Other long term (current) drug therapy; Z79.51 Long term (current) use of inhaled steroids; Z95.5 Presence of coronary angioplasty implant and graft; Z82.49 Family history of ischemic heart disease and other diseases of the circulatory system; Z82.5 Family history of asthma and other chronic lower respiratory diseases
CPT/HCPCS: 36569; 71045; 71275; 72020; 72131; 72158; 76937; 77001; 80048; 80053; 80202; 81001; 83605; 83735; 84100; 84484; 85025; 85027; 85379; 85652; 87040; 87070; 87075; 87077; 87086; 87186; 87205; 93005; 93308; 94640; 94760; 96372; 99285

== ENCOUNTER → 2017-12-26 | Outpatient (CLI) | payer MEDICARE ==
[2017-12-26 11:22] LABS: Basophils % (A) 0 %; Eosinophils # (A) 0.2 k/uL (0-0.7); Eosinophils % (A) 2 %; HCT 42.6 % (34.0-46.0); HGB 12.6 gm/dL (11.4-16.0); Hypochromasia Marked; Lymphocytes # (A) 1.8 k/uL (1.0-4.8); Lymphocytes % (A) 18 %; MCH 25.2 pg (25.0-35.0); MCHC 29.6 g/dL (31.0-37.0); Mean Platelet Volume 6.8; Monocytes # (A) 0.8 k/uL (0-1.0); Monocytes % (A) 7 %; Neutrophils # (A) 7.2 k/uL (1.3-7.7); Neutrophils % (A) 71 %; Platelet Count 321 k/uL (150-450); RBC 5.01 m/uL (3.80-5.40); RDW 15.4 % (11.5-15.5); WBC 10.2 k/uL (3.8-10.6)
[2017-12-26 11:26] LABS: MCV 85.1 fL (80.0-100.0)
[2017-12-26 15:39] LABS: Anion Gap 8.8 mmol/L (4.00-12.00); C Reactive Protein 1.3 mg/dL (0.0-0.8); Carbon Dioxide 27.2 mmol/L (21.6-31.8); Potassium 4.8 mmol/L (3.5-5.5)
== END | disposition home or self-care (01) ==
LOC: LABWHC1 10:36
PROVIDERS: ATTEND Internal Medicine Infectious Disease
DX: M46.26 Osteomyelitis of vertebra, lumbar region (principal); A49.02 Methicillin resistant Staphylococcus aureus infection, unspecified site
CPT/HCPCS: 36415; 80048; 85025; 86140; 86431

== ENCOUNTER 2018-03-20 10:28 | Inpatient (IN) | payer MEDICARE ==
[2018-03-20] MEDS ORDERED: methylPREDNISolone SOD SUCCI 125 MG/2 ML VIAL IV STA (10:48)
[2018-03-20] MEDS ORDERED: ALBUTEROL NEBULIZED 2.5 MG/3 ML INHALATION STA (10:48)
[2018-03-20] MEDS ORDERED: IPRATROPIUM 0.5 MG/2.5 ML NEBU INHALATION STA (10:48)
--- NOTE | 2018-03-20 10:51 | ED ---
General Adult HPI - General Chief complaint: Shortness of Breath Stated complaint: SOB Time Seen by Provider: 03/20/18 10:39 Source: patient, RN notes reviewed, old records reviewed Mode of arrival: wheelchair Limitations: no limitations - History of Present Illness Initial comments: 57-year-old female presenting for evaluation of cough and dyspnea. Patient was seen at the primary care office this morning, noted to be hypoxic in the 70s. She has been dealing with dyspnea and diagnosis of pneumonia for the past one month. She denies fever or chills. Denies chest pain. She has history of CAD status post stents, no diagnosis of heart failure. Denies lower extremity pain or swelling. No history of DVT or PE. She does have history of COPD, has been taking Symbicort, oral prednisone, and nebulized albuterol with minimal relief. - Related Data Home Medications Medication Instructions Recorded Confirmed Atorvastatin [Lipitor] 40 mg PO HS 06/13/17 03/20/18 DULoxetine HCL [Cymbalta] 60 mg PO HS 06/13/17 03/20/18 Furosemide [Lasix] 20 mg PO DAILY 06/13/17 03/20/18 Potassium Chloride ER [K-Dur 10] 10 meq PO DAILY 06/13/17 03/20/18 Aspirin 81 mg PO DAILY 10/09/17 03/20/18 Carvedilol 25 mg PO BID 03/20/18 03/20/18 Ipratropium-Albuterol Nebulize 3 ml INHALATION RT-QID PRN 03/20/18 03/20/18 [Duoneb 0.5 mg-3 mg/3 ml Soln] amLODIPine [Norvasc] 10 mg PO DAILY 03/20/18 03/20/18 Previous Rx's Medication Instructions Recorded Budesonide/Formoterol Fumarate 2 puff INHALATION RT-BID #1 10/15/17 [Symbicort 160-4.5 Mcg Inhaler] hfa.aer.ad Pantoprazole [Protonix] 40 mg PO DAILY #30 tablet. 10/15/17 Gabapentin [Neurontin] 300 mg PO TID cap 10/29/17 Losartan [Cozaar] 50 mg PO DAILY tab 10/29/17 traMADol HCl [Ultram] 50 mg PO QID PRN #12 tab 10/29/17 Allergies Allergy/AdvReac Type Severity Reaction Status Date / Time No Known Allergies Allergy Verified 03/20/18 11:19 Review of Systems ROS Statement: Those systems with pertinent positive or pertinent negative responses have been documented in the HPI. ROS Other: All systems not noted in ROS Statement are negative. Past Medical History Past Medical History: Coronary Artery Disease (CAD), COPD, Hyperlipidemia, Hypertension, Osteoarthritis (OA), Pneumonia Additional Past Medical History / Comment(s): ry artery disease with previous stent placement 2015 in [place]. poor dentation, osbesity,uterine fibroids () ,back pain History of Any Multi-Drug Resistant Organisms: MRSA Date of last positivie culture/infection: 10/22/17 MDRO Source:: Blood and Back Past Surgical History: Adenoidectomy, Section, Heart Catheterization With Stent, Tonsillectomy Additional Past Surgical History / Comment(s): x 4 Past Anesthesia/Blood Transfusion Reactions: No Reported Reaction Date of Last Stent Placement:: unk Past Psychological History: Anxiety, Depression Smoking Status: Current every day smoker Past Alcohol Use History: None Reported Past Drug Use History: None Reported - Past Family History Mother Family Medical History: COPD Additional Family Medical History / Comment(s): emphysema Father Family Medical History: Congestive Heart Failure (CHF) General Exam Limitations: no limitations General appearance: alert, in no apparent distress Head exam: Present: atraumatic, normocephalic Eye exam: Present: normal appearance, PERRL ENT exam: Present: normal exam Neck exam: Present: normal inspection. Absent: tenderness, meningismus Respiratory exam: Present: respiratory distress, decreased breath sounds, prolonged expiratory Cardiovascular Exam: Present: regular rate, normal rhythm GI/Abdominal exam: Present: soft. Absent: distended, tenderness Extremities exam: Present: pedal edema. Absent: calf tenderness Neurological exam: Present: alert, oriented X3. Absent: motor sensory deficit Psychiatric exam: Present: normal affect, normal mood Skin exam: Present: warm, dry, intact. Absent: cyanosis, diaphoretic Course Vital Signs 03/20/18 03/20/18 03/20/18 10:34 11:10 11:24 Temperature 98.5 F Pulse Rate 71 67 65 Respiratory 18 20 Rate Blood Pressure 128/60 123/61 O2 Sat by Pulse 82 L 93 L Oximetry 03/20/18 11:48 Temperature Pulse Rate 74 Respiratory Rate Blood Pressure O2 Sat by Pulse Oximetry EKG Findings - EKG Comments: EKG Findings:: EKG: Normal sinus rhythm, rate of 72, WA interval 182, QRS duration 104, QTC 431, no ST segment elevation or depression, Q waves in the inferior leads. Medical Decision Making - Medical Decision Making 57-year-old female presenting with cough, dyspnea, and hypoxia. X-rays obtained , does show concern for retrocardiac pneumonia, there is also hyperinflation consistent with COPD. Patient has white blood cell count 11.9, hemoglobin 12.5 , d-dimer is negative, CO2 is 41 consistent with chronic CO2 retention. Troponin and BNP are negative. After initial treatment with epidural, Atrovent , steroids, patient has only minimal improvement, she remains hypoxic, she is placed on BiPAP for respiratory support. She will be admitted for COPD exacerbation with hypoxia and community-acquired pneumonia. She is also given azithromycin and ceftriaxone in the emergency department. Case discussed with the admitting physician. - Lab Data Result diagrams: 03/20/18 11:03 03/20/18 11:03 Lab Results 03/20/18 03/20/18 03/20/18 Range/Units 11:03 11:03 11:03 WBC 11.9 H (3.8-10.6) k/uL RBC 5.63 H (3.80-5.40) m/uL Hgb 12.5 (11.4-16.0) gm/dL Hct 43.3 (34.0-46.0) % MCV 76.9 L (80.0-100.0) fL MCH 22.2 L (25.0-35.0) pg MCHC 28.9 L (31.0-37.0) g/dL RDW 16.8 H (11.5-15.5) % Plt Count 307 (150-450) k/uL Neutrophils % 78 % Lymphocytes % 14 % Monocytes % 6 % Eosinophils % 1 % Basophils % 0 % Neutrophils # 9.3 H (1.3-7.7) k/uL Lymphocytes # 1.6 (1.0-4.8) k/uL Monocytes # 0.7 (0-1.0) k/uL Eosinophils # 0.1 (0-0.7) k/uL Basophils # 0.0 (0-0.2) k/uL Hypochromasia Marked Anisocytosis Slight Microcytosis Slight PT (9.0-12.0) sec INR (<1.2) APTT (22.0-30.0) sec D-Dimer (<0.60) mg/L FEU Sodium 140 (137-145) mmol/L Potassium 4.1 (3.5-5.1) mmol/L Chloride 97 L (98-107) mmol/L Carbon Dioxide 41 H* (22-30) mmol/L Anion Gap 2 mmol/L BUN 17 (7-17) mg/dL Creatinine 0.52 (0.52-1.04) mg/dL Est GFR (CKD-EPI)AfAm >90 (>60 ml/min/1.73 sqM) Est GFR (CKD-EPI)NonAf >90 (>60 ml/min/1.73 sqM) Glucose 110 H (74-99) mg/dL Calcium 8.7 (8.4-10.2) mg/dL Magnesium 1.8 (1.6-2.3) mg/dL Total Bilirubin 0.5 (0.2-1.3) mg/dL AST 13 L (14-36) U/L ALT 29 (9-52) U/L Alkaline Phosphatase 72 (38-126) U/L Total Creatine Kinase 21 L (30-135) U/L CK-MB (CK-2) 0.8 (0.0-2.4) ng/mL CK-MB (CK-2) Rel Index 3.8 Troponin I <0.012 (0.000-0.034) ng/mL NT-Pro-B Natriuret Pep pg/mL Total Protein 6.0 L (6.3-8.2) g/dL Albumin 3.2 L (3.5-5.0) g/dL 03/20/18 03/20/18 Range/Units 11:03 11:03 WBC (3.8-10.6) k/uL RBC (3.80-5.40) m/uL Hgb (11.4-16.0) gm/dL Hct (34.0-46.0) % MCV (80.0-100.0) fL MCH (25.0-35.0) pg MCHC (31.0-37.0) g/dL RDW (11.5-15.5) % Plt Count (150-450) k/uL Neutrophils % % Lymphocytes % % Monocytes % % Eosinophils % % Basophils % % Neutrophils # (1.3-7.7) k/uL Lymphocytes # (1.0-4.8) k/uL Monocytes # (0-1.0) k/uL Eosinophils # (0-0.7) k/uL Basophils # (0-0.2) k/uL Hypochromasia Anisocytosis Microcytosis PT 9.6 (9.0-12.0) sec INR 0.9 (<1.2) APTT 22.4 (22.0-30.0) sec D-Dimer 0.33 (<0.60) mg/L FEU Sodium (137-145) mmol/L Potassium (3.5-5.1) mmol/L Chloride (98-107) mmol/L Carbon Dioxide (22-30) mmol/L Anion Gap mmol/L BUN (7-17) mg/dL Creatinine (0.52-1.04) mg/dL Est GFR (CKD-EPI)AfAm (>60 ml/min/1.73 sqM) Est GFR (CKD-EPI)NonAf (>60 ml/min/1.73 sqM) Glucose (74-99) mg/dL Calcium (8.4-10.2) mg/dL Magnesium (1.6-2.3) mg/dL Total Bilirubin (0.2-1.3) mg/dL AST (14-36) U/L ALT (9-52) U/L Alkaline Phosphatase (38-126) U/L Total Creatine Kinase (30-135) U/L CK-MB (CK-2) (0.0-2.4) ng/mL CK-MB (CK-2) Rel Index Troponin I (0.000-0.034) ng/mL NT-Pro-B Natriuret Pep 343 pg/mL Total Protein (6.3-8.2) g/dL Albumin (3.5-5.0) g/dL Disposition Clinical Impression: COPD (chronic obstructive pulmonary disease), Community acquired pneumonia Disposition: ADMITTED IP TO THIS [facility] Condition: Serious Is patient prescribed a controlled substance at d/c from ED?: No Referrals: Reggie,Taina, DO [Primary Care Provider] - 1-2 days Decision to Admit Reason: Admit from EC Decision Date: 03/20/18 Decision Time: 12:50
[2018-03-20 11:38] LABS: ALT 29 U/L (9-52); AST 13 U/L (14-36); Albumin 3.2 g/dL (3.5-5.0); Alkaline Phosphatase 72 U/L (38-126); Blood Urea Nitrogen 17 mg/dL (7-17); Calcium 8.7 mg/dL (8.4-10.2); Chloride 97 mmol/L (98-107); Glucose 110 mg/dL (74-99); Magnesium 1.8 mg/dL (1.6-2.3); Potassium 4.1 mmol/L (3.5-5.1); Sodium 140 mmol/L (137-145); Total Bilirubin 0.5 mg/dL (0.2-1.3)
[2018-03-20 11:39] LABS: Anisocytosis Slight; Basophils % (A) 0 %; Eosinophils # (A) 0.1 k/uL (0-0.7); Eosinophils % (A) 1 %; HCT 43.3 % (34.0-46.0); HGB 12.5 gm/dL (11.4-16.0); Hypochromasia Marked; Lymphocytes # (A) 1.6 k/uL (1.0-4.8); Lymphocytes % (A) 14 %; MCH 22.2 pg (25.0-35.0); MCHC 28.9 g/dL (31.0-37.0); MCV 76.9 fL (80.0-100.0); Mean Platelet Volume 5.8; Microcytosis Slight; Monocytes # (A) 0.7 k/uL (0-1.0); Monocytes % (A) 6 %; Neutrophils # (A) 9.3 k/uL (1.3-7.7); Neutrophils % (A) 78 %; Platelet Count 307 k/uL (150-450); RBC 5.63 m/uL (3.80-5.40); RDW 16.8 % (11.5-15.5); WBC 11.9 k/uL (3.8-10.6)
[2018-03-20 11:45] LABS: Anion Gap 2 mmol/L
[2018-03-20 11:50] LABS: Carbon Dioxide 41 mmol/L (22-30)
[2018-03-20 11:51] LABS: D-Dimer 0.33 mg/L FEU (<0.60); INR 0.9 (<1.2); Partial Thromboplastin Time 22.4 sec (22.0-30.0); Prothrombin Time 9.6 sec (9.0-12.0)
[2018-03-20 11:55] LABS: Creatine Kinase 21 U/L (30-135)
[2018-03-20 12:07] LABS: Creatine Kinase MB 0.8 ng/mL (0.0-2.4); Troponin I <0.012 ng/mL (0.000-0.034)
--- NOTE | 2018-03-20 12:12 | XR ---
EXAMINATION TYPE: XR chest 2V DATE OF EXAM: 03/20/2018 COMPARISON: 10/19/2017 HISTORY: Shortness of breath. History of pneumonia and COPD TECHNIQUE: Frontal and lateral views of the chest are obtained. FINDINGS: There is no a linear retrocardiac opacity. No pleural effusion nor pneumothorax seen. The cardiac silhouette size is within normal limits. The osseous structures are intact. Pulmonary hype rinflation and flattening of the diaphragms on the lateral view relates underlying COPD. IMPRESSION: Linear retrocardiac opacity is favored to represent atelectasis although could represent pneumonia in the appropriate clinical setting. Underlying COPD is seen.
[2018-03-20] MEDS ORDERED: AZITHROMYCIN 500 MG in SODIUM CHLORIDE 0.9% 250 ML IVPB STA (12:16)
[2018-03-20] MEDS ORDERED: IPRATROPIUM-ALBUTEROL 3 ML NEB INHALATION PRN (12:46)
[2018-03-20] MEDS ORDERED: ALBUTEROL NEBULIZED 2.5 MG/3 ML INHALATION PRN (12:47)
[2018-03-20] MEDS: IPRATROPIUM-ALBUTEROL 3 ML NEB INHALATION SCH ×2 (15:49→18:41)
[2018-03-20 16:56] LABS: Glucose,Whole Blood 200 mg/dL (75-99)
[2018-03-20] MEDS: methylPREDNISolone SOD SUCCI 125 MG/2 ML VIAL IV SCH ×2 (18:27→23:09)
[2018-03-20] MEDS ORDERED: IPRATROPIUM 0.5 MG/2.5 ML NEBU INHALATION PRN (19:11)
[2018-03-20] MEDS ORDERED: MELATONIN 3 MG TABLET PO PRN (19:17)
[2018-03-20] MEDS ORDERED: ONDANSETRON 4 MG/2 ML VIAL IVP PRN (19:18)
[2018-03-20] MEDS ORDERED: MAGNESIUM HYDROXIDE 2,400 MG/10 ML CUP PO PRN (19:18)
[2018-03-20] MEDS ORDERED: ALPRAZolam 0.25 MG TAB PO PRN (19:19)
[2018-03-20] MEDS ORDERED: TEMAZEPAM 15 MG CAP PO PRN (19:39)
[2018-03-20] MEDS ORDERED: HYDROcodone/APAP 5-325MG 1 EACH TAB PO PRN (19:39)
[2018-03-20] MEDS ORDERED: IPRATROPIUM 0.5 MG/2.5 ML NEBU INHALATION SCH (20:00)
[2018-03-20 20:58] LABS: Glucose,Whole Blood 168 mg/dL (75-99)
--- NOTE | 2018-03-20 20:58 | HP ---
HISTORY AND PHYSICAL DATE OF SERVICE: 03/20/2018 CHIEF COMPLAINT: Shortness of breath. HISTORY OF PRESENT ILLNESS: This 57-year-old woman with a past medical history of multiple medical problems, including atrial fibrillation, history of CAD, COPD, GI bleed, hypertension, hyperlipidemia, DJD, history of pneumonia, atrial fibrillation, history of section, CAD, stent, being followed by Dr. Paredes in the outpatient setting, was not feeling well over the past one month. The patient had bouts of pneumonia, shortness of breath, cough. Patient was taking outpatient antibiotics, Zithromax. The patient was getting worse and not feeling better. Because of that reason, the patient came to [facility] and was admitted for further evaluation. Chest x-ray showed possible bibasilar pneumonia, left more than the right. There is no history of any rigor or chills. No history of headache, loss of consciousness. The patient does have some fever. PAST HISTORY: 1. Atrial fibrillation. 2. CAD. 3. COPD. 4. GERD. 5. GI bleed. 6. Hypertension. 7. Hyperlipidemia. 8. History of recent pneumonia. HOME MEDICATIONS: 1. Ultram 50 mg q.i.d. p.r.n. 2. DuoNeb q.i.d. p.r.n. 3. Cozaar 50 mg p.o. daily. 4. Lasix 20 mg p.o. daily. 5. Symbicort 160/4.5 two puffs b.i.d. 6. Lipitor 40 mg at bedtime. 7. Norvasc 10 mg p.o. daily. 8. K-Dur 10 mEq p.o. daily. 9. Protonix 40 mg p.o. daily. 10.Neurontin 300 mg p.o. t.i.d. 11.Cymbalta 60 mg at bedtime. 12.Coreg 25 mg p.o. b.i.d. 13.Aspirin 81 mg p.o. daily. ALLERGIES: NONE. FAMILY HISTORY: History of COPD, emphysema in the family. SOCIAL HISTORY: History of smoking, continued, ongoing. No history of alcohol intake. REVIEW OF SYSTEMS: ENT: No diminished hearing. No diminished vision. CARDIOVASCULAR SYSTEM: No angina, palpitations. Otherwise as mentioned earlier. RESPIRATORY SYSTEM: As mentioned earlier. GI: No nausea, vomiting, diarrhea. : No dysuria or retention. NERVOUS SYSTEM: No numbness, weakness. ALLERGY/IMMUNOLOGY: No asthma, hayfever. MUSCULOSKELETAL: As mentioned earlier. HEMATOLOGY/ONCOLOGY: No history of anemia. ENDOCRINE: No history of diabetes, hypothyroidism. CONSTITUTIONAL: As mentioned earlier. DERMATOLOGY: Negative. RHEUMATOLOGY: Negative. PSYCHIATRY: As mentioned earlier. PHYSICAL EXAMINATION: Patient alert and oriented x3. Pulse is 80, blood pressure 119/58, respiration 28, temperature 97.3, pulse ox 85% on 4 L. HEENT: Conjunctivae normal. NECK: No jugular venous distention. Breathing efforts are markedly increased. Accessory muscles of respiration are acting. CARDIOVASCULAR SYSTEM: S1, S2 muffled. No S3. No S4. RESPIRATORY SYSTEM: Breath sounds diminished at the bases. Bilateral scattered rhonchi and expiratory wheezing and crackles also. ABDOMEN: Soft, obese, non-tender. No mass palpable. LEGS: No edema. No swelling. NERVOUS SYSTEM: Higher functions as mentioned earlier. Moves all 4 limbs. No focal motor or sensory deficit. LYMPHATICS: No lymph node palpable in neck, axillae or groin. SKIN: No ulcer, rash, bleeding. LABS: WBC 11.9, hemoglobin 12.5, sodium 140, potassium 4.1. CO2 is 41. ASSESSMENT: 1. Chronic obstructive pulmonary disease, acute exacerbation, with possible bibasilar pneumonia, possibly gram-negative, with failure of outpatient treatment as well as acute hypoxic hypercapnic respiratory failure, present on admission. 2. Increased white count. 3. Continued ongoing nicotine dependence. 4. Obesity with body mass index of 48.8. 5. History of atrial fibrillation. 6. History of coronary artery disease, stent. 7. History of gastroesophageal reflux disease. 8. History of gastrointestinal bleed. 9. Hypertension. 10.Hyperlipidemia. 11.History of degenerative joint disease. 12.History of recent pneumonia. 13.History of atrial fibrillation with fast ventricular rate. 14.History of epidural abscess with methicillin-resistant Staphylococcus aeruginosa bacteremia. 15.History of tonsillectomy. 16.Anxiety. 17.Depression. RECOMMENDATIONS AND DISCUSSION: In this 57-year-old woman who presented with multiple complex medical issues, we will monitor the patient closely, continue the current medications, continue symptomatic treatment. Optimize bronchodilators. Otherwise at this time I would recommend continuing with bronchodilators, empiric antibiotics, steroids. Pulmonary consultation. Monitor blood sugars closely. Resume the home medications. The patient is unable to use BiPAP because of anxiety at this time. If the patient is getting drowsy or hypoxic, I would recommend ABG and possible use of BiPAP also. Otherwise, currently we will continue to monitor. Further recommendations to follow. Discussed with staff. Discussed with the patient, who understands and agrees. Further recommendations to follow. A copy of this dictation is being forwarded to Dr. Paredes, who is the primary physician. MMPRIYAL / IJN: [id number] /
[2018-03-20] MEDS: traMADol 50 MG TAB PO PRN (21:15)
[2018-03-20] MEDS: ATORVASTATIN 40 MG TAB PO SCH (21:15)
[2018-03-20] MEDS: DULoxetine HCL 60 MG CAPSULE.DR PO SCH (21:15)
[2018-03-20] MEDS: CARVEDILOL 12.5 MG TAB PO SCH (21:15)
[2018-03-20] MEDS: GABAPENTIN 300 MG CAP PO SCH (21:15)
[2018-03-20] MEDS: HEPARIN SODIUM,PORCINE 5,000 UNIT/ML 1 ML VIAL SQ SCH (21:16)
[2018-03-20] MEDS: INSULIN ASPART 100 UNIT/ML 1 ML 10 ML VIAL SQ SCH (21:16)
[2018-03-20 23:35] LABS: Appearance,Urine Clear (Clear); Bilirubin,Urine Negative (Negative); Blood,Urine Negative (Negative); Color,Urine Light Yellow; Glucose,Urine (UA) Negative (Negative); Ketones,Urine Negative (Negative); Leukocyte Esterase,Urine Negative (Negative); Nitrite,Urine Negative (Negative); Protein,Urine 2+ (Negative); RBC,Urine 1 /hpf (0-5); Specific Gravity,Urine 1.012 (1.001-1.035); Squamous Epithelial Cell,Urine 1 /hpf (0-4); Urobilinogen,Urine <2.0 mg/dL (<2.0); WBC,Urine <1 /hpf (0-5)
[2018-03-21 05:41] LABS: Glucose,Whole Blood 169 mg/dL (75-99)
[2018-03-21] MEDS: INSULIN ASPART 100 UNIT/ML 1 ML 10 ML VIAL SQ SCH ×4 (06:31→20:57)
[2018-03-21] MEDS: methylPREDNISolone SOD SUCCI 125 MG/2 ML VIAL IV SCH ×4 (06:31→23:04)
[2018-03-21] MEDS: PANTOPRAZOLE 40 MG TABLET PO SCH (06:34)
[2018-03-21 06:54] LABS: Anisocytosis Slight; Basophils % (A) 0 %; Eosinophils % (A) 0 %; HCT 43.7 % (34.0-46.0); HGB 12.8 gm/dL (11.4-16.0); Hypochromasia Marked; Lymphocytes # (A) 0.7 k/uL (1.0-4.8); Lymphocytes % (A) 5 %; MCHC 29.2 g/dL (31.0-37.0); MCV 78.6 fL (80.0-100.0); Mean Platelet Volume 7.1; Microcytosis Slight; Monocytes # (A) 0.4 k/uL (0-1.0); Monocytes % (A) 3 %; Neutrophils # (A) 11.7 k/uL (1.3-7.7); Neutrophils % (A) 91 %; Platelet Count 313 k/uL (150-450); RBC 5.56 m/uL (3.80-5.40); WBC 12.8 k/uL (3.8-10.6)
[2018-03-21 06:57] LABS: Blood Urea Nitrogen 21 mg/dL (7-17); Chloride 96 mmol/L (98-107); Glucose 172 mg/dL (74-99); Potassium 4.7 mmol/L (3.5-5.1); Sodium 140 mmol/L (137-145)
[2018-03-21 06:58] LABS: C Reactive Protein 7.4 mg/L (<10.0); Calcium 9.1 mg/dL (8.4-10.2)
[2018-03-21 07:01] LABS: Carbon Dioxide 39 mmol/L (22-30)
[2018-03-21 07:14] LABS: Anion Gap 5 mmol/L
[2018-03-21] MEDS: LOSARTAN 50 MG TAB PO SCH (08:11)
[2018-03-21] MEDS: GABAPENTIN 300 MG CAP PO SCH ×3 (08:12→20:32)
[2018-03-21] MEDS: FUROSEMIDE 20 MG TAB PO SCH (08:12)
[2018-03-21] MEDS: ASPIRIN 81 MG PO SCH (08:12)
[2018-03-21] MEDS: HEPARIN SODIUM,PORCINE 5,000 UNIT/ML 1 ML VIAL SQ SCH ×2 (08:12→20:33)
[2018-03-21] MEDS: POTASSIUM CHLORIDE ER 10 MEQ TAB.ER.PRT PO SCH (08:12)
[2018-03-21] MEDS: CARVEDILOL 12.5 MG TAB PO SCH ×2 (08:12→17:39)
[2018-03-21] MEDS: amLODIPine 10 MG TAB PO SCH (08:12)
[2018-03-21 08:30] LABS: Erythrocyte Sedimentation Rate 10 mm/hr (0-20)
[2018-03-21] MEDS: SYMBICORT 160-4.5 MCG INHALER INHALATION SCH ×4 (08:30→20:31)
[2018-03-21] MEDS: IPRATROPIUM-ALBUTEROL 3 ML NEB INHALATION SCH ×5 (08:30→20:31)
--- NOTE | 2018-03-21 10:54 | CONS ---
CONSULTATION This is a 57-year-old lady with history of COPD, dyslipidemia, hypertension, coronary artery disease, who is admitted to the hospital primarily with pneumonia and COPD exacerbation and presented to hospital for the same. She was found to be in atrial fibrillation and Cardiology has been consulted for the same. At the time of my evaluation, she appears comfortable at rest. Does not seem to be in respiratory distress. Denies chest pain. An EKG on this admission shows normal sinus rhythm. Her BNP is within normal limits. Troponin is negative. PAST MEDICAL HISTORY: Past medical history is significant for coronary artery disease, hypertension, dyslipidemia, COPD and questionable history of atrial fibrillation. The patient had angioplasty in 2015. She had an echocardiogram in 2018 that showed normal LV function. MEDICATIONS: Medications at home include Ultram, DuoNeb, Cozaar, Lasix, Lipitor, Norvasc, K-Dur, Protonix, Neurontin, Cymbalta, carvedilol, and aspirin. ALLERGIES: There are no known drug allergies. FAMILY HISTORY: Family history is negative for premature coronary artery disease. SOCIAL HISTORY: Social history is negative for current smoking, EtOH abuse or drug abuse. REVIEW OF SYSTEMS: HEENT is unremarkable. CARDIAC: As described above. RESPIRATORY: As described above. GI: Negative. GENITOURINARY: Negative. ALLERGY/IMMUNOLOGY: Negative. SKIN: Negative. MUSCULOSKELETAL: Significant for arthritis. PSYCHOSOCIAL: Negative. ENDOCRINE: Negative. DERM: Negative. CONSTITUTIONAL: Negative. ONCOLOGICAL: Negative. 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 Rest of the system review is not relevant. PHYSICAL EXAMINATION: On exam, patient is comfortable at rest. Afebrile. Heart rate is 74 beats per minute. Blood pressure is 175/81. Chest exam reveals diminished air entry with occasional rhonchi. Heart exam reveals first and second heart sounds. No gallop. No murmur. Abdomen is soft, nontender. Examination of the extremities did not reveal mild edema. Peripheral pulses are felt. EKG does not reveal ischemic changes. Cardiac enzymes have been negative. ASSESSMENT: 1. Chronic obstructive pulmonary disease exacerbation. 2. History of coronary artery disease. 3. History of atrial fibrillation. PLAN: I agree with the current management plans. Please continue the Coreg, Norvasc, Lipitor that she is currently on and the antibiotics. Will add an UMM inhibitor if the blood pressure remains elevated. MMODL / IJN: [id number] /
[2018-03-21 10:58] LABS: Glucose,Whole Blood 167 mg/dL (75-99)
--- NOTE | 2018-03-21 11:23 | ECHOF ---
Referral Reason:sob MEASUREMENTS -------- HEIGHT: 152.4 cm WEIGHT: 111.6 kg BP: 135/61 RVIDd: 3.2 cm (< 3.3) IVSd: 1.2 cm (0.6 - 1.1) LVIDd: 4.2 cm (3.9 - 5.3) LVPWd: 1.7 cm (0.6 - 1.1) IVSs: 1.9 cm LVIDs: 2.4 cm LVPWs: 2.0 cm Ao Diam: 2.6 cm (2.0 - 3.7) AV Cusp: 1.7 cm (1.5 - 2.6) LA Diam: 3.7 cm (2.7 - 3.8) MV EXCURSION: 11.432 mm (> 18.000) MV EF SLOPE: 45 mm/s (70 - 150) EPSS: 0.1 cm MV E Fernando: 0.99 m/s MV DecT: 195 ms MV A Fernando: 0.91 m/s MV E/A Ratio: 1.09 RAP: 5.00 mmHg RVSP: 18.45 mmHg FINDINGS -------- Sinus rhythm. This was a technically difficult study with suboptimal views. The left ventricular size is normal. There is moderate concentric left ventricular hypertrophy. O verall left ventricular systolic function is normal with, an EF between 55 - 60 %. The right ventricle is normal in size. The left atrium is normal in size. The right atrium is normal in size. Lumason used The aortic valve is trileaflet, and appears structurally normal. No aortic stenosis or regurgitation. The mitral valve is normal. There is trace mitral regurgitation. Trace tricuspid regurgitation present. Right ventricular systolic pressure is normal at < 35 mmHg. The right ventricular systolic pressure, as measured by Doppler, is 18.45mmHg. The pulmonic valve was not well visualized. There is no pulmonic regurgitation present. The aortic root size is normal. IVC Not well visulized. There is no pericardial effusion. CONCLUSIONS -------- 1. Sinus rhythm. 2. This was a technically difficult study with suboptimal views. 3. The left ventricular size is normal. 4. There is moderate concentric left ventricular hypertrophy. 5. Overall left ventricular systolic function is normal with, an EF between 55 - 60 %. 6. The right ventricle is normal in size. 7. The left atrium is normal in size. 8. Lumason used 9. The aortic valve is trileaflet, and appears structurally normal. No aortic stenosis or regurgitati on. 10. There is trace mitral regurgitation. 11. Trace tricuspid regurgitation present. 12. Right ventricular systolic pressure is normal at < 35 mmHg. 13. The pulmonic valve was not well visualized. 14. There is no pulmonic regurgitation present. 15. The aortic root size is normal. 16. IVC Not well visulized. 17. There is no pericardial effusion. TUNNEL WORKER: Kareen Conner RDCS
--- NOTE | 2018-03-21 14:02 | P.CNPUL ---
History of Present Illness Consult date: 03/21/18 Requesting physician: Lilian ePters Reason for consult: dyspnea, COPD, abnormal CXR/CT (Linear retrocardiac opacity) Chief complaint: Shortness of breath, cough, congestion History of present illness: This is a very pleasant 57-year-old female patient who follows with Dr. Pardees as her primary care physician. She has a history of coronary artery disease with previous stent placement, hypertension, hyperlipidemia, osteoarthritis, morbid obesity, gastrointestinal bleeding. She also has a history of chronic obstructive pulmonary disease with chronic and ongoing tobacco dependence. She has been seen by our group in the past hospitalized in June and October in 2018 but had not followed up in our office. No pulmonary function tests available. She has been maintained on Symbicort and DuoNeb inhalations in the outpatient setting. She presented here to the emergency room yesterday with complaints of increasing shortness of breath, cough and congestion. She was seen at her PCPs office and noted to be hypoxic in the 70s and was referred here to the emergency room for the same. He is initially placed on 2 L and was at 82% on 4 L to get up to 93%. She also utilize the BiPAP briefly last night and was intolerant to it. She is now maintaining good O2 saturations in the low 90s on 5 L/m per nasal cannula. She's been afebrile. Chest x-ray revealed evidence of COPD and some retrocardiac linear opacity possibly atelectasis versus infiltrate. She is seen today in consultation on the selective care unit. She is awake and alert in no acute distress. She is still dyspneic on minimal exertion. She does have a productive cough of yellow sputum. No fever, chills or night sweats. White count 12.8. Hemoglobin 12.8. Bicarb 39. Creatinine 0.45. BNP 343. Troponin negative. Echocardiogram reveals preserved left ventricular systolic function with ejection fraction 55-60%. No pulmonary hypertension. She's been initiated and DuoNeb inhalations, Symbicort, IV Solu- Medrol. She's on antibiotics in the form of ceftriaxone and azithromycin. Review of Systems Constitutional: Reports fatigue Eyes: denies blurred vision, denies decreased vision Ears: deny: decreased hearing Ears, nose, mouth and throat: Denies headache, Denies sore throat Cardiovascular: Reports decreased exercise tolerance, Reports dyspnea on exertion, Reports shortness of breath Respiratory: Reports cough, Reports cough with sputum, Reports dyspnea, Reports wheezing Gastrointestinal: Denies abdominal pain, Denies diarrhea, Denies nausea, Denies vomiting Genitourinary: Denies dysuria, Denies hematuria Musculoskeletal: Denies myalgias Integumentary: Denies pruritus, Denies rash Neurological: Denies numbness, Denies weakness Psychiatric: Denies anxiety, Denies depression Endocrine: Denies fatigue, Denies weight change Hematologic/Lymphatic: Reports as per HPI Allergic/Immunologic: Reports as per HPI Past Medical History Past Medical History: Atrial Fibrillation, Coronary Artery Disease (CAD), COPD, GERD/Reflux, GI Bleed, Hyperlipidemia, Hypertension, Osteoarthritis (OA), Pneumonia Additional Past Medical History / Comment(s): Afib/RVR, uterine fibroids, low back pain, L/S epidural abscess-MRSA and bacteremia-MRSA 10/22/17-pt was septic, anemia, UTIs, constipation, bilateral lower leg edema, lower GI bleed, Graves disease. History of Any Multi-Drug Resistant Organisms: MRSA Date of last positivie culture/infection: 10/22/17 MDRO Source:: Blood and Back Past Surgical History: Adenoidectomy, Section, Heart Catheterization With Stent, Tonsillectomy Additional Past Surgical History / Comment(s): L4-L5 laminectomy/decompression with removal epidural abscess, PICC line-now out, x 4, EGD/colonoscopy , PCI with stents in [place]. Past Anesthesia/Blood Transfusion Reactions: No Reported Reaction Additional Past Anesthesia/Blood Transfusion Reaction / Comment(s): Pt has received blood in past without reaction. Date of Last Stent Placement:: 2014 Smoking Status: Current every day smoker - Past Family History Mother Family Medical History: COPD Additional Family Medical History / Comment(s): emphysema. Mother at the age of 74 yrs. Father Family Medical History: Congestive Heart Failure (CHF) Additional Family Medical History / Comment(s): Father at the age of 84 yrs. Medications and Allergies Home Medications Medication Instructions Recorded Confirmed Type Atorvastatin [Lipitor] 40 mg PO HS 06/13/17 03/20/18 History DULoxetine HCL [Cymbalta] 60 mg PO HS 06/13/17 03/20/18 History Furosemide [Lasix] 20 mg PO DAILY 06/13/17 03/20/18 History Potassium Chloride ER [K-Dur 10] 10 meq PO DAILY 06/13/17 03/20/18 History Aspirin 81 mg PO DAILY 10/09/17 03/20/18 History Budesonide/Formoterol Fumarate 2 puff INHALATION RT-BID #1 10/15/17 03/20/18 Rx [Symbicort 160-4.5 Mcg Inhaler] hfa.[email or web address] Pantoprazole [Protonix] 40 mg PO DAILY #30 tablet.dr 10/15/17 03/20/18 Rx Gabapentin [Neurontin] 300 mg PO TID cap 10/29/17 03/20/18 Rx Losartan [Cozaar] 50 mg PO DAILY tab 10/29/17 03/20/18 Rx traMADol HCl [Ultram] 50 mg PO QID PRN #12 tab 10/29/17 03/20/18 Rx Carvedilol 25 mg PO BID 03/20/18 03/20/18 History Ipratropium-Albuterol Nebulize 3 ml INHALATION RT-QID PRN 03/20/18 03/20/18 History [Duoneb 0.5 mg-3 mg/3 ml Soln] amLODIPine [Norvasc] 10 mg PO DAILY 03/20/18 03/20/18 History Allergies Allergy/AdvReac Type Severity Reaction Status Date / Time No Known Allergies Allergy Verified 03/20/18 11:19 Physical Exam Vitals: Vital Signs Temp Pulse Pulse Resp BP BP BP 03/21/18 11:39 98.9 F 71 20 133/62 03/21/18 08:46 74 03/21/18 08:32 70 03/21/18 08:00 98.6 F 87 20 175/81 03/21/18 03:58 68 18 135/61 03/21/18 00:00 80 18 153/74 03/20/18 20:00 98.9 F 89 20 137/64 03/20/18 18:50 88 03/20/18 18:41 88 03/20/18 16:45 97.3 F L 80 28 H 119/58 03/20/18 16:01 87 03/20/18 15:51 90 03/20/18 15:00 85 22 160/67 03/20/18 14:00 70 22 153/73 Pulse Ox 01/18/19 11:39 90 L 03/21/18 08:46 03/21/18 08:32 03/21/18 08:00 90 L 03/21/18 03:58 93 L 03/21/18 00:00 90 L 03/20/18 20:00 92 L 03/20/18 18:50 03/20/18 18:41 03/20/18 16:45 85 L 03/20/18 16:01 03/20/18 15:51 91 L 03/20/18 15:00 90 L 03/20/18 14:00 92 L Intake and Output 03/20/18 03/21/18 03/21/18 22:59 06:59 14:59 Intake Total 240 356 Output Total 500 Balance 240 -500 356 Intake: Oral 240 356 Output: Urine 500 Other: # Voids 0 Weight 111.7 kg GENERAL EXAM: Morbidly obese. Alert, active, comfortable in no apparent distress. Nasal O2 at 4 L. HEAD: Normocephalic. EYES: Normal reaction of pupils, equal size. NOSE: Clear with pink turbinates. THROAT: Crowding of the posterior pharynx. No erythema or exudates. NECK: No masses, no JVD. CHEST: No chest wall deformity. LUNGS: Equal air entry with bilateral end expiratory wheeze, diminished.. CVS: S1 and S2 normal with no audible murmur, regular rhythm. ABDOMEN: No hepatosplenomegaly, normal bowel sounds, no guarding or rigidity. SPINE: No scoliosis or deformity SKIN: No rashes CENTRAL NERVOUS SYSTEM: No focal deficits, tone is normal in all 4 extremities. EXTREMITIES: There is no peripheral edema. No clubbing, no cyanosis. Peripheral pulses are intact. Results - Laboratory Findings CBC and BMP: 03/21/18 05:44 03/21/18 05:44 PT/INR, D-dimer PT 9.6 sec (9.0-12.0) 03/20/18 11:03 INR 0.9 (<1.2) 03/20/18 11:03 D-Dimer 0.33 mg/L FEU (<0.60) 03/20/18 11:03 Abnormal lab findings: Abnormal Labs 03/20/18 03/20/18 03/20/18 11:03 11:03 11:03 WBC 11.9 H RBC 5.63 H MCV 76.9 L MCH 22.2 L MCHC 28.9 L RDW 16.8 H Neutrophils # 9.3 H Lymphocytes # Chloride 97 L Carbon Dioxide 41 H* BUN Creatinine Glucose 110 H POC Glucose (mg/dL) Hemoglobin A1c AST 13 L Total Creatine Kinase 21 L Total Protein 6.0 L Albumin 3.2 L Urine Protein 03/20/18 03/20/18 03/20/18 11:03 16:53 20:56 WBC RBC MCV MCH MCHC RDW Neutrophils # Lymphocytes # Chloride Carbon Dioxide BUN Creatinine Glucose POC Glucose (mg/dL) 200 H 168 H Hemoglobin A1c 7.0 H AST Total Creatine Kinase Total Protein Albumin Urine Protein 03/20/18 03/21/18 03/21/18 23:19 05:39 05:44 WBC 12.8 H RBC 5.56 H MCV 78.6 L MCH 23.0 L MCHC 29.2 L RDW 17.0 H Neutrophils # 11.7 H Lymphocytes # 0.7 L Chloride Carbon Dioxide BUN Creatinine Glucose POC Glucose (mg/dL) 169 H Hemoglobin A1c AST Total Creatine Kinase Total Protein Albumin Urine Protein 2+ H 03/21/18 03/21/18 05:44 10:56 WBC RBC MCV MCH MCHC RDW Neutrophils # Lymphocytes # Chloride 96 L Carbon Dioxide 39 H BUN 21 H Creatinine 0.45 L Glucose 172 H POC Glucose (mg/dL) 167 H Hemoglobin A1c AST Total Creatine Kinase Total Protein Albumin Urine Protein - Diagnostic Findings Chest x-ray: image reviewed Assessment and Plan Assessment: Impression: #1 Acute hypoxemic respiratory failure secondary to an acute exacerbation of chronic obstructive pulmonary disease complicated by linear retrocardiac opacity possible community-acquired pneumonia. #2 Chronic and ongoing tobacco dependence. #3 Morbid obesity. #4 Coronary artery disease with previous stent placement. #5 Hypertension. #6 Hyperlipidemia. #7 History of anxiety/depression. #8 Osteoarthritis. Plan: The patient was seen and evaluated by Dr. Saez. Chest x-ray and labs were reviewed. Linear retrocardiac opacity suspect community acquired pneumonia. She is currently on ceftriaxone and azithromycin. She's been initiated on DuoNeb inhalations, IV Solu-Medrol, Symbicort. She is educated regarding the importance of complete smoking cessation. She declines a NicoDerm patch. She is again encouraged regarding the importance of follow-up in our office to perform full pulmonary function testing to evaluate the severity of her COPD. We'll increase her activity as tolerated. Repeat a chest x-ray in the a.m. Titrate down the FiO2 as tolerated. We'll continue to follow and make further recommendations based on her clinical status. I, the cosigning physician, performed a history & physical examination of the patient. Lungs sounds with bilateral end expiratory wheeze, few scattered rhonchi, diminished. Maintaining good O2 saturations in the 90s on 4 L/m per nasal cannula. I discussed the assessment and plan of care with my nurse practitioner, Fatimah Carvajal. I attest to the above note as dictated by her. Time with Patient: Greater than 30
[2018-03-21] MEDS ORDERED: AZITHROMYCIN 500 MG in SODIUM CHLORIDE 0.9% 250 ML IVPB SCH (16:00)
[2018-03-21 17:00] LABS: Glucose,Whole Blood 132 mg/dL (75-99)
[2018-03-21] MEDS: AZITHROMYCIN 500 MG TAB PO SCH (17:39)
[2018-03-21] MEDS: traMADol 50 MG TAB PO PRN (17:43)
[2018-03-21] MEDS: DULoxetine HCL 60 MG CAPSULE.DR PO SCH (20:32)
[2018-03-21] MEDS: ATORVASTATIN 40 MG TAB PO SCH (20:32)
[2018-03-21 20:45] LABS: Glucose,Whole Blood 137 mg/dL (75-99)
--- NOTE | 2018-03-22 03:12 | PN ---
PROGRESS NOTE DATE OF SERVICE: 03/21/2018 This 57-year-old woman was admitted with significant COPD acute exacerbation as well as acute respiratory failure on BiPAP. The patient being closely monitored. Dr. Saez is following the patient closely. Blood sugar is also elevated. The patient continues to smoke and a 2D echo with Doppler was done by Cardiology, which showed ejection fraction 50-60 percent and no significant valvular lesions. The patient also seen by Cardiology and Pulmonology. Patient being closely monitored at this time. There is no history of fever, rigors, chills at this time. PAST MEDICAL HISTORY: Reviewed. REVIEW OF SYSTEMS: CARDIOVASCULAR: No angina or palpitations. Respiration: As mentioned earlier. GI: As mentioned earlier. GENITOURINARY: No dysuria. CENTRAL NERVOUS SYSTEM: No numbness, weakness. CURRENT MEDICATIONS ARE: Reviewed and include noted: 1. Tylenol 650 q.6h p.r.n. 2. Drayton 5 mg q.6h. 3. DuoNeb q.i.d. and p.r.n. 4. Xanax 0.5 q.8h. 5. Norvasc 10 mg daily. 6. Aspirin 81 mg daily. 7. Lipitor 40 mg q.h.s. 8. Zithromax 500 mg daily. 9. Symbicort 160/4.5 two puffs b.i.d. 10.Coreg 25 mg p.o. b.i.d. 11.Rocephin 1 g daily. 12.Cymbalta 60 mg q.h.s. 13.Lasix 20 mg daily. 14.Neurontin 300 mg q.h.s. 15.Heparin subcu 5000 subcu b.i.d. 16.NovoLog. 17.Atrovent. 18.Cozaar 50 mg. 19.Milk of magnesia. 20.Melatonin. 21.Solu-Medrol 60 IV q.6h. 22.Zofran. 23.Protonix. 24.K-Dur. 25.Restoril. 26.Ultram. PHYSICAL EXAM: Patient is alert, oriented x3. Pulse is 74. Blood pressure 139/64, respiration 18, temperature 98 degrees, pulse ox 98% on 5 L. HEENT: Conjunctivae normal. Oral mucosa moist. Neck is no jugular venous distention. No carotid bruit. No lymph node enlargement. CARDIOVASCULAR SYSTEM: S1, S2 muffled. RESPIRATORY SYSTEM: Breath sounds diminished at the bases. A few scattered rhonchi and crackles. Expiratory wheezing and rhonchi. ABDOMEN: Soft, obese, nontender. Legs are no edema. No swelling. Central nervous system: Diffusely weak. LAB: WBC 12.8, sodium 140, potassium 4.2. Accu-Cheks noted. ASSESSMENT: 1. Chronic obstructive pulmonary disease acute exacerbation with possible bibasilar pneumonia possibly gram-negative with failure of outpatient treatment as well as acute hypoxic hypercarbic respiratory failure, present on admission. 2. Status post BiPAP. 3. Increased WBC. 4. Continued ongoing nicotine dependence. 5. Obesity with body mass index of 48.8. 6. History atrial fibrillation. 7. History of coronary artery disease, stent. 8. History of gastroesophageal reflux disease. 9. History of gastrointestinal bleed. 10.Hypertension. 11.Hyperlipidemia. 12.History of degenerative joint disease. 13.History of recent pneumonia. 14.History of atrial fibrillation with fast ventricular rate. 15.History of epidural abscess with MRSA bacteremia. 16.History of tonsillectomy. 17.Anxiety, depression. RECOMMENDATIONS AND DISCUSSION: Recommend to continue current medications, continue with monitoring. Symptomatic treatment. Otherwise, at this time, I recommend closely follow with Pulmonology and continue with broad-spectrum IV antibiotics. I would also recommend intensive bronchodilator and steroids. Monitor blood sugars closely. Prognosis guarded because of multiple complex medical issues. Further recommendations to follow. A copy of dictating being forwarded to Dr. Paredes who is the primary physician. MMPRIYAL / MOLLYN: [phone] / [facility] HOSPITALIjeoma
[2018-03-22 06:06] LABS: Glucose,Whole Blood 131 mg/dL (75-99)
[2018-03-22] MEDS: INSULIN ASPART 100 UNIT/ML 1 ML 10 ML VIAL SQ SCH ×4 (06:09→21:28)
[2018-03-22] MEDS: methylPREDNISolone SOD SUCCI 125 MG/2 ML VIAL IV SCH ×4 (06:19→22:39)
[2018-03-22] MEDS: CARVEDILOL 12.5 MG TAB PO SCH ×2 (06:19→18:04)
[2018-03-22] MEDS: PANTOPRAZOLE 40 MG TABLET PO SCH (06:20)
[2018-03-22 07:12] LABS: Anisocytosis Slight; Basophils % (A) 0 %; Eosinophils % (A) 0 %; HCT 45.5 % (34.0-46.0); HGB 12.9 gm/dL (11.4-16.0); Hypochromasia Marked; Lymphocytes # (A) 0.8 k/uL (1.0-4.8); Lymphocytes % (A) 4 %; MCH 21.7 pg (25.0-35.0); MCHC 28.3 g/dL (31.0-37.0); MCV 76.7 fL (80.0-100.0); Mean Platelet Volume 6.4; Microcytosis Slight; Monocytes # (A) 0.5 k/uL (0-1.0); Monocytes % (A) 3 %; Neutrophils # (A) 17.4 k/uL (1.3-7.7); Neutrophils % (A) 92 %; Platelet Count 370 k/uL (150-450); RBC 5.94 m/uL (3.80-5.40); RDW 16.4 % (11.5-15.5); WBC 18.8 k/uL (3.8-10.6)
[2018-03-22 07:23] LABS: Anion Gap 4 mmol/L; Blood Urea Nitrogen 28 mg/dL (7-17); Calcium 9.5 mg/dL (8.4-10.2); Carbon Dioxide 40 mmol/L (22-30); Chloride 92 mmol/L (98-107); Glucose 123 mg/dL (74-99); Sodium 136 mmol/L (137-145)
[2018-03-22] MEDS: IPRATROPIUM-ALBUTEROL 3 ML NEB INHALATION SCH ×4 (08:31→20:52)
[2018-03-22] MEDS: SYMBICORT 160-4.5 MCG INHALER INHALATION SCH ×2 (08:32→20:52)
[2018-03-22] MEDS: GABAPENTIN 300 MG CAP PO SCH ×3 (08:42→20:16)
[2018-03-22] MEDS: LOSARTAN 50 MG TAB PO SCH (08:42)
[2018-03-22] MEDS: HEPARIN SODIUM,PORCINE 5,000 UNIT/ML 1 ML VIAL SQ SCH ×2 (08:42→20:16)
[2018-03-22] MEDS: ASPIRIN 81 MG PO SCH (08:42)
[2018-03-22] MEDS: amLODIPine 10 MG TAB PO SCH (08:42)
[2018-03-22] MEDS: FUROSEMIDE 20 MG TAB PO SCH (08:42)
[2018-03-22] MEDS: POTASSIUM CHLORIDE ER 10 MEQ TAB.ER.PRT PO SCH (08:42)
[2018-03-22 11:28] LABS: Glucose,Whole Blood 216 mg/dL (75-99)
--- NOTE | 2018-03-22 12:23 | P.PN ---
Subjective Progress Note Date: 03/22/18 This is a very pleasant 57-year-old female patient who follows with Dr. Paredes as her primary care physician. She has a history of coronary artery disease with previous stent placement, hypertension, hyperlipidemia, osteoarthritis, morbid obesity, gastrointestinal bleeding. She also has a history of chronic obstructive pulmonary disease with chronic and ongoing tobacco dependence. She presented here to the emergency room with complaints of increasing shortness of breath, cough and congestion. She was seen at her PCPs office and noted to be hypoxic in the 70s and was referred here to the emergency room for the same. She's been afebrile. Chest x-ray revealed evidence of COPD and some retrocardiac linear opacity possibly atelectasis versus infiltrate. She was seen yesterday in consultation on the selective care unit. She is awake and alert in no acute distress. She is still dyspneic on minimal exertion. She does have a productive cough of yellow sputum. No fever, chills or night sweats. White count 12.8. Hemoglobin 12.8. Bicarb 39. Creatinine 0.45. BNP 343. Troponin negative. Echocardiogram reveals preserved left ventricular systolic function with ejection fraction 55-60%. No pulmonary hypertension. She's been initiated and DuoNeb inhalations, Symbicort, IV Solu-Medrol. She's on antibiotics in the form of ceftriaxone and azithromycin. Her blood pressure today is 136/60 with a heart rate in the 70s, 94% on room air. White blood cell count 18.8, hemoglobin 12.9, platelet count 370. Sodium 136, potassium 5.0 , BUN 28 and creatinine 0.6. Objective - Vital Signs Vital signs: Vital Signs Temp 98.3 F 03/22/18 08:00 Pulse 71 03/22/18 12:00 Resp 18 03/22/18 12:00 BP 136/69 03/22/18 12:00 Pulse Ox 94 L 03/22/18 12:00 Intake & Output 03/21/18 03/22/18 03/22/18 18:59 06:59 18:59 Intake Total 686 260 Output Total 400 150 Balance 686 -400 110 Weight 112.9 kg Intake: Intake, IV Titration 50 Amount cefTRIAXone 1,000 mg In 50 Sodium Chloride 0.9% 50 ml @ 100 mls/hr IVPB Q24HR [facility] Rx#:[id number] Oral 636 260 Output: Urine 400 150 Other: Voiding Method Toilet # Voids 3 1 1 - Exam GENERAL EXAM: Morbidly obese. Alert, active, comfortable in no apparent distress. Nasal O2 at 4 L. HEAD: Normocephalic. EYES: Normal reaction of pupils, equal size. NOSE: Clear with pink turbinates. THROAT: Crowding of the posterior pharynx. No erythema or exudates. NECK: No masses, no JVD. CHEST: No chest wall deformity. LUNGS: Equal air entry with bilateral end expiratory wheeze, diminished.. CVS: S1 and S2 normal with no audible murmur, regular rhythm. ABDOMEN: No hepatosplenomegaly, normal bowel sounds, no guarding or rigidity. SPINE: No scoliosis or deformity SKIN: No rashes CENTRAL NERVOUS SYSTEM: No focal deficits, tone is normal in all 4 extremities. EXTREMITIES: There is no peripheral edema. No clubbing, no cyanosis. Peripheral pulses are intact. - Labs CBC & Chem 7: 03/22/18 06:37 03/22/18 06:37 Labs: Abnormal Lab Results - Last 24 Hours (Table) 03/21/18 03/21/18 03/22/18 Range/Units 16:58 20:44 06:05 WBC (3.8-10.6) k/uL RBC (3.80-5.40) m/uL MCV (80.0-100.0) fL MCH (25.0-35.0) pg MCHC (31.0-37.0) g/dL RDW (11.5-15.5) % Neutrophils # (1.3-7.7) k/uL Lymphocytes # (1.0-4.8) k/uL Sodium (137-145) mmol/L Chloride (98-107) mmol/L Carbon Dioxide (22-30) mmol/L BUN (7-17) mg/dL Glucose (74-99) mg/dL POC Glucose (mg/dL) 132 H 137 H 131 H (75-99) mg/dL 03/22/18 03/22/18 03/22/18 Range/Units 06:37 06:37 11:27 WBC 18.8 H (3.8-10.6) k/uL RBC 5.94 H (3.80-5.40) m/uL MCV 76.7 L (80.0-100.0) fL MCH 21.7 L (25.0-35.0) pg MCHC 28.3 L (31.0-37.0) g/dL RDW 16.4 H (11.5-15.5) % Neutrophils # 17.4 H (1.3-7.7) k/uL Lymphocytes # 0.8 L (1.0-4.8) k/uL Sodium 136 L (137-145) mmol/L Chloride 92 L (98-107) mmol/L Carbon Dioxide 40 H (22-30) mmol/L BUN 28 H (7-17) mg/dL Glucose 123 H (74-99) mg/dL POC Glucose (mg/dL) 216 H (75-99) mg/dL Microbiology - Last 24 Hours (Table) 03/21/18 20:22 Gram Stain - Preliminary Sputum Sputum Culture - Preliminary 03/20/18 11:03 Blood Culture - Preliminary Blood No Growth after 24 hours Assessment and Plan Plan: Assessment and plan: Impression: #1 Acute hypoxemic respiratory failure secondary to an acute exacerbation of chronic obstructive pulmonary disease complicated by linear retrocardiac opacity possible community-acquired pneumonia. #2 Chronic and ongoing tobacco dependence. #3 Morbid obesity. #4 Coronary artery disease with previous stent placement. #5 Hypertension. #6 Hyperlipidemia. #7 History of anxiety/depression. #8 Osteoarthritis. Plan Cardiology's perspective, we'll recommend to continue the patient on her current medications. We will follow her along with you now on an as-needed basis only, please don't hesitate to call with any questions [employer] note
[2018-03-22] MEDS: AZITHROMYCIN 500 MG TAB PO SCH (15:22)
--- NOTE | 2018-03-22 16:29 | P.PN ---
Subjective Progress Note Date: 03/22/18 On 03/22/2018 I'm seeing this patient for a follow-up. The patient is currently being treated for an acute COPD exacerbation and suspected left lower lobe pneumonia. The patient became better. She is less short of breath compared to yesterday. She was able to take a shower. She is less bronchospastic and wheezy. She is at the point where she does not want to use the BiPAP. Note that initially the BiPAP helped her considerably with her acute COPD exacerbation. No angina. No issues with hemodynamics. No significant anxiety or depression. No nausea. No vomiting. No abdominal pain. That hemoglobin is at 12.9 which is stable. Renal function is stable with a creatinine of 0.6. Objective - Vital Signs Vital signs: Vital Signs Temp 98.3 F 03/22/18 08:00 Pulse 76 03/22/18 16:12 Resp 18 03/22/18 12:00 BP 136/69 03/22/18 12:00 Pulse Ox 94 L 03/22/18 12:00 Intake & Output 03/21/18 03/22/18 03/22/18 18:59 06:59 18:59 Intake Total 686 500 Output Total 400 500 Balance 686 -400 0 Weight 112.9 kg Intake: Intake, IV Titration 50 Amount cefTRIAXone 1,000 mg In 50 Sodium Chloride 0.9% 50 ml @ 100 mls/hr IVPB Q24HR [facility] Rx#:[id number] Oral 636 500 Output: Urine 400 500 Other: Voiding Method Toilet # Voids 3 1 1 - Exam GENERAL EXAM: Morbidly obese. Alert, active, comfortable in no apparent distress. Nasal O2 at 4 L. HEAD: Normocephalic. EYES: Normal reaction of pupils, equal size. NOSE: Clear with pink turbinates. THROAT: Crowding of the posterior pharynx. No erythema or exudates. NECK: No masses, no JVD. CHEST: No chest wall deformity. LUNGS: Equal air entry with bilateral end expiratory wheeze, diminished.. CVS: S1 and S2 normal with no audible murmur, regular rhythm. ABDOMEN: No hepatosplenomegaly, normal bowel sounds, no guarding or rigidity. SPINE: No scoliosis or deformity SKIN: No rashes CENTRAL NERVOUS SYSTEM: No focal deficits, tone is normal in all 4 extremities. EXTREMITIES: There is no peripheral edema. No clubbing, no cyanosis. Peripheral pulses are intact. - Labs CBC & Chem 7: 03/22/18 06:37 03/22/18 06:37 Labs: Abnormal Lab Results - Last 24 Hours (Table) 03/21/18 03/21/18 03/22/18 Range/Units 16:58 20:44 06:05 WBC (3.8-10.6) k/uL RBC (3.80-5.40) m/uL MCV (80.0-100.0) fL MCH (25.0-35.0) pg MCHC (31.0-37.0) g/dL RDW (11.5-15.5) % Neutrophils # (1.3-7.7) k/uL Lymphocytes # (1.0-4.8) k/uL Sodium (137-145) mmol/L Chloride (98-107) mmol/L Carbon Dioxide (22-30) mmol/L BUN (7-17) mg/dL Glucose (74-99) mg/dL POC Glucose (mg/dL) 132 H 137 H 131 H (75-99) mg/dL 03/22/18 03/22/18 03/22/18 Range/Units 06:37 06:37 11:27 WBC 18.8 H (3.8-10.6) k/uL RBC 5.94 H (3.80-5.40) m/uL MCV 76.7 L (80.0-100.0) fL MCH 21.7 L (25.0-35.0) pg MCHC 28.3 L (31.0-37.0) g/dL RDW 16.4 H (11.5-15.5) % Neutrophils # 17.4 H (1.3-7.7) k/uL Lymphocytes # 0.8 L (1.0-4.8) k/uL Sodium 136 L (137-145) mmol/L Chloride 92 L (98-107) mmol/L Carbon Dioxide 40 H (22-30) mmol/L BUN 28 H (7-17) mg/dL Glucose 123 H (74-99) mg/dL POC Glucose (mg/dL) 216 H (75-99) mg/dL Microbiology - Last 24 Hours (Table) 03/20/18 11:03 Blood Culture - Preliminary Blood No Growth after 48 hours 03/21/18 20:22 Gram Stain - Preliminary Sputum Sputum Culture - Preliminary Assessment and Plan Plan: Impression: #1 Acute hypoxemic respiratory failure secondary to an acute exacerbation of chronic obstructive pulmonary disease complicated by linear retrocardiac opacity possible community-acquired pneumonia. #2 Chronic and ongoing tobacco dependence. #3 Morbid obesity. #4 Coronary artery disease with previous stent placement. #5 Hypertension. #6 Hyperlipidemia. #7 History of anxiety/depression. #8 Osteoarthritis. Plan Clinically improving. Continue Rocephin. Continue Zithromax. Continue DuoNeb nebulized treatments around the clock. Continue IV Solu Medrol 40 mg every 8 hours. Continue Lasix 20 mg by mouth daily. Repeat chest x-ray with next 24- 48 hours. Discontinue the BiPAP therapy for now. Wean off FiO2 as tolerated to maintain a saturation above 90%.
[2018-03-22 16:40] LABS: Glucose,Whole Blood 113 mg/dL (75-99)
--- NOTE | 2018-03-22 19:52 | PN ---
PROGRESS NOTE DATE OF SERVICE: 03/22/2018 This 57-year-old woman was admitted with COPD exacerbation, is being closely monitored. Patient is slightly better. Patient on IV steroids. No chest pain. No palpitations. No fever. A 2D echo showed normal ejection fraction. EXAM: Alert and oriented x3. Pulse 71. Blood pressure 130/69, respiration 18. Temp is normal. Pulse ox 94% on room air. HEENT: Conjunctivae normal. NECK: No jugular venous distention. Cardiovascular: S1, S2 muffled. Respirations: Breath sounds diminished in the bases. Bilateral scattered rhonchi and crackles. Abdomen is soft. Nontender. Central nervous system: No focal deficits. LABS: WBC 18.8, hemoglobin 12.9, sodium 136. ASSESSMENT: 1. Chronic obstructive pulmonary disease acute exacerbation with possible bibasilar pneumonia possibly gram-negative with failure of outpatient treatment as well as acute hypoxic hypercarbic respiratory failure, present on admission. 2. Status post BiPAP. 3. Increased WBC. 4. Continued ongoing nicotine dependence. 5. Obesity with body mass index of 48.8. 6. History atrial fibrillation. 7. History of coronary artery disease, stent. 8. History of gastroesophageal reflux disease. 9. History of gastrointestinal bleed. 10.Hypertension. 11.Hyperlipidemia. 12.History of degenerative joint disease. 13.History of recent pneumonia. 14.Atrial fibrillation with fast ventricular rate. 15.History of epidural abscess with MRSA bacteremia recently. 16.History of tonsillectomy. 17.History of anxiety, depression. RECOMMENDATIONS AND DISCUSSION: Recommend to continue current medications, management and symptomatic treatment. Otherwise, at this time, taper the steroids. Continue the bronchodilators. Await influenza swab. Continue the rest of medications. Further recommendations to follow. still elevated at 40. Recommend BiPAP. The patient is drowsy. Further recommendations to follow. MMODL / IJN: [id number] / [id number]
[2018-03-22] MEDS: DULoxetine HCL 60 MG CAPSULE.DR PO SCH (20:16)
[2018-03-22] MEDS: ATORVASTATIN 40 MG TAB PO SCH (20:16)
[2018-03-22 21:26] LABS: Glucose,Whole Blood 209 mg/dL (75-99)
[2018-03-22] MEDS: ACETAMINOPHEN TAB 325 MG TAB PO PRN (21:28)
[2018-03-23 05:25] LABS: Glucose,Whole Blood 127 mg/dL (75-99)
[2018-03-23] MEDS: INSULIN ASPART 100 UNIT/ML 1 ML 10 ML VIAL SQ SCH ×4 (05:25→20:57)
[2018-03-23] MEDS: PANTOPRAZOLE 40 MG TABLET PO SCH (06:30)
[2018-03-23] MEDS: CARVEDILOL 12.5 MG TAB PO SCH ×2 (06:30→17:56)
[2018-03-23 07:06] LABS: Anisocytosis Slight; Basophils % (A) 0 %; Eosinophils % (A) 0 %; HCT 44.2 % (34.0-46.0); Hypochromasia Marked; Lymphocytes # (A) 0.6 k/uL (1.0-4.8); Lymphocytes % (A) 4 %; MCH 22.7 pg (25.0-35.0); MCHC 29.4 g/dL (31.0-37.0); MCV 77.2 fL (80.0-100.0); Mean Platelet Volume 6.6; Microcytosis Slight; Monocytes # (A) 0.5 k/uL (0-1.0); Monocytes % (A) 4 %; Neutrophils # (A) 13.6 k/uL (1.3-7.7); Neutrophils % (A) 92 %; Platelet Count 327 k/uL (150-450); RBC 5.72 m/uL (3.80-5.40); RDW 16.9 % (11.5-15.5); WBC 14.9 k/uL (3.8-10.6)
[2018-03-23 07:11] LABS: Blood Urea Nitrogen 33 mg/dL (7-17); Calcium 9.2 mg/dL (8.4-10.2); Chloride 97 mmol/L (98-107); Glucose 122 mg/dL (74-99); Potassium 4.8 mmol/L (3.5-5.1); Sodium 139 mmol/L (137-145)
[2018-03-23] MEDS: IPRATROPIUM-ALBUTEROL 3 ML NEB INHALATION SCH ×4 (07:14→19:16)
[2018-03-23] MEDS: SYMBICORT 160-4.5 MCG INHALER INHALATION SCH ×2 (07:14→19:16)
[2018-03-23 07:18] LABS: Anion Gap 3 mmol/L; Carbon Dioxide 39 mmol/L (22-30)
[2018-03-23] MEDS: HEPARIN SODIUM,PORCINE 5,000 UNIT/ML 1 ML VIAL SQ SCH ×2 (09:30→20:57)
[2018-03-23] MEDS: methylPREDNISolone SOD SUCCI 125 MG/2 ML VIAL IV SCH ×3 (09:30→23:15)
[2018-03-23] MEDS: LOSARTAN 50 MG TAB PO SCH (09:31)
[2018-03-23] MEDS: amLODIPine 10 MG TAB PO SCH (09:31)
[2018-03-23] MEDS: FUROSEMIDE 20 MG TAB PO SCH (09:31)
[2018-03-23] MEDS: ASPIRIN 81 MG PO SCH (09:31)
[2018-03-23] MEDS: GABAPENTIN 300 MG CAP PO SCH ×3 (09:31→20:57)
[2018-03-23] MEDS: POTASSIUM CHLORIDE ER 10 MEQ TAB.ER.PRT PO SCH (09:31)
[2018-03-23 11:20] LABS: Glucose,Whole Blood 200 mg/dL (75-99)
--- NOTE | 2018-03-23 11:52 | P.PN ---
Subjective Progress Note Date: 03/23/18 Principal diagnosis: Acute hypoxic respiratory failure secondary to an acute exacerbation of chronic obstructive pulmonary disease, possible coronary acquired pneumonia On 03/22/2018 I'm seeing this patient for a follow-up. The patient is currently being treated for an acute COPD exacerbation and suspected left lower lobe pneumonia. The patient became better. She is less short of breath compared to yesterday. She was able to take a shower. She is less bronchospastic and wheezy. She is at the point where she does not want to use the BiPAP. Note that initially the BiPAP helped her considerably with her acute COPD exacerbation. No angina. No issues with hemodynamics. No significant anxiety or depression. No nausea. No vomiting. No abdominal pain. That hemoglobin is at 12.9 which is stable. Renal function is stable with a creatinine of 0.6. On 03/23/2018 patient seen in follow-up on selective care unit, she is feeling better, breathing easier, was sounds are positive for end expiratory wheezes, but has bronchospastic compared to previous exams. She on 5 L per nasal cannula and a pulse ox is 90%, she is afebrile, hemodynamically stable. Preliminary sputum Gram stain revealed rare epithelial cells, and rare gram- negative bacilli, final culture is in progress, blood culture was negative. Patient remains on a combination of Zithromax and Rocephin, she is on nebulized bronchodilators, oral Lasix, IV steroids, and she started to respond to treatment. Objective - Vital Signs Vital signs: Vital Signs Temp 98.2 F 03/23/18 08:00 Pulse 76 03/23/18 11:18 Resp 20 03/23/18 08:00 BP 137/64 03/23/18 08:00 Pulse Ox 90 L 03/23/18 08:00 Intake & Output 03/22/18 03/23/18 03/23/18 18:59 06:59 18:59 Intake Total 500 10 680 Output Total 500 150 Balance 0 10 530 Weight 112.9 kg Intake: IV 10 0.9 10 Oral 500 680 Output: Urine 500 150 Other: Voiding Method Toilet Toilet # Voids 1 2 - Exam GENERAL EXAM: Morbidly obese. Alert, active, comfortable in no apparent distress. Nasal O2 at 5 L. HEAD: Normocephalic. EYES: Normal reaction of pupils, equal size. NOSE: Clear with pink turbinates. THROAT: Crowding of the posterior pharynx. No erythema or exudates. NECK: No masses, no JVD. CHEST: No chest wall deformity. LUNGS: Equal air entry with bilateral end expiratory wheeze, diminished.. CVS: S1 and S2 normal with no audible murmur, regular rhythm. ABDOMEN: No hepatosplenomegaly, normal bowel sounds, no guarding or rigidity. SPINE: No scoliosis or deformity SKIN: No rashes CENTRAL NERVOUS SYSTEM: No focal deficits, tone is normal in all 4 extremities. EXTREMITIES: There is no peripheral edema. No clubbing, no cyanosis. Peripheral pulses are intact. - Labs CBC & Chem 7: 03/23/18 05:41 03/23/18 05:41 Labs: Abnormal Lab Results - Last 24 Hours (Table) 03/22/18 03/22/18 03/23/18 Range/Units 16:38 21:05 05:24 WBC (3.8-10.6) k/uL RBC (3.80-5.40) m/uL MCV (80.0-100.0) fL MCH (25.0-35.0) pg MCHC (31.0-37.0) g/dL RDW (11.5-15.5) % Neutrophils # (1.3-7.7) k/uL Lymphocytes # (1.0-4.8) k/uL Chloride (98-107) mmol/L Carbon Dioxide (22-30) mmol/L BUN (7-17) mg/dL Glucose (74-99) mg/dL POC Glucose (mg/dL) 113 H 209 H 127 H (75-99) mg/dL 03/23/18 03/23/18 03/23/18 Range/Units 05:41 05:41 11:18 WBC 14.9 H (3.8-10.6) k/uL RBC 5.72 H (3.80-5.40) m/uL MCV 77.2 L (80.0-100.0) fL MCH 22.7 L (25.0-35.0) pg MCHC 29.4 L (31.0-37.0) g/dL RDW 16.9 H (11.5-15.5) % Neutrophils # 13.6 H (1.3-7.7) k/uL Lymphocytes # 0.6 L (1.0-4.8) k/uL Chloride 97 L (98-107) mmol/L Carbon Dioxide 39 H (22-30) mmol/L BUN 33 H (7-17) mg/dL Glucose 122 H (74-99) mg/dL POC Glucose (mg/dL) 200 H (75-99) mg/dL Microbiology - Last 24 Hours (Table) 03/20/18 11:03 Blood Culture - Preliminary Blood No Growth after 48 hours 03/21/18 20:22 Gram Stain - Preliminary Sputum Sputum Culture - Preliminary Assessment and Plan Plan: #1 Acute hypoxemic respiratory failure secondary to an acute exacerbation of chronic obstructive pulmonary disease complicated by linear retrocardiac opacity possible community-acquired pneumonia. #2 Chronic and ongoing tobacco dependence. #3 Morbid obesity. #4 Coronary artery disease with previous stent placement. #5 Hypertension. #6 Hyperlipidemia. #7 History of anxiety/depression. #8 Osteoarthritis. Plan: Continue current abiotic coverage, will await the final results of the sputum culture, patient reports improvement in her dyspnea and wheezing. Continue IV Solu-Medrol, continue oral Lasix, we will repeat chest x-ray tomorrow. Patient has not required BiPAP therapy overnight. Echocardiogram results have been noted, EF of 65-60%. Denies any worsening dyspnea and chest pain, we'll continue to follow. I performed a history & physical examination of the patient and discussed their management with my nurse practitioner, Lalita Anand. I reviewed the nurse practitioner's note and agree with the documented findings and plan of care. Lung sounds are positive for end expiratory wheezes. The findings and the impression was discussed with the patient. I attest to the documentation by the nurse practitioner. Time with Patient: Less than 30
[2018-03-23] MEDS: ACETAMINOPHEN TAB 325 MG TAB PO PRN (14:50)
[2018-03-23] MEDS: AZITHROMYCIN 500 MG TAB PO SCH (14:51)
[2018-03-23 16:28] LABS: Glucose,Whole Blood 122 mg/dL (75-99)
--- NOTE | 2018-03-23 20:08 | PN ---
PROGRESS NOTE DATE OF SERVICE: 03/23/2018 This 57-year-old woman presented with COPD acute exacerbation, being closely monitor. Patient improved significantly. No chest pain. No palpitations. No fever. The patient was using BiPAP initially. All the cultures are negative at this time. Dr. Saez is following the patient closely. The steroids have been tapered. No chest pain. No palpitations. No fever. EXAM: Alert and oriented x3. Pulse 75, blood pressure 130/62, respiration 18, temperature 98.2, pulse ox 93 percent on room air. HEENT: Conjunctivae normal. Oral mucosa moist. NECK: No jugular venous distention. No lymph node enlargement. CARDIOVASCULAR: S1, S2. RESPIRATORY: Diminished breath sounds muffled at the bases. Bilateral scattered rhonchi and crackles. ABDOMEN: Soft, nontender. LEGS: No swelling. NERVOUS SYSTEM: No focal deficits. LABS: WBC 14.8, hemoglobin is 13, glucose 200. ASSESSMENT: 1. Chronic obstructive pulmonary disease acute exacerbation with possible bibasilar pneumonia, possibly gram-negative with failure of outpatient treatment as well as acute hypoxic hypercarbic respiratory failure, present on admission. 2. Status post BiPAP. 3. Increased WBC. 4. Continued ongoing nicotine dependence. 5. Obesity with body mass index of 48.8. 6. History atrial fibrillation. 7. History of coronary artery disease and stent. 8. History of gastroesophageal reflux disease. 9. History of gastrointestinal bleed. 10.Hypertension. 11.Hyperlipidemia. 12.History of degenerative joint disease. 13.History of recent pneumonia. 14.Atrial fibrillation with fast ventricular rate. 15.History of epidural abscess with MRSA bacteremia recently. 16.History of tonsillectomy. 17.History of anxiety, depression. RECOMMENDATIONS AND DISCUSSION: I recommend to continue current management and continue symptomatic treatment. Continue with antibiotics. Taper the steroids. Continue with the rest of medications. Closely follow with pulmonary. Guarded prognosis. Further recommendations to follow. MMODL / IJN: [id number] /
[2018-03-23 20:50] LABS: Glucose,Whole Blood 169 mg/dL (75-99)
[2018-03-23] MEDS: DULoxetine HCL 60 MG CAPSULE.DR PO SCH (20:57)
[2018-03-23] MEDS: ATORVASTATIN 40 MG TAB PO SCH (20:57)
[2018-03-24 05:48] LABS: Glucose,Whole Blood 113 mg/dL (75-99)
[2018-03-24] MEDS: INSULIN ASPART 100 UNIT/ML 1 ML 10 ML VIAL SQ SCH ×4 (05:56→21:07)
[2018-03-24] MEDS: CARVEDILOL 12.5 MG TAB PO SCH ×2 (06:29→17:20)
[2018-03-24] MEDS: PANTOPRAZOLE 40 MG TABLET PO SCH (06:29)
[2018-03-24 06:39] LABS: Anisocytosis Slight; Basophils % (A) 0 %; Eosinophils % (A) 0 %; HCT 44.8 % (34.0-46.0); HGB 13.3 gm/dL (11.4-16.0); Hypochromasia Marked; Lymphocytes # (A) 0.5 k/uL (1.0-4.8); Lymphocytes % (A) 5 %; MCH 22.8 pg (25.0-35.0); MCHC 29.6 g/dL (31.0-37.0); MCV 76.9 fL (80.0-100.0); Mean Platelet Volume 6.5; Microcytosis Slight; Monocytes # (A) 0.4 k/uL (0-1.0); Monocytes % (A) 3 %; Neutrophils % (A) 92 %; Platelet Count 317 k/uL (150-450); RBC 5.83 m/uL (3.80-5.40); RDW 16.6 % (11.5-15.5)
[2018-03-24 06:48] LABS: Blood Urea Nitrogen 25 mg/dL (7-17); Calcium 9.2 mg/dL (8.4-10.2); Chloride 95 mmol/L (98-107); Glucose 119 mg/dL (74-99); Potassium 5.1 mmol/L (3.5-5.1); Sodium 137 mmol/L (137-145)
[2018-03-24 06:54] LABS: Anion Gap 1 mmol/L
[2018-03-24 07:02] LABS: Carbon Dioxide 41 mmol/L (22-30)
--- NOTE | 2018-03-24 07:30 | XR ---
EXAMINATION TYPE: XR chest 2V DATE OF EXAM: 03/24/2018 COMPARISON: 03/20/2018 HISTORY: 57 year-old female shortness of breath, follow-up pneumonia TECHNIQUE: AP and lateral views FINDINGS: Large patient body habitus and resultant underpenetration. Heart borderline to mildly enlarged. Hyper inflation with flattening of the hemidiaphragms. This seen on the lateral view there is patchy silverlight developer ior basilar opacity, relatively similar prior. IMPRESSION: Borderline to mild cardiomegaly, COPD, and continued posterior basilar infiltrate on the lateral view .
[2018-03-24] MEDS: IPRATROPIUM-ALBUTEROL 3 ML NEB INHALATION SCH ×4 (08:29→19:48)
[2018-03-24] MEDS: SYMBICORT 160-4.5 MCG INHALER INHALATION SCH ×2 (08:29→19:48)
[2018-03-24] MEDS: FUROSEMIDE 20 MG TAB PO SCH (09:20)
[2018-03-24] MEDS: LOSARTAN 50 MG TAB PO SCH (09:20)
[2018-03-24] MEDS: methylPREDNISolone SOD SUCCI 125 MG/2 ML VIAL IV SCH ×3 (09:20→22:26)
[2018-03-24] MEDS: POTASSIUM CHLORIDE ER 10 MEQ TAB.ER.PRT PO SCH (09:20)
[2018-03-24] MEDS: ASPIRIN 81 MG PO SCH (09:20)
[2018-03-24] MEDS: HEPARIN SODIUM,PORCINE 5,000 UNIT/ML 1 ML VIAL SQ SCH ×2 (09:20→21:08)
[2018-03-24] MEDS: GABAPENTIN 300 MG CAP PO SCH ×3 (09:20→21:08)
[2018-03-24] MEDS: amLODIPine 10 MG TAB PO SCH (09:20)
[2018-03-24 11:59] LABS: Glucose,Whole Blood 154 mg/dL (75-99)
[2018-03-24] MEDS: AZITHROMYCIN 500 MG TAB PO SCH (12:56)
--- NOTE | 2018-03-24 13:34 | P.PN ---
Subjective Progress Note Date: 03/24/18 Principal diagnosis: Acute hypoxic respiratory failure secondary to an acute exacerbation of chronic obstructive pulmonary disease, possible coronary acquired pneumonia On 03/22/2018 I'm seeing this patient for a follow-up. The patient is currently being treated for an acute COPD exacerbation and suspected left lower lobe pneumonia. The patient became better. She is less short of breath compared to yesterday. She was able to take a shower. She is less bronchospastic and wheezy. She is at the point where she does not want to use the BiPAP. Note that initially the BiPAP helped her considerably with her acute COPD exacerbation. No angina. No issues with hemodynamics. No significant anxiety or depression. No nausea. No vomiting. No abdominal pain. That hemoglobin is at 12.9 which is stable. Renal function is stable with a creatinine of 0.6. On 03/23/2018 patient seen in follow-up on selective care unit, she is feeling better, breathing easier, was sounds are positive for end expiratory wheezes, but has bronchospastic compared to previous exams. She on 5 L per nasal cannula and a pulse ox is 90%, she is afebrile, hemodynamically stable. Preliminary sputum Gram stain revealed rare epithelial cells, and rare gram- negative bacilli, final culture is in progress, blood culture was negative. Patient remains on a combination of Zithromax and Rocephin, she is on nebulized bronchodilators, oral Lasix, IV steroids, and she started to respond to treatment. On 03/27/2018 patient seen in follow-up on selective care unit, he states her breathing continues to improve, did not require BiPAP support last night, currently on 5 L pulse ox at 90-91%, lung sounds are less bronchospastic on today's exam, patient has a dry nonproductive cough, she remains on empiric antibiotics including Rocephin and Zithromax, no fever or chills, sputum culture showed no growth, we'll increase her activity as tolerated. Patient remains on oral diuretics, IV steroids, nebulized bronchodilators, and she is improving. We'll obtain repeat chest x-ray in the morning, wean FiO2 increase activity. Objective - Vital Signs Vital signs: Vital Signs Temp 98.2 F 03/24/18 11:52 Pulse 76 03/24/18 11:58 Resp 22 03/24/18 11:52 BP 136/60 03/24/18 11:52 Pulse Ox 92 L 03/24/18 11:52 Intake & Output 03/23/18 03/24/18 03/24/18 18:59 06:59 18:59 Intake Total 980 250 720 Output Total 950 Balance 30 250 720 Weight 113.2 kg Intake: IV 10 0.9 10 Oral 980 240 720 Output: Urine 950 Other: Voiding Method Toilet # Voids 1 2 - Exam GENERAL EXAM: Morbidly obese. Alert, active, comfortable in no apparent distress. Nasal O2 at 5 L. HEAD: Normocephalic. EYES: Normal reaction of pupils, equal size. NOSE: Clear with pink turbinates. THROAT: Crowding of the posterior pharynx. No erythema or exudates. NECK: No masses, no JVD. CHEST: No chest wall deformity. LUNGS: Equal air entry with bilateral end expiratory wheeze, diminished.. CVS: S1 and S2 normal with no audible murmur, regular rhythm. ABDOMEN: No hepatosplenomegaly, normal bowel sounds, no guarding or rigidity. SPINE: No scoliosis or deformity SKIN: No rashes CENTRAL NERVOUS SYSTEM: No focal deficits, tone is normal in all 4 extremities. EXTREMITIES: There is no peripheral edema. No clubbing, no cyanosis. Peripheral pulses are intact. - Labs CBC & Chem 7: 03/24/18 06:00 03/24/18 06:00 Labs: Abnormal Lab Results - Last 24 Hours (Table) 03/23/18 03/23/18 03/24/18 Range/Units 16:27 20:49 05:46 WBC (3.8-10.6) k/uL RBC (3.80-5.40) m/uL MCV (80.0-100.0) fL MCH (25.0-35.0) pg MCHC (31.0-37.0) g/dL RDW (11.5-15.5) % Neutrophils # (1.3-7.7) k/uL Lymphocytes # (1.0-4.8) k/uL Chloride (98-107) mmol/L Carbon Dioxide (22-30) mmol/L BUN (7-17) mg/dL Glucose (74-99) mg/dL POC Glucose (mg/dL) 122 H 169 H 113 H (75-99) mg/dL 03/24/18 03/24/18 03/24/18 Range/Units 06:00 06:00 11:40 WBC 12.0 H (3.8-10.6) k/uL RBC 5.83 H (3.80-5.40) m/uL MCV 76.9 L (80.0-100.0) fL MCH 22.8 L (25.0-35.0) pg MCHC 29.6 L (31.0-37.0) g/dL RDW 16.6 H (11.5-15.5) % Neutrophils # 11.0 H (1.3-7.7) k/uL Lymphocytes # 0.5 L (1.0-4.8) k/uL Chloride 95 L (98-107) mmol/L Carbon Dioxide 41 H* (22-30) mmol/L BUN 25 H (7-17) mg/dL Glucose 119 H (74-99) mg/dL POC Glucose (mg/dL) 154 H (75-99) mg/dL Microbiology - Last 24 Hours (Table) 03/20/18 11:03 Blood Culture - Preliminary Blood No Growth after 96 hours 03/21/18 20:22 Gram Stain - Final Sputum Sputum Culture - Final Assessment and Plan Plan: #1 Acute hypoxemic respiratory failure secondary to an acute exacerbation of chronic obstructive pulmonary disease complicated by linear retrocardiac opacity possible community-acquired pneumonia. #2 Chronic and ongoing tobacco dependence. #3 Morbid obesity. #4 Coronary artery disease with previous stent placement. #5 Hypertension. #6 Hyperlipidemia. #7 History of anxiety/depression. #8 Osteoarthritis. Plan: Patient continues to improve, weaning FiO2, encouraged patient to sit up in the chair, ambulate, we will obtain repeat chest x-ray in the morning, continue with IV Solu-Medrol, nebulized bronchodilators, Rocephin and Zithromax, cultures are negative thus far. I performed a history & physical examination of the patient and discussed their management with my nurse practitioner, Lalita Anand. I reviewed the nurse practitioner's note and agree with the documented findings and plan of care. Lung sounds are positive for end expiratory wheezes. The findings and the impression was discussed with the patient. I attest to the documentation by the nurse practitioner. Time with Patient: Less than 30
--- NOTE | 2018-03-24 15:27 | P.PN ---
Subjective Progress Note Date: 03/24/18 Progress note being dictated for Dr. Cisneros. Interval history: This a 57 year female admitted with acute COPD exacerbation, possible bibasilar pneumonia and multiple other medical issues. Maintained on nebulized bronchodilators, Rocephin, Zithromax, steroids, oral diuretics with significant clinical improvement. Did not require BiPAP last night. Oxygen is weaned this morning from 5 L to 4 L nasal cannula, maintaining O2 sats in the low 90s. Nonproductive cough Minimal ambulation. Objective - Vital Signs Vital signs: Vital Signs Temp 98.2 F 03/24/18 11:52 Pulse 76 03/24/18 11:58 Resp 22 03/24/18 11:52 BP 136/60 03/24/18 11:52 Pulse Ox 92 L 03/24/18 11:52 Intake & Output 03/23/18 03/24/18 03/24/18 18:59 06:59 18:59 Intake Total 980 250 720 Output Total 950 Balance 30 250 720 Weight 113.2 kg Intake: IV 10 0.9 10 Oral 980 240 720 Output: Urine 950 Other: Voiding Method Toilet # Voids 1 2 - Exam PHYSICAL EXAM: VITAL SIGNS: As above GENERAL: Sitting up at side of bed bed, no acute distress HEENT: Conjunctivae normal. eyes normal. Oral mucosa moist NECK: No JVD. No thyroid enlargement. No LNs CARDIOVASCULAR: S1, S2 muffled. No murmur RESPIRATION: Breath sounds diminished in the bases. Bilateral scattered rhonchi and crackles. Occasional scattered fine expiratory wheeze ABDOMEN: Soft, nontender . No guarding. no masses palpable. Bowel sounds heard. LEGS: No edema. no swelling PSYCHIATRY: Alert and oriented -3, mood and affect normal. NERVOUS SYSTEM: Cranial N 2-12 grossly normal. Moves all 4 limbs. Diffuse weakness No focal deficits. Skin: no rash Lymphatic system. No LN neck axilla or groin. - Labs CBC & Chem 7: 03/24/18 06:00 03/24/18 06:00 Labs: Abnormal Lab Results - Last 24 Hours (Table) 03/23/18 03/23/18 03/24/18 Range/Units 16:27 20:49 05:46 WBC (3.8-10.6) k/uL RBC (3.80-5.40) m/uL MCV (80.0-100.0) fL MCH (25.0-35.0) pg MCHC (31.0-37.0) g/dL RDW (11.5-15.5) % Neutrophils # (1.3-7.7) k/uL Lymphocytes # (1.0-4.8) k/uL Chloride (98-107) mmol/L Carbon Dioxide (22-30) mmol/L BUN (7-17) mg/dL Glucose (74-99) mg/dL POC Glucose (mg/dL) 122 H 169 H 113 H (75-99) mg/dL 03/24/18 03/24/18 03/24/18 Range/Units 06:00 06:00 11:40 WBC 12.0 H (3.8-10.6) k/uL RBC 5.83 H (3.80-5.40) m/uL MCV 76.9 L (80.0-100.0) fL MCH 22.8 L (25.0-35.0) pg MCHC 29.6 L (31.0-37.0) g/dL RDW 16.6 H (11.5-15.5) % Neutrophils # 11.0 H (1.3-7.7) k/uL Lymphocytes # 0.5 L (1.0-4.8) k/uL Chloride 95 L (98-107) mmol/L Carbon Dioxide 41 H* (22-30) mmol/L BUN 25 H (7-17) mg/dL Glucose 119 H (74-99) mg/dL POC Glucose (mg/dL) 154 H (75-99) mg/dL Microbiology - Last 24 Hours (Table) 03/20/18 11:03 Blood Culture - Preliminary Blood No Growth after 96 hours 03/21/18 20:22 Gram Stain - Final Sputum Sputum Culture - Final Assessment and Plan Assessment: -Acute COPD exacerbation with possible bibasilar pneumonia, community-acquired pneumonia, with failure of outpatient treatment -Acute hypoxic, hypercarbic respiratory failure secondary to the above, present on admission, status post BiPAP -Continued ongoing nicotine dependence -Obesity, BMI 48.7 -CAD with history of stent -Hypertension Plan: Continue on current medication regime ,monitoring and symptomatic treatment. Increase ambulation as tolerated. Maintain nebulized bronchodilators, steroids and antibiotics. Potential discharge tomorrow pending pulmonary clearance. The impression and plan of care has been dictated as directed. : I performed a history and examination of this patient, discussed the same with the dictator. I agree with the dictator's note ,documented as a scribe. Any additional findings or plans will be noted.
[2018-03-24 16:40] LABS: Glucose,Whole Blood 178 mg/dL (75-99)
[2018-03-24 20:45] LABS: Glucose,Whole Blood 174 mg/dL (75-99)
[2018-03-24] MEDS: ATORVASTATIN 40 MG TAB PO SCH (21:08)
[2018-03-24] MEDS: DULoxetine HCL 60 MG CAPSULE.DR PO SCH (21:08)
[2018-03-25 06:04] LABS: Glucose,Whole Blood 121 mg/dL (75-99)
[2018-03-25] MEDS: INSULIN ASPART 100 UNIT/ML 1 ML 10 ML VIAL SQ SCH ×4 (06:28→20:57)
[2018-03-25] MEDS: PANTOPRAZOLE 40 MG TABLET PO SCH (06:30)
[2018-03-25] MEDS: CARVEDILOL 12.5 MG TAB PO SCH ×2 (06:30→18:14)
[2018-03-25 07:30] LABS: Anisocytosis Slight; Basophils % (A) 0 %; Eosinophils % (A) 0 %; HCT 43.9 % (34.0-46.0); HGB 12.6 gm/dL (11.4-16.0); Hypochromasia Marked; Lymphocytes # (A) 0.4 k/uL (1.0-4.8); Lymphocytes % (A) 4 %; MCHC 28.6 g/dL (31.0-37.0); MCV 76.8 fL (80.0-100.0); Mean Platelet Volume 6.3; Microcytosis Slight; Monocytes # (A) 0.6 k/uL (0-1.0); Monocytes % (A) 6 %; Neutrophils # (A) 9.8 k/uL (1.3-7.7); Neutrophils % (A) 89 %; Platelet Count 304 k/uL (150-450); RBC 5.72 m/uL (3.80-5.40); RDW 16.4 % (11.5-15.5)
[2018-03-25 07:50] LABS: Anion Gap -1 mmol/L; Blood Urea Nitrogen 28 mg/dL (7-17); Calcium 8.8 mg/dL (8.4-10.2); Carbon Dioxide 39 mmol/L (22-30); Chloride 100 mmol/L (98-107); Glucose 121 mg/dL (74-99); Potassium 4.7 mmol/L (3.5-5.1); Sodium 138 mmol/L (137-145)
[2018-03-25] MEDS: IPRATROPIUM-ALBUTEROL 3 ML NEB INHALATION SCH ×4 (08:16→20:15)
[2018-03-25] MEDS: SYMBICORT 160-4.5 MCG INHALER INHALATION SCH ×2 (08:16→20:13)
[2018-03-25] MEDS: FUROSEMIDE 20 MG TAB PO SCH (08:56)
[2018-03-25] MEDS: amLODIPine 10 MG TAB PO SCH (08:56)
[2018-03-25] MEDS: methylPREDNISolone SOD SUCCI 125 MG/2 ML VIAL IV SCH ×2 (08:56→18:14)
[2018-03-25] MEDS: POTASSIUM CHLORIDE ER 10 MEQ TAB.ER.PRT PO SCH (08:56)
[2018-03-25] MEDS: HEPARIN SODIUM,PORCINE 5,000 UNIT/ML 1 ML VIAL SQ SCH ×2 (08:56→20:56)
[2018-03-25] MEDS: LOSARTAN 50 MG TAB PO SCH (08:56)
[2018-03-25] MEDS: ASPIRIN 81 MG PO SCH (08:56)
[2018-03-25] MEDS: GABAPENTIN 300 MG CAP PO SCH ×3 (08:56→20:57)
--- NOTE | 2018-03-25 09:15 | XR ---
EXAMINATION TYPE: XR chest 1V portable DATE OF EXAM: 03/25/2018 CLINICAL HISTORY: Difficulty breathing progress study. TECHNIQUE: Single AP portable upright view of the chest is obtained. COMPARISON: Chest x-ray from one day earlier and older x-rays. CTA chest October 28, 2017. FINDINGS: Exam noted suboptimal due to portable technique and patient's large body habitus. There is stable mild cardiomegaly. There is background of chronic emphysematous change without new suspicious focal airspace opacity, pleural effusion, or pneumothorax seen. Possible retrocardiac opacity on mos t recent as x-ray is only well seen on lateral view. In addition numerous overlying EKG wires overlie the right lung base making evaluation suboptimal. IMPRESSION: Suboptimal study, cardiomegaly without new acute infiltrate. Prior suspected retrocardiac infiltrate is only well seen on lateral projection performed one day earlier.
[2018-03-25] MEDS ORDERED: FUROSEMIDE 10 MG/ML 4 ML VIAL IV STA (10:46)
[2018-03-25 12:08] LABS: Glucose,Whole Blood 143 mg/dL (75-99)
--- NOTE | 2018-03-25 15:47 | P.PN ---
Subjective Progress Note Date: 03/25/18 Principal diagnosis: Acute hypoxic respiratory failure secondary to an acute exacerbation of chronic obstructive pulmonary disease, possible coronary acquired pneumonia On 03/22/2018 I'm seeing this patient for a follow-up. The patient is currently being treated for an acute COPD exacerbation and suspected left lower lobe pneumonia. The patient became better. She is less short of breath compared to yesterday. She was able to take a shower. She is less bronchospastic and wheezy. She is at the point where she does not want to use the BiPAP. Note that initially the BiPAP helped her considerably with her acute COPD exacerbation. No angina. No issues with hemodynamics. No significant anxiety or depression. No nausea. No vomiting. No abdominal pain. That hemoglobin is at 12.9 which is stable. Renal function is stable with a creatinine of 0.6. On 03/23/2018 patient seen in follow-up on selective care unit, she is feeling better, breathing easier, was sounds are positive for end expiratory wheezes, but has bronchospastic compared to previous exams. She on 5 L per nasal cannula and a pulse ox is 90%, she is afebrile, hemodynamically stable. Preliminary sputum Gram stain revealed rare epithelial cells, and rare gram- negative bacilli, final culture is in progress, blood culture was negative. Patient remains on a combination of Zithromax and Rocephin, she is on nebulized bronchodilators, oral Lasix, IV steroids, and she started to respond to treatment. On 03/27/2018 patient seen in follow-up on selective care unit, he states her breathing continues to improve, did not require BiPAP support last night, currently on 5 L pulse ox at 90-91%, lung sounds are less bronchospastic on today's exam, patient has a dry nonproductive cough, she remains on empiric antibiotics including Rocephin and Zithromax, no fever or chills, sputum culture showed no growth, we'll increase her activity as tolerated. Patient remains on oral diuretics, IV steroids, nebulized bronchodilators, and she is improving. We'll obtain repeat chest x-ray in the morning, wean FiO2 increase activity. On 03/25/2018 patient seen in follow-up on selective care unit, resting in bed, in no acute distress, her FiO2 is currently down to 3 L, and patient is only satting 87-88%, but clinically completely asymptomatic, deep breathing and coughing was encouraged. Lung sounds are positive for a few end expiratory wheezes, very faint, overall much better from previous exams, follow-up chest x- ray was reviewed today, it was a suboptimal study, showed cardiomegaly without new acute infiltrate, retrocardiac infiltrate seen on lateral projection. Patient has Lower extremity edema, 1+ pitting edema. Cultures remained negative , including blood and sputum culture. No fever or chills, patient was up ambulating yesterday, tolerated activity fairly well Objective - Vital Signs Vital signs: Vital Signs Temp 98.7 F 03/25/18 08:00 Pulse 74 03/25/18 11:42 Resp 22 03/25/18 11:08 BP 134/58 03/25/18 08:00 Pulse Ox 92 L 03/25/18 08:16 Intake & Output 03/24/18 03/25/18 03/25/18 18:59 06:59 18:59 Intake Total 960 Balance 960 Weight 115.8 kg Intake: Oral 960 Other: Voiding Method Toilet Toilet # Voids 2 1 - Exam GENERAL EXAM: Morbidly obese. Alert, active, comfortable in no apparent distress. Nasal O2 at 3 L. HEAD: Normocephalic. EYES: Normal reaction of pupils, equal size. NOSE: Clear with pink turbinates. THROAT: Crowding of the posterior pharynx. No erythema or exudates. NECK: No masses, no JVD. CHEST: No chest wall deformity. LUNGS: Equal air entry with bilateral end expiratory wheeze, diminished.. CVS: S1 and S2 normal with no audible murmur, regular rhythm. ABDOMEN: No hepatosplenomegaly, normal bowel sounds, no guarding or rigidity. SPINE: No scoliosis or deformity SKIN: No rashes CENTRAL NERVOUS SYSTEM: No focal deficits, tone is normal in all 4 extremities. EXTREMITIES: There is no peripheral edema. No clubbing, no cyanosis. Peripheral pulses are intact. - Labs CBC & Chem 7: 03/25/18 06:56 03/25/18 06:56 Labs: Abnormal Lab Results - Last 24 Hours (Table) 03/24/18 03/24/18 03/25/18 Range/Units 16:38 20:44 06:03 WBC (3.8-10.6) k/uL RBC (3.80-5.40) m/uL MCV (80.0-100.0) fL MCH (25.0-35.0) pg MCHC (31.0-37.0) g/dL RDW (11.5-15.5) % Neutrophils # (1.3-7.7) k/uL Lymphocytes # (1.0-4.8) k/uL Carbon Dioxide (22-30) mmol/L BUN (7-17) mg/dL Creatinine (0.52-1.04) mg/dL Glucose (74-99) mg/dL POC Glucose (mg/dL) 178 H 174 H 121 H (75-99) mg/dL 03/25/18 03/25/18 03/25/18 Range/Units 06:56 06:56 12:06 WBC 11.0 H (3.8-10.6) k/uL RBC 5.72 H (3.80-5.40) m/uL MCV 76.8 L (80.0-100.0) fL MCH 22.0 L (25.0-35.0) pg MCHC 28.6 L (31.0-37.0) g/dL RDW 16.4 H (11.5-15.5) % Neutrophils # 9.8 H (1.3-7.7) k/uL Lymphocytes # 0.4 L (1.0-4.8) k/uL Carbon Dioxide 39 H (22-30) mmol/L BUN 28 H (7-17) mg/dL Creatinine 0.50 L (0.52-1.04) mg/dL Glucose 121 H (74-99) mg/dL POC Glucose (mg/dL) 143 H (75-99) mg/dL Microbiology - Last 24 Hours (Table) 03/20/18 11:03 Blood Culture - Preliminary Blood No Growth after 96 hours 03/21/18 20:22 Gram Stain - Final Sputum Sputum Culture - Final Assessment and Plan Plan: #1 Acute hypoxemic respiratory failure secondary to an acute exacerbation of chronic obstructive pulmonary disease complicated by linear retrocardiac opacity possible community-acquired pneumonia. #2 Chronic and ongoing tobacco dependence. #3 Morbid obesity. #4 Coronary artery disease with previous stent placement. #5 Hypertension. #6 Hyperlipidemia. #7 History of anxiety/depression. #8 Osteoarthritis. Plan: Today's chest x-ray has been reviewed with Dr. Sterling it was a suboptimal study , no new acute pulmonary infiltrates, continue current antibiotic coverage, patient remains on Zithromax and Rocephin, sputum on the cultures remain negative thus far, no fever or chills, patient was given a dose of Lasix, her pulse ox remains marginal, and she is still requiring 5 L of oxygen, and her hypoxemia is not explained by chest x-ray findings or physical exam findings, obtain CT angios of the chest to rule out pulmonary embolism. Continue to follow I performed a history & physical examination of the patient and discussed their management with my nurse practitioner, Lalita Anand. I reviewed the nurse practitioner's note and agree with the documented findings and plan of care. Lung sounds are positive for end expiratory wheezes. The findings and the impression was discussed with the patient. I attest to the documentation by the nurse practitioner. Time with Patient: Less than 30
[2018-03-25 16:39] LABS: Glucose,Whole Blood 138 mg/dL (75-99)
--- NOTE | 2018-03-25 17:09 | CT ---
EXAMINATION TYPE: CT angio chest with contrast and with 3-D reconstruction renderings DATE OF EXAM: 03/25/2018 4:38 PM COMPARISON: 10/21/2017 HISTORY: sob CT DLP: 744.4 mGycm Automated exposure control for dose reduction was used. CONTRAST: CTA scan of the thorax is performed with IV Contrast, patient injected with 100 mL of Isovue 370, pul monary embolism protocol. 3-D reconstructions. FINDINGS: AIRWAYS: Unremarkable. LUNGS: Bibasilar small areas of consolidative opacity are noted dependently. These are nonspecific an d likely represent dependent atelectasis. There is no pulmonary edema. The lungs are otherwise clear and well-expanded bilaterally. PLEURAL SPACES: Negative. MEDIASTINUM: There is satisfactory enhancement of the pulmonary artery and its branches, there is no CT evidence for pulmonary embolism. The caliber of the central pulmonary arteries is prominent and th is can correlate with a clinical diagnosis of pulmonary hypertension. Prominent coronary calcifications are noted. The septum is less dense than the remainder of the rosa elena cardium. This usually reflects motion artifact, but clinical exclusion of ischemia requested. Mild ca rdiomegaly and panchamber enlargement. No pericardial effusion is seen. Aorta shows atherosclerotic changes; there are no acute aortic findings but a 1 cm outpouching of t he distal thoracic aorta lumen posteriorly is noted - consistent with saccular aneurysm. There are no greater than 1 cm hilar or mediastinal lymph nodes. OTHER: No additional significant abnormality is seen. To ensure rapid communications, the patient's nurse was called at 5:07 PM 03/25/2018. IMPRESSION: 1. NEGATIVE FOR PULMONARY EMBOLISM. 2. PROMINENT CORONARY CALCIFICATIONS, WITH SEPTAL MYOCARDIAL HYPODENSITY. 3. 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 4. MILD BIBASILAR PULMONARY FINDINGS, NONSPECIFIC.
[2018-03-25] MEDS: AZITHROMYCIN 500 MG TAB PO SCH (18:14)
[2018-03-25 20:51] LABS: Glucose,Whole Blood 157 mg/dL (75-99)
[2018-03-25] MEDS: DULoxetine HCL 60 MG CAPSULE.DR PO SCH (20:57)
[2018-03-25] MEDS: ATORVASTATIN 40 MG TAB PO SCH (20:57)
[2018-03-26] MEDS: methylPREDNISolone SOD SUCCI 125 MG/2 ML VIAL IV SCH ×2 (00:22→08:27)
[2018-03-26 06:28] LABS: Glucose,Whole Blood 116 mg/dL (75-99)
[2018-03-26] MEDS: CARVEDILOL 12.5 MG TAB PO SCH (06:34)
[2018-03-26] MEDS: INSULIN ASPART 100 UNIT/ML 1 ML 10 ML VIAL SQ SCH ×2 (06:34→12:32)
[2018-03-26] MEDS: PANTOPRAZOLE 40 MG TABLET PO SCH (06:34)
[2018-03-26 06:40] LABS: Anisocytosis Slight; Basophils % (A) 0 %; Eosinophils % (A) 0 %; HCT 44.2 % (34.0-46.0); HGB 12.9 gm/dL (11.4-16.0); Hypochromasia Marked; Lymphocytes # (A) 0.4 k/uL (1.0-4.8); Lymphocytes % (A) 4 %; MCH 22.1 pg (25.0-35.0); MCHC 29.2 g/dL (31.0-37.0); MCV 75.9 fL (80.0-100.0); Mean Platelet Volume 6.2; Microcytosis Slight; Monocytes # (A) 0.4 k/uL (0-1.0); Monocytes % (A) 4 %; Neutrophils # (A) 10.6 k/uL (1.3-7.7); Neutrophils % (A) 92 %; Platelet Count 255 k/uL (150-450); RBC 5.83 m/uL (3.80-5.40); RDW 16.9 % (11.5-15.5); WBC 11.5 k/uL (3.8-10.6)
[2018-03-26 06:55] LABS: Anion Gap 0 mmol/L; Blood Urea Nitrogen 26 mg/dL (7-17); Calcium 8.7 mg/dL (8.4-10.2); Carbon Dioxide 40 mmol/L (22-30); Chloride 98 mmol/L (98-107); Glucose 119 mg/dL (74-99); Potassium 4.5 mmol/L (3.5-5.1); Sodium 138 mmol/L (137-145)
[2018-03-26] MEDS: GABAPENTIN 300 MG CAP PO SCH (08:26)
[2018-03-26] MEDS: ASPIRIN 81 MG PO SCH (08:26)
[2018-03-26] MEDS: POTASSIUM CHLORIDE ER 10 MEQ TAB.ER.PRT PO SCH (08:26)
[2018-03-26] MEDS: HEPARIN SODIUM,PORCINE 5,000 UNIT/ML 1 ML VIAL SQ SCH (08:27)
[2018-03-26] MEDS: FUROSEMIDE 20 MG TAB PO SCH (08:27)
[2018-03-26] MEDS: amLODIPine 10 MG TAB PO SCH (08:27)
[2018-03-26] MEDS: LOSARTAN 50 MG TAB PO SCH (08:27)
[2018-03-26] MEDS: IPRATROPIUM-ALBUTEROL 3 ML NEB INHALATION SCH ×2 (08:41→11:42)
[2018-03-26] MEDS: SYMBICORT 160-4.5 MCG INHALER INHALATION SCH (08:41)
[2018-03-26 08:51] VITALS: TEMP 98
[2018-03-26 11:20] LABS: Glucose,Whole Blood 195 mg/dL (75-99)
[2018-03-26 11:55] VITALS: BP 125/58; PULSE 79; RESP 18
--- NOTE | 2018-03-26 12:30 | P.PN ---
Subjective Progress Note Date: 03/26/18 Principal diagnosis: Acute hypoxic respiratory failure secondary to an acute exacerbation of chronic obstructive pulmonary disease, possible coronary acquired pneumonia On 03/22/2018 I'm seeing this patient for a follow-up. The patient is currently being treated for an acute COPD exacerbation and suspected left lower lobe pneumonia. The patient became better. She is less short of breath compared to yesterday. She was able to take a shower. She is less bronchospastic and wheezy. She is at the point where she does not want to use the BiPAP. Note that initially the BiPAP helped her considerably with her acute COPD exacerbation. No angina. No issues with hemodynamics. No significant anxiety or depression. No nausea. No vomiting. No abdominal pain. That hemoglobin is at 12.9 which is stable. Renal function is stable with a creatinine of 0.6. On 03/23/2018 patient seen in follow-up on selective care unit, she is feeling better, breathing easier, was sounds are positive for end expiratory wheezes, but has bronchospastic compared to previous exams. She on 5 L per nasal cannula and a pulse ox is 90%, she is afebrile, hemodynamically stable. Preliminary sputum Gram stain revealed rare epithelial cells, and rare gram- negative bacilli, final culture is in progress, blood culture was negative. Patient remains on a combination of Zithromax and Rocephin, she is on nebulized bronchodilators, oral Lasix, IV steroids, and she started to respond to treatment. On 03/27/2018 patient seen in follow-up on selective care unit, he states her breathing continues to improve, did not require BiPAP support last night, currently on 5 L pulse ox at 90-91%, lung sounds are less bronchospastic on today's exam, patient has a dry nonproductive cough, she remains on empiric antibiotics including Rocephin and Zithromax, no fever or chills, sputum culture showed no growth, we'll increase her activity as tolerated. Patient remains on oral diuretics, IV steroids, nebulized bronchodilators, and she is improving. We'll obtain repeat chest x-ray in the morning, wean FiO2 increase activity. On 03/25/2018 patient seen in follow-up on selective care unit, resting in bed, in no acute distress, her FiO2 is currently down to 3 L, and patient is only satting 87-88%, but clinically completely asymptomatic, deep breathing and coughing was encouraged. Lung sounds are positive for a few end expiratory wheezes, very faint, overall much better from previous exams, follow-up chest x- ray was reviewed today, it was a suboptimal study, showed cardiomegaly without new acute infiltrate, retrocardiac infiltrate seen on lateral projection. Patient has Lower extremity edema, 1+ pitting edema. Cultures remained negative , including blood and sputum culture. No fever or chills, patient was up ambulating yesterday, tolerated activity fairly well On 03/26/2018 patient seen in follow-up on selective care unit. She is resting comfortably in bed, no acute distress, still requiring liters of oxygen, her pulse ox is still marginal, at 90%, on 3 L of oxygen she desaturates to 87-88%. CT angios of the chest was negative for pulmonary embolism, showed some prominent coronary calcifications and mild bibasilar pulmonary findings which were nonspecific, no clear evidence of pneumonia or heart failure. Clinically patient feeling great, she has been ambulating in the room, tolerating it good, lung sounds are essentially clear to auscultation, no wheezes or rhonchi no rales. Encourage ambulation, sitting up in the chair, in oxygen, most likely patient will need home oxygen clinically she is completely asymptomatic, his labs have been reviewed, white count is 11.5, hemoglobin is 12.9, electrolytes were within normal limits, CO2 is 40 due to chronic hypercapnic respiratory failure, B1 is 26 and creatinine 0.46. From pulmonary perspective patient is stable for discharge home, need home oxygen assessment, with the possibility of home oxygen. Objective - Vital Signs Vital signs: Vital Signs Temp 98.0 F 03/26/18 08:00 Pulse 79 03/26/18 11:54 Resp 18 03/26/18 11:54 BP 125/58 03/26/18 11:54 Pulse Ox 90 L 03/26/18 11:54 Intake & Output 03/25/18 03/26/18 03/26/18 18:59 06:59 18:59 Intake Total 120 370 Output Total 400 Balance 120 -30 Weight 116 kg Intake: IV 10 Invasive Line 3 10 Oral 120 360 Output: Urine 400 Other: Voiding Method Toilet Toilet # Voids 1 1 # Bowel Movements 1 - Exam GENERAL EXAM: Morbidly obese. Alert, active, comfortable in no apparent distress. Nasal O2 at 5 L. HEAD: Normocephalic. EYES: Normal reaction of pupils, equal size. NOSE: Clear with pink turbinates. THROAT: Crowding of the posterior pharynx. No erythema or exudates. NECK: No masses, no JVD. CHEST: No chest wall deformity. LUNGS: Equal air entry, no rhonchi, no wheezes no rales. CVS: S1 and S2 normal with no audible murmur, regular rhythm. ABDOMEN: No hepatosplenomegaly, normal bowel sounds, no guarding or rigidity. SPINE: No scoliosis or deformity SKIN: No rashes CENTRAL NERVOUS SYSTEM: No focal deficits, tone is normal in all 4 extremities. EXTREMITIES: There is no peripheral edema. No clubbing, no cyanosis. Peripheral pulses are intact. - Labs CBC & Chem 7: 03/26/18 06:11 03/26/18 06:11 Labs: Abnormal Lab Results - Last 24 Hours (Table) 03/25/18 03/25/18 03/26/18 Range/Units 16:36 20:49 06:11 WBC 11.5 H (3.8-10.6) k/uL RBC 5.83 H (3.80-5.40) m/uL MCV 75.9 L (80.0-100.0) fL MCH 22.1 L (25.0-35.0) pg MCHC 29.2 L (31.0-37.0) g/dL RDW 16.9 H (11.5-15.5) % Neutrophils # 10.6 H (1.3-7.7) k/uL Lymphocytes # 0.4 L (1.0-4.8) k/uL Carbon Dioxide (22-30) mmol/L BUN (7-17) mg/dL Creatinine (0.52-1.04) mg/dL Glucose (74-99) mg/dL POC Glucose (mg/dL) 138 H 157 H (75-99) mg/dL 03/26/18 03/26/18 03/26/18 Range/Units 06:11 06:27 11:18 WBC (3.8-10.6) k/uL RBC (3.80-5.40) m/uL MCV (80.0-100.0) fL MCH (25.0-35.0) pg MCHC (31.0-37.0) g/dL RDW (11.5-15.5) % Neutrophils # (1.3-7.7) k/uL Lymphocytes # (1.0-4.8) k/uL Carbon Dioxide 40 H (22-30) mmol/L BUN 26 H (7-17) mg/dL Creatinine 0.46 L (0.52-1.04) mg/dL Glucose 119 H (74-99) mg/dL POC Glucose (mg/dL) 116 H 195 H (75-99) mg/dL Microbiology - Last 24 Hours (Table) 03/20/18 11:03 Blood Culture - Preliminary Blood No Growth after 120 hours Assessment and Plan Plan: #1 Acute hypoxemic respiratory failure secondary to an acute exacerbation of chronic obstructive pulmonary disease complicated by linear retrocardiac opacity possible community-acquired pneumonia. #2 Chronic and ongoing tobacco dependence. #3 Morbid obesity. #4 Coronary artery disease with previous stent placement. #5 Hypertension. #6 Hyperlipidemia. #7 History of anxiety/depression. #8 Osteoarthritis. Plan: CT angios chest has been reviewed with Dr. Welch, no evidence of pulmonary embolism, no evidence of pneumonia or heart failure. Patient has completed 6 days of Zithromax and Rocephin, no fever or chills, microbiology is negative. Stopped the antibiotics, we'll transition the IV Solu-Medrol to oral prednisone , patient is stable for discharge home from pulmonary perspective, she may need home oxygen arranged, complete home oxygen assessment, wean FiO2. She will need follow-up with Dr. Saez in the office I performed a history & physical examination of the patient and discussed their management with my nurse practitioner, Lalita Anand. I reviewed the nurse practitioner's note and agree with the documented findings and plan of care. Lung sounds are positive for end expiratory wheezes. The findings and the impression was discussed with the patient. I attest to the documentation by the nurse practitioner. Time with Patient: Less than 30
[2018-03-26 13:56] VITALS: BMI 49.9
[2018-03-27] MEDS ORDERED: predniSONE 10 MG TAB PO SCH (09:00)
--- NOTE | 2018-03-27 19:54 | P.PN ---
Subjective Progress Note Date: 03/25/18 Progress note being dictated for Dr. Cisneros. Interval history: This a 57 year female admitted with acute COPD exacerbation, possible bibasilar pneumonia and multiple other medical issues. Maintained on nebulized bronchodilators, Rocephin, Zithromax, steroids, oral diuretics with significant clinical improvement. Did not require BiPAP last night. Oxygen is weaned this morning from 5 L to 4 L nasal cannula, maintaining O2 sats in the low 90s. Nonproductive cough Minimal ambulation. 03/25/2018 continues to be O2 dependent. Maintaining O2 sats of 88% on 3 L nasal cannula. Maintained on Rocephin , Zithromax, nebulized bronchodilators, steroids, diuretics. Breathing improving. Chest x-ray suboptimal, without new acute infiltrate. Afebrile, nonproductive cough. 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 Objective - Vital Signs Vital signs: Vital Signs Temp 98.7 F 03/25/18 08:00 Pulse 78 03/25/18 16:03 Resp 18 03/25/18 16:00 BP 165/75 03/25/18 12:00 Pulse Ox 90 L 03/25/18 12:00 Intake & Output 03/24/18 03/25/18 03/25/18 18:59 06:59 18:59 Intake Total 960 120 Balance 960 120 Weight 115.8 kg Intake: Oral 960 120 Other: Voiding Method Toilet Toilet # Voids 2 1 1 # Bowel Movements 1 - Exam PHYSICAL EXAM: VITAL SIGNS: As above GENERAL: Sitting up at side of bed bed, no acute distress HEENT: Conjunctivae normal. eyes normal. Oral mucosa moist NECK: No JVD. No thyroid enlargement. No LNs CARDIOVASCULAR: S1, S2 muffled. No murmur RESPIRATION: Breath sounds diminished in the bases. Bilateral scattered rhonchi and crackles. Occasional scattered fine expiratory wheeze, improving ABDOMEN: Soft, nontender . No guarding. no masses palpable. Bowel sounds heard. LEGS: No edema. no swelling PSYCHIATRY: Alert and oriented -3, mood and affect normal. NERVOUS SYSTEM: Cranial N 2-12 grossly normal. Moves all 4 limbs. Diffuse weakness No focal deficits. Skin: no rash Lymphatic system. No LN neck axilla or groin. - Labs CBC & Chem 7: 03/26/18 06:11 03/26/18 06:11 Labs: Abnormal Lab Results - Last 24 Hours (Table) 03/24/18 03/25/18 03/25/18 Range/Units 20:44 06:03 06:56 WBC 11.0 H (3.8-10.6) k/uL RBC 5.72 H (3.80-5.40) m/uL MCV 76.8 L (80.0-100.0) fL MCH 22.0 L (25.0-35.0) pg MCHC 28.6 L (31.0-37.0) g/dL RDW 16.4 H (11.5-15.5) % Neutrophils # 9.8 H (1.3-7.7) k/uL Lymphocytes # 0.4 L (1.0-4.8) k/uL Carbon Dioxide (22-30) mmol/L BUN (7-17) mg/dL Creatinine (0.52-1.04) mg/dL Glucose (74-99) mg/dL POC Glucose (mg/dL) 174 H 121 H (75-99) mg/dL 03/25/18 03/25/18 03/25/18 Range/Units 06:56 12:06 16:36 WBC (3.8-10.6) k/uL RBC (3.80-5.40) m/uL MCV (80.0-100.0) fL MCH (25.0-35.0) pg MCHC (31.0-37.0) g/dL RDW (11.5-15.5) % Neutrophils # (1.3-7.7) k/uL Lymphocytes # (1.0-4.8) k/uL Carbon Dioxide 39 H (22-30) mmol/L BUN 28 H (7-17) mg/dL Creatinine 0.50 L (0.52-1.04) mg/dL Glucose 121 H (74-99) mg/dL POC Glucose (mg/dL) 143 H 138 H (75-99) mg/dL Microbiology - Last 24 Hours (Table) 03/20/18 11:03 Blood Culture - Preliminary Blood No Growth after 120 hours Assessment and Plan Assessment: -Acute COPD exacerbation with possible bibasilar pneumonia, community-acquired pneumonia, with failure of outpatient treatment -Acute hypoxic, hypercarbic respiratory failure secondary to the above, present on admission, status post BiPAP -Continued ongoing nicotine dependence -Obesity, BMI 48.7 -CAD with history of stent -Hypertension - PE ruled out - Some prominent coronary calcifications, no acute aortic process, 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 Increase ambulation as tolerated. Maintain nebulized bronchodilators, steroids and antibiotics. Potential discharge tomorrow pending pulmonary clearance. The impression and plan of care has been dictated as directed. : I performed a history and examination of this patient, discussed the same with the dictator. I agree with the dictator's note ,documented as a scribe. Any additional findings or plans will be noted.
--- NOTE | 2018-03-27 20:00 | P.DS ---
Providers Date of admission: 03/20/18 12:47 Expected date of discharge: 03/26/18 Attending physician: Lilian Cisneros Consults: 03/20/18 22:12 Consult Physician Routine Consulting Provider: aNdine Saez Consult Reason/Comments: COPD exacerbation; PNA Do you want consulting provider notified?: Yes, Notify in am Primary care physician: Taina Paredes Hospital Course: Final Diagnoses: -Acute COPD exacerbation with possible bibasilar pneumonia, community-acquired pneumonia, with failure of outpatient treatment -Acute hypoxic, hypercarbic respiratory failure secondary to the above, present on admission, status post BiPAP -Continued ongoing nicotine dependence -Obesity, BMI 48.7 -CAD with history of stent -Hypertension - PE ruled out - Some prominent coronary calcifications, no acute aortic process, 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 Maintained on nebulized bronchodilators, Rocephin, Zithromax, steroids, oral diuretics with significant clinical improvement. Did not require BiPAP last night. Oxygen is weaned this morning from 5 L to 4 L nasal cannula, maintaining O2 sats in the low 90s. Nonproductive cough Minimal ambulation. 03/25/2018 continues to be O2 dependent. Maintaining O2 sats of 88% on 3 L nasal cannula. Maintained on Rocephin , Zithromax, nebulized bronchodilators, steroids, diuretics. Breathing improving. Chest x-ray suboptimal, without new acute infiltrate. Afebrile, nonproductive cough. 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 03/26 2018 oxygen weaned down to 2 L nasal cannula. Breathing improved. Significant clinical improvement. Cleared for discharge by pulmonary. Case management arranging oxygen for discharge. Patient is being discharged home in a stable condition with guarded prognosis. EXAM: GENERAL: Sitting up at side of bed bed, no acute distress CARDIOVASCULAR: S1, S2 muffled. No murmur RESPIRATION: Breath sounds diminished in the bases. Bilateral scattered rhonchi and crackles. No wheezing ABDOMEN: Soft, nontender . No guarding. no masses palpable. Bowel sounds heard. NERVOUS SYSTEM: No focal deficits. The impression and plan of care has been dictated as directed. : I performed a history and examination of this patient, discussed the same with the dictator. I agree with the dictator's note ,documented as a scribe. Any additional findings or plans will be noted. Time taken: 35 minutes Patient Condition at Discharge: Stable Plan - Discharge Summary Discharge Rx Participant: No New Discharge Prescriptions: New predniSONE 10 mg PO DIRECTED #30 tab Continue Potassium Chloride ER [K-Dur 10] 10 meq PO DAILY Atorvastatin [Lipitor] 40 mg PO HS Furosemide [Lasix] 20 mg PO DAILY DULoxetine HCL [Cymbalta] 60 mg PO HS Aspirin 81 mg PO DAILY Pantoprazole [Protonix] 40 mg PO DAILY #30 tablet. Budesonide/Formoterol Fumarate [Symbicort 160-4.5 Mcg Inhaler] 2 puff INHALATION RT-BID #1 hfa.aer.ad Gabapentin [Neurontin] 300 mg PO TID cap Losartan [Cozaar] 50 mg PO DAILY tab traMADol HCl [Ultram] 50 mg PO QID PRN #12 tab PRN Reason: MODERATE Pain amLODIPine [Norvasc] 10 mg PO DAILY Carvedilol 25 mg PO BID Ipratropium-Albuterol Nebulize [Duoneb 0.5 mg-3 mg/3 ml Soln] 3 ml INHALATION RT-QID PRN PRN Reason: Shortness Of Breath Discharge Medication List Atorvastatin [Lipitor] 40 mg PO HS 06/13/17 [History] DULoxetine HCL [Cymbalta] 60 mg PO HS 06/13/17 [History] Furosemide [Lasix] 20 mg PO DAILY 06/13/17 [History] Potassium Chloride ER [K-Dur 10] 10 meq PO DAILY 06/13/17 [History] Aspirin 81 mg PO DAILY 10/09/17 [History] Budesonide/Formoterol Fumarate [Symbicort 160-4.5 Mcg Inhaler] 2 puff INHALATION RT-BID #1 hfa.aer.ad 10/15/17 [Rx] Pantoprazole [Protonix] 40 mg PO DAILY #30 tablet. 10/15/17 [Rx] Gabapentin [Neurontin] 300 mg PO TID cap 10/29/17 [Rx] Losartan [Cozaar] 50 mg PO DAILY tab 10/29/17 [Rx] traMADol HCl [Ultram] 50 mg PO QID PRN #12 tab 10/29/17 [Rx] Carvedilol 25 mg PO BID 03/20/18 [History] Ipratropium-Albuterol Nebulize [Duoneb 0.5 mg-3 mg/3 ml Soln] 3 ml INHALATION RT -QID PRN 03/20/18 [History] amLODIPine [Norvasc] 10 mg PO DAILY 03/20/18 [History] predniSONE 10 mg PO DIRECTED #30 tab 03/26/18 [Rx] Follow up Appointment(s)/Referral(s): Sorin Xiong MD [STAFF PHYSICIAN] - 04/10/18 3:00 pm () Taina Paredes DO [Primary Care Provider] - 03/31/18 1:40 pm (Saturday) Miranda Kellogg [NON-STAFF] - 1 Week Nadine Saez MD [STAFF PHYSICIAN] - 04/16/18 9:45 am (Saturday) Ambulatory/Diagnostic Orders: Complete Blood Count w/diff [LAB.AMB] Time Frame: 3 Days, Location: None Selected Patient Instructions/Handouts: Pneumonia (DC), Chronic Lung Disease and Infection Prevention (DC) Activity/Diet/Wound Care/Special Instructions: 85% on RA at rest CM to arrange 2lnc O2 for home Discharge Disposition: HOME SELF-CARE
== END 2018-03-26 16:27 | disposition home or self-care (01) | DRG 190 ==
LOC: EC 10:28 → 3SCARD 12:47
PROVIDERS: ADMIT Hospitalist; ATTEND Hospitalist
PROC: 5A09357 Assistance with Respiratory Ventilation, Less than 24 Consecutive Hours, Continuous Positive Airway Pressure (ICD-10-PCS; principal; 2018-03-20)
DX: J44.1 Chronic obstructive pulmonary disease with (acute) exacerbation (principal); J96.22 Acute and chronic respiratory failure with hypercapnia; J96.21 Acute and chronic respiratory failure with hypoxia; J18.9 Pneumonia, unspecified organism; Z68.42 Body mass index [BMI] 45.0-49.9, adult; J44.0 Chronic obstructive pulmonary disease with (acute) lower respiratory infection; E66.01 Morbid (severe) obesity due to excess calories; I48.91 Unspecified atrial fibrillation; I11.9 Hypertensive heart disease without heart failure; E78.5 Hyperlipidemia, unspecified; F17.210 Nicotine dependence, cigarettes, uncomplicated; F32.9 Major depressive disorder, single episode, unspecified; F41.9 Anxiety disorder, unspecified; I25.10 Atherosclerotic heart disease of native coronary artery without angina pectoris; K21.9 Gastro-esophageal reflux disease without esophagitis; M19.90 Unspecified osteoarthritis, unspecified site; E05.00 Thyrotoxicosis with diffuse goiter without thyrotoxic crisis or storm; D25.9 Leiomyoma of uterus, unspecified; Z79.51 Long term (current) use of inhaled steroids; Z79.82 Long term (current) use of aspirin; Z79.899 Other long term (current) drug therapy; Z87.01 Personal history of pneumonia (recurrent); Z95.5 Presence of coronary angioplasty implant and graft; Z86.14 Personal history of Methicillin resistant Staphylococcus aureus infection; Z82.49 Family history of ischemic heart disease and other diseases of the circulatory system; Z82.5 Family history of asthma and other chronic lower respiratory diseases
CPT/HCPCS: 36415; 71045; 71046; 71275; 80048; 80053; 81001; 82550; 82553; 83036; 83735; 83880; 84484; 85025; 85379; 85610; 85652; 85730; 86140; 87040; 87070; 87205; 87502; 93005; 93306; 94640; 94660; 94760; 96365; 96375; 99285

== ENCOUNTER → 2019-05-06 | Outpatient (CLI) | payer MEDICARE ==
[2019-05-06 12:20] LABS: HCT 42.9 % (34.0-46.0); HGB 13.5 gm/dL (11.4-16.0); MCH 27.3 pg (25.0-35.0); MCHC 31.5 g/dL (31.0-37.0); MCV 86.8 fL (80.0-100.0); Mean Platelet Volume 7.9; Platelet Count 271 k/uL (150-450); RBC 4.95 m/uL (3.80-5.40); RDW 14.6 % (11.5-15.5)
[2019-05-06 12:26] LABS: African American GFR (CKD) >90 (>60 ml/min/1.73 sqM); Anion Gap 4 mmol/L; Blood Urea Nitrogen 13 mg/dL (7-17); Carbon Dioxide 35 mmol/L (22-30); Chloride 98 mmol/L (98-107); Non-African American GFR(CKD) >90 (>60 ml/min/1.73 sqM); Potassium 4.2 mmol/L (3.5-5.1); Sodium 137 mmol/L (137-145)
== END | disposition home or self-care (01) ==
LOC: LABPAT 11:57
PROVIDERS: ATTEND Internal Medicine Interventional Cardiology
DX: Z01.812 Encounter for preprocedural laboratory examination (principal); I25.10 Atherosclerotic heart disease of native coronary artery without angina pectoris
CPT/HCPCS: 36415; 80051; 82565; 84520; 85027

== ENCOUNTER 2019-05-07 11:06 | Day surgery (SDC) | payer MEDICARE ==
[2019-05-04 15:14] VITALS: BMI 46.8
[~2019-05-07 11:06] MED LIST: ALPRAZolam 0.25 MG TAB PO PRN; ALPRAZolam 0.5 MG TAB PO PRN; ASPIRIN 325 MG TAB PO ONE; ATORVASTATIN 80 MG TAB PO ONE; NITROGLYCERIN SL TABS 0.4 MG TAB SUBLINGUAL PRN; SODIUM CHLORIDE 0.9% 1,000 ML in EMPTY BAG 1 BAG IV ONE
[2019-05-07] MEDS ORDERED: SODIUM CHLORIDE 0.9% 1,000 ML IV ONE (11:42)
[2019-05-07] MEDS ORDERED: HEPARIN SODIUM 1,000 UN/ML (10ML VL) ONE (12:33)
[2019-05-07] MEDS ORDERED: VERAPAMIL 2.5 MG/ML 2 ML AMP ONE (12:33)
[2019-05-07] MEDS ORDERED: LIDOCAINE 1% INJ 10MG/ML (20 ML MDV) ONE (12:33)
[2019-05-07 12:50] LABS: Basophils % (A) 0 %; Eosinophils # (A) 0.2 k/uL (0-0.7); Eosinophils % (A) 2 %; HCT 42.4 % (34.0-46.0); HGB 13.5 gm/dL (11.4-16.0); Lymphocytes # (A) 1.7 k/uL (1.0-4.8); Lymphocytes % (A) 18 %; MCH 27.2 pg (25.0-35.0); MCHC 31.7 g/dL (31.0-37.0); MCV 85.6 fL (80.0-100.0); Mean Platelet Volume 8.4; Monocytes # (A) 0.7 k/uL (0-1.0); Monocytes % (A) 7 %; Neutrophils % (A) 71 %; Platelet Count 276 k/uL (150-450); RBC 4.96 m/uL (3.80-5.40); RDW 14.4 % (11.5-15.5); WBC 9.8 k/uL (3.8-10.6)
[2019-05-07 12:53] LABS: African American GFR (CKD) >90 (>60 ml/min/1.73 sqM); Anion Gap 4 mmol/L; Blood Urea Nitrogen 11 mg/dL (7-17); Calcium 9.2 mg/dL (8.4-10.2); Carbon Dioxide 35 mmol/L (22-30); Chloride 98 mmol/L (98-107); Glucose 103 mg/dL (74-99); Non-African American GFR(CKD) >90 (>60 ml/min/1.73 sqM); Potassium 4.7 mmol/L (3.5-5.1); Sodium 137 mmol/L (137-145)
[2019-05-07] MEDS ORDERED: LIDOCAINE 1% INJ 10MG/ML (20 ML MDV) SQ ONE (12:55)
[2019-05-07] MEDS ORDERED: MIDAZOLAM 2 MG/2 ML VIAL IV ONE (12:55)
[2019-05-07] MEDS ORDERED: IOPAMIDOL-370 125ML BTL INJ ONE (13:05)
[2019-05-07] MEDS ORDERED: RX INFO: IV CONTRAST WAS GIVEN 1 EACH MISC MISCELLANE PRN (13:13)
[2019-05-07] MEDS ORDERED: SODIUM CHLORIDE 0.9% 1,000 ML IV SCH (13:15)
--- NOTE | 2019-05-07 14:52 | CC ---
CARDIAC CATHETERIZATION REPORT DATE OF SERVICE: May 07, 2019. PERFORMING PHYSICIAN: Sorin Xiong MD. PROCEDURE PERFORMED: 1. Selective right and left coronary angiogram. 2. Left heart catheterization. INDICATION: This is a pleasant 59-year-old female patient with history of coronary artery disease and known chronic total occlusion of the RCA as well as stenting of the left circumflex as well as hypertension, dyslipidemia, was experiencing symptoms of chest discomfort with exertion. Because of that, a heart catheterization was advised. APPROACH: Right common femoral artery. COMPLICATION: None. LEVEL OF SEDATION: Moderate with sedation length of 15 minutes. After obtaining informed consent, the patient was brought to the cardiac civil laboratory technician the right radial artery. After the right common femoral artery was cannulated using micropuncture technique, the micropuncture wire passed easily then I placed a 6-Yi sheath 11 cm at the right groin. After that I did selective right and left coronary angiogram using JR4 and JL4 catheters. Left heart catheterization was performed using the JR4 catheter which crossed the aortic valve then it would do pullback across the valve. The procedure was completed without any complication. SELECTIVE CORONARY ANGIOGRAM: 1. Right coronary artery is a large caliber vessel and is a dominant vessel. The RCA is chronically occluded by the ostium. The RCA fills by collaterals from the left coronary system. The left main is angiographically normal. It bifurcates into LCX and LAD. 2. The LCX is a large caliber vessel it is a dull is a codominant. It is a nondominant vessel. The proximal circumflex appeared to be stented and the stent is patent. The mid circumflex appeared to be normal. The circumflex distally is normal and gives rise into a large OM branch which seems to be normal. 3. The LAD, the proximal LAD appeared to be angiographically normal. The mid LAD has mild disease only and the LAD distally appeared to be normal. The LAD gives rise into a diagonal branch which seems to be normal. The LAD gives extensive collateral appeared to be bridging to the distal right coronary artery. HEMODYNAMICS: The LVEDP was 20-24 mmHg without significant gradient across aortic valve. CONCLUSION: 1. Chronic total occlusion of the RCA which is known from before. 2. Patent stent in the left circumflex coronary artery. 3. Mild disease involving the LAD. 4. Elevated LVEDP. POSTPROCEDURE MANAGEMENT: 1. Medical treatment. 2. Follow up with the patient. 3. Please cc a copy to Dr. Paredes. THOR / IJN: [id number] /
[2019-05-07 19:26] VITALS: BP 135/67; RESP 18; TEMP 98.4
[2019-05-07] MEDS ORDERED: IPRATROPIUM-ALBUTEROL 3 ML NEB INHALATION PRN (20:13)
[2019-05-07 20:36] VITALS: PULSE 78
== END 2019-05-07 21:43 | disposition home or self-care (01) ==
LOC: CATHCVL 11:06 → 1SOBS 13:48 → CATHCVL 21:43
PROVIDERS: ATTEND Internal Medicine Interventional Cardiology
DX: I25.10 Atherosclerotic heart disease of native coronary artery without angina pectoris (principal); I25.82 Chronic total occlusion of coronary artery; I10 Essential (primary) hypertension; E78.5 Hyperlipidemia, unspecified; E11.9 Type 2 diabetes mellitus without complications; F17.200 Nicotine dependence, unspecified, uncomplicated; E66.01 Morbid (severe) obesity due to excess calories; I65.23 Occlusion and stenosis of bilateral carotid arteries; Z95.5 Presence of coronary angioplasty implant and graft; Z79.82 Long term (current) use of aspirin; Z79.899 Other long term (current) drug therapy; Z68.42 Body mass index [BMI] 45.0-49.9, adult; Z82.49 Family history of ischemic heart disease and other diseases of the circulatory system
CPT/HCPCS: 94640; 93458; 80048; 85025; C1769 ×2; C1894; J2250; J2001; Q9967

== ENCOUNTER 2022-08-05 12:37 | Emergency (ER) | payer MEDICARE ==
[2022-08-05 12:42] VITALS: TEMP 98.5
[2022-08-05] MEDS ORDERED: methylPREDNISolone SOD SUCCI 125 MG/2 ML VIAL IV STA (12:56)
--- NOTE | 2022-08-05 13:06 | ED ---
SOB HPI - General Chief Complaint: Shortness of Breath Stated Complaint: WEAKNESS Time Seen by Provider: 08/05/22 12:37 Source: patient, EMS, RN notes reviewed Mode of arrival: EMS Limitations: no limitations - History of Present Illness Initial Comments: 62-year-old female with a history of multiple medical problems including COPD and a former smoker who apparently quit smoking last year and started smoking a cigarette today when he started getting very short of breath and coughing he could not get her breath. He did not seem to resolve after using her inhaler multiple times. She was brought in by EMS. She states she is feeling improved at this time this has happened in the past she currently states she does Vape. No fevers chills nausea vomiting sweats she is on chronic O2. MD Complaint: shortness of breath - Related Data Home Medications Medication Instructions Recorded Confirmed Atorvastatin [Lipitor] 40 mg PO HS 06/13/17 07/06/21 Potassium Chloride ER [K-Dur 10] 10 meq PO DAILY 06/13/17 07/06/21 Aspirin 81 mg PO DAILY 10/09/17 07/06/21 Ipratropium-Albuterol Nebulize 3 ml INHALATION RT-QID PRN 03/20/18 07/06/21 [Duoneb 0.5 mg-3 mg/3 ml Soln] carvediloL 25 mg PO DAILY 03/20/18 07/06/21 D-Methorphan/PE/Acetaminophen 2 cap PO Q4H PRN 07/06/21 07/06/21 [Vicks Dayquil Liquicaps] Dm/Acetaminophen/Doxylamine [Vicks 2 cap PO Q4H PRN 07/06/21 07/06/21 Nyquil Liquicaps] Losartan [Cozaar] 25 mg PO HS 07/06/21 07/06/21 carvediloL 12.5 mg PO HS 07/06/21 07/06/21 Previous Rx's Medication Instructions Recorded Budesonide-Formot 160-4.5 Mcg 2 puff INHALATION BID 30 Days #1 07/11/21 [Symbicort 160-4.5 Mcg Inhaler] dispenser Budesonide-Formot 160-4.5 Mcg 2 puff INHALATION RT-BID gm 07/11/21 [Symbicort 160-4.5 Mcg Inhaler] Budesonide/Formoterol Fumarate 1 puff INHALATION BID #10.2 gm 07/11/21 [Symbicort 160-4.5 Mcg Inhaler] Furosemide [Lasix] 40 mg PO DAILY #30 tablet 07/11/21 predniSONE 0 mg PO DIRECTED 16 Days #40 tab 07/11/21 Allergies Allergy/AdvReac Type Severity Reaction Status Date / Time hydrocodone [From Vicodin] AdvReac Nausea Verified 08/05/22 12:39 Review of Systems ROS Statement: Those systems with pertinent positive or pertinent negative responses have been documented in the HPI. ROS Other: All systems not noted in ROS Statement are negative. Past Medical History Past Medical History: Atrial Fibrillation, Coronary Artery Disease (CAD), Heart Failure, COPD, Fibromyalgia, GERD/Reflux, GI Bleed, Hearing Disorder / Deafness, Hyperlipidemia, Hypertension, Myocardial Infarction (DC), Osteoarthritis (OA), Pneumonia, Skin Disorder Additional Past Medical History / Comment(s): Afib/RVR, DC x2, uterine fibroids, low back pain, Lumbar/Sacral epidural abscess-MRSA and bacteremia-MRSA 10/22/17- pt was septic, anemia, UTIs, lower GI bleed, hx poss Graves disease. Poss Eczema/Psoriasis on hands. Occ discomfort lt arm, neck w/ chest heaviness. CHF. Last Myocardial Infarction Date:: 07/2014 History of Any Multi-Drug Resistant Organisms: MRSA Date of last positivie culture/infection: 10/22/17 MDRO Source:: Blood and Back Past Surgical History: Adenoidectomy, Section, Heart Catheterization With Stent, Tonsillectomy Additional Past Surgical History / Comment(s): L4-L5 laminectomy/decompression with removal epidural abscess, PICC line-now out, x 4, EGD/colonoscopy, PCI with 2 stents in [place]. Past Anesthesia/Blood Transfusion Reactions: No Reported Reaction Additional Past Anesthesia/Blood Transfusion Reaction / Comment(s): (Pt has received blood in past without reaction) Date of Last Stent Placement:: 2014 Past Psychological History: Anxiety, Depression Smoking Status: Current every day smoker - Past Family History Mother Family Medical History: COPD Additional Family Medical History / Comment(s): emphysema. Mother at the age of 74 yrs. Father Family Medical History: Congestive Heart Failure (CHF) Additional Family Medical History / Comment(s): Father at the age of 84 yrs. General Exam - General Exam Comments Initial Comments: This a well-developed well-nourished awake alert oriented 4 female Limitations: no limitations General appearance: alert, in no apparent distress Head exam: Present: atraumatic, normocephalic, normal inspection Eye exam: Present: normal appearance, PERRL, EOMI. Absent: scleral icterus, conjunctival injection, periorbital swelling ENT exam: Present: normal exam, mucous membranes moist Neck exam: Present: normal inspection. Absent: tenderness, meningismus, lymphadenopathy Respiratory exam: Present: decreased breath sounds. Absent: respiratory distress, wheezes, rales, rhonchi, stridor Cardiovascular Exam: Present: regular rate, normal rhythm, normal heart sounds. Absent: systolic murmur, diastolic murmur, rubs, gallop, clicks GI/Abdominal exam: Present: soft, normal bowel sounds, other (Obese abdomen). Absent: distended, tenderness, guarding, rebound, rigid, bruit, pulsatile mass Extremities exam: Present: normal inspection, full ROM, normal capillary refill. Absent: tenderness, pedal edema, joint swelling, calf tenderness Back exam: Present: normal inspection Neurological exam: Present: alert, oriented X3, CN II-XII intact Psychiatric exam: Present: normal affect, normal mood Skin exam: Present: warm, dry, intact, normal color. Absent: rash Course Vital Signs 08/05/22 08/05/22 12:39 13:38 Temperature 98.5 F Pulse Rate 76 70 Respiratory 16 18 Rate Blood Pressure 118/72 151/77 O2 Sat by Pulse 95 96 Oximetry Procedures - Smoking Cessation Time Spent Discussing Smoking Cessation w/Patient (Minutes): 3 Patient Acknowledges Need for Cessation: Yes Medical Decision Making - Medical Decision Making I did reevaluate patient several occasions she is showing much improved no new symptoms. We did discuss stopping smoking and Vaping. He will follow-up with her doctor.Was pt. sent in by a medical professional or institution (, PA, [employer], urgent care, hospital, or usp...) When possible be specific @ -No Did you speak to anyone other than the patient for history (EMS, parent, family, police, friend...)? What history was obtained from this source @ -No Did you review nursing and triage notes (agree or disagree)? Why? @ -I reviewed and agree with nursing and triage notes Were old charts reviewed (outside hosp., previous admission, EMS record, old EKG, old radiological studies, urgent care reports/EKG's, usp records)? Report findings @ -Previous encounter old charts were reviewed Differential Diagnosis (chest pain, altered mental status, abdominal pain women, abdominal pain men, vaginal bleeding, weakness, fever, dyspnea, syncope, headache, dizziness, GI bleed, back pain, seizure, CVA, palpatations, mental health, musculoskeletal)? @ -Dyspnea EKG interpreted by me (3pts min.). @ -As above , sinus rhythm no evidence of acute processes X-rays interpreted by me (1pt min.). @ -As above no acute processes CT interpreted by me (1pt min.). @ -None done U/S interpreted by me (1pt. min.). @ -None done What testing was considered but not performed or refused? (CT, X-rays, U/S, labs)? Why? @ -None What meds were considered but not given or refused? Why? @ -None Did you discuss the management of the patient with other professionals (professionals i.e. , PA, [employer], lab, RT, psych nurse, nursing home social worker, rail car welder, teacher, radio division officer, case liner)? Give summary @ -No Was smoking cessation discussed for >3mins.? @ -Yes Was critical care preformed (if so, how long)? @ -No Were there social determinants of health that impacted care today? How? (Homelessness, low income, unemployed, alcoholism, drug addiction, transportation, low edu. Level, literacy, decrease access to med. care, half-way, rehab)? @ -No Was there de-escalation of care discussed even if they declined (Discuss DNR or withdrawal of care, Hospice)? DNR status @ -No What co-morbidities impacted this encounter? (DM, HTN, Smoking, COPD, CAD, Cancer, CVA, ARF, Chemo, Hep., AIDS, mental health diagnosis, sleep apnea, morbid obesity)? @ -COPD, coronary artery disease, history of A. fib, hypertension] Was patient admitted / discharged? Hospital course, mention meds given and route, prescriptions, significant lab abnormalities, going to OR and other pertinent info. @ -Patient no further symptoms and was satisfactory for discharge. She will follow-up with her family doctor Undiagnosed new problem with uncertain prognosis? @ -No Drug Therapy requiring intensive monitoring for toxicity (Heparin, Nitro, Insuli n, Cardizem)? @ -No Were any procedures done? @ -No Diagnosis/symptom? @ -COPD exacerbation, acute bronchospasm Acute, or Chronic, or Acute on Chronic? @ -Acute on chronic Uncomplicated (without systemic symptoms) or Complicated (systemic symptoms)? @ -default Side effects of treatment? @ -No Exacerbation, Progression, or Severe Exacerbation? @ -Exacerbation Poses a threat to life or bodily function? How? (Chest pain, USA, DC, pneumonia, PE, COPD, DKA, ARF, appy, cholecystitis, CVA, Diverticulitis, Homicidal, Suicidal, threat to staff... and all critical care pts) @ -COPD - Lab Data Result diagrams: 08/05/22 13:08 08/05/22 13:08 Lab Results 08/05/22 08/05/22 08/05/22 Range/Units 13:08 13:08 13:08 WBC 12.2 H (3.8-10.6) k/uL RBC 4.27 (3.80-5.40) m/uL Hgb 12.4 (11.4-16.0) gm/dL Hct 38.3 (34.0-46.0) % MCV 89.5 (80.0-100.0) fL MCH 29.0 (25.0-35.0) pg MCHC 32.4 (31.0-37.0) g/dL RDW 14.0 (11.5-15.5) % Plt Count 237 (150-450) k/uL MPV 8.0 Neutrophils % 81 % Lymphocytes % 10 % Monocytes % 5 % Eosinophils % 3 % Basophils % 0 % Neutrophils # 9.8 H (1.3-7.7) k/uL Lymphocytes # 1.2 (1.0-4.8) k/uL Monocytes # 0.6 (0-1.0) k/uL Eosinophils # 0.4 (0-0.7) k/uL Basophils # 0.0 (0-0.2) k/uL PT 9.6 (9.0-12.0) sec INR 0.9 (<1.2) APTT 22.1 (22.0-30.0) sec Sodium 138 (137-145) mmol/L Potassium 4.5 (3.5-5.1) mmol/L Chloride 97 L (98-107) mmol/L Carbon Dioxide 36 H (22-30) mmol/L Anion Gap 5 mmol/L BUN 15 (7-17) mg/dL Creatinine 0.53 (0.52-1.04) mg/dL Est GFR (CKD-EPI)AfAm >90 (>60 ml/min/1.73 sqM) Est GFR (CKD-EPI)NonAf >90 (>60 ml/min/1.73 sqM) Glucose 110 H (74-99) mg/dL Plasma Lactic Acid Daniel (0.7-2.0) mmol/L Calcium 8.9 (8.4-10.2) mg/dL Magnesium 1.7 (1.6-2.3) mg/dL Total Bilirubin 0.5 (0.2-1.3) mg/dL AST 24 (14-36) U/L ALT 24 (4-34) U/L Alkaline Phosphatase 66 (38-126) U/L Troponin I (0.000-0.034) ng/mL NT-Pro-B Natriuret Pep pg/mL Total Protein 6.3 (6.3-8.2) g/dL Albumin 3.6 (3.5-5.0) g/dL 08/05/22 08/05/22 08/05/22 Range/Units 13:08 13:08 13:08 WBC (3.8-10.6) k/uL RBC (3.80-5.40) m/uL Hgb (11.4-16.0) gm/dL Hct (34.0-46.0) % MCV (80.0-100.0) fL MCH (25.0-35.0) pg MCHC (31.0-37.0) g/dL RDW (11.5-15.5) % Plt Count (150-450) k/uL MPV Neutrophils % % Lymphocytes % % Monocytes % % Eosinophils % % Basophils % % Neutrophils # (1.3-7.7) k/uL Lymphocytes # (1.0-4.8) k/uL Monocytes # (0-1.0) k/uL Eosinophils # (0-0.7) k/uL Basophils # (0-0.2) k/uL PT (9.0-12.0) sec INR (<1.2) APTT (22.0-30.0) sec Sodium (137-145) mmol/L Potassium (3.5-5.1) mmol/L Chloride (98-107) mmol/L Carbon Dioxide (22-30) mmol/L Anion Gap mmol/L BUN (7-17) mg/dL Creatinine (0.52-1.04) mg/dL Est GFR (CKD-EPI)AfAm (>60 ml/min/1.73 sqM) Est GFR (CKD-EPI)NonAf (>60 ml/min/1.73 sqM) Glucose (74-99) mg/dL Plasma Lactic Acid Daniel 1.2 (0.7-2.0) mmol/L Calcium (8.4-10.2) mg/dL Magnesium (1.6-2.3) mg/dL Total Bilirubin (0.2-1.3) mg/dL AST (14-36) U/L ALT (4-34) U/L Alkaline Phosphatase (38-126) U/L Troponin I <0.012 (0.000-0.034) ng/mL NT-Pro-B Natriuret Pep 138 pg/mL Total Protein (6.3-8.2) g/dL Albumin (3.5-5.0) g/dL - EKG Data -: EKG Interpreted by Me EKG Comments: EKG interpreted by me and completion normal sinus rhythm a 68 appear interval 200 QRS duration 105 QT since QTC of/425 old inferior changes no acute ST-T wave changes seen - Radiology Data Interpreted by me: I did interpret the imaging no acute processes seen. Disposition Clinical Impression: Acute exacerbation of chronic obstructive pulmonary disease, Bronchospasm, acute, Smoking Disposition: HOME SELF-CARE Condition: Good Instructions (If sedation given, give patient instructions): Bronchospasm (ED), COPD (Chronic Obstructive Pulmonary Disease) (ED), How to Stop Smoking (ED) Is patient prescribed a controlled substance at d/c from ED?: No Referrals: Taina Paredes DO [Primary Care Provider] - 1-2 days Decision Date: 08/05/22 Decision Time: 14:33
[2022-08-05 13:16] LABS: Basophils % (A) 0 %; Eosinophils # (A) 0.4 k/uL (0-0.7); Eosinophils % (A) 3 %; HCT 38.3 % (34.0-46.0); HGB 12.4 gm/dL (11.4-16.0); Lymphocytes # (A) 1.2 k/uL (1.0-4.8); Lymphocytes % (A) 10 %; MCHC 32.4 g/dL (31.0-37.0); MCV 89.5 fL (80.0-100.0); Monocytes # (A) 0.6 k/uL (0-1.0); Monocytes % (A) 5 %; Neutrophils # (A) 9.8 k/uL (1.3-7.7); Neutrophils % (A) 81 %; Platelet Count 237 k/uL (150-450); RBC 4.27 m/uL (3.80-5.40); WBC 12.2 k/uL (3.8-10.6)
[2022-08-05 13:25] LABS: INR 0.9 (<1.2); Partial Thromboplastin Time 22.1 sec (22.0-30.0); Prothrombin Time 9.6 sec (9.0-12.0)
[2022-08-05 13:32] LABS: ALT 24 U/L (4-34); AST 24 U/L (14-36); African American GFR (CKD) >90 (>60 ml/min/1.73 sqM); Albumin 3.6 g/dL (3.5-5.0); Alkaline Phosphatase 66 U/L (38-126); Blood Urea Nitrogen 15 mg/dL (7-17); Calcium 8.9 mg/dL (8.4-10.2); Chloride 97 mmol/L (98-107); Glucose 110 mg/dL (74-99); Magnesium 1.7 mg/dL (1.6-2.3); Non-African American GFR(CKD) >90 (>60 ml/min/1.73 sqM); Potassium 4.5 mmol/L (3.5-5.1); Sodium 138 mmol/L (137-145); Total Bilirubin 0.5 mg/dL (0.2-1.3); Total Protein 6.3 g/dL (6.3-8.2)
[2022-08-05 13:39] LABS: Anion Gap 5 mmol/L; Carbon Dioxide 36 mmol/L (22-30)
--- NOTE | 2022-08-05 13:53 | XR ---
EXAMINATION TYPE: XR chest 2V DATE OF EXAM: 08/05/2022 COMPARISON: 07/09/2021 HISTORY: Shortness of breath TECHNIQUE: Frontal and lateral views of the chest are obtained. FINDINGS: Scattered senescent parenchymal changes noted. Hyperinflation compatible with COPD. No evidence for infiltrate. No evidence for atelectasis. Heart size is stable. Mediastinal structures are stable and grossly unremarkable. No evidence for hilar prominence. Degenerative changes dorsal spine. IMPRESSION: 1. No evidence for acute pulmonary disease.
[2022-08-05 14:56] VITALS: BP 121/51; RESP 20
[2022-08-05] MEDS ORDERED: IPRATROPIUM-ALBUTEROL 3 ML NEB INHALATION STA (15:08)
--- NOTE | 2022-08-05 15:30 | ED ---
Medical Decision Making - Lab Data Result diagrams: 08/05/22 13:08 08/05/22 13:08 Lab Results 08/05/22 08/05/22 08/05/22 Range/Units 13:08 13:08 13:08 WBC 12.2 H (3.8-10.6) k/uL RBC 4.27 (3.80-5.40) m/uL Hgb 12.4 (11.4-16.0) gm/dL Hct 38.3 (34.0-46.0) % MCV 89.5 (80.0-100.0) fL MCH 29.0 (25.0-35.0) pg MCHC 32.4 (31.0-37.0) g/dL RDW 14.0 (11.5-15.5) % Plt Count 237 (150-450) k/uL MPV 8.0 Neutrophils % 81 % Lymphocytes % 10 % Monocytes % 5 % Eosinophils % 3 % Basophils % 0 % Neutrophils # 9.8 H (1.3-7.7) k/uL Lymphocytes # 1.2 (1.0-4.8) k/uL Monocytes # 0.6 (0-1.0) k/uL Eosinophils # 0.4 (0-0.7) k/uL Basophils # 0.0 (0-0.2) k/uL PT 9.6 (9.0-12.0) sec INR 0.9 (<1.2) APTT 22.1 (22.0-30.0) sec Sodium 138 (137-145) mmol/L Potassium 4.5 (3.5-5.1) mmol/L Chloride 97 L (98-107) mmol/L Carbon Dioxide 36 H (22-30) mmol/L Anion Gap 5 mmol/L BUN 15 (7-17) mg/dL Creatinine 0.53 (0.52-1.04) mg/dL Est GFR (CKD-EPI)AfAm >90 (>60 ml/min/1.73 sqM) Est GFR (CKD-EPI)NonAf >90 (>60 ml/min/1.73 sqM) Glucose 110 H (74-99) mg/dL Plasma Lactic Acid Daniel (0.7-2.0) mmol/L Calcium 8.9 (8.4-10.2) mg/dL Magnesium 1.7 (1.6-2.3) mg/dL Total Bilirubin 0.5 (0.2-1.3) mg/dL AST 24 (14-36) U/L ALT 24 (4-34) U/L Alkaline Phosphatase 66 (38-126) U/L Troponin I (0.000-0.034) ng/mL NT-Pro-B Natriuret Pep pg/mL Total Protein 6.3 (6.3-8.2) g/dL Albumin 3.6 (3.5-5.0) g/dL 08/05/22 08/05/22 08/05/22 Range/Units 13:08 13:08 13:08 WBC (3.8-10.6) k/uL RBC (3.80-5.40) m/uL Hgb (11.4-16.0) gm/dL Hct (34.0-46.0) % MCV (80.0-100.0) fL MCH (25.0-35.0) pg MCHC (31.0-37.0) g/dL RDW (11.5-15.5) % Plt Count (150-450) k/uL MPV Neutrophils % % Lymphocytes % % Monocytes % % Eosinophils % % Basophils % % Neutrophils # (1.3-7.7) k/uL Lymphocytes # (1.0-4.8) k/uL Monocytes # (0-1.0) k/uL Eosinophils # (0-0.7) k/uL Basophils # (0-0.2) k/uL PT (9.0-12.0) sec INR (<1.2) APTT (22.0-30.0) sec Sodium (137-145) mmol/L Potassium (3.5-5.1) mmol/L Chloride (98-107) mmol/L Carbon Dioxide (22-30) mmol/L Anion Gap mmol/L BUN (7-17) mg/dL Creatinine (0.52-1.04) mg/dL Est GFR (CKD-EPI)AfAm (>60 ml/min/1.73 sqM) Est GFR (CKD-EPI)NonAf (>60 ml/min/1.73 sqM) Glucose (74-99) mg/dL Plasma Lactic Acid Daniel 1.2 (0.7-2.0) mmol/L Calcium (8.4-10.2) mg/dL Magnesium (1.6-2.3) mg/dL Total Bilirubin (0.2-1.3) mg/dL AST (14-36) U/L ALT (4-34) U/L Alkaline Phosphatase (38-126) U/L Troponin I <0.012 (0.000-0.034) ng/mL NT-Pro-B Natriuret Pep 138 pg/mL Total Protein (6.3-8.2) g/dL Albumin (3.5-5.0) g/dL Disposition Clinical Impression: Acute exacerbation of chronic obstructive pulmonary disease, Bronchospasm, acute, Smoking Disposition: HOME SELF-CARE Condition: Good Instructions (If sedation given, give patient instructions): How to Stop Smoking (ED), COPD (Chronic Obstructive Pulmonary Disease) (ED), Bronchospasm (ED) Prescriptions: predniSONE [Deltasone] 20 mg PO BID #10 tab Is patient prescribed a controlled substance at d/c from ED?: No Referrals: Taina Paredes DO [Primary Care Provider] - 1-2 days Decision Date: 08/05/22 Decision Time: 15:29
[2022-08-05 15:35] VITALS: PULSE 82
== END 2022-08-05 17:03 | disposition home or self-care (01) ==
LOC: EC 12:37
DX: J44.1 Chronic obstructive pulmonary disease with (acute) exacerbation (principal); J98.01 Acute bronchospasm; F17.200 Nicotine dependence, unspecified, uncomplicated; I48.91 Unspecified atrial fibrillation; I11.0 Hypertensive heart disease with heart failure; I50.9 Heart failure, unspecified; I25.10 Atherosclerotic heart disease of native coronary artery without angina pectoris; I25.2 Old myocardial infarction; E78.5 Hyperlipidemia, unspecified; M19.90 Unspecified osteoarthritis, unspecified site; K21.9 Gastro-esophageal reflux disease without esophagitis; F41.9 Anxiety disorder, unspecified; F32.A Depression, unspecified; Z88.5 Allergy status to narcotic agent; Z79.899 Other long term (current) drug therapy; Z79.82 Long term (current) use of aspirin
CPT/HCPCS: 36415; 94640; 93005; 83880; 80053; 83605; 83735; 84484; 85025; 85610; 85730; 71046; 99285; 96374; J2930